=== PATIENT | female | born 1965 | race Caucasian/White ===

== ENCOUNTER 2017-02-21 22:43 | Inpatient (IN) | payer OTHER ==
[~2017-02-21] VITALS: Ht 154.9 cm; Wt 73.0 kg
[~2017-02-21 22:43] MED LIST: ACET1TAB40 PO; AMLO-145 PO; ATOR20TA38 PO; BACTDS PO; FOLI-49 PO; KEN1O TOP; LACT20SO2 PO; LANT3I SC; LORA1TAB PO; METF1000 PO; NOVO3I SC; PALI6TAB6 PO; TRAM50TA2 PO
[2017-02-22] MEDS ORDERED: SOD CHLORIDE 0.9% 500 ML IV STA (01:19)
--- NOTE | 2017-02-22 01:43 | RADRPT ---
PROCEDURE: CHEST - 1 VIEW CLINICAL INDICATION: 51-year-old female with altered mental status. TECHNIQUE: A single frontal AP upright portable view of the chest was performed. The images were reviewed on a PACS workstation. COMPARISON: Chest x-ray April 01, 2016 FINDINGS: The cardiomediastinal silhouette is within normal limits without significant interval change. There is a shallow inspiration. There is minimal bibasilar subsegmental atelectasis. There is no eviden ce for an infiltrate. There is no evidence for congestive heart failure. There is no evidence for p neumothorax. The osseous structures are intact. IMPRESSION: Shallow inspiration with minimal bibasilar subsegmental atelectasis. .El Vanegas MD, MD Date Time Electronically viewed and signed by .El Vanegas MD, on 02/22/2017 01:42 .M/
[2017-02-22 01:57] LABS: ADD SCAN DIFF NO
[2017-02-22 02:00] LABS: ABNORMAL IP MESSAGE 1; BASOPHILS % 0.2 % (0.0-2.0); EOSINOPHILS % 0.5 % (0.0-7.0); HEMATOCRIT 30.4 % (37.0-47.0); HEMOGLOBIN 9.7 g/dl (12.0-16.0); LYMPHOCYTES # 0.7 10^3/ul (0.8-2.9); LYMPHOCYTES % 15.6 % (15.0-51.0); MEAN CORPUSCULAR HEMOGLOBIN 28.8 pg (29.0-33.0); MEAN CORPUSCULAR HGB CONC 31.9 g/dl (32.0-37.0); MEAN CORPUSCULAR VOLUME 90.2 fl (82.0-101.0); MEAN PLATELET VOLUME 12.2 fl (7.4-10.4); MONOCYTE # 0.4 10^3/ul (0.3-0.9); MONOCYTES % 9.6 % (0.0-11.0); NEUTROPHIL # 3.2 10^3/ul (1.6-7.5); NEUTROPHILS % 73.6 % (39.0-77.0); PLATELET COUNT 52 10^3/UL (140-415); RED BLOOD COUNT 3.37 10^6/ul (4.20-5.40); RED CELL DISTRIBUTION WIDTH 15.9 % (11.5-14.5); WHITE BLOOD COUNT 4.4 10^3/ul (4.8-10.8)
[2017-02-22 02:22] LABS: ALANINE AMINOTRANSFERASE 42 IU/L (13-69); ALBUMIN 4.2 g/dl (3.3-4.9); ALBUMIN/GLOBULIN RATIO 1.55; ALKALINE PHOSPHATASE 109 IU/L (42-121); ANION GAP 14 (8-16); ASPARTATE AMINO TRANSFERASE 34 IU/L (15-46); BLOOD UREA NITROGEN 18 mg/dl (7-20); CALCIUM 9.5 mg/dl (8.4-10.2); CARBON DIOXIDE 20 mmol/L (21-31); CHLORIDE 113 mmol/L (97-110); CREATININE 0.69 mg/dl (0.44-1.00); GLUCOSE 205 mg/dl (70-220); SODIUM 143 mmol/L (135-144); TOTAL PROTEIN 6.9 g/dl (6.1-8.1)
[2017-02-22 02:23] LABS: ACETAMINOPHEN < 10.0 ug/ml (10.0-30.0); ETHANOL < 10.0 mg/dl; SALICYLATE < 1.0 mg/dl (5.0-30.0)
[2017-02-22] MEDS: morphine 2 MG INJ IV PRN ×2 (02:23→07:44)
[2017-02-22 02:33] LABS: TROPONIN-I 0.012 ng/ml (0.00-0.12)
--- NOTE | 2017-02-22 03:37 | ERA ---
ER Documentation Chief Complaint Date/Time DATE: 02/22/17 TIME: 03:35 Chief Complaint ALOC since today, hx of cirrhosis HPI This is a 51-year-old female comes on dialysis since today. Patient has history of hepatic encephalopathy. Profound to become more altered today. No fevers no chills. No other current issues. ROS All systems reviewed and are negative except as per history of present illness. Medications Home Meds Active Scripts Lactulose* (Lactulose*) 20 Gm/30 Ml Solution, 20 GM PO BID, #120 ML Prov:AGA ALTMAN NP 05/28/16 Tramadol HCl (Tramadol HCl) 50 Mg Tablet, 50 MG PO Q12 Y for PAIN, #20 TAB Prov:AGA ALTMAN NP 05/28/16 Acetaminophen-Codeine* (Acetaminophen-Cod #3*) 300-30 Mg Tab, 1 TAB PO Q4H Y for PAIN, #12 TAB Prov:CUONG SEGURA MD 04/01/16 Sulfamethoxazole-Trimethoprim* (Bactrim* DS) 800-160 Mg Tab, 1 TAB PO BID, #14 TAB Prov:ADRIANE HUTSON MD 11/11/15 Triamcinolone Acetonide* (Kenalog*) 0.1%-15GM Oint, 1 APPLIC TOP TID, #1 EA Prov:ADRIANE HUTSON MD 11/11/15 Insulin Aspart* (Novolog Insulin Pen*) 100 Unit/Ml Soln, 3 UNIT SC WITH MEALS for 30 Days Prov:DEMETRIA ZAVALA 11/01/15 Insulin Glargine* (Lantus*) 100 Unit/Ml Soln, 10 UNIT SC QHS, #30 Prov:DEMETRIA ZAVALA 11/01/15 Reported Medications Paliperidone (Paliperidone ER) 6 Mg Tab.er.24, 6 MG PO, TAB 10/31/15 Amlodipine Besylate* (Amlodipine Besylate*) 5 Mg Tablet, 5 MG PO DAILY, #30 TAB 10/31/15 Folic Acid* (Folic Acid*) 1 Mg Tablet, 1 MG PO DAILY, TAB 10/31/15 Metformin Hcl* (Metformin Hcl*) 1,000 Mg Tablet, 1000 MG PO AC BREAKFAST LUNCH, #30 TAB 10/31/15 Lorazepam* (Lorazepam*) 1 Mg Tablet, 2 MG PO HS Y for ANXIETY, #30 TAB 10/31/15 Atorvastatin Calcium* (Atorvastatin Calcium*) 20 Mg Tablet, 20 MG PO QHS, #30 TAB 10/31/15 Allergies Allergies: Coded Allergies: diphenhydramine HCl (Verified Allergy, Unknown, "MAKES ME CRAZY", 10/30/15) PMhx/Soc History of Surgery: No ( x 1) Anesthesia Reaction: No Hx Neurological Disorder: Yes Hx Respiratory Disorders: No Hx Cardiac Disorders: Yes (hypertension) Hx Psychiatric Problems: Yes (bipolar,post traumatic stress syndrome) Hx Miscellaneous Medical Probl: Yes (liver cirrhosis) Hx Alcohol Use: Yes (stop 2 yrs ago) Hx Substance Use: No Hx Tobacco Use: Yes (stop 2 yrs ago) Smoking Status: Former smoker Physical Exam Vitals Vital Signs Date Time Temp Pulse Resp B/P Pulse Ox O2 Delivery O2 Flow Rate FiO2 02/22/17 01:53 98.4 99 20 172/92 98 Room Air 02/22/17 01:42 Nasal Cannula 2 02/21/17 23:09 100.3 119 20 177/86 98 Physical Exam Const: [] Head: Atraumatic Eyes: Normal Conjunctiva ENT: Normal External Ears, Nose and Mouth. Neck: Full range of motion..~ No meningismus. Resp: Clear to auscultation bilaterally Cardio: Regular rate and rhythm, no murmurs Abd: Soft, non tender, non distended. Normal bowel sounds Skin: No petechiae or rashes Back: No midline or flank tenderness Ext: No cyanosis, or edema Neur: Awake and alert Psych: Normal Mood and Affect Result Diagram: 02/22/1712902/22/17 013 Results 24 hrs Laboratory Tests Test 02/22/17 01:30 White Blood Count 4.410^3/ul Red Blood Count 3.3710^6/ul Hemoglobin 9.7g/dl Hematocrit 30.4% Mean Corpuscular Volume 90.2fl Mean Corpuscular Hemoglobin 28.8pg Mean Corpuscular Hemoglobin Concent 31.9g/dl Red Cell Distribution Width 15.9% Platelet Count 5210^3/UL Mean Platelet Volume 12.2fl Neutrophils % 73.6% Lymphocytes % 15.6% Monocytes % 9.6% Eosinophils % 0.5% Basophils % 0.2% Nucleated Red Blood Cells % 0.0/100WBC Neutrophils # 3.210^3/ul Lymphocytes # 0.710^3/ul Monocytes # 0.410^3/ul Eosinophils # 0.010^3/ul Basophils # 0.010^3/ul Nucleated Red Blood Cells # 0.010^3/ul Sodium Level 143mmol/L Potassium Level 4.0mmol/L Chloride Level 113mmol/L Carbon Dioxide Level 20mmol/L Anion Gap 14 Blood Urea Nitrogen 18mg/dl Creatinine 0.69mg/dl Glucose Level 205mg/dl Calcium Level 9.5mg/dl Total Bilirubin 1.0mg/dl Direct Bilirubin 0.00mg/dl Indirect Bilirubin 1.0mg/dl Aspartate Amino Transf (AST/SGOT) 34IU/L Alanine Aminotransferase (ALT/SGPT) 42IU/L Alkaline Phosphatase 109IU/L Ammonia 97umol/l Troponin I 0.012ng/ml Total Protein 6.9g/dl Albumin 4.2g/dl Globulin 2.70g/dl Albumin/Globulin Ratio 1.55 Salicylates Level < 1.0mg/dl Acetaminophen Level < 10.0ug/ml Ethyl Alcohol Level < 10.0mg/dl Current Medications Medications (Trade) Dose Ordered Sig/Donnell Route PRN Reason Start Time Stop Time Status Last Admin Dose Admin Sodium Chloride (NS) 500 ml @ 500 mls/hr Q1H STAT IV 02/22/17 01:19 02/22/17 02:18 DC 02/22/17 01:37 Morphine Sulfate (morphine) 2 mg Q4 PRN IV PAIN LEVEL 8-10 02/22/17 02:30 02/22/17 02:23 Procedures/MDM Medical decision-making: Patient has what looks to be acute hepatic encephalopathy. Patient will be admitted to hospitalist on-call for EKG: Rate/Rhythm: Normal Sinus Rhythm QRS, ST, T-waves: No changes consistent w/ acute ischemia Impression: No evidence of ischemia or arrhythmia Chest X-ray 1V Interpreted by me: Soft Tissue: No acute abnormalities Bones: No acute abnormalities Mediastinum/Cardiac Silhouette/Lungs: [No acute abnormalities] Departure Diagnosis: Primary Impression: Altered level of consciousness Additional Impressions: Altered mental status Qualified Code: R41.82 - Altered mental status, unspecified altered mental status type Noncompliance with medication regimen Hepatic encephalopathy Condition: Serious KAELYN QUINTANILLA Feb 22, 2017 03:37
[2017-02-22 03:48] LABS: PLATELET ESTIMATE PLT APPEAR DECREASED
[2017-02-22 03:59] LABS: ADD UMIC YES; UR ASCORBIC ACID NEGATIVE (NEGATIVE); UR BILIRUBIN (Dip) NEGATIVE (NEGATIVE); UR BLOOD (Dip) NEGATIVE (NEGATIVE); UR CLARITY CLEAR (CLEAR); UR COLOR YELLOW (YELLOW); UR GLUCOSE (Dip) 1+ mg/dL (NEGATIVE); UR KETONES (Dip) 1+ mg/dL (NEGATIVE); UR LEUKOCYTE ESTERASE (Dip) TRACE Leu/ul (NEGATIVE); UR NITRITE (Dip) NEGATIVE (NEGATIVE); UR RBC 0 /HPF (0-5); UR TOTAL PROTEIN (Dip) 1+ mg/dl (NEGATIVE); UR UROBILINOGEN (Dip) NEGATIVE (NEGATIVE)
[2017-02-22 04:10] LABS: BARBITURATES Negative (NEGATIVE); BENZODIAZEPINES Negative (NEGATIVE); CANNABINOIDS Negative (NEGATIVE); COCAINE Negative (NEGATIVE); OPIATES Positive (NEGATIVE)
[2017-02-22] MEDS: LACTULOSE 30ML CUP PO SCH ×4 (04:13→23:30)
[2017-02-22 08:37] VITALS: TEMP 98.7
[2017-02-22] MEDS ORDERED: INSU100C SQ (10:12)
[2017-02-22] MEDS ORDERED: BENA20TA48 PO (10:13)
[2017-02-22] MEDS ORDERED: AMLO-147 PO (10:13)
[2017-02-22] MEDS ORDERED: GABA300C16 PO (10:14)
[2017-02-22] MEDS ORDERED: LANT3I SC (10:15)
[2017-02-22] MEDS ORDERED: METF1000 PO (10:16)
[2017-02-22 10:59] VITALS: Ht 154.9 cm; Wt 73.0 kg
[2017-02-22 11:08] VITALS: BP 177/80; PULSE 102; RESP 18
[2017-02-22] MEDS: GABAPENTIN 300 MG CAP PO SCH ×2 (12:58→20:32)
[2017-02-22] MEDS: FOLIC ACID 1 MG TAB PO SCH (12:59)
[2017-02-22] MEDS ORDERED: GLUCOSE GEL 15 GRAM TUBE PO PRN ×2 (13:00)
[2017-02-22] MEDS ORDERED: GLUCAGON 1 MG INJ IM PRN (13:00)
[2017-02-22] MEDS ORDERED: DEXTROSE 50% 50 ML SYRINGE IV PRN ×2 (13:00)
[2017-02-22] MEDS ORDERED: GLUCOSE GEL 15 GRAM TUBE BUCCAL PRN (13:00)
[2017-02-22] MEDS: BENAZEPRIL 20 MG TAB PO SCH (13:02)
[2017-02-22] MEDS: AMLODIPINE 10 MG TAB PO SCH (13:02)
[2017-02-22] MEDS: INSULIN ASPART [NOVOLOG] 3 ML PEN SC SCH ×4 (13:15→20:33)
[2017-02-22] MEDS ORDERED: hydrALAzine 20 MG INJ IV PRN (14:00)
[2017-02-22 14:02] VITALS: BP 172/78; PULSE 106
[2017-02-22] MEDS: KETOROLAC 15 MG INJ IV PRN (14:05)
[2017-02-22 14:38] VITALS: BP 150/70; PULSE 102
[2017-02-22] MEDS: ACETAMINOPHEN 500 MG TAB PO PRN (15:55)
[2017-02-22] MEDS: metFORMIN 500 MG TAB PO SCH (17:32)
--- NOTE | 2017-02-22 19:49 | HP ---
DATE OF ADMISSION: 02/22/2017 CHIEF COMPLAINT: Altered level of consciousness in patient with history of liver cirrhosis. HISTORY OF PRESENT ILLNESS: The patient is a 51-year-old female with past medical history positive for diabetes, hypertension, hyperlipidemia, end-stage liver cirrhosis due to alcohol abuse. Patient noted to have altered mental status and was brought to the emergency room by her son. On evaluatio n in the emergency room, patient found to have elevated ammonia and was given 1 dose of lactulose. The patient also underwent chest x-ray which reveals shallow inspiration with minimal bibasilar subs egmental atelectasis. Patient denies any fever or chills. Denies any nausea, vomiting. Denies gunner st pain, denies shortness of breath. Patient will be admitted for further evaluation and management . PAST MEDICAL HISTORY: Positive for history of hypertension, diabetes, dyslipidemia and alcoholic li dao cirrhosis. PAST SURGICAL HISTORY: Status post . SOCIAL HISTORY: The patient used to smoke a pack of cigarettes per day, used to drink vodka. The p atient quit 3 years ago. FAMILY HISTORY: Noncontributory. ALLERGIES: BENADRYL. HOME MEDICATIONS: Include: 1. Lactulose. 2. Tramadol. 3. [place]. 4. Lantus 10 units subcu at bedtime. 5. NovoLog 3 units with meals. 6. Amlodipine. 7. Folic acid. 8. Metformin. 9. Ativan. 10. Atorvastatin. REVIEW OF SYSTEMS: A 12-point review of systems is negative unless as mentioned in the HPI. PHYSICAL ASSESSMENT: GENERAL: Well-developed, obese female currently is awake, alert. VITAL SIGNS: Temperature 98.7, pulse is 102, blood pressure 177/80, respiratory rate 18, oxygen sat uration 98% on room air. HEENT: Head is atraumatic, normocephalic. Pupils equal, round, reactive to light and accommodation . Oral mucosa is pink and moist. NECK: Supple, no cervical lymphadenopathy, no thyromegaly. CHEST: Lungs clear bilaterally. There are no rhonchi, wheezes, rales noted. CARDIOVASCULAR: Normal S1, S2. No murmurs, gallops, clicks, rubs noted. The patient is slightly tachycardic. ABDOMEN: Protuberant, soft, nontender, nondistended. Bowel sounds present. No guarding, no reboun d tenderness. EXTREMITIES: No edema, clubbing, cyanosis. Pulses equal bilaterally 2+. SKIN: There is no rash, petechiae noted. NEUROLOGIC: Patient is alert to name and situation, otherwise confused, moves all extremities. LABORATORY DATA: On admission, CBC: White blood cells 4.4, hemoglobin 9.7, hematocrit 30.4, platel ets 52. Chemistry: Sodium is 143, potassium 4.0, chloride 115, carbon dioxide 20, anion gap 14, BU N is 18, creatinine 0.69,glucose 205. AST 34, ALT 42, alkaline phosphatase 109, albumin is 4.2. To xicology screen is positive only for opiates, negative for other tests substances. Urinalysis with trace leukocyte esterase. ASSESSMENT AND PLAN: 1. Hepatic encephalopathy. Continue lactulose. Monitor ammonia level. Monitor neurological statu s as altered level of consciousness secondary to hepatic encephalopathy. 2. Alcoholic liver cirrhosis. 3. Diabetes mellitus. 4. Hyperlipidemia. 5. Hypertension. We will resume patient's home antihypertensive medication. Start hydralazine p.r .n. for systolic blood pressure above 170. 6. Diabetes mellitus type 2. We will continue Lantus and NovoLog premeal as well as NovoLog per mo derate algorithm sliding scale. Continue metformin. 7. Noncompliance with medication regimen. 8. We will continue Protonix for peptic ulcer disease prophylaxis. 9. Thrombocytopenia, most likely due to liver cirrhosis. Continue to monitor. Further recommendat ions based on clinical course. Plan of care discussed with Dr. Dickson. Dictated By: DEMETRIA ZAVALA VEST MAKER for CHERYL DICKSON MD, SR/NTS Conf#: [id number] DID#: [id number]
[2017-02-22 20:19] VITALS: BP 153/72; RESP 18
[2017-02-22] MEDS: ATORVASTATIN 20 MG TAB PO SCH (20:32)
[2017-02-22] MEDS: INSULIN GLARGINE [LANtus] 3 ML PEN SC SCH (20:34)
[2017-02-22] MEDS: LORAZEPAM 1 MG TAB PO PRN (20:37)
[2017-02-23] MEDS: KETOROLAC 15 MG INJ IV PRN ×4 (02:18→23:30)
[2017-02-23] MEDS: ACCU-CHEK XX SCH (02:19)
[2017-02-23 05:49] LABS: ADD SCAN DIFF NO
[2017-02-23 05:53] LABS: ABNORMAL IP MESSAGE 1; BASOPHILS % 0.6 % (0.0-2.0); EOSINOPHILS # 0.1 10^3/ul (0.0-0.5); HEMATOCRIT 28.1 % (37.0-47.0); HEMOGLOBIN 8.9 g/dl (12.0-16.0); LYMPHOCYTES # 1.2 10^3/ul (0.8-2.9); LYMPHOCYTES % 22.3 % (15.0-51.0); MEAN CORPUSCULAR HGB CONC 31.7 g/dl (32.0-37.0); MEAN CORPUSCULAR VOLUME 91.5 fl (82.0-101.0); MEAN PLATELET VOLUME 12.4 fl (7.4-10.4); MONOCYTE # 0.6 10^3/ul (0.3-0.9); MONOCYTES % 11.3 % (0.0-11.0); NEUTROPHIL # 3.4 10^3/ul (1.6-7.5); NEUTROPHILS % 63.6 % (39.0-77.0); PLATELET COUNT 54 10^3/UL (140-415); RED BLOOD COUNT 3.07 10^6/ul (4.20-5.40); RED CELL DISTRIBUTION WIDTH 15.9 % (11.5-14.5); WHITE BLOOD COUNT 5.4 10^3/ul (4.8-10.8)
[2017-02-23] MEDS: LACTULOSE 30ML CUP PO SCH ×5 (06:01→23:59)
[2017-02-23] MEDS: PANTOPRAZOLE (EC) 40 MG TAB PO SCH (06:01)
[2017-02-23 06:59] LABS: CALCIUM 8.8 mg/dl (8.4-10.2); CREATININE 0.64 mg/dl (0.44-1.00); POTASSIUM 3.1 mmol/L (3.5-5.1)
[2017-02-23] MEDS: INSULIN ASPART [NOVOLOG] 3 ML PEN SC SCH ×7 (08:00→21:00)
[2017-02-23] MEDS: metFORMIN 500 MG TAB PO SCH ×2 (08:45→17:17)
[2017-02-23] MEDS: GABAPENTIN 300 MG CAP PO SCH ×3 (08:47→20:54)
[2017-02-23] MEDS: AMLODIPINE 10 MG TAB PO SCH (08:47)
[2017-02-23] MEDS: FOLIC ACID 1 MG TAB PO SCH (08:47)
[2017-02-23] MEDS: BENAZEPRIL 20 MG TAB PO SCH (08:48)
[2017-02-23] MEDS: ACETAMINOPHEN 500 MG TAB PO PRN (13:58)
--- NOTE | 2017-02-23 18:32 | PN ---
Date/Time of Note Date/Time of Note DATE: 02/23/17 TIME: 18:28 Assessment/Plan VTE Prophylaxis VTE Prophylaxis Intervention: contraindicated VTE Contraindication Reason: thrombocytopenia Lines/Catheters [facility] Assessment/Plan Chief Complaint/Hosp Course Patient was some improvement in neurological status, slightly decreased ammonia level. ASSESSMENT AND PLAN: 1. Hepatic encephalopathy. Continue lactulose. Monitor ammonia level. Monitor neurological status as altered level of consciousness secondary to hepatic encephalopathy. 2. Alcoholic liver cirrhosis. 3. Diabetes mellitus. 4. Hyperlipidemia. 5. Hypertension. We will resume patient's home antihypertensive medication. Start hydralazine p.r.n. for systolic blood pressure above 170. 6. Diabetes mellitus type 2. We will continue Lantus and NovoLog premeal as well as NovoLog per moderate algorithm sliding scale. Continue metformin. 7. Noncompliance with medication regimen. 8. Thrombocytopenia, most likely due to liver cirrhosis. 9. Hypokalemia, potassium replaced, continue to monitor electrolytes. Further recommendations based on clinical course. Plan of care discussed with Dr. Dickson. Problems: Exam/Review of Systems Vital Signs Vitals Vital Signs Date Time Temp Pulse Resp B/P Pulse Ox O2 Delivery O2 Flow Rate FiO2 02/22/17 20:19 99.3 94 18 153/72 95 02/22/17 11:08 Room Air 02/22/17 01:42 2 Intake and Output 02/22/17 02/22/17 02/23/17 15:00 23:00 07:00 Intake Total 600 ml 550 ml Balance 600 ml 550 ml Exam Constitutional: alert, obese Psych: confusion Head: atraumatic Neck: supple Respiratory: normal air movement Cardiovascular: nl pulses Gastrointestinal: non-tender, soft Extremities: edema, normal pulses Neurological: confused Results Result Diagram: 02/23/17 0520 02/23/17 0520 Results 24 hrs Laboratory Tests Test 02/22/17 20:31 02/23/17 01:33 02/23/17 05:20 02/23/17 08:06 Bedside Glucose 180 198 116 White Blood Count 5.4 # Red Blood Count 3.07 L Hemoglobin 8.9 L Hematocrit 28.1 L Mean Corpuscular Volume 91.5 Mean Corpuscular Hemoglobin 29.0 Mean Corpuscular Hemoglobin Concent 31.7 L Red Cell Distribution Width 15.9 H Platelet Count 54 L Mean Platelet Volume 12.4 H Neutrophils % 63.6 Lymphocytes % 22.3 Monocytes % 11.3 H Eosinophils % 2.0 Basophils % 0.6 Nucleated Red Blood Cells % 0.0 Neutrophils # 3.4 Lymphocytes # 1.2 Monocytes # 0.6 Eosinophils # 0.1 Basophils # 0.0 Nucleated Red Blood Cells # 0.0 Sodium Level 144 Potassium Level 3.1 L Chloride Level 115 H Carbon Dioxide Level 19 L Anion Gap 13 Blood Urea Nitrogen 19 Creatinine 0.64 Glucose Level 147 # Calcium Level 8.8 Ammonia 87 H Test 02/23/17 12:25 02/23/17 17:15 Bedside Glucose 79 145 Medications Medications Current Medications Lactulose (Enulose) 20 gm DAILY PO Last administered on 02/23/17 08:45; Admin Dose 20 GM; Start 02/22/17 at 04:00 Acetaminophen (Tylenol Tab) 500 mg Q6H PRN PO PAIN AND OR ELEVATED TEMP Last administered on 02/23/17 13:58; Admin Dose 500 MG; Start 02/22/17 at 12:00 Ketorolac Tromethamine (Toradol) 15 mg Q6H PRN IV PAIN Last administered on 18:13; Admin Dose 15 MG; Start 02/22/17 at 12:00; Stop 02/25/17 at 11:59 Pantoprazole (Protonix Tab) 40 mg DAILY@06 PO Last administered on 02/23/17 06 :01; Admin Dose 40 MG; Start 02/23/17 at 06:00 Amlodipine Besylate (Norvasc) 10 mg DAILY PO Last administered on 02/23/17 08: 47; Admin Dose 10 MG; Start 02/22/17 at 12:00 Atorvastatin Calcium (Lipitor) 20 mg HS PO Last administered on 02/22/17 20:32 ; Admin Dose 20 MG; Start 02/22/17 at 21:00 Benazepril HCl (Lotensin) 20 mg DAILY PO Last administered on 02/23/17 08:48; Admin Dose 20 MG; Start 02/22/17 at 12:00 Folic Acid (Folic Acid) 1 mg DAILY PO Last administered on 02/23/17 08:47; Admin Dose 1 MG; Start 02/22/17 at 12:00 Gabapentin (Neurontin) 300 mg TID PO Last administered on 02/23/17 12:33; Admin Dose 300 MG; Start 02/22/17 at 13:00 Insulin Glargine (Lantus) 38 unit QHS SC Last administered on 02/22/17 20:34; Admin Dose 38 UNIT; Start 02/22/17 at 21:00 Lorazepam (Ativan) 2 mg HS PRN PO Anxiety Last administered on 02/22/17 20:37 ; Admin Dose 2 MG; Start 02/22/17 at 12:00 Diagnostic Test (Pha) (Accu-Chek) 1 ea 02 XX Last administered on 02/23/17 02: 19; Admin Dose 1 EA; Start 02/23/17 at 02:00 Miscellaneous Information 1 ea NOTE XX ; Start 02/22/17 at 13:00 Glucose (Glutose) 15 gm Q15M PRN PO DECREASED GLUCOSE; Start 02/22/17 at 13:00 Glucose (Glutose) 22.5 gm Q15M PRN PO DECREASED GLUCOSE; Start 02/22/17 at 13: 00 Dextrose (D50w Syringe) 25 ml Q15M PRN IV DECREASED GLUCOSE; Start 02/22/17 at 13:00 Dextrose (D50w Syringe) 50 ml Q15M PRN IV DECREASED GLUCOSE; Start 02/22/17 at 13:00 Glucagon (Glucagen) 1 mg Q15M PRN IM DECREASED GLUCOSE; Start 02/22/17 at 13:00 Glucose (Glutose) 15 gm Q15M PRN BUCCAL DECREASED GLUCOSE; Start 02/22/17 at 13 :00 Lactulose (Enulose) 20 gm Q6 PO Last administered on 02/23/17 17:17; Admin Dose 20 GM; Start 02/22/17 at 18:00 Hydralazine HCl (Apresoline) 10 mg Q6H PRN IV SBP>170 Last administered on 02/22 14:05; Admin Dose 10 MG; Start 02/22/17 at 14:00 DEMETRIA ZAVALA Feb 23, 2017 18:32
[2017-02-23] MEDS ORDERED: POTASSIUM CHLORIDE 20 MEQ POWDER FOR ORAL SOLN PO ONE (19:00)
[2017-02-23] MEDS ORDERED: POTASSIUM CHLORIDE 20 MEQ in SOD CHLORIDE 0.9% 100 ML IVPB ONE (19:00)
[2017-02-23 20:48] VITALS: BP 122/60; RESP 16
[2017-02-23] MEDS: INSULIN GLARGINE [LANtus] 3 ML PEN SC SCH (20:53)
[2017-02-23] MEDS: ATORVASTATIN 20 MG TAB PO SCH (20:54)
[2017-02-23] MEDS: LORAZEPAM 1 MG TAB PO PRN (21:00)
[2017-02-24] MEDS: KETOROLAC 15 MG INJ IV PRN ×2 (01:52→20:11)
[2017-02-24] MEDS: ACCU-CHEK XX SCH (02:00)
[2017-02-24] MEDS: PANTOPRAZOLE (EC) 40 MG TAB PO SCH (05:42)
[2017-02-24] MEDS: LACTULOSE 30ML CUP PO SCH ×5 (05:43→23:30)
[2017-02-24 07:53] LABS: ADD SCAN DIFF NO
[2017-02-24 08:00] VITALS: BP 131/62; RESP 19
[2017-02-24 08:01] LABS: ABNORMAL IP MESSAGE 1; BASOPHILS % 0.7 % (0.0-2.0); EOSINOPHILS # 0.2 10^3/ul (0.0-0.5); EOSINOPHILS % 3.6 % (0.0-7.0); HEMATOCRIT 29.6 % (37.0-47.0); LYMPHOCYTES # 1.4 10^3/ul (0.8-2.9); MEAN CORPUSCULAR HEMOGLOBIN 28.2 pg (29.0-33.0); MEAN CORPUSCULAR HGB CONC 30.4 g/dl (32.0-37.0); MEAN CORPUSCULAR VOLUME 92.8 fl (82.0-101.0); MONOCYTE # 0.6 10^3/ul (0.3-0.9); MONOCYTES % 13.6 % (0.0-11.0); NEUTROPHIL # 2.3 10^3/ul (1.6-7.5); NEUTROPHILS % 50.9 % (39.0-77.0); RED BLOOD COUNT 3.19 10^6/ul (4.20-5.40); RED CELL DISTRIBUTION WIDTH 15.9 % (11.5-14.5); WHITE BLOOD COUNT 4.5 10^3/ul (4.8-10.8)
[2017-02-24 08:05] LABS: PLATELET COUNT 67 10^3/UL (140-415)
[2017-02-24] MEDS: metFORMIN 500 MG TAB PO SCH ×2 (08:15→17:10)
[2017-02-24] MEDS: INSULIN ASPART [NOVOLOG] 3 ML PEN SC SCH ×7 (08:22→20:09)
[2017-02-24] MEDS: FOLIC ACID 1 MG TAB PO SCH (09:25)
[2017-02-24] MEDS: AMLODIPINE 10 MG TAB PO SCH (09:25)
[2017-02-24] MEDS: BENAZEPRIL 20 MG TAB PO SCH (09:26)
[2017-02-24] MEDS: GABAPENTIN 300 MG CAP PO SCH ×3 (09:26→20:08)
[2017-02-24 09:53] LABS: CALCIUM 8.6 mg/dl (8.4-10.2); CREATININE 1.01 mg/dl (0.44-1.00); POTASSIUM 3.7 mmol/L (3.5-5.1)
--- NOTE | 2017-02-24 18:31 | PN ---
Date/Time of Note Date/Time of Note DATE: 02/24/17 TIME: 18:26 Assessment/Plan VTE Prophylaxis VTE Prophylaxis Intervention: contraindicated VTE Contraindication Reason: thrombocytopenia Lines/Catheters [facility] Sal[facility] Urinary Cath still in place: No Assessment/Plan Chief Complaint/Hosp Course Patient with elevated ammonia level in a.m., started on rifaximin in addition to lactulose, patient is alert to name otherwise confused, diarrhea secondary to lactulose, continue IV fluids. ASSESSMENT AND PLAN: - Hepatic encephalopathy. Continue lactulose. Monitor ammonia level. Monitor neurological status as altered level of consciousness secondary to hepatic encephalopathy. - Alcoholic liver cirrhosis. - Diabetes mellitus type 2. We will continue Lantus and NovoLog premeal as well as NovoLog per moderate algorithm sliding scale. Continue metformin. - Hypertension. Continue Norvasc and lisinopril. - Hyperlipidemia. - Noncompliance with medication regimen. - Thrombocytopenia, most likely due to liver cirrhosis. Further recommendations based on clinical course. Plan of care discussed with Dr. Dickson. Problems: Exam/Review of Systems Vital Signs Vitals Vital Signs Date Time Temp Pulse Resp B/P Pulse Ox O2 Delivery O2 Flow Rate FiO2 02/24/17 08:00 98.1 75 19 131/62 95 02/22/17 11:08 Room Air 02/22/17 01:42 2 Intake and Output 02/23/17 02/23/17 02/24/17 15:00 23:00 07:00 Intake Total 1320 ml 520 ml Balance 1320 ml 520 ml Exam Constitutional: alert, obese Psych: confusion Head: atraumatic Neck: supple Respiratory: normal air movement Cardiovascular: nl pulses Gastrointestinal: non-tender, soft Extremities: edema, normal pulses Neurological: confused Results Result Diagram: 02/24/17 0542 02/24/17 0542 Results 24 hrs Laboratory Tests Test 02/23/17 20:51 02/24/17 05:42 02/24/17 08:16 02/24/17 12:26 Bedside Glucose 122 199 175 White Blood Count 4.5 L Red Blood Count 3.19 L Hemoglobin 9.0 L Hematocrit 29.6 L Mean Corpuscular Volume 92.8 Mean Corpuscular Hemoglobin 28.2 L Mean Corpuscular Hemoglobin Concent 30.4 L Red Cell Distribution Width 15.9 H Platelet Count 67 #L Mean Platelet Volume Neutrophils % 50.9 Lymphocytes % 31.0 Monocytes % 13.6 H Eosinophils % 3.6 Basophils % 0.7 Nucleated Red Blood Cells % 0.0 Neutrophils # 2.3 Lymphocytes # 1.4 Monocytes # 0.6 Eosinophils # 0.2 Basophils # 0.0 Nucleated Red Blood Cells # 0.0 Sodium Level 144 Potassium Level 3.7 Chloride Level 119 H Carbon Dioxide Level 16 L Anion Gap 13 Blood Urea Nitrogen 26 H Creatinine 1.01 H Glucose Level 124 Calcium Level 8.6 Ammonia 266 #H Test 02/24/17 17:12 Bedside Glucose 147 Medications Medications Current Medications Lactulose (Enulose) 20 gm DAILY PO Last administered on 02/24/17 09:25; Admin Dose 20 GM; Start 02/22/17 at 04:00 Acetaminophen (Tylenol Tab) 500 mg Q6H PRN PO PAIN AND OR ELEVATED TEMP Last administered on 02/23/17 13:58; Admin Dose 500 MG; Start 02/22/17 at 12:00 Ketorolac Tromethamine (Toradol) 15 mg Q6H PRN IV PAIN Last administered on 01:52; Admin Dose 15 MG; Start 02/22/17 at 12:00; Stop 02/25/17 at 11:59 Pantoprazole (Protonix Tab) 40 mg DAILY@06 PO Last administered on 02/24/17 05 :42; Admin Dose 40 MG; Start 02/23/17 at 06:00 Amlodipine Besylate (Norvasc) 10 mg DAILY PO Last administered on 02/24/17 09: 25; Admin Dose 10 MG; Start 02/22/17 at 12:00 Atorvastatin Calcium (Lipitor) 20 mg HS PO Last administered on 02/23/17 20:54 ; Admin Dose 20 MG; Start 02/22/17 at 21:00 Benazepril HCl (Lotensin) 20 mg DAILY PO Last administered on 02/24/17 09:26; Admin Dose 20 MG; Start 02/22/17 at 12:00 Folic Acid (Folic Acid) 1 mg DAILY PO Last administered on 02/24/17 09:25; Admin Dose 1 MG; Start 02/22/17 at 12:00 Gabapentin (Neurontin) 300 mg TID PO Last administered on 02/24/17 12:24; Admin Dose 300 MG; Start 02/22/17 at 13:00 Insulin Glargine (Lantus) 38 unit QHS SC Last administered on 02/23/17 20:53; Admin Dose 38 UNIT; Start 02/22/17 at 21:00 Lorazepam (Ativan) 2 mg HS PRN PO Anxiety Last administered on 02/23/17 21:00 ; Admin Dose 2 MG; Start 02/22/17 at 12:00 Diagnostic Test (Pha) (Accu-Chek) 1 ea 02 XX Last administered on 02/23/17 02: 19; Admin Dose 1 EA; Start 02/23/17 at 02:00 Miscellaneous Information 1 ea NOTE XX ; Start 02/22/17 at 13:00 Glucose (Glutose) 15 gm Q15M PRN PO DECREASED GLUCOSE; Start 02/22/17 at 13:00 Glucose (Glutose) 22.5 gm Q15M PRN PO DECREASED GLUCOSE; Start 02/22/17 at 13: 00 Dextrose (D50w Syringe) 25 ml Q15M PRN IV DECREASED GLUCOSE; Start 02/22/17 at 13:00 Dextrose (D50w Syringe) 50 ml Q15M PRN IV DECREASED GLUCOSE; Start 02/22/17 at 13:00 Glucagon (Glucagen) 1 mg Q15M PRN IM DECREASED GLUCOSE; Start 02/22/17 at 13:00 Glucose (Glutose) 15 gm Q15M PRN BUCCAL DECREASED GLUCOSE; Start 02/22/17 at 13 :00 Lactulose (Enulose) 20 gm Q6 PO Last administered on 02/24/17 17:10; Admin Dose 20 GM; Start 02/22/17 at 18:00 Hydralazine HCl (Apresoline) 10 mg Q6H PRN IV SBP>170 Last administered on 02/22 14:05; Admin Dose 10 MG; Start 02/22/17 at 14:00 Rifaximin (Xifaxan) 550 mg BID PO ; Start 02/24/17 at 21:00 DEMETRIA ZAVALA Feb 24, 2017 18:31
[2017-02-24] MEDS: 1/2 NS + KCL 20 MEQ 1,000 ML IV SCH (19:42)
[2017-02-24] MEDS: RIFAXIMIN 550 MG TAB PO SCH (20:08)
[2017-02-24] MEDS: ATORVASTATIN 20 MG TAB PO SCH (20:08)
[2017-02-24] MEDS: INSULIN GLARGINE [LANtus] 3 ML PEN SC SCH (20:10)
[2017-02-24 20:45] VITALS: BP 118/64; RESP 18
[2017-02-24] MEDS: LORAZEPAM 1 MG TAB PO PRN (23:30)
[2017-02-25] MEDS: ACCU-CHEK XX SCH (01:25)
[2017-02-25] MEDS: KETOROLAC 15 MG INJ IV PRN (03:58)
[2017-02-25] MEDS: LACTULOSE 30ML CUP PO SCH ×4 (05:13→18:06)
[2017-02-25] MEDS: PANTOPRAZOLE (EC) 40 MG TAB PO SCH (05:13)
[2017-02-25 06:08] LABS: ALBUMIN 3.4 g/dl (3.3-4.9); ALBUMIN/GLOBULIN RATIO 1.21; BILIRUBIN,INDIRECT 0.6 mg/dl (0-1.1); BILIRUBIN,TOTAL 0.6 mg/dl (0.2-1.3); CALCIUM 9.1 mg/dl (8.4-10.2); CREATININE 0.83 mg/dl (0.44-1.00); POTASSIUM 3.9 mmol/L (3.5-5.1); TOTAL PROTEIN 6.2 g/dl (6.1-8.1)
[2017-02-25 08:00] VITALS: BP 127/67; RESP 20
[2017-02-25] MEDS: INSULIN ASPART [NOVOLOG] 3 ML PEN SC SCH ×7 (08:00→21:00)
[2017-02-25] MEDS: RIFAXIMIN 550 MG TAB PO SCH ×2 (08:50→21:08)
[2017-02-25] MEDS: metFORMIN 500 MG TAB PO SCH ×2 (08:51→18:05)
[2017-02-25] MEDS: GABAPENTIN 300 MG CAP PO SCH ×3 (08:51→21:08)
[2017-02-25] MEDS: FOLIC ACID 1 MG TAB PO SCH (08:52)
[2017-02-25] MEDS: BENAZEPRIL 20 MG TAB PO SCH (08:52)
[2017-02-25] MEDS: AMLODIPINE 10 MG TAB PO SCH (08:53)
[2017-02-25] MEDS: 1/2 NS + KCL 20 MEQ 1,000 ML IV SCH (08:57)
--- NOTE | 2017-02-25 18:07 | PN ---
Date/Time of Note Date/Time of Note DATE: 02/25/17 TIME: 18:04 Assessment/Plan Lines/Catheters IV C[facility]ter Type (from [facility] Peripheral IV Urinary Cath still in place: No Assessment/Plan Assessment/Plan - Hepatic encephalopathy. Continue lactulose. Monitor ammonia level. Monitor neurological status as altered level of consciousness secondary to hepatic encephalopathy. - Alcoholic liver cirrhosis. - Diabetes mellitus type 2. We will continue Lantus and NovoLog premeal as well as NovoLog per moderate algorithm sliding scale. Continue metformin. - Hypertension. Continue Norvasc and lisinopril. - Hyperlipidemia. - Noncompliance with medication regimen. - Thrombocytopenia, most likely due to liver cirrhosis. Further recommendations based on clinical course. Plan of care discussed with Dr. Dickson. Subjective 24 Hr Interval Summary Cardiovascular: no complaints Gastrointestinal: no complaints Genitourinary: no complaints Musculoskeletal: no complaints Exam/Review of Systems Vital Signs Vitals Vital Signs Date Time Temp Pulse Resp B/P Pulse Ox O2 Delivery O2 Flow Rate FiO2 02/25/17 08:00 98.8 72 20 127/67 02/24/17 20:45 97 02/22/17 11:08 Room Air 02/22/17 01:42 2 Intake and Output 02/24/17 02/24/17 02/25/17 15:00 23:00 07:00 Intake Total 320 ml 1510 ml Balance 320 ml 1510 ml Exam Constitutional: alert, well developed Respiratory: clear to auscultation, normal air movement Cardiovascular: nl pulses, regular rate and rhythm Gastrointestinal: non-tender, soft Results Result Diagram: 02/24/17 0542 02/25/17 0415 Results 24 hrs Laboratory Tests Test 02/24/17 20:07 02/25/17 04:15 02/25/17 07:43 02/25/17 11:29 Bedside Glucose 121 108 243 H Sodium Level 147 H Potassium Level 3.9 Chloride Level 124 H Carbon Dioxide Level 12 L Anion Gap 15 Blood Urea Nitrogen 26 H Creatinine 0.83 Glucose Level 108 Calcium Level 9.1 Total Bilirubin 0.6 Direct Bilirubin 0.00 Indirect Bilirubin 0.6 Aspartate Amino Transf (AST/SGOT) 39 Alanine Aminotransferase (ALT/SGPT) 42 Alkaline Phosphatase 97 Ammonia 117 #H Total Protein 6.2 Albumin 3.4 Globulin 2.80 Albumin/Globulin Ratio 1.21 Test 02/25/17 17:29 Bedside Glucose 96 Medications Medications Current Medications Lactulose (Enulose) 20 gm DAILY PO Last administered on 02/25/17 08:52; Admin Dose 20 GM; Start 02/22/17 at 04:00 Acetaminophen (Tylenol Tab) 500 mg Q6H PRN PO PAIN AND OR ELEVATED TEMP Last administered on 02/23/17 13:58; Admin Dose 500 MG; Start 02/22/17 at 12:00 Pantoprazole (Protonix Tab) 40 mg DAILY@06 PO Last administered on 02/25/17 05 :13; Admin Dose 40 MG; Start 02/23/17 at 06:00 Amlodipine Besylate (Norvasc) 10 mg DAILY PO Last administered on 02/25/17 08: 53; Admin Dose 10 MG; Start 02/22/17 at 12:00 Atorvastatin Calcium (Lipitor) 20 mg HS PO Last administered on 02/24/17 20:08 ; Admin Dose 20 MG; Start 02/22/17 at 21:00 Benazepril HCl (Lotensin) 20 mg DAILY PO Last administered on 02/25/17 08:52; Admin Dose 20 MG; Start 02/22/17 at 12:00 Folic Acid (Folic Acid) 1 mg DAILY PO Last administered on 02/25/17 08:52; Admin Dose 1 MG; Start 02/22/17 at 12:00 Gabapentin (Neurontin) 300 mg TID PO Last administered on 02/25/17 12:20; Admin Dose 300 MG; Start 02/22/17 at 13:00 Insulin Glargine (Lantus) 38 unit QHS SC Last administered on 02/24/17 20:10; Admin Dose 38 UNIT; Start 02/22/17 at 21:00 Lorazepam (Ativan) 2 mg HS PRN PO Anxiety Last administered on 02/24/17 23:30 ; Admin Dose 2 MG; Start 02/22/17 at 12:00 Diagnostic Test (Pha) (Accu-Chek) 1 ea 02 XX Last administered on 02/23/17 02: 19; Admin Dose 1 EA; Start 02/23/17 at 02:00 Miscellaneous Information 1 ea NOTE XX ; Start 02/22/17 at 13:00 Glucose (Glutose) 15 gm Q15M PRN PO DECREASED GLUCOSE; Start 02/22/17 at 13:00 Glucose (Glutose) 22.5 gm Q15M PRN PO DECREASED GLUCOSE; Start 02/22/17 at 13: 00 Dextrose (D50w Syringe) 25 ml Q15M PRN IV DECREASED GLUCOSE; Start 02/22/17 at 13:00 Dextrose (D50w Syringe) 50 ml Q15M PRN IV DECREASED GLUCOSE; Start 02/22/17 at 13:00 Glucagon (Glucagen) 1 mg Q15M PRN IM DECREASED GLUCOSE; Start 02/22/17 at 13:00 Glucose (Glutose) 15 gm Q15M PRN BUCCAL DECREASED GLUCOSE; Start 02/22/17 at 13 :00 Lactulose (Enulose) 20 gm Q6 PO Last administered on 02/25/17 12:20; Admin Dose 20 GM; Start 02/22/17 at 18:00 Hydralazine HCl (Apresoline) 10 mg Q6H PRN IV SBP>170 Last administered on 02/22 14:05; Admin Dose 10 MG; Start 02/22/17 at 14:00 Rifaximin 550 mg 550 mg BID PO Last administered on 02/25/17 08:50; Admin Dose 550 MG; Start 02/24/17 at 21:00 Potassium Chloride/Sodium Chloride (1/2 NS + KCl 20 Meq) 1,000 ml @ 70 mls/hr [id number] IV Last administered on 02/25/17 08:57; Admin Dose 70 MLS/HR; Start at 18:30 SUNG KHAN Feb 25, 2017 18:07
[2017-02-25] MEDS: ATORVASTATIN 20 MG TAB PO SCH (21:08)
[2017-02-25] MEDS: INSULIN GLARGINE [LANtus] 3 ML PEN SC SCH (21:10)
[2017-02-25] MEDS: LORAZEPAM 1 MG TAB PO PRN (21:11)
[2017-02-25 22:55] VITALS: BP 120/68; RESP 18
[2017-02-26] MEDS: LACTULOSE 30ML CUP PO SCH ×5 (00:34→17:50)
[2017-02-26] MEDS: ACCU-CHEK XX SCH (02:00)
[2017-02-26] MEDS: 1/2 NS + KCL 20 MEQ 1,000 ML IV SCH ×3 (03:52→21:03)
[2017-02-26] MEDS: PANTOPRAZOLE (EC) 40 MG TAB PO SCH (05:49)
[2017-02-26 06:22] LABS: ABNORMAL IP MESSAGE 1; BASOPHILS % 0.7 % (0.0-2.0); EOSINOPHILS # 0.2 10^3/ul (0.0-0.5); EOSINOPHILS % 3.7 % (0.0-7.0); HEMATOCRIT 34.6 % (37.0-47.0); HEMOGLOBIN 10.7 g/dl (12.0-16.0); LYMPHOCYTES # 1.3 10^3/ul (0.8-2.9); LYMPHOCYTES % 21.5 % (15.0-51.0); MEAN CORPUSCULAR HEMOGLOBIN 28.2 pg (29.0-33.0); MEAN CORPUSCULAR HGB CONC 30.9 g/dl (32.0-37.0); MEAN CORPUSCULAR VOLUME 91.3 fl (82.0-101.0); MONOCYTE # 0.4 10^3/ul (0.3-0.9); MONOCYTES % 7.2 % (0.0-11.0); NEUTROPHIL # 3.9 10^3/ul (1.6-7.5); NEUTROPHILS % 66.6 % (39.0-77.0); RED BLOOD COUNT 3.79 10^6/ul (4.20-5.40); WHITE BLOOD COUNT 5.9 10^3/ul (4.8-10.8)
[2017-02-26 06:43] LABS: CREATININE 0.73 mg/dl (0.44-1.00); POTASSIUM 3.9 mmol/L (3.5-5.1)
[2017-02-26 06:45] LABS: PLATELET COUNT 54 10^3/UL (140-415)
[2017-02-26 06:47] LABS: ADD SCAN DIFF NO
[2017-02-26] MEDS: INSULIN ASPART [NOVOLOG] 3 ML PEN SC SCH ×8 (07:30→21:00)
[2017-02-26] MEDS: metFORMIN 500 MG TAB PO SCH ×3 (07:59→17:50)
[2017-02-26 08:51] VITALS: BP 140/71; RESP 17
[2017-02-26] MEDS: FOLIC ACID 1 MG TAB PO SCH (09:57)
[2017-02-26] MEDS: GABAPENTIN 300 MG CAP PO SCH ×3 (09:57→20:56)
[2017-02-26] MEDS: RIFAXIMIN 550 MG TAB PO SCH ×2 (09:57→20:56)
[2017-02-26] MEDS: BENAZEPRIL 20 MG TAB PO SCH (09:58)
[2017-02-26] MEDS: AMLODIPINE 10 MG TAB PO SCH (09:58)
--- NOTE | 2017-02-26 17:14 | PN ---
Date/Time of Note Date/Time of Note DATE: 02/26/17 TIME: 17:13 Assessment/Plan VTE Prophylaxis VTE Prophylaxis Intervention: SCD's Lines/Catheters IV C[facility]ter Type (from [facility]): Peripheral IV Urinary Cath still in place: No Assessment/Plan Chief Complaint/Hosp Course Patient refused lactulose today, continues on rifaximin, alert and oriented to name and situation otherwise confused. ASSESSMENT AND PLAN: - Hepatic encephalopathy. Continue lactulose and rifaximin. Monitor ammonia level. Monitor neurological status as altered level of consciousness secondary to hepatic encephalopathy. - Alcoholic liver cirrhosis. - Diabetes mellitus type 2. We will continue Lantus and NovoLog premeal as well as NovoLog per moderate algorithm sliding scale. Continue metformin. - Hypertension. Continue Norvasc and lisinopril. - Hyperlipidemia. - Noncompliance with medication regimen. - Thrombocytopenia, most likely due to liver cirrhosis. Further recommendations based on clinical course. Plan of care discussed with Dr. Dickson. Problems: Exam/Review of Systems Vital Signs Vitals Vital Signs Date Time Temp Pulse Resp B/P Pulse Ox O2 Delivery O2 Flow Rate FiO2 02/26/17 08:51 98.0 94 17 140/71 96 02/22/17 11:08 Room Air Intake and Output 02/25/17 02/25/17 02/26/17 15:00 23:00 07:00 Intake Total 370 ml 400 ml 1550 ml Balance 370 ml 400 ml 1550 ml Exam Constitutional: alert, obese Psych: confusion Head: atraumatic Neck: supple Respiratory: normal air movement Cardiovascular: nl pulses Gastrointestinal: non-tender, soft Extremities: edema, normal pulses Neurological: confused Results Result Diagram: 02/26/17 0445 02/26/17 0540 Results 24 hrs Laboratory Tests Test 02/25/17 17:29 02/25/17 21:05 02/26/17 04:45 02/26/17 05:40 Bedside Glucose 96 115 White Blood Count 5.9 # Red Blood Count 3.79 L Hemoglobin 10.7 L Hematocrit 34.6 L Mean Corpuscular Volume 91.3 Mean Corpuscular Hemoglobin 28.2 L Mean Corpuscular Hemoglobin Concent 30.9 L Red Cell Distribution Width 16.0 H Platelet Count 54 L Mean Platelet Volume Neutrophils % 66.6 Lymphocytes % 21.5 Monocytes % 7.2 Eosinophils % 3.7 Basophils % 0.7 Nucleated Red Blood Cells % 0.0 Neutrophils # 3.9 Lymphocytes # 1.3 Monocytes # 0.4 Eosinophils # 0.2 Basophils # 0.0 Nucleated Red Blood Cells # 0.0 Sodium Level 144 Potassium Level 3.9 Chloride Level 118 H Carbon Dioxide Level 13 L Anion Gap 17 H Blood Urea Nitrogen 20 Creatinine 0.73 Glucose Level 103 Calcium Level 9.0 Ammonia 128 H Test 02/26/17 07:57 02/26/17 12:10 Bedside Glucose 130 171 Medications Medications Current Medications Lactulose (Enulose) 20 gm DAILY PO Last administered on 02/26/17 09:57; Admin Dose 20 GM; Start 02/22/17 at 04:00 Acetaminophen (Tylenol Tab) 500 mg Q6H PRN PO PAIN AND OR ELEVATED TEMP Last administered on 02/23/17 13:58; Admin Dose 500 MG; Start 02/22/17 at 12:00 Pantoprazole (Protonix Tab) 40 mg DAILY@06 PO Last administered on 02/26/17 05 :49; Admin Dose 40 MG; Start 02/23/17 at 06:00 Amlodipine Besylate (Norvasc) 10 mg DAILY PO Last administered on 02/26/17 09: 58; Admin Dose 10 MG; Start 02/22/17 at 12:00 Atorvastatin Calcium (Lipitor) 20 mg HS PO Last administered on 02/25/17 21:08 ; Admin Dose 20 MG; Start 02/22/17 at 21:00 Benazepril HCl (Lotensin) 20 mg DAILY PO Last administered on 02/26/17 09:58; Admin Dose 20 MG; Start 02/22/17 at 12:00 Folic Acid (Folic Acid) 1 mg DAILY PO Last administered on 02/26/17 09:57; Admin Dose 1 MG; Start 02/22/17 at 12:00 Gabapentin (Neurontin) 300 mg TID PO Last administered on 02/26/17 09:57; Admin Dose 300 MG; Start 02/22/17 at 13:00 Insulin Glargine (Lantus) 38 unit QHS SC Last administered on 02/25/17 21:10; Admin Dose 38 UNIT; Start 02/22/17 at 21:00 Lorazepam (Ativan) 2 mg HS PRN PO Anxiety Last administered on 02/25/17 21:11 ; Admin Dose 2 MG; Start 02/22/17 at 12:00 Diagnostic Test (Pha) (Accu-Chek) 1 ea 02 XX Last administered on 02/23/17 02: 19; Admin Dose 1 EA; Start 02/23/17 at 02:00 Miscellaneous Information 1 ea NOTE XX ; Start 02/22/17 at 13:00 Glucose (Glutose) 15 gm Q15M PRN PO DECREASED GLUCOSE; Start 02/22/17 at 13:00 Glucose (Glutose) 22.5 gm Q15M PRN PO DECREASED GLUCOSE; Start 02/22/17 at 13: 00 Dextrose (D50w Syringe) 25 ml Q15M PRN IV DECREASED GLUCOSE; Start 02/22/17 at 13:00 Dextrose (D50w Syringe) 50 ml Q15M PRN IV DECREASED GLUCOSE; Start 02/22/17 at 13:00 Glucagon (Glucagen) 1 mg Q15M PRN IM DECREASED GLUCOSE; Start 02/22/17 at 13:00 Glucose (Glutose) 15 gm Q15M PRN BUCCAL DECREASED GLUCOSE; Start 02/22/17 at 13 :00 Lactulose (Enulose) 20 gm Q6 PO Last administered on 02/26/17 05:49; Admin Dose 20 GM; Start 02/22/17 at 18:00 Hydralazine HCl (Apresoline) 10 mg Q6H PRN IV SBP>170 Last administered on 02/22 14:05; Admin Dose 10 MG; Start 02/22/17 at 14:00 Rifaximin 550 mg 550 mg BID PO Last administered on 02/26/17 09:57; Admin Dose 550 MG; Start 02/24/17 at 21:00 Potassium Chloride/Sodium Chloride (1/2 NS + KCl 20 Meq) 1,000 ml @ 70 mls/hr [id number] IV Last administered on 02/26/17 03:52; Admin Dose 70 MLS/HR; Start at 18:30 DEMETRIA ZAVALA Feb 26, 2017 17:14
[2017-02-26] MEDS: ATORVASTATIN 20 MG TAB PO SCH (20:55)
[2017-02-26] MEDS: LORAZEPAM 1 MG TAB PO PRN (21:03)
[2017-02-26] MEDS: INSULIN GLARGINE [LANtus] 3 ML PEN SC SCH (21:08)
[2017-02-26 23:20] VITALS: BP 113/65; RESP 18
[2017-02-27] MEDS: LACTULOSE 30ML CUP PO SCH ×5 (00:07→17:24)
[2017-02-27] MEDS: ACCU-CHEK XX SCH (02:00)
[2017-02-27] MEDS: PANTOPRAZOLE (EC) 40 MG TAB PO SCH (06:11)
[2017-02-27 07:40] LABS: ABNORMAL IP MESSAGE 1; BASOPHILS % 0.4 % (0.0-2.0); EOSINOPHILS # 0.1 10^3/ul (0.0-0.5); EOSINOPHILS % 1.2 % (0.0-7.0); HEMOGLOBIN 9.9 g/dl (12.0-16.0); LYMPHOCYTES # 0.8 10^3/ul (0.8-2.9); LYMPHOCYTES % 10.4 % (15.0-51.0); MEAN CORPUSCULAR HEMOGLOBIN 28.9 pg (29.0-33.0); MEAN CORPUSCULAR HGB CONC 31.9 g/dl (32.0-37.0); MEAN CORPUSCULAR VOLUME 90.6 fl (82.0-101.0); MONOCYTE # 0.6 10^3/ul (0.3-0.9); MONOCYTES % 8.1 % (0.0-11.0); NEUTROPHILS % 79.5 % (39.0-77.0); RED BLOOD COUNT 3.42 10^6/ul (4.20-5.40); RED CELL DISTRIBUTION WIDTH 15.5 % (11.5-14.5); WHITE BLOOD COUNT 7.5 10^3/ul (4.8-10.8)
[2017-02-27 07:47] LABS: PLATELET COUNT 48 10^3/UL (140-415)
[2017-02-27] MEDS: INSULIN ASPART [NOVOLOG] 3 ML PEN SC SCH ×7 (07:53→21:00)
[2017-02-27 08:00] VITALS: BP 133/74; RESP 18
[2017-02-27 08:10] LABS: CALCIUM 8.3 mg/dl (8.4-10.2); CREATININE 0.57 mg/dl (0.44-1.00); POTASSIUM 3.8 mmol/L (3.5-5.1)
[2017-02-27] MEDS: metFORMIN 500 MG TAB PO SCH ×2 (08:27→17:25)
[2017-02-27] MEDS: GABAPENTIN 300 MG CAP PO SCH ×3 (08:28→21:12)
[2017-02-27] MEDS: RIFAXIMIN 550 MG TAB PO SCH ×2 (08:28→21:12)
[2017-02-27] MEDS: FOLIC ACID 1 MG TAB PO SCH (08:28)
[2017-02-27] MEDS: AMLODIPINE 10 MG TAB PO SCH (08:29)
[2017-02-27] MEDS: BENAZEPRIL 20 MG TAB PO SCH (08:29)
[2017-02-27] MEDS: 1/2 NS + KCL 20 MEQ 1,000 ML IV SCH (17:14)
--- NOTE | 2017-02-27 17:42 | PN ---
Date/Time of Note Date/Time of Note DATE: 02/27/17 TIME: 17:39 Assessment/Plan VTE Prophylaxis VTE Prophylaxis Intervention: other Lines/Catheters IV Catheter Type (from [facility]): Peripheral IV Urinary Cath still in place: No Assessment/Plan Assessment/Plan - Hepatic encephalopathy. Continue lactulose and rifaximin. Monitor ammonia level. Monitor neurological status as altered level of consciousness secondary to hepatic encephalopathy. - Alcoholic liver cirrhosis. - Diabetes mellitus type 2. We will continue Lantus and NovoLog premeal as well as NovoLog per moderate algorithm sliding scale. Continue metformin. - Hypertension. Continue Norvasc and lisinopril. - Hyperlipidemia. - Noncompliance with medication regimen. - Thrombocytopenia, most likely due to liver cirrhosis. Further recommendations based on clinical course. Plan of care discussed with Dr. Dickson. Subjective 24 Hr Interval Summary Free Text/Dictation Afebrile, continues on rifaximin, alert and oriented to name and situation otherwise pleasantly confused.dw staff. ENT: no complaints Respiratory: no complaints Cardiovascular: no complaints Gastrointestinal: no complaints Exam/Review of Systems Vital Signs Vitals Vital Signs Date Time Temp Pulse Resp B/P Pulse Ox O2 Delivery O2 Flow Rate FiO2 02/27/17 08:00 99.0 94 18 133/74 96 Intake and Output 02/26/17 02/26/17 02/27/17 15:00 23:00 07:00 Intake Total 1540 ml 1510 ml Balance 1540 ml 1510 ml Exam Constitutional: alert Respiratory: clear to auscultation, normal air movement Cardiovascular: nl pulses, regular rate and rhythm Gastrointestinal: non-tender, soft Musculoskeletal: nl extremities to inspection Extremities: normal pulses Neurological: nl speech Results Result Diagram: 02/27/17 0546 02/27/17 0546 Results 24 hrs Laboratory Tests Test 02/26/17 21:07 02/27/17 05:46 02/27/17 07:51 02/27/17 11:43 Bedside Glucose 166 165 173 White Blood Count 7.5 # Red Blood Count 3.42 L Hemoglobin 9.9 L Hematocrit 31.0 L Mean Corpuscular Volume 90.6 Mean Corpuscular Hemoglobin 28.9 L Mean Corpuscular Hemoglobin Concent 31.9 L Red Cell Distribution Width 15.5 H Platelet Count 48 L Mean Platelet Volume Neutrophils % 79.5 H Lymphocytes % 10.4 L Monocytes % 8.1 Eosinophils % 1.2 Basophils % 0.4 Nucleated Red Blood Cells % 0.0 Neutrophils # 6.0 Lymphocytes # 0.8 Monocytes # 0.6 Eosinophils # 0.1 Basophils # 0.0 Nucleated Red Blood Cells # 0.0 Sodium Level 143 Potassium Level 3.8 Chloride Level 111 H Carbon Dioxide Level 16 L Anion Gap 20 H Blood Urea Nitrogen 13 Creatinine 0.57 Glucose Level 170 Calcium Level 8.3 L Ammonia 81 H Test 02/27/17 17:20 Bedside Glucose 165 Medications Medications Current Medications Lactulose (Enulose) 20 gm DAILY PO Last administered on 02/27/17 08:28; Admin Dose 20 GM; Start 02/22/17 at 04:00 Acetaminophen (Tylenol Tab) 500 mg Q6H PRN PO PAIN AND OR ELEVATED TEMP Last administered on 02/23/17 13:58; Admin Dose 500 MG; Start 02/22/17 at 12:00 Pantoprazole (Protonix Tab) 40 mg DAILY@06 PO Last administered on 02/27/17 06: 11; Admin Dose 40 MG; Start 02/23/17 at 06:00 Amlodipine Besylate (Norvasc) 10 mg DAILY PO Last administered on 02/27/17 08: 29; Admin Dose 10 MG; Start 02/22/17 at 12:00 Atorvastatin Calcium (Lipitor) 20 mg HS PO Last administered on 02/26/17 20:55 ; Admin Dose 20 MG; Start 02/22/17 at 21:00 Benazepril HCl (Lotensin) 20 mg DAILY PO Last administered on 02/27/17 08:29; Admin Dose 20 MG; Start 02/22/17 at 12:00 Folic Acid (Folic Acid) 1 mg DAILY PO Last administered on 02/27/17 08:28; Admin Dose 1 MG; Start 02/22/17 at 12:00 Gabapentin (Neurontin) 300 mg TID PO Last administered on 02/27/17 16:56; Admin Dose 300 MG; Start 02/22/17 at 13:00 Insulin Glargine (Lantus) 38 unit QHS SC Last administered on 02/26/17 21:08; Admin Dose 38 UNIT; Start 02/22/17 at 21:00 Lorazepam (Ativan) 2 mg HS PRN PO Anxiety Last administered on 02/26/17 21:03 ; Admin Dose 2 MG; Start 02/22/17 at 12:00 Diagnostic Test (Pha) (Accu-Chek) 1 ea 02 XX Last administered on 02/23/17 02: 19; Admin Dose 1 EA; Start 02/23/17 at 02:00 Miscellaneous Information 1 ea NOTE XX ; Start 02/22/17 at 13:00 Glucose (Glutose) 15 gm Q15M PRN PO DECREASED GLUCOSE; Start 02/22/17 at 13:00 Glucose (Glutose) 22.5 gm Q15M PRN PO DECREASED GLUCOSE; Start 02/22/17 at 13: 00 Dextrose (D50w Syringe) 25 ml Q15M PRN IV DECREASED GLUCOSE; Start 02/22/17 at 13:00 Dextrose (D50w Syringe) 50 ml Q15M PRN IV DECREASED GLUCOSE; Start 02/22/17 at 13:00 Glucagon (Glucagen) 1 mg Q15M PRN IM DECREASED GLUCOSE; Start 02/22/17 at 13:00 Glucose (Glutose) 15 gm Q15M PRN BUCCAL DECREASED GLUCOSE; Start 02/22/17 at 13 :00 Lactulose (Enulose) 20 gm Q6 PO Last administered on 02/27/17 17:24; Admin Dose 20 GM; Start 02/22/17 at 18:00 Hydralazine HCl (Apresoline) 10 mg Q6H PRN IV SBP>170 Last administered on 02/22 14:05; Admin Dose 10 MG; Start 02/22/17 at 14:00 Rifaximin 550 mg 550 mg BID PO Last administered on 02/27/17 08:28; Admin Dose 550 MG; Start 02/24/17 at 21:00 Potassium Chloride/Sodium Chloride (1/2 NS + KCl 20 Meq) 1,000 ml @ 70 mls/hr [id number] IV Last administered on 02/27/17 17:14; Admin Dose 70 MLS/HR; Start at 18:30 SUNG KHAN Feb 27, 2017 17:42
[2017-02-27 20:56] VITALS: BP 122/60; RESP 18
[2017-02-27] MEDS: LORAZEPAM 1 MG TAB PO PRN (21:12)
[2017-02-27] MEDS: ATORVASTATIN 20 MG TAB PO SCH (21:12)
[2017-02-27] MEDS: INSULIN GLARGINE [LANtus] 3 ML PEN SC SCH (21:18)
[2017-02-28] MEDS: LACTULOSE 30ML CUP PO SCH ×6 (01:00→23:23)
[2017-02-28] MEDS: ACCU-CHEK XX SCH ×2 (02:00→20:44)
[2017-02-28] MEDS: PANTOPRAZOLE (EC) 40 MG TAB PO SCH (05:48)
[2017-02-28 06:11] LABS: CALCIUM 8.4 mg/dl (8.4-10.2); CREATININE 0.59 mg/dl (0.44-1.00); POTASSIUM 3.5 mmol/L (3.5-5.1)
[2017-02-28 07:29] LABS: ABNORMAL IP MESSAGE 1; HEMATOCRIT 29.4 % (37.0-47.0); HEMOGLOBIN 9.2 g/dl (12.0-16.0); MEAN CORPUSCULAR HEMOGLOBIN 28.3 pg (29.0-33.0); MEAN CORPUSCULAR HGB CONC 31.3 g/dl (32.0-37.0); MEAN CORPUSCULAR VOLUME 90.5 fl (82.0-101.0); PLATELET COUNT 54 10^3/UL (140-415); RED BLOOD COUNT 3.25 10^6/ul (4.20-5.40); RED CELL DISTRIBUTION WIDTH 15.5 % (11.5-14.5)
[2017-02-28 07:37] LABS: ADD SCAN DIFF YES
[2017-02-28] MEDS: INSULIN ASPART [NOVOLOG] 3 ML PEN SC SCH ×7 (07:49→20:44)
[2017-02-28] MEDS: RIFAXIMIN 550 MG TAB PO SCH ×2 (08:03→20:44)
[2017-02-28] MEDS: GABAPENTIN 300 MG CAP PO SCH ×3 (08:03→20:44)
[2017-02-28] MEDS: metFORMIN 500 MG TAB PO SCH ×2 (08:03→17:13)
[2017-02-28] MEDS: BENAZEPRIL 20 MG TAB PO SCH (08:03)
[2017-02-28] MEDS: FOLIC ACID 1 MG TAB PO SCH (08:03)
[2017-02-28] MEDS: AMLODIPINE 10 MG TAB PO SCH (08:03)
[2017-02-28 08:48] VITALS: BP 111/62; RESP 18
[2017-02-28 10:48] LABS: EOSINOPHILS # 0.1 10^3/ul (0.0-0.5); LYMPHOCYTES # 1.3 10^3/ul (0.8-2.9); MONOCYTE # 0.4 10^3/ul (0.3-0.9); NEUTROPHIL # 4.3 10^3/ul (1.6-7.5); PLATELET ESTIMATE PLT APPEAR DECREASED
[2017-02-28] MEDS: 1/2 NS + KCL 20 MEQ 1,000 ML IV SCH ×2 (14:14→22:36)
[2017-02-28 20:36] VITALS: BP 110/61; RESP 18
[2017-02-28] MEDS: ATORVASTATIN 20 MG TAB PO SCH (20:44)
[2017-02-28] MEDS: INSULIN GLARGINE [LANtus] 3 ML PEN SC SCH (20:48)
[2017-02-28] MEDS: LORAZEPAM 1 MG TAB PO PRN (20:48)
[2017-03-01] MEDS: 1/2 NS + KCL 20 MEQ 1,000 ML IV SCH ×2 (05:06→20:21)
[2017-03-01] MEDS: PANTOPRAZOLE (EC) 40 MG TAB PO SCH (05:07)
[2017-03-01] MEDS: LACTULOSE 30ML CUP PO SCH ×4 (05:07→17:20)
[2017-03-01 06:15] LABS: BASOPHILS % 0.6 % (0.0-2.0); EOSINOPHILS # 0.1 10^3/ul (0.0-0.5); EOSINOPHILS % 2.7 % (0.0-7.0); HEMATOCRIT 29.1 % (37.0-47.0); HEMOGLOBIN 9.1 g/dl (12.0-16.0); LYMPHOCYTES # 1.3 10^3/ul (0.8-2.9); MEAN CORPUSCULAR HEMOGLOBIN 28.3 pg (29.0-33.0); MEAN CORPUSCULAR HGB CONC 31.3 g/dl (32.0-37.0); MEAN CORPUSCULAR VOLUME 90.7 fl (82.0-101.0); MONOCYTE # 0.5 10^3/ul (0.3-0.9); MONOCYTES % 9.8 % (0.0-11.0); NEUTROPHIL # 3.3 10^3/ul (1.6-7.5); NEUTROPHILS % 62.5 % (39.0-77.0); PLATELET COUNT 42 10^3/UL (140-415); RED BLOOD COUNT 3.21 10^6/ul (4.20-5.40); RED CELL DISTRIBUTION WIDTH 15.5 % (11.5-14.5); WHITE BLOOD COUNT 5.2 10^3/ul (4.8-10.8)
[2017-03-01 06:38] LABS: CALCIUM 8.6 mg/dl (8.4-10.2); CREATININE 0.64 mg/dl (0.44-1.00); POTASSIUM 4.3 mmol/L (3.5-5.1)
[2017-03-01] MEDS: INSULIN ASPART [NOVOLOG] 3 ML PEN SC SCH ×7 (07:51→21:00)
[2017-03-01 08:35] VITALS: BP 122/68; RESP 18
[2017-03-01] MEDS: GABAPENTIN 300 MG CAP PO SCH ×3 (08:46→21:17)
[2017-03-01] MEDS: FOLIC ACID 1 MG TAB PO SCH (08:47)
[2017-03-01] MEDS: metFORMIN 500 MG TAB PO SCH ×2 (08:47→17:20)
[2017-03-01] MEDS: RIFAXIMIN 550 MG TAB PO SCH ×2 (08:47→21:17)
[2017-03-01] MEDS: AMLODIPINE 10 MG TAB PO SCH (08:48)
[2017-03-01] MEDS: BENAZEPRIL 20 MG TAB PO SCH (08:48)
[2017-03-01] MEDS: ACETAMINOPHEN 500 MG TAB PO PRN ×2 (09:47→17:21)
--- NOTE | 2017-03-01 12:31 | PN ---
Date/Time of Note Date/Time of Note DATE: 03/01/17 TIME: 12:29 Assessment/Plan VTE Prophylaxis VTE Prophylaxis Intervention: SCD's Lines/Catheters IV [facility]ter Type (from [facility]): Peripheral IV Urinary Cath still in place: No Assessment/Plan Chief Complaint/Hosp Course Ammonia level is trending down, patient's mentation is improving, compliant with lactulose per nursing staff. ASSESSMENT AND PLAN: - Hepatic encephalopathy. Continue lactulose and rifaximin. Monitor ammonia level. Monitor neurological status as altered level of consciousness secondary to hepatic encephalopathy. - Alcoholic liver cirrhosis. - Diabetes mellitus type 2. We will continue Lantus and NovoLog premeal as well as NovoLog per moderate algorithm sliding scale. Continue metformin. - Hypertension. Continue Norvasc and lisinopril. - Hyperlipidemia. - Noncompliance with medication regimen. - Thrombocytopenia, most likely due to liver cirrhosis. Further recommendations based on clinical course. Plan of care discussed with Dr. Dickson. Problems: Exam/Review of Systems Vital Signs Vitals Vital Signs Date Time Temp Pulse Resp B/P Pulse Ox O2 Delivery O2 Flow Rate FiO2 03/01/17 08:35 98.7 76 18 122/68 96 Intake and Output 02/28/17 02/28/17 03/01/17 15:00 23:00 07:00 Intake Total 140 ml 960 ml 1450 ml Balance 140 ml 960 ml 1450 ml Exam Constitutional: alert, obese Psych: confusion Head: atraumatic Neck: supple Respiratory: normal air movement Cardiovascular: nl pulses Gastrointestinal: non-tender, soft Extremities: edema, normal pulses Neurological: confused Results Result Diagram: 03/01/17 0535 03/01/17 0535 Results 24 hrs Laboratory Tests Test 02/28/17 17:14 02/28/17 17:30 02/28/17 20:37 03/01/17 05:35 Bedside Glucose 89 75 Ammonia 108 H 88 H White Blood Count 5.2 Red Blood Count 3.21 L Hemoglobin 9.1 L Hematocrit 29.1 L Mean Corpuscular Volume 90.7 Mean Corpuscular Hemoglobin 28.3 L Mean Corpuscular Hemoglobin Concent 31.3 L Red Cell Distribution Width 15.5 H Platelet Count 42 #L Mean Platelet Volume Neutrophils % 62.5 Lymphocytes % 24.0 Monocytes % 9.8 Eosinophils % 2.7 Basophils % 0.6 Nucleated Red Blood Cells % 0.0 Neutrophils # 3.3 Lymphocytes # 1.3 Monocytes # 0.5 Eosinophils # 0.1 Basophils # 0.0 Nucleated Red Blood Cells # 0.0 Sodium Level 145 H Potassium Level 4.3 Chloride Level 115 H Carbon Dioxide Level 17 L Anion Gap 17 H Blood Urea Nitrogen 16 Creatinine 0.64 Glucose Level 90 Calcium Level 8.6 Test 03/01/17 07:50 03/01/17 08:44 03/01/17 12:02 Bedside Glucose 100 107 120 Medications Medications Current Medications Lactulose (Enulose) 20 gm DAILY PO Last administered on 03/01/17 08:45; Admin Dose 20 GM; Start 02/22/17 at 04:00 Acetaminophen (Tylenol Tab) 500 mg Q6H PRN PO PAIN AND OR ELEVATED TEMP Last administered on 03/01/17 09:47; Admin Dose 500 MG; Start 02/22/17 at 12:00 Pantoprazole (Protonix Tab) 40 mg DAILY@06 PO Last administered on 03/01/17 05: 07; Admin Dose 40 MG; Start 02/23/17 at 06:00 Amlodipine Besylate (Norvasc) 10 mg DAILY PO Last administered on 03/01/17 08: 48; Admin Dose 10 MG; Start 02/22/17 at 12:00 Atorvastatin Calcium (Lipitor) 20 mg HS PO Last administered on 02/28/17 20:44 ; Admin Dose 20 MG; Start 02/22/17 at 21:00 Benazepril HCl (Lotensin) 20 mg DAILY PO Last administered on 03/01/17 08:48; Admin Dose 20 MG; Start 02/22/17 at 12:00 Folic Acid (Folic Acid) 1 mg DAILY PO Last administered on 03/01/17 08:47; Admin Dose 1 MG; Start 02/22/17 at 12:00 Gabapentin (Neurontin) 300 mg TID PO Last administered on 03/01/17 12:12; Admin Dose 300 MG; Start 02/22/17 at 13:00 Insulin Glargine (Lantus) 38 unit QHS SC Last administered on 02/28/17 20:48; Admin Dose 38 UNIT; Start 02/22/17 at 21:00 Lorazepam (Ativan) 2 mg HS PRN PO Anxiety Last administered on 02/28/17 20:48 ; Admin Dose 2 MG; Start 02/22/17 at 12:00 Diagnostic Test (Pha) (Accu-Chek) 1 ea 02 XX Last administered on 02/23/17 02: 19; Admin Dose 1 EA; Start 02/23/17 at 02:00 Miscellaneous Information 1 ea NOTE XX ; Start 02/22/17 at 13:00 Glucose (Glutose) 15 gm Q15M PRN PO DECREASED GLUCOSE; Start 02/22/17 at 13:00 Glucose (Glutose) 22.5 gm Q15M PRN PO DECREASED GLUCOSE; Start 02/22/17 at 13: 00 Dextrose (D50w Syringe) 25 ml Q15M PRN IV DECREASED GLUCOSE; Start 02/22/17 at 13:00 Dextrose (D50w Syringe) 50 ml Q15M PRN IV DECREASED GLUCOSE; Start 02/22/17 at 13:00 Glucagon (Glucagen) 1 mg Q15M PRN IM DECREASED GLUCOSE; Start 02/22/17 at 13:00 Glucose (Glutose) 15 gm Q15M PRN BUCCAL DECREASED GLUCOSE; Start 02/22/17 at 13 :00 Lactulose (Enulose) 20 gm Q6 PO Last administered on 03/01/17 12:12; Admin Dose 20 GM; Start 02/22/17 at 18:00 Hydralazine HCl (Apresoline) 10 mg Q6H PRN IV SBP>170 Last administered on 02/22 14:05; Admin Dose 10 MG; Start 02/22/17 at 14:00 Rifaximin 550 mg 550 mg BID PO Last administered on 03/01/17 08:47; Admin Dose 550 MG; Start 02/24/17 at 21:00 Potassium Chloride/Sodium Chloride (1/2 NS + KCl 20 Meq) 1,000 ml @ 70 mls/hr [id number] IV Last administered on 03/01/17 05:06; Admin Dose 70 MLS/HR; Start at 18:30 DEMETRIA ZAVALA Mar 01, 2017 12:31
[2017-03-01 19:46] VITALS: BP 108/55; RESP 20
[2017-03-01] MEDS: LORAZEPAM 1 MG TAB PO PRN (20:28)
[2017-03-01] MEDS: ATORVASTATIN 20 MG TAB PO SCH (21:17)
[2017-03-01] MEDS: INSULIN GLARGINE [LANtus] 3 ML PEN SC SCH (21:18)
[2017-03-02] MEDS: LACTULOSE 30ML CUP PO SCH ×5 (00:24→17:12)
[2017-03-02] MEDS: ACCU-CHEK XX SCH (02:00)
[2017-03-02] MEDS: ACETAMINOPHEN 500 MG TAB PO PRN (02:20)
[2017-03-02] MEDS: PANTOPRAZOLE (EC) 40 MG TAB PO SCH (04:46)
[2017-03-02] MEDS: INSULIN ASPART [NOVOLOG] 3 ML PEN SC SCH ×7 (07:48→21:00)
[2017-03-02 08:00] VITALS: BP 132/73; RESP 20
[2017-03-02] MEDS: RIFAXIMIN 550 MG TAB PO SCH ×2 (08:15→21:10)
[2017-03-02] MEDS: metFORMIN 500 MG TAB PO SCH ×2 (08:15→17:12)
[2017-03-02] MEDS: GABAPENTIN 300 MG CAP PO SCH ×3 (08:15→21:09)
[2017-03-02] MEDS: BENAZEPRIL 20 MG TAB PO SCH (08:15)
[2017-03-02] MEDS: FOLIC ACID 1 MG TAB PO SCH (08:15)
[2017-03-02] MEDS: AMLODIPINE 10 MG TAB PO SCH (08:16)
[2017-03-02 08:18] LABS: ADD SCAN DIFF NO
[2017-03-02 08:25] LABS: ABNORMAL IP MESSAGE 1; BASOPHILS % 0.3 % (0.0-2.0); EOSINOPHILS # 0.1 10^3/ul (0.0-0.5); EOSINOPHILS % 1.3 % (0.0-7.0); HEMATOCRIT 31.1 % (37.0-47.0); LYMPHOCYTES % 13.7 % (15.0-51.0); MEAN CORPUSCULAR HEMOGLOBIN 28.9 pg (29.0-33.0); MEAN CORPUSCULAR HGB CONC 32.2 g/dl (32.0-37.0); MEAN CORPUSCULAR VOLUME 89.9 fl (82.0-101.0); MONOCYTE # 0.7 10^3/ul (0.3-0.9); MONOCYTES % 10.3 % (0.0-11.0); NEUTROPHIL # 5.3 10^3/ul (1.6-7.5); NEUTROPHILS % 74.3 % (39.0-77.0); RED BLOOD COUNT 3.46 10^6/ul (4.20-5.40); RED CELL DISTRIBUTION WIDTH 15.7 % (11.5-14.5); WHITE BLOOD COUNT 7.2 10^3/ul (4.8-10.8)
[2017-03-02 08:31] LABS: PLATELET COUNT 53 10^3/UL (140-415)
--- NOTE | 2017-03-02 09:19 | PN ---
Date/Time of Note Date/Time of Note DATE: 03/02/17 TIME: 09:16 Assessment/Plan VTE Prophylaxis VTE Prophylaxis Intervention: other Lines/Catheters IV Catheter Type (from [facility]): Peripheral IV Urinary Cath still in place: No Assessment/Plan Assessment/Plan - Hepatic encephalopathy. Continue lactulose and rifaximin. Monitor ammonia level. Monitor neurological status as altered level of consciousness secondary to hepatic encephalopathy. - Alcoholic liver cirrhosis. - Diabetes mellitus type 2. We will continue Lantus and NovoLog premeal as well as NovoLog per moderate algorithm sliding scale. Continue metformin. - Hypertension. Continue Norvasc and lisinopril. - Hyperlipidemia. - Noncompliance with medication regimen. - Thrombocytopenia, most likely due to liver cirrhosis. Further recommendations based on clinical course. Plan of care discussed with Dr. Dickson. Subjective 24 Hr Interval Summary Free Text/Dictation up in bed. having breakfast. denies any complaints. dw staff Respiratory: no complaints Cardiovascular: no complaints Exam/Review of Systems Vital Signs Vitals Vital Signs Date Time Temp Pulse Resp B/P Pulse Ox O2 Delivery O2 Flow Rate FiO2 03/01/17 19:46 98.9 78 20 108/55 97 Intake and Output 03/01/17 03/01/17 03/02/17 15:00 23:00 07:00 Intake Total 480 ml 700 ml Balance 480 ml 700 ml Exam Constitutional: alert, well developed Respiratory: clear to auscultation, normal air movement Cardiovascular: nl pulses, regular rate and rhythm Gastrointestinal: non-tender, soft Musculoskeletal: nl extremities to inspection Extremities: normal pulses Neurological: nl speech Results Result Diagram: 03/02/17 0700 03/01/17 0535 Results 24 hrs Laboratory Tests Test 03/01/17 12:02 03/01/17 16:53 03/01/17 21:15 03/02/17 07:00 Bedside Glucose 120 79 71 White Blood Count 7.2 # Red Blood Count 3.46 L Hemoglobin 10.0 L Hematocrit 31.1 L Mean Corpuscular Volume 89.9 Mean Corpuscular Hemoglobin 28.9 L Mean Corpuscular Hemoglobin Concent 32.2 Red Cell Distribution Width 15.7 H Platelet Count 53 #L Mean Platelet Volume Neutrophils % 74.3 Lymphocytes % 13.7 L Monocytes % 10.3 Eosinophils % 1.3 Basophils % 0.3 Nucleated Red Blood Cells % 0.0 Neutrophils # 5.3 Lymphocytes # 1.0 Monocytes # 0.7 Eosinophils # 0.1 Basophils # 0.0 Nucleated Red Blood Cells # 0.0 Test 03/02/17 07:45 Bedside Glucose 119 Medications Medications Current Medications Lactulose (Enulose) 20 gm DAILY PO Last administered on 03/02/17 08:15; Admin Dose 20 GM; Start 02/22/17 at 04:00 Acetaminophen (Tylenol Tab) 500 mg Q6H PRN PO PAIN AND OR ELEVATED TEMP Last administered on 03/02/17 02:20; Admin Dose 500 MG; Start 02/22/17 at 12:00 Pantoprazole (Protonix Tab) 40 mg DAILY@06 PO Last administered on 03/02/17 04: 46; Admin Dose 40 MG; Start 02/23/17 at 06:00 Amlodipine Besylate (Norvasc) 10 mg DAILY PO Last administered on 03/02/17 08: 16; Admin Dose 10 MG; Start 02/22/17 at 12:00 Atorvastatin Calcium (Lipitor) 20 mg HS PO Last administered on 03/01/17 21:17 ; Admin Dose 20 MG; Start 02/22/17 at 21:00 Benazepril HCl (Lotensin) 20 mg DAILY PO Last administered on 03/02/17 08:15; Admin Dose 20 MG; Start 02/22/17 at 12:00 Folic Acid (Folic Acid) 1 mg DAILY PO Last administered on 03/02/17 08:15; Admin Dose 1 MG; Start 02/22/17 at 12:00 Gabapentin (Neurontin) 300 mg TID PO Last administered on 03/02/17 08:15; Admin Dose 300 MG; Start 02/22/17 at 13:00 Insulin Glargine (Lantus) 38 unit QHS SC Last administered on 03/01/17 21:18; Admin Dose 38 UNIT; Start 02/22/17 at 21:00 Lorazepam (Ativan) 2 mg HS PRN PO Anxiety Last administered on 03/01/17 20:28 ; Admin Dose 2 MG; Start 02/22/17 at 12:00 Diagnostic Test (Pha) (Accu-Chek) 1 ea 02 XX Last administered on 02/23/17 02: 19; Admin Dose 1 EA; Start 02/23/17 at 02:00 Miscellaneous Information 1 ea NOTE XX ; Start 02/22/17 at 13:00 Glucose (Glutose) 15 gm Q15M PRN PO DECREASED GLUCOSE; Start 02/22/17 at 13:00 Glucose (Glutose) 22.5 gm Q15M PRN PO DECREASED GLUCOSE; Start 02/22/17 at 13: 00 Dextrose (D50w Syringe) 25 ml Q15M PRN IV DECREASED GLUCOSE; Start 02/22/17 at 13:00 Dextrose (D50w Syringe) 50 ml Q15M PRN IV DECREASED GLUCOSE; Start 02/22/17 at 13:00 Glucagon (Glucagen) 1 mg Q15M PRN IM DECREASED GLUCOSE; Start 02/22/17 at 13:00 Glucose (Glutose) 15 gm Q15M PRN BUCCAL DECREASED GLUCOSE; Start 02/22/17 at 13 :00 Lactulose (Enulose) 20 gm Q6 PO Last administered on 03/02/17 04:46; Admin Dose 20 GM; Start 02/22/17 at 18:00 Hydralazine HCl (Apresoline) 10 mg Q6H PRN IV SBP>170 Last administered on 02/22 14:05; Admin Dose 10 MG; Start 02/22/17 at 14:00 Rifaximin 550 mg 550 mg BID PO Last administered on 03/02/17 08:15; Admin Dose 550 MG; Start 02/24/17 at 21:00 Potassium Chloride/Sodium Chloride (1/2 NS + KCl 20 Meq) 1,000 ml @ 50 mls/hr Q20H IV Last administered on 03/01/17 20:21; Admin Dose 50 MLS/HR; Start at 18:30 SUNG KHAN Mar 02, 2017 09:19
[2017-03-02 09:44] LABS: CALCIUM 9.2 mg/dl (8.4-10.2); CREATININE 0.63 mg/dl (0.44-1.00); POTASSIUM 4.5 mmol/L (3.5-5.1)
[2017-03-02] MEDS: 1/2 NS + KCL 20 MEQ 1,000 ML IV SCH (11:33)
[2017-03-02 20:47] VITALS: BP 128/64; RESP 18
[2017-03-02] MEDS: INSULIN GLARGINE [LANtus] 3 ML PEN SC SCH (21:00)
[2017-03-02] MEDS: ATORVASTATIN 20 MG TAB PO SCH (21:09)
[2017-03-03] MEDS: LACTULOSE 30ML CUP PO SCH ×5 (00:01→17:37)
[2017-03-03] MEDS: 1/2 NS + KCL 20 MEQ 1,000 ML IV SCH ×2 (01:08→15:02)
[2017-03-03] MEDS: ACCU-CHEK XX SCH (02:00)
[2017-03-03] MEDS: PANTOPRAZOLE (EC) 40 MG TAB PO SCH (05:03)
[2017-03-03 05:49] LABS: ADD SCAN DIFF NO
[2017-03-03 05:53] LABS: ABNORMAL IP MESSAGE 1; BASOPHILS % 0.4 % (0.0-2.0); EOSINOPHILS # 0.1 10^3/ul (0.0-0.5); EOSINOPHILS % 1.5 % (0.0-7.0); HEMATOCRIT 27.8 % (37.0-47.0); HEMOGLOBIN 8.7 g/dl (12.0-16.0); LYMPHOCYTES # 1.3 10^3/ul (0.8-2.9); LYMPHOCYTES % 24.1 % (15.0-51.0); MEAN CORPUSCULAR HEMOGLOBIN 28.2 pg (29.0-33.0); MEAN CORPUSCULAR HGB CONC 31.3 g/dl (32.0-37.0); MEAN CORPUSCULAR VOLUME 90.3 fl (82.0-101.0); MONOCYTE # 0.5 10^3/ul (0.3-0.9); MONOCYTES % 8.6 % (0.0-11.0); NEUTROPHIL # 3.6 10^3/ul (1.6-7.5); PLATELET COUNT 43 10^3/UL (140-415); RED BLOOD COUNT 3.08 10^6/ul (4.20-5.40); RED CELL DISTRIBUTION WIDTH 15.9 % (11.5-14.5); WHITE BLOOD COUNT 5.5 10^3/ul (4.8-10.8)
[2017-03-03 06:15] LABS: CREATININE 0.6 mg/dl (0.44-1.00)
[2017-03-03 07:16] LABS: CALCIUM 8.4 mg/dl (8.4-10.2)
[2017-03-03] MEDS: INSULIN ASPART [NOVOLOG] 3 ML PEN SC SCH ×7 (07:30→20:28)
[2017-03-03 08:30] VITALS: BP 112/70; RESP 18
[2017-03-03] MEDS: metFORMIN 500 MG TAB PO SCH ×2 (09:10→17:36)
[2017-03-03] MEDS: FOLIC ACID 1 MG TAB PO SCH (09:10)
[2017-03-03] MEDS: GABAPENTIN 300 MG CAP PO SCH ×3 (09:11→20:26)
[2017-03-03] MEDS: BENAZEPRIL 20 MG TAB PO SCH (09:11)
[2017-03-03] MEDS: AMLODIPINE 10 MG TAB PO SCH (09:11)
[2017-03-03] MEDS: RIFAXIMIN 550 MG TAB PO SCH ×2 (09:11→20:26)
--- NOTE | 2017-03-03 11:50 | PN ---
Date/Time of Note Date/Time of Note DATE: 03/03/17 TIME: 11:47 Assessment/Plan VTE Prophylaxis VTE Prophylaxis Intervention: SCD's Lines/Catheters [facility]from [facility] Peripheral IV Urinary Cath still in place: No Assessment/Plan Chief Complaint/Hosp Course Patient is awake alert to name and situation, continues to have delayed response reaction, pleasantly confused, compliant with medication regimen per nursing staff. PT evaluation. ASSESSMENT AND PLAN: - Hepatic encephalopathy. Continue lactulose and rifaximin. Monitor ammonia level. Monitor neurological status as altered level of consciousness secondary to hepatic encephalopathy. - Alcoholic liver cirrhosis. - Diabetes mellitus type 2. We will continue Lantus and NovoLog premeal as well as NovoLog per moderate algorithm sliding scale. Continue metformin. - Hypertension. Continue Norvasc and lisinopril. - Hyperlipidemia. - Noncompliance with medication regimen. - Thrombocytopenia, most likely due to liver cirrhosis. Further recommendations based on clinical course. Plan of care discussed with Dr. Dickson. Problems: Exam/Review of Systems Vital Signs Vitals Vital Signs Date Time Temp Pulse Resp B/P Pulse Ox O2 Delivery O2 Flow Rate FiO2 03/03/17 08:30 98.6 76 18 112/70 96 Intake and Output 03/02/17 03/02/17 03/03/17 15:00 23:00 07:00 Intake Total 300 ml 1310 ml 1260 ml Balance 300 ml 1310 ml 1260 ml Exam Constitutional: alert, obese Psych: confusion Head: atraumatic Neck: supple Respiratory: normal air movement Cardiovascular: nl pulses Gastrointestinal: non-tender, soft Extremities: edema, normal pulses Neurological: confused Results Result Diagram: 03/03/17 0515 03/03/17 0517 Results 24 hrs Laboratory Tests Test 03/02/17 17:10 03/02/17 19:51 03/02/17 20:10 03/02/17 20:11 Bedside Glucose 94 49 *L 72 Glucose Level 74 Test 03/02/17 20:31 03/03/17 05:15 03/03/17 05:17 03/03/17 08:07 Bedside Glucose 131 126 White Blood Count 5.5 # Red Blood Count 3.08 L Hemoglobin 8.7 L Hematocrit 27.8 L Mean Corpuscular Volume 90.3 Mean Corpuscular Hemoglobin 28.2 L Mean Corpuscular Hemoglobin Concent 31.3 L Red Cell Distribution Width 15.9 H Platelet Count 43 L Mean Platelet Volume Neutrophils % 65.0 Lymphocytes % 24.1 Monocytes % 8.6 Eosinophils % 1.5 Basophils % 0.4 Nucleated Red Blood Cells % 0.0 Neutrophils # 3.6 Lymphocytes # 1.3 Monocytes # 0.5 Eosinophils # 0.1 Basophils # 0.0 Nucleated Red Blood Cells # 0.0 Ammonia 45 H Sodium Level 139 Potassium Level 4.0 Chloride Level 114 H Carbon Dioxide Level 17 L Anion Gap 12 # Blood Urea Nitrogen 11 Creatinine 0.60 Glucose Level 153 Calcium Level 8.4 Medications Medications Current Medications Lactulose (Enulose) 20 gm DAILY PO Last administered on 03/03/17 09:10; Admin Dose 20 GM; Start 02/22/17 at 04:00 Acetaminophen (Tylenol Tab) 500 mg Q6H PRN PO PAIN AND OR ELEVATED TEMP Last administered on 03/02/17 02:20; Admin Dose 500 MG; Start 02/22/17 at 12:00 Pantoprazole (Protonix Tab) 40 mg DAILY@06 PO Last administered on 03/03/17 05: 03; Admin Dose 40 MG; Start 02/23/17 at 06:00 Amlodipine Besylate (Norvasc) 10 mg DAILY PO Last administered on 03/03/17 09: 11; Admin Dose 10 MG; Start 02/22/17 at 12:00 Atorvastatin Calcium (Lipitor) 20 mg HS PO Last administered on 03/02/17 21:09 ; Admin Dose 20 MG; Start 02/22/17 at 21:00 Benazepril HCl (Lotensin) 20 mg DAILY PO Last administered on 03/03/17 09:11; Admin Dose 20 MG; Start 02/22/17 at 12:00 Folic Acid (Folic Acid) 1 mg DAILY PO Last administered on 03/03/17 09:10; Admin Dose 1 MG; Start 02/22/17 at 12:00 Gabapentin (Neurontin) 300 mg TID PO Last administered on 03/03/17 09:11; Admin Dose 300 MG; Start 02/22/17 at 13:00 Insulin Glargine (Lantus) 38 unit QHS SC Last administered on 03/01/17 21:18; Admin Dose 38 UNIT; Start 02/22/17 at 21:00 Lorazepam (Ativan) 2 mg HS PRN PO Anxiety Last administered on 03/01/17 20:28 ; Admin Dose 2 MG; Start 02/22/17 at 12:00 Diagnostic Test (Pha) (Accu-Chek) 1 ea 02 XX Last administered on 02/23/17 02: 19; Admin Dose 1 EA; Start 02/23/17 at 02:00 Miscellaneous Information 1 ea NOTE XX ; Start 02/22/17 at 13:00 Glucose (Glutose) 15 gm Q15M PRN PO DECREASED GLUCOSE; Start 02/22/17 at 13:00 Glucose (Glutose) 22.5 gm Q15M PRN PO DECREASED GLUCOSE; Start 02/22/17 at 13: 00 Dextrose (D50w Syringe) 25 ml Q15M PRN IV DECREASED GLUCOSE; Start 02/22/17 at 13:00 Dextrose (D50w Syringe) 50 ml Q15M PRN IV DECREASED GLUCOSE; Start 02/22/17 at 13:00 Glucagon (Glucagen) 1 mg Q15M PRN IM DECREASED GLUCOSE; Start 02/22/17 at 13:00 Glucose (Glutose) 15 gm Q15M PRN BUCCAL DECREASED GLUCOSE Last administered on 03/02/17 19:54; Admin Dose 15 GM; Start 02/22/17 at 13:00 Lactulose (Enulose) 20 gm Q6 PO Last administered on 03/03/17 05:03; Admin Dose 20 GM; Start 02/22/17 at 18:00 Hydralazine HCl (Apresoline) 10 mg Q6H PRN IV SBP>170 Last administered on 02/22 14:05; Admin Dose 10 MG; Start 02/22/17 at 14:00 Rifaximin 550 mg 550 mg BID PO Last administered on 03/03/17 09:11; Admin Dose 550 MG; Start 02/24/17 at 21:00 Potassium Chloride/Sodium Chloride (1/2 NS + KCl 20 Meq) 1,000 ml @ 50 mls/hr Q20H IV Last administered on 03/03/17 01:08; Admin Dose 50 MLS/HR; Start at 18:30 DEMETRIA ZAVALA Mar 03, 2017 11:49
[2017-03-03] MEDS: ATORVASTATIN 20 MG TAB PO SCH (20:26)
[2017-03-03 20:48] VITALS: BP 110/60; RESP 18
[2017-03-03] MEDS ORDERED: INSULIN GLARGINE [LANtus] 3 ML PEN SC SCH (21:00)
[2017-03-04] MEDS: LACTULOSE 30ML CUP PO SCH ×4 (00:08→11:04)
[2017-03-04 02:15] VITALS: BP 106/59; RESP 19
[2017-03-04] MEDS: ACCU-CHEK XX SCH (02:44)
[2017-03-04] MEDS: 1/2 NS + KCL 20 MEQ 1,000 ML IV SCH ×2 (05:38→17:21)
[2017-03-04] MEDS: PANTOPRAZOLE (EC) 40 MG TAB PO SCH (05:38)
[2017-03-04 06:14] LABS: ADD SCAN DIFF NO
[2017-03-04] MEDS: ACETAMINOPHEN 500 MG TAB PO PRN (06:14)
[2017-03-04 06:18] LABS: ABNORMAL IP MESSAGE 1; BASOPHILS % 0.2 % (0.0-2.0); EOSINOPHILS # 0.2 10^3/ul (0.0-0.5); EOSINOPHILS % 3.4 % (0.0-7.0); HEMOGLOBIN 8.8 g/dl (12.0-16.0); LYMPHOCYTES # 1.5 10^3/ul (0.8-2.9); LYMPHOCYTES % 32.7 % (15.0-51.0); MEAN CORPUSCULAR HEMOGLOBIN 28.7 pg (29.0-33.0); MEAN CORPUSCULAR HGB CONC 31.4 g/dl (32.0-37.0); MEAN CORPUSCULAR VOLUME 91.2 fl (82.0-101.0); MONOCYTE # 0.5 10^3/ul (0.3-0.9); MONOCYTES % 10.1 % (0.0-11.0); NEUTROPHIL # 2.4 10^3/ul (1.6-7.5); NEUTROPHILS % 53.4 % (39.0-77.0); PLATELET COUNT 49 10^3/UL (140-415); RED BLOOD COUNT 3.07 10^6/ul (4.20-5.40); RED CELL DISTRIBUTION WIDTH 15.9 % (11.5-14.5); WHITE BLOOD COUNT 4.5 10^3/ul (4.8-10.8)
[2017-03-04 06:58] LABS: CALCIUM 8.2 mg/dl (8.4-10.2); CREATININE 0.61 mg/dl (0.44-1.00); POTASSIUM 4.3 mmol/L (3.5-5.1)
[2017-03-04] MEDS: INSULIN ASPART [NOVOLOG] 3 ML PEN SC SCH ×7 (07:54→20:50)
[2017-03-04 08:00] VITALS: BP 124/88; RESP 20
[2017-03-04] MEDS: RIFAXIMIN 550 MG TAB PO SCH ×2 (08:00→20:48)
[2017-03-04] MEDS: FOLIC ACID 1 MG TAB PO SCH (08:00)
[2017-03-04] MEDS: AMLODIPINE 10 MG TAB PO SCH (08:01)
[2017-03-04] MEDS: GABAPENTIN 300 MG CAP PO SCH ×3 (08:01→20:48)
[2017-03-04] MEDS: metFORMIN 500 MG TAB PO SCH ×2 (08:01→17:21)
[2017-03-04] MEDS: BENAZEPRIL 20 MG TAB PO SCH (08:01)
[2017-03-04] MEDS: KETOROLAC 15 MG INJ IV PRN (10:46)
[2017-03-04 14:25] VITALS: BP 106/54; RESP 20
--- NOTE | 2017-03-04 15:46 | PN ---
Date/Time of Note Date/Time of Note DATE: 03/04/17 TIME: 15:36 Assessment/Plan VTE Prophylaxis VTE Prophylaxis Intervention: other Lines/Catheters IV Catheter Type (from [facility]): Peripheral IV Urinary Cath still in place: No Assessment/Plan Assessment/Plan - Abdominal pain - GI consult- Dr North was notified - toradol for pain - will check stool for c-diff - change Lactulose to daily - Hepatic encephalopathy. Continue lactulose and rifaximin. Monitor ammonia level- 48 today - Monitor neurological status as altered level of consciousness secondary to hepatic encephalopathy. - Alcoholic liver cirrhosis. - Diabetes mellitus type 2. We will continue Lantus and NovoLog premeal as well as NovoLog per moderate algorithm sliding scale. Continue metformin. - Hypertension. Continue Norvasc and lisinopril. - Hyperlipidemia. - Noncompliance with medication regimen. - Thrombocytopenia, most likely due to liver cirrhosis. Further recommendations based on clinical course. Plan of care discussed with Dr. Dickson. Subjective 24 Hr Interval Summary Free Text/Dictation c/o abdominal cramping/pain- Toradol is effective, will get GI consult, check stool for c-diff, change lactulose to daily. dw staff Respiratory: no complaints Cardiovascular: no complaints Gastrointestinal: no complaints Genitourinary: no complaints Musculoskeletal: no complaints Exam/Review of Systems Vital Signs Vitals Vital Signs Date Time Temp Pulse Resp B/P Pulse Ox O2 Delivery O2 Flow Rate FiO2 03/04/17 14:25 98.1 65 20 106/54 95 Intake and Output 03/03/17 03/03/17 03/04/17 15:00 23:00 07:00 Intake Total 500 ml 580 ml 1550 ml Balance 500 ml 580 ml 1550 ml Exam Constitutional: alert, well developed Respiratory: clear to auscultation, normal air movement Cardiovascular: nl pulses, regular rate and rhythm Gastrointestinal: non-tender, soft Musculoskeletal: nl extremities to inspection Extremities: normal pulses Neurological: confused, nl speech Results Result Diagram: 03/04/17 0527 03/04/17 0527 Results 24 hrs Laboratory Tests Test 03/03/17 17:32 03/03/17 20:25 03/04/17 02:28 03/04/17 05:27 Bedside Glucose 230 H 192 86 White Blood Count 4.5 L Red Blood Count 3.07 L Hemoglobin 8.8 L Hematocrit 28.0 L Mean Corpuscular Volume 91.2 Mean Corpuscular Hemoglobin 28.7 L Mean Corpuscular Hemoglobin Concent 31.4 L Red Cell Distribution Width 15.9 H Platelet Count 49 L Mean Platelet Volume Neutrophils % 53.4 Lymphocytes % 32.7 Monocytes % 10.1 Eosinophils % 3.4 Basophils % 0.2 Nucleated Red Blood Cells % 0.0 Neutrophils # 2.4 Lymphocytes # 1.5 Monocytes # 0.5 Eosinophils # 0.2 Basophils # 0.0 Nucleated Red Blood Cells # 0.0 Sodium Level 140 Potassium Level 4.3 Chloride Level 115 H Carbon Dioxide Level 17 L Anion Gap 12 Blood Urea Nitrogen 9 Creatinine 0.61 Glucose Level 110 # Hemoglobin A1c 8.0 H Calcium Level 8.2 L Ammonia 48 H Test 03/04/17 07:51 03/04/17 11:46 Bedside Glucose 157 162 Medications Medications Current Medications Lactulose (Enulose) 20 gm DAILY PO Last administered on 03/04/17 08:00; Admin Dose 20 GM; Start 02/22/17 at 04:00 Acetaminophen (Tylenol Tab) 500 mg Q6H PRN PO PAIN AND OR ELEVATED TEMP Last administered on 03/04/17 06:14; Admin Dose 500 MG; Start 02/22/17 at 12:00 Pantoprazole (Protonix Tab) 40 mg DAILY@06 PO Last administered on 03/04/17 05: 38; Admin Dose 40 MG; Start 02/23/17 at 06:00 Amlodipine Besylate (Norvasc) 10 mg DAILY PO Last administered on 03/04/17 08: 01; Admin Dose 10 MG; Start 02/22/17 at 12:00 Atorvastatin Calcium (Lipitor) 20 mg HS PO Last administered on 03/03/17 20:26 ; Admin Dose 20 MG; Start 02/22/17 at 21:00 Benazepril HCl (Lotensin) 20 mg DAILY PO Last administered on 03/04/17 08:01; Admin Dose 20 MG; Start 02/22/17 at 12:00 Folic Acid (Folic Acid) 1 mg DAILY PO Last administered on 03/04/17 08:00; Admin Dose 1 MG; Start 02/22/17 at 12:00 Gabapentin (Neurontin) 300 mg TID PO Last administered on 03/04/17 13:19; Admin Dose 300 MG; Start 02/22/17 at 13:00 Lorazepam (Ativan) 2 mg HS PRN PO Anxiety Last administered on 03/01/17 20:28 ; Admin Dose 2 MG; Start 02/22/17 at 12:00 Diagnostic Test (Pha) (Accu-Chek) 1 ea 02 XX Last administered on 03/04/17 02: 44; Admin Dose 1 EA; Start 02/23/17 at 02:00 Miscellaneous Information 1 ea NOTE XX ; Start 02/22/17 at 13:00 Glucose (Glutose) 15 gm Q15M PRN PO DECREASED GLUCOSE; Start 02/22/17 at 13:00 Glucose (Glutose) 22.5 gm Q15M PRN PO DECREASED GLUCOSE; Start 02/22/17 at 13: 00 Dextrose (D50w Syringe) 25 ml Q15M PRN IV DECREASED GLUCOSE; Start 02/22/17 at 13:00 Dextrose (D50w Syringe) 50 ml Q15M PRN IV DECREASED GLUCOSE; Start 02/22/17 at 13:00 Glucagon (Glucagen) 1 mg Q15M PRN IM DECREASED GLUCOSE; Start 02/22/17 at 13:00 Glucose (Glutose) 15 gm Q15M PRN BUCCAL DECREASED GLUCOSE Last administered on 03/02/17 19:54; Admin Dose 15 GM; Start 02/22/17 at 13:00 Lactulose (Enulose) 20 gm Q6 PO Last administered on 03/04/17 11:04; Admin Dose 20 GM; Start 02/22/17 at 18:00 Hydralazine HCl (Apresoline) 10 mg Q6H PRN IV SBP>170 Last administered on 02/22 14:05; Admin Dose 10 MG; Start 02/22/17 at 14:00 Rifaximin 550 mg 550 mg BID PO Last administered on 03/04/17 08:00; Admin Dose 550 MG; Start 02/24/17 at 21:00 Potassium Chloride/Sodium Chloride (1/2 NS + KCl 20 Meq) 1,000 ml @ 50 mls/hr Q20H IV Last administered on 03/04/17 05:38; Admin Dose 50 MLS/HR; Start at 18:30 Insulin Glargine (Lantus) 15 unit QHS SC ; Start 03/04/17 at 21:00 Ketorolac Tromethamine (Toradol) 15 mg Q6H PRN IV PAIN Last administered on 03/04t 10:46; Admin Dose 15 MG; Start 03/04/17 at 10:30; Stop 03/07/17 at 10:29 SUNG KHAN Mar 04, 2017 15:46
[2017-03-04 20:24] VITALS: BP 107/61; RESP 18
[2017-03-04] MEDS: ATORVASTATIN 20 MG TAB PO SCH (20:48)
[2017-03-04] MEDS: INSULIN GLARGINE [LANtus] 3 ML PEN SC SCH (20:50)
--- NOTE | 2017-03-04 20:57 | CONS ---
Date/Time of Note Date/Time of Note DATE: 03/04/17 TIME: 20:57 Assessment/Plan Assessment/Plan Additional Assessment/Plan Patient examined full notes to follow Consultation Date/Type/Reason Admit Date/Time Feb 22, 2017 at 09:51 Initial Consult Date Exam/Review of Systems Vital Signs Vitals Vital Signs Date Time Temp Pulse Resp B/P Pulse Ox O2 Delivery O2 Flow Rate FiO2 03/04/17 20:24 97.9 70 18 107/61 99 Intake and Output 03/03/17 03/03/17 03/04/17 15:00 23:00 07:00 Intake Total 500 ml 580 ml 1550 ml Balance 500 ml 580 ml 1550 ml Results Result Diagram: 03/04/17 0527 03/04/17 0527 Results 24 hrs Laboratory Tests Test 03/04/17 02:28 03/04/17 05:27 03/04/17 07:51 03/04/17 11:46 Bedside Glucose 86 157 162 White Blood Count 4.5 L Red Blood Count 3.07 L Hemoglobin 8.8 L Hematocrit 28.0 L Mean Corpuscular Volume 91.2 Mean Corpuscular Hemoglobin 28.7 L Mean Corpuscular Hemoglobin Concent 31.4 L Red Cell Distribution Width 15.9 H Platelet Count 49 L Mean Platelet Volume Neutrophils % 53.4 Lymphocytes % 32.7 Monocytes % 10.1 Eosinophils % 3.4 Basophils % 0.2 Nucleated Red Blood Cells % 0.0 Neutrophils # 2.4 Lymphocytes # 1.5 Monocytes # 0.5 Eosinophils # 0.2 Basophils # 0.0 Nucleated Red Blood Cells # 0.0 Sodium Level 140 Potassium Level 4.3 Chloride Level 115 H Carbon Dioxide Level 17 L Anion Gap 12 Blood Urea Nitrogen 9 Creatinine 0.61 Glucose Level 110 # Hemoglobin A1c 8.0 H Calcium Level 8.2 L Ammonia 48 H Test 03/04/17 17:24 Bedside Glucose 159 Medications Medications Current Medications Lactulose (Enulose) 20 gm DAILY PO Last administered on 03/04/17 08:00; Admin Dose 20 GM; Start 02/22/17 at 04:00 Acetaminophen (Tylenol Tab) 500 mg Q6H PRN PO PAIN AND OR ELEVATED TEMP Last administered on 03/04/17 06:14; Admin Dose 500 MG; Start 02/22/17 at 12:00 Pantoprazole (Protonix Tab) 40 mg DAILY@06 PO Last administered on 03/04/17 05: 38; Admin Dose 40 MG; Start 02/23/17 at 06:00 Amlodipine Besylate (Norvasc) 10 mg DAILY PO Last administered on 03/04/17 08: 01; Admin Dose 10 MG; Start 02/22/17 at 12:00 Atorvastatin Calcium (Lipitor) 20 mg HS PO Last administered on 03/04/17 20:48 ; Admin Dose 20 MG; Start 02/22/17 at 21:00 Benazepril HCl (Lotensin) 20 mg DAILY PO Last administered on 03/04/17 08:01; Admin Dose 20 MG; Start 02/22/17 at 12:00 Folic Acid (Folic Acid) 1 mg DAILY PO Last administered on 03/04/17 08:00; Admin Dose 1 MG; Start 02/22/17 at 12:00 Gabapentin (Neurontin) 300 mg TID PO Last administered on 03/04/17 20:48; Admin Dose 300 MG; Start 02/22/17 at 13:00 Lorazepam (Ativan) 2 mg HS PRN PO Anxiety Last administered on 03/01/17 20:28 ; Admin Dose 2 MG; Start 02/22/17 at 12:00 Diagnostic Test (Pha) (Accu-Chek) 1 ea 02 XX Last administered on 03/04/17 02: 44; Admin Dose 1 EA; Start 02/23/17 at 02:00 Miscellaneous Information 1 ea NOTE XX ; Start 02/22/17 at 13:00 Glucose (Glutose) 15 gm Q15M PRN PO DECREASED GLUCOSE; Start 02/22/17 at 13:00 Glucose (Glutose) 22.5 gm Q15M PRN PO DECREASED GLUCOSE; Start 02/22/17 at 13: 00 Dextrose (D50w Syringe) 25 ml Q15M PRN IV DECREASED GLUCOSE; Start 02/22/17 at 13:00 Dextrose (D50w Syringe) 50 ml Q15M PRN IV DECREASED GLUCOSE; Start 02/22/17 at 13:00 Glucagon (Glucagen) 1 mg Q15M PRN IM DECREASED GLUCOSE; Start 02/22/17 at 13:00 Glucose (Glutose) 15 gm Q15M PRN BUCCAL DECREASED GLUCOSE Last administered on 03/02/17 19:54; Admin Dose 15 GM; Start 02/22/17 at 13:00 Hydralazine HCl (Apresoline) 10 mg Q6H PRN IV SBP>170 Last administered on 02/22 14:05; Admin Dose 10 MG; Start 02/22/17 at 14:00 Rifaximin 550 mg 550 mg BID PO Last administered on 03/04/17 20:48; Admin Dose 550 MG; Start 02/24/17 at 21:00 Potassium Chloride/Sodium Chloride (1/2 NS + KCl 20 Meq) 1,000 ml @ 50 mls/hr Q20H IV Last administered on 03/04/17 17:21; Admin Dose 50 MLS/HR; Start at 18:30 Insulin Glargine (Lantus) 15 unit QHS SC Last administered on 03/04/17 20:50; Admin Dose 15 UNIT; Start 03/04/17 at 21:00 Ketorolac Tromethamine (Toradol) 15 mg Q6H PRN IV PAIN Last administered on 03/04 10:46; Admin Dose 15 MG; Start 03/04/17 at 10:30; Stop 03/07/17 at 10:29 BE MACDONALD MD Mar 04, 2017 20:57
[2017-03-05] MEDS: ACCU-CHEK XX SCH (02:00)
[2017-03-05 03:05] VITALS: BP 110/62; RESP 18
[2017-03-05] MEDS: PANTOPRAZOLE (EC) 40 MG TAB PO SCH (05:29)
[2017-03-05 05:44] LABS: ADD SCAN DIFF NO
[2017-03-05 05:52] LABS: ABNORMAL IP MESSAGE 1; BASOPHILS % 0.3 % (0.0-2.0); EOSINOPHILS # 0.1 10^3/ul (0.0-0.5); EOSINOPHILS % 1.8 % (0.0-7.0); HEMATOCRIT 28.5 % (37.0-47.0); LYMPHOCYTES # 0.9 10^3/ul (0.8-2.9); LYMPHOCYTES % 14.1 % (15.0-51.0); MEAN CORPUSCULAR HEMOGLOBIN 28.2 pg (29.0-33.0); MEAN CORPUSCULAR HGB CONC 31.6 g/dl (32.0-37.0); MEAN CORPUSCULAR VOLUME 89.3 fl (82.0-101.0); MONOCYTE # 0.6 10^3/ul (0.3-0.9); MONOCYTES % 8.8 % (0.0-11.0); NEUTROPHILS % 74.7 % (39.0-77.0); PLATELET COUNT 50 10^3/UL (140-415); RED BLOOD COUNT 3.19 10^6/ul (4.20-5.40); RED CELL DISTRIBUTION WIDTH 15.7 % (11.5-14.5); WHITE BLOOD COUNT 6.7 10^3/ul (4.8-10.8)
[2017-03-05 06:14] LABS: CALCIUM 8.5 mg/dl (8.4-10.2); CREATININE 0.65 mg/dl (0.44-1.00); POTASSIUM 4.6 mmol/L (3.5-5.1)
[2017-03-05] MEDS: KETOROLAC 15 MG INJ IV PRN ×2 (07:54→16:49)
[2017-03-05 07:58] VITALS: BP 124/65; RESP 17
[2017-03-05] MEDS: INSULIN ASPART [NOVOLOG] 3 ML PEN SC SCH ×7 (08:00→21:10)
[2017-03-05] MEDS: metFORMIN 500 MG TAB PO SCH ×2 (08:01→17:15)
[2017-03-05] MEDS: BENAZEPRIL 20 MG TAB PO SCH (08:03)
[2017-03-05] MEDS: LACTULOSE 30ML CUP PO SCH (08:03)
[2017-03-05] MEDS: GABAPENTIN 300 MG CAP PO SCH ×3 (08:03→21:08)
[2017-03-05] MEDS: RIFAXIMIN 550 MG TAB PO SCH ×2 (08:03→21:08)
[2017-03-05] MEDS: FOLIC ACID 1 MG TAB PO SCH (08:03)
[2017-03-05] MEDS: AMLODIPINE 10 MG TAB PO SCH (08:03)
[2017-03-05] MEDS: 1/2 NS + KCL 20 MEQ 1,000 ML IV SCH ×2 (09:14→23:48)
--- NOTE | 2017-03-05 12:33 | PN ---
Date/Time of Note Date/Time of Note DATE: 03/05/17 TIME: 12:27 Assessment/Plan VTE Prophylaxis VTE Prophylaxis Intervention: SCD's Lines/Catheters IV C[facility]ter Type (from [facility]): Peripheral IV Urinary Cath still in place: No Assessment/Plan Chief Complaint/Hosp Course No episodes of hypoglycemia, ammonia level trending down, no change in neurological status. ASSESSMENT AND PLAN: - Hepatic encephalopathy. Continue lactulose and rifaximin. Monitor ammonia level. Monitor neurological status as altered level of consciousness secondary to hepatic encephalopathy. - Alcoholic liver cirrhosis. - Diabetes mellitus type 2. We will continue Lantus and NovoLog premeal as well as NovoLog per moderate algorithm sliding scale. Continue metformin. - Hypertension. Continue Norvasc and lisinopril. - Hyperlipidemia. - Noncompliance with medication regimen. - Thrombocytopenia, most likely due to liver cirrhosis. Further recommendations based on clinical course. Plan of care discussed with Dr. Dickson. Problems: Exam/Review of Systems Vital Signs Vitals Vital Signs Date Time Temp Pulse Resp B/P Pulse Ox O2 Delivery O2 Flow Rate FiO2 03/05/17 07:58 97.6 78 17 124/65 96 Intake and Output 03/04/17 03/04/17 03/05/17 15:00 23:00 07:00 Intake Total 600 ml 750 ml Balance 600 ml 750 ml Exam Constitutional: alert, obese Psych: confusion Head: atraumatic Neck: supple Respiratory: normal air movement Cardiovascular: nl pulses Gastrointestinal: non-tender, soft Extremities: edema, normal pulses Neurological: confused Results Result Diagram: 03/05/17 0535 03/05/17 0535 Results 24 hrs Laboratory Tests Test 03/04/17 17:24 03/04/17 20:45 03/05/17 05:35 03/05/17 07:42 Bedside Glucose 159 114 208 White Blood Count 6.7 # Red Blood Count 3.19 L Hemoglobin 9.0 L Hematocrit 28.5 L Mean Corpuscular Volume 89.3 Mean Corpuscular Hemoglobin 28.2 L Mean Corpuscular Hemoglobin Concent 31.6 L Red Cell Distribution Width 15.7 H Platelet Count 50 L Mean Platelet Volume Neutrophils % 74.7 Lymphocytes % 14.1 L Monocytes % 8.8 Eosinophils % 1.8 Basophils % 0.3 Nucleated Red Blood Cells % 0.0 Neutrophils # 5.0 Lymphocytes # 0.9 Monocytes # 0.6 Eosinophils # 0.1 Basophils # 0.0 Nucleated Red Blood Cells # 0.0 Sodium Level 139 Potassium Level 4.6 Chloride Level 114 H Carbon Dioxide Level 18 L Anion Gap 12 Blood Urea Nitrogen 9 Creatinine 0.65 Glucose Level 183 Calcium Level 8.5 Ammonia 36 H Test 03/05/17 11:46 Bedside Glucose 212 Medications Medications Current Medications Lactulose (Enulose) 20 gm DAILY PO Last administered on 03/05/17 08:03; Admin Dose 20 GM; Start 02/22/17 at 04:00 Acetaminophen (Tylenol Tab) 500 mg Q6H PRN PO PAIN AND OR ELEVATED TEMP Last administered on 03/04/17 06:14; Admin Dose 500 MG; Start 02/22/17 at 12:00 Pantoprazole (Protonix Tab) 40 mg DAILY@06 PO Last administered on 03/05/17 05: 29; Admin Dose 40 MG; Start 02/23/17 at 06:00 Amlodipine Besylate (Norvasc) 10 mg DAILY PO Last administered on 03/05/17 08: 03; Admin Dose 10 MG; Start 02/22/17 at 12:00 Atorvastatin Calcium (Lipitor) 20 mg HS PO Last administered on 03/04/17 20:48 ; Admin Dose 20 MG; Start 02/22/17 at 21:00 Benazepril HCl (Lotensin) 20 mg DAILY PO Last administered on 03/05/17 08:03; Admin Dose 20 MG; Start 02/22/17 at 12:00 Folic Acid (Folic Acid) 1 mg DAILY PO Last administered on 03/05/17 08:03; Admin Dose 1 MG; Start 02/22/17 at 12:00 Gabapentin (Neurontin) 300 mg TID PO Last administered on 03/05/17 08:03; Admin Dose 300 MG; Start 02/22/17 at 13:00 Lorazepam (Ativan) 2 mg HS PRN PO Anxiety Last administered on 03/01/17 20:28 ; Admin Dose 2 MG; Start 02/22/17 at 12:00 Diagnostic Test (Pha) (Accu-Chek) 1 ea 02 XX Last administered on 03/04/17 02: 44; Admin Dose 1 EA; Start 02/23/17 at 02:00 Miscellaneous Information 1 ea NOTE XX ; Start 02/22/17 at 13:00 Glucose (Glutose) 15 gm Q15M PRN PO DECREASED GLUCOSE; Start 02/22/17 at 13:00 Glucose (Glutose) 22.5 gm Q15M PRN PO DECREASED GLUCOSE; Start 02/22/17 at 13: 00 Dextrose (D50w Syringe) 25 ml Q15M PRN IV DECREASED GLUCOSE; Start 02/22/17 at 13:00 Dextrose (D50w Syringe) 50 ml Q15M PRN IV DECREASED GLUCOSE; Start 02/22/17 at 13:00 Glucagon (Glucagen) 1 mg Q15M PRN IM DECREASED GLUCOSE; Start 02/22/17 at 13:00 Glucose (Glutose) 15 gm Q15M PRN BUCCAL DECREASED GLUCOSE Last administered on 03/02/17 19:54; Admin Dose 15 GM; Start 02/22/17 at 13:00 Hydralazine HCl (Apresoline) 10 mg Q6H PRN IV SBP>170 Last administered on 02/22 14:05; Admin Dose 10 MG; Start 02/22/17 at 14:00 Rifaximin 550 mg 550 mg BID PO Last administered on 03/05/17 08:03; Admin Dose 550 MG; Start 02/24/17 at 21:00 Potassium Chloride/Sodium Chloride (1/2 NS + KCl 20 Meq) 1,000 ml @ 50 mls/hr Q20H IV Last administered on 03/05/17 09:14; Admin Dose 50 MLS/HR; Start at 18:30 Insulin Glargine (Lantus) 15 unit QHS SC Last administered on 03/04/17 20:50; Admin Dose 15 UNIT; Start 03/04/17 at 21:00 Ketorolac Tromethamine (Toradol) 15 mg Q6H PRN IV PAIN Last administered on 03/05 07:54; Admin Dose 15 MG; Start 03/04/17 at 10:30; Stop 03/07/17 at 10:29 DEMETRIA ZAVALA Mar 05, 2017 12:33
[2017-03-05 14:25] VITALS: BP 112/58; RESP 17
[2017-03-05 20:00] VITALS: BP 111/55; RESP 18
[2017-03-05] MEDS: ATORVASTATIN 20 MG TAB PO SCH (21:08)
--- NOTE | 2017-03-05 22:20 | CONS ---
Date/Time of Note Date/Time of Note DATE: 03/05/17 TIME: 22:10 Assessment/Plan Assessment/Plan Additional Assessment/Plan 1,abdominal pain ,gastritis,r/o peptic ulcer disease 2,cirrhosis of liver 3,diabetes mellitus 4,hepatic encephalopathy better Plan continue lactulose and rifaximin control blood sugar empirically start pt on PPI will need EGD for evaluation of varicose vein and abdominal pain Consultation Date/Type/Reason Admit Date/Time Feb 22, 2017 at 09:51 24 HR Interval Summary Free Text/Dictation abdominal pain confined to epigastric area and umbilical area Exam/Review of Systems Vital Signs Vitals Vital Signs Date Time Temp Pulse Resp B/P Pulse Ox O2 Delivery O2 Flow Rate FiO2 03/05/17 14:25 98.9 80 17 112/58 96 Intake and Output 03/04/17 03/04/17 03/05/17 15:00 23:00 07:00 Intake Total 600 ml 750 ml Balance 600 ml 750 ml Exam Constitutional: alert, oriented, well developed Psych: nl mood/affect, no complaints Head: atraumatic, normocephalic Eyes: EOMI, PERRL, nl conjunctiva, nl lids, nl sclera ENMT: nl external ears & nose, nl lips & teeth, nl nasal mucosa & septum Neck: non-tender, supple Respiratory: clear to auscultation, normal air movement Cardiovascular: nl pulses, regular rate and rhythm Gastrointestinal: nl liver, spleen, non-tender, soft Musculoskeletal: nl extremities to inspection, nl gait and stance Extremities: normal pulses Neurological: PIPE CLEANER II-XII intact, nl mental status, nl speech, nl strength Skin: nl turgor, No rash or lesions Lymph: nl lymph nodes Results Result Diagram: 03/05/17 0535 03/05/17 0535 Results 24 hrs Laboratory Tests Test 03/05/17 05:35 03/05/17 07:42 03/05/17 11:46 03/05/17 16:44 White Blood Count 6.7 # Red Blood Count 3.19 L Hemoglobin 9.0 L Hematocrit 28.5 L Mean Corpuscular Volume 89.3 Mean Corpuscular Hemoglobin 28.2 L Mean Corpuscular Hemoglobin Concent 31.6 L Red Cell Distribution Width 15.7 H Platelet Count 50 L Mean Platelet Volume Neutrophils % 74.7 Lymphocytes % 14.1 L Monocytes % 8.8 Eosinophils % 1.8 Basophils % 0.3 Nucleated Red Blood Cells % 0.0 Neutrophils # 5.0 Lymphocytes # 0.9 Monocytes # 0.6 Eosinophils # 0.1 Basophils # 0.0 Nucleated Red Blood Cells # 0.0 Sodium Level 139 Potassium Level 4.6 Chloride Level 114 H Carbon Dioxide Level 18 L Anion Gap 12 Blood Urea Nitrogen 9 Creatinine 0.65 Glucose Level 183 Calcium Level 8.5 Ammonia 36 H Bedside Glucose 208 212 178 Test 03/05/17 21:05 Bedside Glucose 239 H Medications Medications Current Medications Lactulose (Enulose) 20 gm DAILY PO Last administered on 03/05/17 08:03; Admin Dose 20 GM; Start 02/22/17 at 04:00 Acetaminophen (Tylenol Tab) 500 mg Q6H PRN PO PAIN AND OR ELEVATED TEMP Last administered on 03/04/17 06:14; Admin Dose 500 MG; Start 02/22/17 at 12:00 Pantoprazole (Protonix Tab) 40 mg DAILY@06 PO Last administered on 03/05/17 05: 29; Admin Dose 40 MG; Start 02/23/17 at 06:00 Amlodipine Besylate (Norvasc) 10 mg DAILY PO Last administered on 03/05/17 08: 03; Admin Dose 10 MG; Start 02/22/17 at 12:00 Atorvastatin Calcium (Lipitor) 20 mg HS PO Last administered on 03/05/17 21:08 ; Admin Dose 20 MG; Start 02/22/17 at 21:00 Benazepril HCl (Lotensin) 20 mg DAILY PO Last administered on 03/05/17 08:03; Admin Dose 20 MG; Start 02/22/17 at 12:00 Folic Acid (Folic Acid) 1 mg DAILY PO Last administered on 03/05/17 08:03; Admin Dose 1 MG; Start 02/22/17 at 12:00 Gabapentin (Neurontin) 300 mg TID PO Last administered on 03/05/17 21:08; Admin Dose 300 MG; Start 02/22/17 at 13:00 Lorazepam (Ativan) 2 mg HS PRN PO Anxiety Last administered on 03/01/17 20:28 ; Admin Dose 2 MG; Start 02/22/17 at 12:00 Diagnostic Test (Pha) (Accu-Chek) 1 ea 02 XX Last administered on 03/04/17 02: 44; Admin Dose 1 EA; Start 02/23/17 at 02:00 Miscellaneous Information 1 ea NOTE XX ; Start 02/22/17 at 13:00 Glucose (Glutose) 15 gm Q15M PRN PO DECREASED GLUCOSE; Start 02/22/17 at 13:00 Glucose (Glutose) 22.5 gm Q15M PRN PO DECREASED GLUCOSE; Start 02/22/17 at 13: 00 Dextrose (D50w Syringe) 25 ml Q15M PRN IV DECREASED GLUCOSE; Start 02/22/17 at 13:00 Dextrose (D50w Syringe) 50 ml Q15M PRN IV DECREASED GLUCOSE; Start 02/22/17 at 13:00 Glucagon (Glucagen) 1 mg Q15M PRN IM DECREASED GLUCOSE; Start 02/22/17 at 13:00 Glucose (Glutose) 15 gm Q15M PRN BUCCAL DECREASED GLUCOSE Last administered on 03/02/17 19:54; Admin Dose 15 GM; Start 02/22/17 at 13:00 Hydralazine HCl (Apresoline) 10 mg Q6H PRN IV SBP>170 Last administered on 02/22 14:05; Admin Dose 10 MG; Start 02/22/17 at 14:00 Rifaximin 550 mg 550 mg BID PO Last administered on 03/05/17 21:08; Admin Dose 550 MG; Start 02/24/17 at 21:00 Potassium Chloride/Sodium Chloride (1/2 NS + KCl 20 Meq) 1,000 ml @ 50 mls/hr Q20H IV Last administered on 03/05/17 09:14; Admin Dose 50 MLS/HR; Start at 18:30 Insulin Glargine (Lantus) 15 unit QHS SC Last administered on 03/04/17 20:50; Admin Dose 15 UNIT; Start 03/04/17 at 21:00 Ketorolac Tromethamine (Toradol) 15 mg Q6H PRN IV PAIN Last administered on 03/05 16:49; Admin Dose 15 MG; Start 03/04/17 at 10:30; Stop 03/07/17 at 10:29 BE MACDONALD MD Mar 05, 2017 22:19
[2017-03-05] MEDS: INSULIN GLARGINE [LANtus] 3 ML PEN SC SCH (23:29)
[2017-03-05] MEDS: LORAZEPAM 1 MG TAB PO PRN (23:51)
[2017-03-06 02:00] VITALS: BP 106/76; RESP 18
[2017-03-06] MEDS: ACCU-CHEK XX SCH (02:00)
[2017-03-06] MEDS: PANTOPRAZOLE (EC) 40 MG TAB PO SCH (05:51)
[2017-03-06 06:41] LABS: CALCIUM 8.1 mg/dl (8.4-10.2); CREATININE 0.65 mg/dl (0.44-1.00); POTASSIUM 4.5 mmol/L (3.5-5.1)
[2017-03-06] MEDS: metFORMIN 500 MG TAB PO SCH ×2 (07:54→17:05)
[2017-03-06] MEDS: INSULIN ASPART [NOVOLOG] 3 ML PEN SC SCH ×7 (07:55→21:00)
[2017-03-06 08:22] VITALS: BP 107/62; RESP 18
[2017-03-06] MEDS: LACTULOSE 30ML CUP PO SCH (09:06)
[2017-03-06] MEDS: FOLIC ACID 1 MG TAB PO SCH (09:07)
[2017-03-06] MEDS: AMLODIPINE 10 MG TAB PO SCH (09:07)
[2017-03-06] MEDS: RIFAXIMIN 550 MG TAB PO SCH ×2 (09:07→21:41)
[2017-03-06] MEDS: GABAPENTIN 300 MG CAP PO SCH ×3 (09:07→21:42)
[2017-03-06] MEDS: BENAZEPRIL 20 MG TAB PO SCH (09:08)
--- NOTE | 2017-03-06 12:44 | PN ---
Date/Time of Note Date/Time of Note DATE: 03/06/17 TIME: 12:44 Assessment/Plan VTE Prophylaxis VTE Prophylaxis Intervention: other Lines/Catheters [facility] ([facility] Peripheral IV Urinary Cath still in place: No Assessment/Plan Chief Complaint/Hosp Course - Hepatic encephalopathy. Continue lactulose and rifaximin. Monitor ammonia level. Monitor neurological status as altered level of consciousness secondary to hepatic encephalopathy. - Alcoholic liver cirrhosis. - Diabetes mellitus type 2. We will continue Lantus and NovoLog premeal as well as NovoLog per moderate algorithm sliding scale. Continue metformin. - Hypertension. Continue Norvasc and lisinopril. - Hyperlipidemia. - Noncompliance with medication regimen. - Thrombocytopenia, most likely due to liver cirrhosis. Problems: Subjective 24 Hr Interval Summary Free Text/Dictation Patient has no complaints Exam/Review of Systems Vital Signs Vitals Vital Signs Date Time Temp Pulse Resp B/P Pulse Ox O2 Delivery O2 Flow Rate FiO2 03/06/17 08:22 98.5 69 18 107/62 96 Intake and Output 03/05/17 03/05/17 03/06/17 15:00 23:00 07:00 Intake Total 1020 ml 220 ml Balance 1020 ml 220 ml Exam Constitutional: well developed Head: atraumatic, normocephalic Neck: supple Respiratory: clear to auscultation Cardiovascular: regular rate and rhythm Gastrointestinal: non-tender, soft Results Result Diagram: 03/05/17 0535 03/06/17 0530 Results 24 hrs Laboratory Tests Test 03/05/17 16:44 03/05/17 21:05 03/06/17 02:44 03/06/17 05:30 Bedside Glucose 178 239 H 111 Sodium Level 139 Potassium Level 4.5 Chloride Level 115 H Carbon Dioxide Level 16 L Anion Gap 13 Blood Urea Nitrogen 12 Creatinine 0.65 Glucose Level 149 Calcium Level 8.1 L Ammonia 64 #H Test 03/06/17 07:47 03/06/17 11:46 Bedside Glucose 198 136 Medications Medications Current Medications Lactulose (Enulose) 20 gm DAILY PO Last administered on 03/06/17 09:06; Admin Dose 20 GM; Start 02/22/17 at 04:00 Acetaminophen (Tylenol Tab) 500 mg Q6H PRN PO PAIN AND OR ELEVATED TEMP Last administered on 03/04/17 06:14; Admin Dose 500 MG; Start 02/22/17 at 12:00 Pantoprazole (Protonix Tab) 40 mg DAILY@06 PO Last administered on 03/06/17 05: 51; Admin Dose 40 MG; Start 02/23/17 at 06:00 Amlodipine Besylate (Norvasc) 10 mg DAILY PO Last administered on 03/06/17 09: 07; Admin Dose 10 MG; Start 02/22/17 at 12:00 Atorvastatin Calcium (Lipitor) 20 mg HS PO Last administered on 03/05/17 21:08 ; Admin Dose 20 MG; Start 02/22/17 at 21:00 Benazepril HCl (Lotensin) 20 mg DAILY PO Last administered on 03/06/17 09:08; Admin Dose 20 MG; Start 02/22/17 at 12:00 Folic Acid (Folic Acid) 1 mg DAILY PO Last administered on 03/06/17 09:07; Admin Dose 1 MG; Start 02/22/17 at 12:00 Gabapentin (Neurontin) 300 mg TID PO Last administered on 03/06/17 09:07; Admin Dose 300 MG; Start 02/22/17 at 13:00 Lorazepam (Ativan) 2 mg HS PRN PO Anxiety Last administered on 03/05/17 23:51 ; Admin Dose 2 MG; Start 02/22/17 at 12:00 Diagnostic Test (Pha) (Accu-Chek) 1 ea 02 XX Last administered on 03/04/17 02: 44; Admin Dose 1 EA; Start 02/23/17 at 02:00 Miscellaneous Information 1 ea NOTE XX ; Start 02/22/17 at 13:00 Glucose (Glutose) 15 gm Q15M PRN PO DECREASED GLUCOSE; Start 02/22/17 at 13:00 Glucose (Glutose) 22.5 gm Q15M PRN PO DECREASED GLUCOSE; Start 02/22/17 at 13: 00 Dextrose (D50w Syringe) 25 ml Q15M PRN IV DECREASED GLUCOSE; Start 02/22/17 at 13:00 Dextrose (D50w Syringe) 50 ml Q15M PRN IV DECREASED GLUCOSE; Start 02/22/17 at 13:00 Glucagon (Glucagen) 1 mg Q15M PRN IM DECREASED GLUCOSE; Start 02/22/17 at 13:00 Glucose (Glutose) 15 gm Q15M PRN BUCCAL DECREASED GLUCOSE Last administered on 03/02/17 19:54; Admin Dose 15 GM; Start 02/22/17 at 13:00 Hydralazine HCl (Apresoline) 10 mg Q6H PRN IV SBP>170 Last administered on 02/22 14:05; Admin Dose 10 MG; Start 02/22/17 at 14:00 Rifaximin 550 mg 550 mg BID PO Last administered on 03/06/17 09:07; Admin Dose 550 MG; Start 02/24/17 at 21:00 Potassium Chloride/Sodium Chloride (1/2 NS + KCl 20 Meq) 1,000 ml @ 50 mls/hr Q20H IV Last administered on 03/05/17 23:48; Admin Dose 50 MLS/HR; Start at 18:30 Insulin Glargine (Lantus) 15 unit QHS SC Last administered on 03/05/17 23:29; Admin Dose 15 UNIT; Start 03/04/17 at 21:00 Ketorolac Tromethamine (Toradol) 15 mg Q6H PRN IV PAIN Last administered on 03/05 16:49; Admin Dose 15 MG; Start 03/04/17 at 10:30; Stop 03/07/17 at 10:29 URI KATZ Mar 06, 2017 12:44
--- NOTE | 2017-03-06 12:58 | CONS ---
Date/Time of Note Date/Time of Note DATE: 03/06/17 TIME: 12:58 Assessment/Plan Assessment/Plan Additional Assessment/Plan Additional Assessment/Plan 1,abdominal pain ,gastritis,r/o peptic ulcer disease 2,cirrhosis of liver 3,diabetes mellitus 4,hepatic encephalopathy better Plan continue lactulose and rifaximin control blood sugar empirically start pt on PPI will need EGD for evaluation of varicose vein and abdominal pain Since patient has no abdominal pain she declined EGD Consultation Date/Type/Reason Admit Date/Time Feb 22, 2017 at 09:51 24 HR Interval Summary Constitutional: improved, no complaints Exam/Review of Systems Vital Signs Vitals Vital Signs Date Time Temp Pulse Resp B/P Pulse Ox O2 Delivery O2 Flow Rate FiO2 03/06/17 08:22 98.5 69 18 107/62 96 Intake and Output 03/05/17 03/05/17 03/06/17 15:00 23:00 07:00 Intake Total 1020 ml 220 ml Balance 1020 ml 220 ml Exam Constitutional: alert, oriented, well developed Psych: nl mood/affect, no complaints Head: atraumatic, normocephalic Eyes: EOMI, PERRL, nl conjunctiva, nl lids, nl sclera ENMT: nl external ears & nose, nl lips & teeth, nl nasal mucosa & septum Neck: non-tender, supple Respiratory: clear to auscultation, normal air movement Cardiovascular: nl pulses, regular rate and rhythm Gastrointestinal: nl liver, spleen, non-tender, soft Musculoskeletal: nl extremities to inspection, nl gait and stance Extremities: normal pulses Neurological: PATCH SETTER II-XII intact, nl mental status, nl speech, nl strength Skin: nl turgor, No rash or lesions Lymph: nl lymph nodes Results Result Diagram: 03/05/17 0535 03/06/17 0530 Results 24 hrs Laboratory Tests Test 03/05/17 16:44 03/05/17 21:05 03/06/17 02:44 03/06/17 05:30 Bedside Glucose 178 239 H 111 Sodium Level 139 Potassium Level 4.5 Chloride Level 115 H Carbon Dioxide Level 16 L Anion Gap 13 Blood Urea Nitrogen 12 Creatinine 0.65 Glucose Level 149 Calcium Level 8.1 L Ammonia 64 #H Test 03/06/17 07:47 03/06/17 11:46 Bedside Glucose 198 136 Medications Medications Current Medications Lactulose (Enulose) 20 gm DAILY PO Last administered on 03/06/17 09:06; Admin Dose 20 GM; Start 02/22/17 at 04:00 Acetaminophen (Tylenol Tab) 500 mg Q6H PRN PO PAIN AND OR ELEVATED TEMP Last administered on 03/04/17 06:14; Admin Dose 500 MG; Start 02/22/17 at 12:00 Pantoprazole (Protonix Tab) 40 mg DAILY@06 PO Last administered on 03/06/17 05: 51; Admin Dose 40 MG; Start 02/23/17 at 06:00 Amlodipine Besylate (Norvasc) 10 mg DAILY PO Last administered on 03/06/17 09: 07; Admin Dose 10 MG; Start 02/22/17 at 12:00 Atorvastatin Calcium (Lipitor) 20 mg HS PO Last administered on 03/05/17 21:08 ; Admin Dose 20 MG; Start 02/22/17 at 21:00 Benazepril HCl (Lotensin) 20 mg DAILY PO Last administered on 03/06/17 09:08; Admin Dose 20 MG; Start 02/22/17 at 12:00 Folic Acid (Folic Acid) 1 mg DAILY PO Last administered on 03/06/17 09:07; Admin Dose 1 MG; Start 02/22/17 at 12:00 Gabapentin (Neurontin) 300 mg TID PO Last administered on 03/06/17 12:47; Admin Dose 300 MG; Start 02/22/17 at 13:00 Lorazepam (Ativan) 2 mg HS PRN PO Anxiety Last administered on 03/05/17 23:51 ; Admin Dose 2 MG; Start 02/22/17 at 12:00 Diagnostic Test (Pha) (Accu-Chek) 1 ea 02 XX Last administered on 03/04/17 02: 44; Admin Dose 1 EA; Start 02/23/17 at 02:00 Miscellaneous Information 1 ea NOTE XX ; Start 02/22/17 at 13:00 Glucose (Glutose) 15 gm Q15M PRN PO DECREASED GLUCOSE; Start 02/22/17 at 13:00 Glucose (Glutose) 22.5 gm Q15M PRN PO DECREASED GLUCOSE; Start 02/22/17 at 13: 00 Dextrose (D50w Syringe) 25 ml Q15M PRN IV DECREASED GLUCOSE; Start 02/22/17 at 13:00 Dextrose (D50w Syringe) 50 ml Q15M PRN IV DECREASED GLUCOSE; Start 02/22/17 at 13:00 Glucagon (Glucagen) 1 mg Q15M PRN IM DECREASED GLUCOSE; Start 02/22/17 at 13:00 Glucose (Glutose) 15 gm Q15M PRN BUCCAL DECREASED GLUCOSE Last administered on 03/02/17 19:54; Admin Dose 15 GM; Start 02/22/17 at 13:00 Hydralazine HCl (Apresoline) 10 mg Q6H PRN IV SBP>170 Last administered on 02/22 14:05; Admin Dose 10 MG; Start 02/22/17 at 14:00 Rifaximin 550 mg 550 mg BID PO Last administered on 03/06/17 09:07; Admin Dose 550 MG; Start 02/24/17 at 21:00 Potassium Chloride/Sodium Chloride (1/2 NS + KCl 20 Meq) 1,000 ml @ 50 mls/hr Q20H IV Last administered on 03/05/17 23:48; Admin Dose 50 MLS/HR; Start at 18:30 Insulin Glargine (Lantus) 15 unit QHS SC Last administered on 03/05/17 23:29; Admin Dose 15 UNIT; Start 03/04/17 at 21:00 Ketorolac Tromethamine (Toradol) 15 mg Q6H PRN IV PAIN Last administered on 03/05 16:49; Admin Dose 15 MG; Start 03/04/17 at 10:30; Stop 03/07/17 at 10:29 BE MACDONALD MD Mar 06, 2017 12:58
[2017-03-06 14:00] VITALS: BP 101/59; RESP 20
[2017-03-06 20:20] VITALS: BP 102/56; RESP 16
[2017-03-06] MEDS: ATORVASTATIN 20 MG TAB PO SCH (21:41)
[2017-03-06] MEDS: LORAZEPAM 1 MG TAB PO PRN (21:42)
[2017-03-06] MEDS: 1/2 NS + KCL 20 MEQ 1,000 ML IV SCH (21:42)
[2017-03-06] MEDS: INSULIN GLARGINE [LANtus] 3 ML PEN SC SCH (21:43)
[2017-03-07] MEDS: ACCU-CHEK XX SCH (01:58)
[2017-03-07 02:29] VITALS: BP 110/59; RESP 17
[2017-03-07] MEDS: PANTOPRAZOLE (EC) 40 MG TAB PO SCH (05:31)
[2017-03-07 08:02] VITALS: BP 120/67; RESP 17
[2017-03-07] MEDS: INSULIN ASPART [NOVOLOG] 3 ML PEN SC SCH ×7 (08:29→20:43)
[2017-03-07] MEDS: LACTULOSE 30ML CUP PO SCH (08:32)
[2017-03-07] MEDS: RIFAXIMIN 550 MG TAB PO SCH ×2 (08:32→20:43)
[2017-03-07] MEDS: FOLIC ACID 1 MG TAB PO SCH (08:32)
[2017-03-07] MEDS: AMLODIPINE 10 MG TAB PO SCH (08:32)
[2017-03-07] MEDS: GABAPENTIN 300 MG CAP PO SCH ×3 (08:32→20:43)
[2017-03-07] MEDS: BENAZEPRIL 20 MG TAB PO SCH (08:33)
[2017-03-07] MEDS: metFORMIN 500 MG TAB PO SCH ×2 (08:34→17:24)
--- NOTE | 2017-03-07 12:33 | PN ---
Date/Time of Note Date/Time of Note DATE: 03/07/17 TIME: 12:32 Assessment/Plan VTE Prophylaxis VTE Prophylaxis Intervention: other Lines/Catheters [facility] Type (from [facility] Peripheral IV Urinary Cath still in place: No Assessment/Plan Chief Complaint/Hosp Course - Hepatic encephalopathy. Continue lactulose and rifaximin. Monitor ammonia level. Monitor neurological status as altered level of consciousness secondary to hepatic encephalopathy. - Alcoholic liver cirrhosis. - Diabetes mellitus type 2. We will continue Lantus and NovoLog premeal as well as NovoLog per moderate algorithm sliding scale. Continue metformin. - Hypertension. Continue Norvasc and lisinopril. - Hyperlipidemia. - Noncompliance with medication regimen. - Thrombocytopenia, most likely due to liver cirrhosis. Problems: Subjective 24 Hr Interval Summary Free Text/Dictation Patient is more awake today, eating her lunch Exam/Review of Systems Vital Signs Vitals Vital Signs Date Time Temp Pulse Resp B/P Pulse Ox O2 Delivery O2 Flow Rate FiO2 03/07/17 08:02 98.6 70 17 120/67 95 Intake and Output 03/06/17 03/06/17 03/07/17 15:00 23:00 07:00 Intake Total 2220 ml 650 ml Balance 2220 ml 650 ml Exam Constitutional: well developed Head: normocephalic Neck: supple Respiratory: clear to auscultation Cardiovascular: regular rate and rhythm Gastrointestinal: non-tender, soft Extremities: normal pulses Results Result Diagram: 03/05/17 0535 03/06/17 0530 Results 24 hrs Laboratory Tests Test 03/06/17 16:56 03/06/17 21:40 03/07/17 07:45 03/07/17 11:49 Bedside Glucose 208 177 157 184 Medications Medications Current Medications Lactulose (Enulose) 20 gm DAILY PO Last administered on 03/07/17 08:32; Admin Dose 20 GM; Start 02/22/17 at 04:00 Acetaminophen (Tylenol Tab) 500 mg Q6H PRN PO PAIN AND OR ELEVATED TEMP Last administered on 03/04/17 06:14; Admin Dose 500 MG; Start 02/22/17 at 12:00 Pantoprazole (Protonix Tab) 40 mg DAILY@06 PO Last administered on 03/07/17 05: 31; Admin Dose 40 MG; Start 02/23/17 at 06:00 Amlodipine Besylate (Norvasc) 10 mg DAILY PO Last administered on 03/07/17 08: 32; Admin Dose 10 MG; Start 02/22/17 at 12:00 Atorvastatin Calcium (Lipitor) 20 mg HS PO Last administered on 03/06/17 21:41 ; Admin Dose 20 MG; Start 02/22/17 at 21:00 Benazepril HCl (Lotensin) 20 mg DAILY PO Last administered on 03/07/17 08:33; Admin Dose 20 MG; Start 02/22/17 at 12:00 Folic Acid (Folic Acid) 1 mg DAILY PO Last administered on 03/07/17 08:32; Admin Dose 1 MG; Start 02/22/17 at 12:00 Gabapentin (Neurontin) 300 mg TID PO Last administered on 03/07/17 08:32; Admin Dose 300 MG; Start 02/22/17 at 13:00 Lorazepam (Ativan) 2 mg HS PRN PO Anxiety Last administered on 03/06/17 21:42 ; Admin Dose 2 MG; Start 02/22/17 at 12:00 Diagnostic Test (Pha) (Accu-Chek) 1 ea 02 XX Last administered on 03/04/17 02: 44; Admin Dose 1 EA; Start 02/23/17 at 02:00 Miscellaneous Information 1 ea NOTE XX ; Start 02/22/17 at 13:00 Glucose (Glutose) 15 gm Q15M PRN PO DECREASED GLUCOSE; Start 02/22/17 at 13:00 Glucose (Glutose) 22.5 gm Q15M PRN PO DECREASED GLUCOSE; Start 02/22/17 at 13: 00 Dextrose (D50w Syringe) 25 ml Q15M PRN IV DECREASED GLUCOSE; Start 02/22/17 at 13:00 Dextrose (D50w Syringe) 50 ml Q15M PRN IV DECREASED GLUCOSE; Start 02/22/17 at 13:00 Glucagon (Glucagen) 1 mg Q15M PRN IM DECREASED GLUCOSE; Start 02/22/17 at 13:00 Glucose (Glutose) 15 gm Q15M PRN BUCCAL DECREASED GLUCOSE Last administered on 03/02/17 19:54; Admin Dose 15 GM; Start 02/22/17 at 13:00 Hydralazine HCl (Apresoline) 10 mg Q6H PRN IV SBP>170 Last administered on 02/22 14:05; Admin Dose 10 MG; Start 02/22/17 at 14:00 Rifaximin 550 mg 550 mg BID PO Last administered on 03/07/17 08:32; Admin Dose 550 MG; Start 02/24/17 at 21:00 Potassium Chloride/Sodium Chloride (1/2 NS + KCl 20 Meq) 1,000 ml @ 50 mls/hr Q20H IV Last administered on 03/06/17 21:42; Admin Dose 50 MLS/HR; Start at 18:30 Insulin Glargine (Lantus) 15 unit QHS SC Last administered on 03/06/17 21:43; Admin Dose 15 UNIT; Start 03/04/17 at 21:00 URI KATZ Mar 07, 2017 12:33
[2017-03-07 14:58] VITALS: BP 107/56; RESP 17
--- NOTE | 2017-03-07 17:11 | CONS ---
Date/Time of Note Date/Time of Note DATE: 03/07/17 TIME: 17:10 Assessment/Plan Assessment/Plan Additional Assessment/Plan Additional Assessment/Plan 1,abdominal pain ,gastritis,r/o peptic ulcer disease 2,cirrhosis of liver 3,diabetes mellitus 4,hepatic encephalopathy better Plan continue lactulose and rifaximin control blood sugar empirically start pt on PPI will need EGD for evaluation of varicose vein and abdominal pain Since patient has no abdominal pain she declined EGD Consultation Date/Type/Reason Admit Date/Time Feb 22, 2017 at 09:51 24 HR Interval Summary Constitutional: improved, no complaints Exam/Review of Systems Vital Signs Vitals Vital Signs Date Time Temp Pulse Resp B/P Pulse Ox O2 Delivery O2 Flow Rate FiO2 03/07/17 14:58 98.2 77 17 107/56 97 Intake and Output 03/06/17 03/06/17 03/07/17 15:00 23:00 07:00 Intake Total 2220 ml 650 ml Balance 2220 ml 650 ml Exam Constitutional: alert, oriented, well developed Psych: nl mood/affect, no complaints Head: atraumatic, normocephalic Eyes: EOMI, PERRL, nl conjunctiva, nl lids, nl sclera ENMT: nl external ears & nose, nl lips & teeth, nl nasal mucosa & septum Neck: non-tender, supple Respiratory: clear to auscultation, normal air movement Cardiovascular: nl pulses, regular rate and rhythm Gastrointestinal: nl liver, spleen, non-tender, soft Musculoskeletal: nl extremities to inspection, nl gait and stance Extremities: normal pulses Neurological: [employer] II-XII intact, nl mental status, nl speech, nl strength Skin: nl turgor, No rash or lesions Lymph: nl lymph nodes Results Result Diagram: 03/05/17 0535 03/06/17 0530 Results 24 hrs Laboratory Tests Test 03/06/17 21:40 03/07/17 07:45 03/07/17 11:49 03/07/17 16:50 Bedside Glucose 177 157 184 154 Medications Medications Current Medications Lactulose (Enulose) 20 gm DAILY PO Last administered on 03/07/17 08:32; Admin Dose 20 GM; Start 02/22/17 at 04:00 Acetaminophen (Tylenol Tab) 500 mg Q6H PRN PO PAIN AND OR ELEVATED TEMP Last administered on 03/04/17 06:14; Admin Dose 500 MG; Start 02/22/17 at 12:00 Pantoprazole (Protonix Tab) 40 mg DAILY@06 PO Last administered on 03/07/17 05: 31; Admin Dose 40 MG; Start 02/23/17 at 06:00 Amlodipine Besylate (Norvasc) 10 mg DAILY PO Last administered on 03/07/17 08: 32; Admin Dose 10 MG; Start 02/22/17 at 12:00 Atorvastatin Calcium (Lipitor) 20 mg HS PO Last administered on 03/06/17 21:41 ; Admin Dose 20 MG; Start 02/22/17 at 21:00 Benazepril HCl (Lotensin) 20 mg DAILY PO Last administered on 03/07/17 08:33; Admin Dose 20 MG; Start 02/22/17 at 12:00 Folic Acid (Folic Acid) 1 mg DAILY PO Last administered on 03/07/17 08:32; Admin Dose 1 MG; Start 02/22/17 at 12:00 Gabapentin (Neurontin) 300 mg TID PO Last administered on 03/07/17 12:44; Admin Dose 300 MG; Start 02/22/17 at 13:00 Lorazepam (Ativan) 2 mg HS PRN PO Anxiety Last administered on 03/06/17 21:42 ; Admin Dose 2 MG; Start 02/22/17 at 12:00 Diagnostic Test (Pha) (Accu-Chek) 1 ea 02 XX Last administered on 03/04/17 02: 44; Admin Dose 1 EA; Start 02/23/17 at 02:00 Miscellaneous Information 1 ea NOTE XX ; Start 02/22/17 at 13:00 Glucose (Glutose) 15 gm Q15M PRN PO DECREASED GLUCOSE; Start 02/22/17 at 13:00 Glucose (Glutose) 22.5 gm Q15M PRN PO DECREASED GLUCOSE; Start 02/22/17 at 13: 00 Dextrose (D50w Syringe) 25 ml Q15M PRN IV DECREASED GLUCOSE; Start 02/22/17 at 13:00 Dextrose (D50w Syringe) 50 ml Q15M PRN IV DECREASED GLUCOSE; Start 02/22/17 at 13:00 Glucagon (Glucagen) 1 mg Q15M PRN IM DECREASED GLUCOSE; Start 02/22/17 at 13:00 Glucose (Glutose) 15 gm Q15M PRN BUCCAL DECREASED GLUCOSE Last administered on 03/02/17 19:54; Admin Dose 15 GM; Start 02/22/17 at 13:00 Hydralazine HCl (Apresoline) 10 mg Q6H PRN IV SBP>170 Last administered on 02/22 14:05; Admin Dose 10 MG; Start 02/22/17 at 14:00 Rifaximin 550 mg 550 mg BID PO Last administered on 03/07/17 08:32; Admin Dose 550 MG; Start 02/24/17 at 21:00 Potassium Chloride/Sodium Chloride (1/2 NS + KCl 20 Meq) 1,000 ml @ 50 mls/hr Q20H IV Last administered on 03/06/17 21:42; Admin Dose 50 MLS/HR; Start at 18:30 Insulin Glargine (Lantus) 15 unit QHS SC Last administered on 03/06/17 21:43; Admin Dose 15 UNIT; Start 03/04/17 at 21:00 BE MACDONALD MD Mar 07, 2017 17:10
[2017-03-07] MEDS: 1/2 NS + KCL 20 MEQ 1,000 ML IV SCH (17:25)
[2017-03-07 20:29] VITALS: BP 105/60; RESP 20
[2017-03-07] MEDS: ATORVASTATIN 20 MG TAB PO SCH (20:43)
[2017-03-07] MEDS: INSULIN GLARGINE [LANtus] 3 ML PEN SC SCH (20:44)
[2017-03-07] MEDS: LORAZEPAM 1 MG TAB PO PRN (20:48)
[2017-03-08] MEDS: ACCU-CHEK XX SCH (02:00)
[2017-03-08 02:35] VITALS: BP 124/63; RESP 22
[2017-03-08] MEDS: PANTOPRAZOLE (EC) 40 MG TAB PO SCH (05:28)
[2017-03-08] MEDS: INSULIN ASPART [NOVOLOG] 3 ML PEN SC SCH ×7 (08:00→20:06)
[2017-03-08 08:10] VITALS: BP 123/73; RESP 16
[2017-03-08] MEDS: RIFAXIMIN 550 MG TAB PO SCH ×2 (08:57→20:04)
[2017-03-08] MEDS: GABAPENTIN 300 MG CAP PO SCH ×3 (08:57→20:05)
[2017-03-08] MEDS: metFORMIN 500 MG TAB PO SCH ×2 (08:57→18:06)
[2017-03-08] MEDS: LACTULOSE 30ML CUP PO SCH (08:58)
[2017-03-08] MEDS: FOLIC ACID 1 MG TAB PO SCH (08:58)
[2017-03-08] MEDS: AMLODIPINE 10 MG TAB PO SCH (08:58)
[2017-03-08] MEDS: BENAZEPRIL 20 MG TAB PO SCH (08:58)
--- NOTE | 2017-03-08 13:17 | PN ---
Date/Time of Note Date/Time of Note DATE: 03/08/17 TIME: 13:14 Assessment/Plan VTE Prophylaxis VTE Prophylaxis Intervention: SCD's Lines/Catheters [facility] Type [facility] Peripheral IV Urinary Cath still in place: No Assessment/Plan Chief Complaint/Hosp Course Blood sugar is well controlled, patient is able to follow commands with slightly delayed response, acute rehab evaluation. Continue PT. ASSESSMENT AND PLAN: - Hepatic encephalopathy. Continue lactulose and rifaximin. Monitor ammonia level. Monitor neurological status as altered level of consciousness secondary to hepatic encephalopathy. - Alcoholic liver cirrhosis. - Diabetes mellitus type 2. We will continue Lantus and NovoLog premeal as well as NovoLog per moderate algorithm sliding scale. Continue metformin. - Hypertension. Continue Norvasc and lisinopril. - Hyperlipidemia. - Noncompliance with medication regimen. - Thrombocytopenia, most likely due to liver cirrhosis. Further recommendations based on clinical course. Plan of care discussed with Dr. Dickson. Problems: Exam/Review of Systems Vital Signs Vitals Vital Signs Date Time Temp Pulse Resp B/P Pulse Ox O2 Delivery O2 Flow Rate FiO2 03/08/17 08:10 98.8 81 16 123/73 97 Intake and Output 03/07/17 03/07/17 03/08/17 15:00 23:00 07:00 Intake Total 1320 ml 1055 ml Balance 1320 ml 1055 ml Exam Constitutional: alert, obese Psych: confusion Head: atraumatic Neck: supple Respiratory: normal air movement Cardiovascular: nl pulses Gastrointestinal: non-tender, soft Extremities: edema, normal pulses Results Result Diagram: 03/05/17 0535 03/06/17 0530 Results 24 hrs Laboratory Tests Test 03/07/17 16:50 03/07/17 20:43 03/08/17 07:43 03/08/17 11:28 Bedside Glucose 154 180 126 144 Medications Medications Current Medications Lactulose (Enulose) 20 gm DAILY PO Last administered on 03/08/17 08:58; Admin Dose 20 GM; Start 02/22/17 at 04:00 Acetaminophen (Tylenol Tab) 500 mg Q6H PRN PO PAIN AND OR ELEVATED TEMP Last administered on 03/04/17 06:14; Admin Dose 500 MG; Start 02/22/17 at 12:00 Pantoprazole (Protonix Tab) 40 mg DAILY@06 PO Last administered on 03/08/17 05 :28; Admin Dose 40 MG; Start 02/23/17 at 06:00 Amlodipine Besylate (Norvasc) 10 mg DAILY PO Last administered on 03/08/17 08: 58; Admin Dose 10 MG; Start 02/22/17 at 12:00 Atorvastatin Calcium (Lipitor) 20 mg HS PO Last administered on 03/07/17 20:43 ; Admin Dose 20 MG; Start 02/22/17 at 21:00 Benazepril HCl (Lotensin) 20 mg DAILY PO Last administered on 03/08/17 08:58; Admin Dose 20 MG; Start 02/22/17 at 12:00 Folic Acid (Folic Acid) 1 mg DAILY PO Last administered on 03/08/17 08:58; Admin Dose 1 MG; Start 02/22/17 at 12:00 Gabapentin (Neurontin) 300 mg TID PO Last administered on 03/08/17 12:21; Admin Dose 300 MG; Start 02/22/17 at 13:00 Lorazepam (Ativan) 2 mg HS PRN PO Anxiety Last administered on 03/07/17 20:48 ; Admin Dose 2 MG; Start 02/22/17 at 12:00 Diagnostic Test (Pha) (Accu-Chek) 1 ea 02 XX Last administered on 03/04/17 02: 44; Admin Dose 1 EA; Start 02/23/17 at 02:00 Miscellaneous Information 1 ea NOTE XX ; Start 02/22/17 at 13:00 Glucose (Glutose) 15 gm Q15M PRN PO DECREASED GLUCOSE; Start 02/22/17 at 13:00 Glucose (Glutose) 22.5 gm Q15M PRN PO DECREASED GLUCOSE; Start 02/22/17 at 13: 00 Dextrose (D50w Syringe) 25 ml Q15M PRN IV DECREASED GLUCOSE; Start 02/22/17 at 13:00 Dextrose (D50w Syringe) 50 ml Q15M PRN IV DECREASED GLUCOSE; Start 02/22/17 at 13:00 Glucagon (Glucagen) 1 mg Q15M PRN IM DECREASED GLUCOSE; Start 02/22/17 at 13:00 Glucose (Glutose) 15 gm Q15M PRN BUCCAL DECREASED GLUCOSE Last administered on 03/02/17 19:54; Admin Dose 15 GM; Start 02/22/17 at 13:00 Hydralazine HCl (Apresoline) 10 mg Q6H PRN IV SBP>170 Last administered on 02/22 14:05; Admin Dose 10 MG; Start 02/22/17 at 14:00 Rifaximin 550 mg 550 mg BID PO Last administered on 03/08/17 08:57; Admin Dose 550 MG; Start 02/24/17 at 21:00 Potassium Chloride/Sodium Chloride (1/2 NS + KCl 20 Meq) 1,000 ml @ 50 mls/hr Q20H IV Last administered on 03/07/17 17:25; Admin Dose 50 MLS/HR; Start at 18:30 Insulin Glargine (Lantus) 15 unit QHS SC Last administered on 03/07/17 20:44; Admin Dose 15 UNIT; Start 03/04/17 at 21:00 DEMETRIA ZAVALA Mar 08, 2017 13:17
[2017-03-08 14:50] VITALS: BP 103/57; RESP 16
[2017-03-08] MEDS: 1/2 NS + KCL 20 MEQ 1,000 ML IV SCH (15:31)
[2017-03-08] MEDS: ATORVASTATIN 20 MG TAB PO SCH (20:04)
[2017-03-08] MEDS: LORAZEPAM 1 MG TAB PO PRN (20:05)
[2017-03-08] MEDS: INSULIN GLARGINE [LANtus] 3 ML PEN SC SCH (20:07)
[2017-03-08 21:00] VITALS: BP 110/56; RESP 21
[2017-03-08] MEDS: ACETAMINOPHEN 500 MG TAB PO PRN (22:29)
[2017-03-09] MEDS: ACCU-CHEK XX SCH (02:00)
[2017-03-09 02:55] VITALS: BP 111/59; RESP 18
[2017-03-09] MEDS: PANTOPRAZOLE (EC) 40 MG TAB PO SCH (05:30)
[2017-03-09 06:31] LABS: ADD SCAN DIFF NO
[2017-03-09 06:50] LABS: ABNORMAL IP MESSAGE 1; BASOPHILS % 0.5 % (0.0-2.0); EOSINOPHILS # 0.1 10^3/ul (0.0-0.5); EOSINOPHILS % 3.3 % (0.0-7.0); HEMATOCRIT 27.9 % (37.0-47.0); HEMOGLOBIN 8.9 g/dl (12.0-16.0); LYMPHOCYTES # 1.1 10^3/ul (0.8-2.9); LYMPHOCYTES % 30.5 % (15.0-51.0); MEAN CORPUSCULAR HEMOGLOBIN 28.8 pg (29.0-33.0); MEAN CORPUSCULAR HGB CONC 31.9 g/dl (32.0-37.0); MEAN CORPUSCULAR VOLUME 90.3 fl (82.0-101.0); MONOCYTE # 0.2 10^3/ul (0.3-0.9); NEUTROPHIL # 2.2 10^3/ul (1.6-7.5); NEUTROPHILS % 59.2 % (39.0-77.0); RED BLOOD COUNT 3.09 10^6/ul (4.20-5.40); RED CELL DISTRIBUTION WIDTH 16.2 % (11.5-14.5); WHITE BLOOD COUNT 3.7 10^3/ul (4.8-10.8)
[2017-03-09 06:57] LABS: PLATELET COUNT 60 10^3/UL (140-415)
[2017-03-09 07:02] LABS: CALCIUM 8.6 mg/dl (8.4-10.2); CREATININE 0.62 mg/dl (0.44-1.00)
[2017-03-09] MEDS: INSULIN ASPART [NOVOLOG] 3 ML PEN SC SCH ×7 (08:00→21:00)
[2017-03-09] MEDS: metFORMIN 500 MG TAB PO SCH ×2 (08:03→17:05)
[2017-03-09] MEDS: LACTULOSE 30ML CUP PO SCH (09:48)
[2017-03-09] MEDS: RIFAXIMIN 550 MG TAB PO SCH ×2 (09:48→21:16)
[2017-03-09] MEDS: AMLODIPINE 10 MG TAB PO SCH (09:49)
[2017-03-09] MEDS: GABAPENTIN 300 MG CAP PO SCH ×3 (09:49→21:16)
[2017-03-09] MEDS: BENAZEPRIL 20 MG TAB PO SCH (09:49)
[2017-03-09] MEDS: FOLIC ACID 1 MG TAB PO SCH (09:49)
[2017-03-09] MEDS: 1/2 NS + KCL 20 MEQ 1,000 ML IV SCH (14:36)
[2017-03-09 15:54] VITALS: BP 106/59; RESP 18
--- NOTE | 2017-03-09 17:45 | PN ---
Date/Time of Note Date/Time of Note DATE: 03/09/17 TIME: 17:41 Assessment/Plan VTE Prophylaxis VTE Prophylaxis Intervention: SCD's Lines/Catheters [facility] Peripheral IV Urinary Cath still in place: No Assessment/Plan Chief Complaint/Hosp Course Patient remains hemodynamically stable, DC planning. ASSESSMENT AND PLAN: - Hepatic encephalopathy. Continue lactulose and rifaximin. Monitor ammonia level. Monitor neurological status as altered level of consciousness secondary to hepatic encephalopathy. - Alcoholic liver cirrhosis. - Diabetes mellitus type 2. We will continue Lantus and NovoLog premeal as well as NovoLog per moderate algorithm sliding scale. Continue metformin. - Hypertension. Continue Norvasc and lisinopril. - Hyperlipidemia. - Noncompliance with medication regimen. - Thrombocytopenia, most likely due to liver cirrhosis. Further recommendations based on clinical course. Plan of care discussed with Dr. Dickson. Problems: Exam/Review of Systems Vital Signs Vitals Vital Signs Date Time Temp Pulse Resp B/P Pulse Ox O2 Delivery O2 Flow Rate FiO2 03/09/17 15:54 98.3 70 18 106/59 98 Intake and Output 03/08/17 03/08/17 03/09/17 15:00 23:00 07:00 Intake Total 575 ml 1080 ml Balance 575 ml 1080 ml Exam Constitutional: alert, obese Psych: confusion Head: atraumatic Neck: supple Respiratory: normal air movement Cardiovascular: nl pulses Gastrointestinal: non-tender, soft Extremities: edema, normal pulses Results Result Diagram: 03/09/17 0503/09/17 0521 Results 24 hrs Laboratory Tests Test 03/08/17 19:47 03/09/17 05:21 03/09/17 08:03 03/09/17 12:04 Bedside Glucose 105 77 227 H White Blood Count 3.7 #L Red Blood Count 3.09 L Hemoglobin 8.9 L Hematocrit 27.9 L Mean Corpuscular Volume 90.3 Mean Corpuscular Hemoglobin 28.8 L Mean Corpuscular Hemoglobin Concent 31.9 L Red Cell Distribution Width 16.2 H Platelet Count 60 L Mean Platelet Volume Neutrophils % 59.2 Lymphocytes % 30.5 Monocytes % 6.0 Eosinophils % 3.3 Basophils % 0.5 Nucleated Red Blood Cells % 0.0 Neutrophils # 2.2 Lymphocytes # 1.1 Monocytes # 0.2 L Eosinophils # 0.1 Basophils # 0.0 Nucleated Red Blood Cells # 0.0 Sodium Level 145 H Potassium Level 4.0 Chloride Level 110 Carbon Dioxide Level 24 Anion Gap 15 Blood Urea Nitrogen 12 Creatinine 0.62 Glucose Level 98 Calcium Level 8.6 Test 03/09/17 17:07 Bedside Glucose 115 Medications Medications Current Medications Lactulose (Enulose) 20 gm DAILY PO Last administered on 03/09/17 09:48; Admin Dose 20 GM; Start 02/22/17 at 04:00 Acetaminophen (Tylenol Tab) 500 mg Q6H PRN PO PAIN AND OR ELEVATED TEMP Last administered on 03/08/17 22:29; Admin Dose 500 MG; Start 02/22/17 at 12:00 Pantoprazole (Protonix Tab) 40 mg DAILY@06 PO Last administered on 03/09/17 05 :30; Admin Dose 40 MG; Start 02/23/17 at 06:00 Amlodipine Besylate (Norvasc) 10 mg DAILY PO Last administered on 03/09/17 09: 49; Admin Dose 10 MG; Start 02/22/17 at 12:00 Atorvastatin Calcium (Lipitor) 20 mg HS PO Last administered on 03/08/17 20:04 ; Admin Dose 20 MG; Start 02/22/17 at 21:00 Benazepril HCl (Lotensin) 20 mg DAILY PO Last administered on 03/09/17 09:49; Admin Dose 20 MG; Start 02/22/17 at 12:00 Folic Acid (Folic Acid) 1 mg DAILY PO Last administered on 03/09/17 09:49; Admin Dose 1 MG; Start 02/22/17 at 12:00 Gabapentin (Neurontin) 300 mg TID PO Last administered on 03/09/17 12:03; Admin Dose 300 MG; Start 02/22/17 at 13:00 Lorazepam (Ativan) 2 mg HS PRN PO Anxiety Last administered on 03/08/17 20:05 ; Admin Dose 2 MG; Start 02/22/17 at 12:00 Diagnostic Test (Pha) (Accu-Chek) 1 ea 02 XX Last administered on 03/04/17 02: 44; Admin Dose 1 EA; Start 02/23/17 at 02:00 Miscellaneous Information 1 ea NOTE XX ; Start 02/22/17 at 13:00 Glucose (Glutose) 15 gm Q15M PRN PO DECREASED GLUCOSE; Start 02/22/17 at 13:00 Glucose (Glutose) 22.5 gm Q15M PRN PO DECREASED GLUCOSE; Start 02/22/17 at 13: 00 Dextrose (D50w Syringe) 25 ml Q15M PRN IV DECREASED GLUCOSE; Start 02/22/17 at 13:00 Dextrose (D50w Syringe) 50 ml Q15M PRN IV DECREASED GLUCOSE; Start 02/22/17 at 13:00 Glucagon (Glucagen) 1 mg Q15M PRN IM DECREASED GLUCOSE; Start 02/22/17 at 13:00 Glucose (Glutose) 15 gm Q15M PRN BUCCAL DECREASED GLUCOSE Last administered on 03/02/17 19:54; Admin Dose 15 GM; Start 02/22/17 at 13:00 Hydralazine HCl (Apresoline) 10 mg Q6H PRN IV SBP>170 Last administered on 02/22 14:05; Admin Dose 10 MG; Start 02/22/17 at 14:00 Rifaximin 550 mg 550 mg BID PO Last administered on 03/09/17 09:48; Admin Dose 550 MG; Start 02/24/17 at 21:00 Potassium Chloride/Sodium Chloride (1/2 NS + KCl 20 Meq) 1,000 ml @ 50 mls/hr Q20H IV Last administered on 03/09/17 14:36; Admin Dose 50 MLS/HR; Start 02/24 at 18:30 Insulin Glargine (Lantus) 15 unit QHS SC Last administered on 03/08/17 20:07; Admin Dose 15 UNIT; Start 03/04/17 at 21:00 DEMETRIA ZAVALA Mar 09, 2017 17:45
[2017-03-09 20:24] VITALS: BP 106/58; RESP 19
[2017-03-09] MEDS: ATORVASTATIN 20 MG TAB PO SCH (21:16)
[2017-03-09] MEDS: INSULIN GLARGINE [LANtus] 3 ML PEN SC SCH (21:17)
[2017-03-10] MEDS: ACCU-CHEK XX SCH (02:00)
[2017-03-10] MEDS: PANTOPRAZOLE (EC) 40 MG TAB PO SCH (05:15)
[2017-03-10] MEDS: ACETAMINOPHEN 500 MG TAB PO PRN (05:18)
[2017-03-10 05:44] LABS: CALCIUM 8.4 mg/dl (8.4-10.2); CREATININE 0.65 mg/dl (0.44-1.00)
[2017-03-10] MEDS: INSULIN ASPART [NOVOLOG] 3 ML PEN SC SCH ×6 (08:00→18:01)
[2017-03-10] MEDS: LACTULOSE 30ML CUP PO SCH (09:34)
[2017-03-10] MEDS: RIFAXIMIN 550 MG TAB PO SCH (09:35)
[2017-03-10] MEDS: FOLIC ACID 1 MG TAB PO SCH (09:35)
[2017-03-10] MEDS: metFORMIN 500 MG TAB PO SCH ×2 (09:35→18:01)
[2017-03-10] MEDS: GABAPENTIN 300 MG CAP PO SCH ×2 (09:35→12:19)
[2017-03-10] MEDS: BENAZEPRIL 20 MG TAB PO SCH (09:42)
[2017-03-10] MEDS: AMLODIPINE 10 MG TAB PO SCH (09:42)
[2017-03-10] MEDS: 1/2 NS + KCL 20 MEQ 1,000 ML IV SCH (14:40)
[2017-03-10 14:45] VITALS: BP 110/59; RESP 20
[2017-03-10] MEDS ORDERED: RIFA550T4 PO (16:57)
[2017-03-10] MEDS ORDERED: LANT3I SC (16:57)
[2017-03-10] MEDS ORDERED: Lactulose PO (16:57)
[2017-03-10] MEDS ORDERED: PANT40TA4 PO (16:57)
[2017-03-10] MEDS ORDERED: NOVO3I SC (16:57)
== END 2017-03-10 18:41 | disposition home health service (06) | DRG 442 ==
LOC: E/R 22:43 → PP2 02-22 09:51
PROVIDERS: ADMIT Internal Medicine; ATTEND Internal Medicine
DX: K72.90 Hepatic failure, unspecified without coma (principal); K52.1 Toxic gastroenteritis and colitis; D69.6 Thrombocytopenia, unspecified; K70.30 Alcoholic cirrhosis of liver without ascites; Z91.14 Patient's other noncompliance with medication regimen; E11.9 Type 2 diabetes mellitus without complications; I10 Essential (primary) hypertension; E78.5 Hyperlipidemia, unspecified; F10.10 Alcohol abuse, uncomplicated; Z72.0 Tobacco use; E87.6 Hypokalemia; T47.3X5A Adverse effect of saline and osmotic laxatives, initial encounter; Y92.239 Unspecified place in hospital as the place of occurrence of the external cause; R10.13 Epigastric pain
CPT/HCPCS: 36415; 71010; 80048; 80053; 80306; 80307; 81001; 82140; 82947; 82962; 83036; 84484; 85025; 87075; 93005; 96374; 96376; 97116; 97162; 97530; J0360; J1815; J1885; J2270; J3480; J7040

== ENCOUNTER 2017-03-14 01:31 | Inpatient (IN) | payer OTHER ==
[~2017-03-14] VITALS: Ht 154.9 cm; Wt 71.0 kg
[~2017-03-14 01:31] MED LIST changes: -ACET1TAB40 PO; -AMLO-145 PO; +AMLO-147 PO; -BACTDS PO; +BENA20TA48 PO; +GABA300C16 PO; -KEN1O TOP; -LACT20SO2 PO; +Lactulose PO; -PALI6TAB6 PO; +PANT40TA4 PO; +RIFA550T4 PO; -TRAM50TA2 PO
[2017-03-14 01:37] VITALS: Ht 154.9 cm; Wt 71.0 kg
--- NOTE | 2017-03-14 02:20 | ERD ---
ER Documentation Chief Complaint Date/Time DATE: 03/14/17 TIME: 02:18 Chief Complaint states feels disoriented tonite. aox4 during triage HPI 51-year-old woman brought in by EMS from home for confusion 24 hours. Son was at the bedside states she was admitted for hepatic encephalopathy about a week ago and has been using her lactulose as prescribed. She has had no fevers or chills, no seizure activity, no vomiting or diarrhea, no complaints of chest pain or shortness of breath. She has had no blood per rectum or melena. Patient was transported here by EMS without further complications. ROS All systems reviewed and are negative except as per history of present illness. Medications Home Meds Active Scripts Insulin Aspart* (Novolog Insulin Pen*) 100 Unit/Ml Soln, 5 UNIT SC AC MEALS for 30 Days Prov:DEMETRIA ZAVALA 03/10/17 Insulin Glargine* (Lantus*) 100 Unit/Ml Soln, 15 UNIT SC QHS for 30 Days Prov:DEMETRIA ZAVALA 03/10/17 [Lactulose] 20 GM/30 ML SOLN No Conflict Check, 20 GM PO DAILY for 30 Days Prov:DEMETRIA ZAVALA 03/10/17 Pantoprazole* (Pantoprazole*) 40 Mg Tablet.dr, 40 MG PO DAILY@06 for 30 Days Prov:DEMETRIA ZAVALA 03/10/17 Rifaximin* (Xifaxan*) 550 Mg Tablet, 550 MG PO BID for 30 Days, TAB Prov:DEMETRIA ZAVALA 03/10/17 Reported Medications Metformin Hcl* (Metformin Hcl*) 1,000 Mg Tablet, 1000 MG PO BID, #30 TAB 02/22/17 Gabapentin* (Gabapentin*) 300 Mg Capsule, 300 MG PO TID, #90 CAP 02/22/17 Amlodipine Besylate* (Amlodipine Besylate*) 10 Mg Tablet, 10 MG PO DAILY, #30 TAB 02/22/17 Benazepril Hcl* (Benazepril Hcl*) 20 Mg Tablet, 20 MG PO DAILY, #30 TAB 02/22/17 Folic Acid* (Folic Acid*) 1 Mg Tablet, 1 MG PO DAILY, TAB 10/31/15 Lorazepam* (Lorazepam*) 1 Mg Tablet, 2 MG PO HS Y for ANXIETY, #30 TAB 3/3/16 Atorvastatin Calcium* (Atorvastatin Calcium*) 20 Mg Tablet, 20 MG PO QHS, #30 TAB 10/31/15 Discontinued Reported Medications Insulin Glargine* (Lantus*) 100 Unit/Ml Soln, 38 UNIT SC QHS, #1 VIAL 02/22/17 Insulin Lispro (Humalog) 100 Unit/1 Ml Cartridge, 18 UNIT SQ AC MEALS 02/22/17 Allergies Allergies: Coded Allergies: diphenhydramine HCl (Verified Allergy, Unknown, "MAKES ME CRAZY", 03/14/17) PMhx/Soc Cirrhosis, ascites, previous hepatic encephalopathy, previous alcoholism, diabetes mellitus, hypertension, hyperlipidemia, gastritis History of Surgery: Yes (c section) Anesthesia Reaction: No Hx Neurological Disorder: No Hx Respiratory Disorders: No Hx Cardiac Disorders: Yes (Hx: HTN) Hx Psychiatric Problems: Yes (Hx: bipolar, depression) Hx Miscellaneous Medical Probl: Yes (see PT note) Hx Alcohol Use: No Hx Substance Use: No Hx Tobacco Use: No FmHx Family History: No diabetes Physical Exam Vitals Vital Signs Date Time Temp Pulse Resp B/P Pulse Ox O2 Delivery O2 Flow Rate FiO2 03/14/17 02:39 82 119/71 97 Room Air 03/14/17 01:37 98.6 96 20 160/80 100 Physical Exam GENERAL: Well-developed, well-nourished, confused HEENT: Moist mucous membranes, pink conjunctiva, no cervical spine tenderness or step-off deformities, no goiter, no jaundice or icterus, extraocular movements intact without pain. No submandibular induration, and no pharyngeal erythema NEURO: Alert and oriented 1, no focal deficits or facial asymmetry, pupils equal round reactive to light, appears confused CARDIAC: Regular rate and rhythm, no murmurs rubs or gallops LUNGS: Clear bilaterally no wheezing crackles or stridor ABDOMEN: Soft nontender, no guarding, no rigidity, no rebound, no psoas sign no obturator sign. Normoactive bowel sounds SKIN: Warm and dry to touch, no abrasions, contusions, or hematomas, no lacerations, no ecchymosis, no target lesions, and without ulcers EXTREMITIES: No clubbing cyanosis or edema, calves are bilaterally symmetrical, no Homans sign, no popliteal cord sign. Distal pulses equal and bilateral PSYCH: Normal affect without agitation or irritability Result Diagram: 03/14/1722603/14/17226 Results 24 hrs Laboratory Tests Test 03/14/17 02:27 White Blood Count 3.310^3/ul Red Blood Count 3.3410^6/ul Hemoglobin 9.6g/dl Hematocrit 29.7% Mean Corpuscular Volume 88.9fl Mean Corpuscular Hemoglobin 28.7pg Mean Corpuscular Hemoglobin Concent 32.3g/dl Red Cell Distribution Width 16.5% Platelet Count 4810^3/UL Mean Platelet Volume fl Neutrophils % 75.2% Lymphocytes % 16.6% Monocytes % 5.8% Eosinophils % 1.2% Basophils % 0.6% Nucleated Red Blood Cells % 0.0/100WBC Neutrophils # 2.510^3/ul Lymphocytes # 0.510^3/ul Monocytes # 0.210^3/ul Eosinophils # 0.010^3/ul Basophils # 0.010^3/ul Nucleated Red Blood Cells # 0.010^3/ul Prothrombin Time 17.6Sec Prothrombin Time Ratio 1.4 INR International Normalized Ratio 1.44 Sodium Level 146mmol/L Potassium Level 4.2mmol/L Chloride Level 110mmol/L Carbon Dioxide Level 20mmol/L Anion Gap 20 Blood Urea Nitrogen 11mg/dl Creatinine 0.63mg/dl Glucose Level 330mg/dl Calcium Level 8.9mg/dl Total Bilirubin 1.0mg/dl Direct Bilirubin 0.00mg/dl Indirect Bilirubin 1.0mg/dl Aspartate Amino Transf (AST/SGOT) 49IU/L Alanine Aminotransferase (ALT/SGPT) 53IU/L Alkaline Phosphatase 121IU/L Ammonia 68umol/l Troponin I < 0.012ng/ml Total Protein 7.2g/dl Albumin 4.2g/dl Globulin 3.00g/dl Albumin/Globulin Ratio 1.40 Lipase 97U/L Current Medications Medications (Trade) Dose Ordered Sig/Donnell Route PRN Reason Start Time Stop Time Status Last Admin Dose Admin Lactulose (Enulose) 20 gm ONCE ONCE PO 03/14/17 02:30 03/14/17 02:31 DC 03/14/17 03:02 Procedures/MDM IV line was established patient was placed on physician aide rhythm strip revealed a sinus rhythm at about 80 bpm with upright P and T waves. Patient was afebrile. EKG performed, read by me: 85 bpm, normal sinus rhythm, normal axis, no acute ST segment changes, narrow QRS complex, with good R-wave progression in precordial leads. One AP view of the chest performed, read by me reveals no acute infiltrates, normal mediastinum, sharp costophrenic and cardiac borders, no air under the diaphragm. Otherwise unremarkable chest x-ray. CBC revealed pancytopenia with platelets of 48,000, electrolytes unremarkable blood sugar elevated at 330, liver function tests normal, troponin negative, ammonia elevated at 68. I administered lactulose 20 g p.o. for acute hepatic encephalopathy. Urinalysis is pending I will follow-up, if positive she will be treated with IV antibiotics. Patient will be admitted to telemetry for continued medical management. Departure Diagnosis: Primary Impression: Acute hepatic encephalopathy Additional Impressions: Cirrhosis Hepatic cirrhosis type: alcoholic cirrhosis Ascites presence: with ascites Qualified Code: K70.31 - Alcoholic cirrhosis of liver with ascites Thrombocytopenia Acute hyperglycemia Condition: ALEX Donahue MD Mar 14, 2017 02:20
[2017-03-14] MEDS ORDERED: LACTULOSE 30ML CUP PO ONE (02:30)
[2017-03-14 02:38] LABS: ADD SCAN DIFF NO
[2017-03-14 02:39] LABS: ABNORMAL IP MESSAGE 1; BASOPHILS % 0.6 % (0.0-2.0); EOSINOPHILS % 1.2 % (0.0-7.0); HEMATOCRIT 29.7 % (37.0-47.0); HEMOGLOBIN 9.6 g/dl (12.0-16.0); LYMPHOCYTES # 0.5 10^3/ul (0.8-2.9); LYMPHOCYTES % 16.6 % (15.0-51.0); MEAN CORPUSCULAR HEMOGLOBIN 28.7 pg (29.0-33.0); MEAN CORPUSCULAR HGB CONC 32.3 g/dl (32.0-37.0); MEAN CORPUSCULAR VOLUME 88.9 fl (82.0-101.0); MONOCYTE # 0.2 10^3/ul (0.3-0.9); MONOCYTES % 5.8 % (0.0-11.0); NEUTROPHIL # 2.5 10^3/ul (1.6-7.5); NEUTROPHILS % 75.2 % (39.0-77.0); RED BLOOD COUNT 3.34 10^6/ul (4.20-5.40); RED CELL DISTRIBUTION WIDTH 16.5 % (11.5-14.5); WHITE BLOOD COUNT 3.3 10^3/ul (4.8-10.8)
[2017-03-14 02:43] LABS: PLATELET COUNT 48 10^3/UL (140-415)
--- NOTE | 2017-03-14 02:53 | RADRPT ---
PROCEDURE: Chest. CLINICAL INDICATION: Chest pain. TECHNIQUE: Single frontal view of the chest was obtained. COMPARISON: 02/22/2017. FINDINGS: The cardiac silhouette is within normal limits. The aortic arch is unremarkable. There is no focal consolidation, vascular congestion or pleural effusion. There is no pneumothorax. IMPRESSION: No evidence for active cardiopulmonary disease. .Adria Simmons MD, MD Date Time Electronically viewed and signed by .Adria Simomns MD, on 03/14/2017 02:52 .T/
[2017-03-14 02:59] LABS: INR 1.44; PROTIME 17.6 Sec (12.2-14.2); PT RATIO 1.4
[2017-03-14 03:01] LABS: ALANINE AMINOTRANSFERASE 53 IU/L (13-69); ALBUMIN 4.2 g/dl (3.3-4.9); ALKALINE PHOSPHATASE 121 IU/L (42-121); ANION GAP 20 (8-16); ASPARTATE AMINO TRANSFERASE 49 IU/L (15-46); BLOOD UREA NITROGEN 11 mg/dl (7-20); CALCIUM 8.9 mg/dl (8.4-10.2); CARBON DIOXIDE 20 mmol/L (21-31); CHLORIDE 110 mmol/L (97-110); CREATININE 0.63 mg/dl (0.44-1.00); GLUCOSE 330 mg/dl (70-220); POTASSIUM 4.2 mmol/L (3.5-5.1); SODIUM 146 mmol/L (135-144); TOTAL PROTEIN 7.2 g/dl (6.1-8.1)
[2017-03-14 03:15] LABS: TROPONIN-I < 0.012 ng/ml (0.00-0.12)
[2017-03-14 12:00] VITALS: TEMP 98.1
[2017-03-14] MEDS ORDERED: PANTOPRAZOLE 40 MG INJ IV ONE (12:00)
[2017-03-14] MEDS: LACTULOSE 30ML CUP PO SCH ×2 (12:40→20:41)
[2017-03-14 20:10] VITALS: BP 135/68; RESP 18
[2017-03-14 20:12] VITALS: PULSE 75
--- NOTE | 2017-03-14 20:25 | HP ---
Date/Time of Note Date/Time of Note DATE: 03/14/17 TIME: 19:25 Assessment/Plan VTE Prophylaxis VTE Prophylaxis Intervention: SCD's Assessment/Plan Assessment/Plan - Acute Hepatic encephalopathy. - Continue lactulose. Monitor ammonia level. Monitor neurological status as altered level of consciousness secondary to hepatic encephalopathy. - Cirrhosis - Alcoholic cirrhosis of liver with ascites - Diabetes mellitus. - Glycemic control - Acute hyperglycemia sec to above -Thrombocytopenia possible sec to due to liver cirrhosis. Continue to monitor - Hyperlipidemia. - Hypertension. We will resume patient's home antihypertensive medication. Start hydralazine p.r.n. for systolic blood pressure above 170. - Diabetes mellitus type 2. We will continue Lantus and NovoLog premeal as well as NovoLog per moderate algorithm sliding scale. Continue metformin. - Noncompliance with medication regimen. - Protonix for peptic ulcer disease prophylaxis. - Further recommendations based on clinical course. Plan of care discussed with Dr. Dickson. HPI/ROS Admit Date/Time Admit Date/Time Hx of Present Illness HPI This is a 51-year-old woman admitted with being disoriented / confusion 24 hours. Patient was recently admitted for hepatic encephalopathy about a week ago at the [facility]. patient was discharge home on Lactulose . During assessment, patient is alert, oriented to place/person, follows simple commands and c/o headache, denies any nausea/vomitting patient denied fevers or chills, no seizure activity, no vomiting or diarrhea, no complaints of chest pain or shortness of breath. She has had no blood per rectum or melena reported.Patient denies any shortness of breath, chest pain, palpitations, dizziness. Patient is admitted to telemetry for continued medical management under Dr Dickson. ROS All systems reviewed and are negative except as per history of present illness. Allergies diphenhydramine HCl (Verified Allergy, Unknown, "MAKES ME CRAZY", 03/14/17) ROS Respiratory: no complaints Cardiovascular: no complaints Gastrointestinal: no complaints PMH/Family/Social Past Medical History PMhx/Soc Cirrhosis, ascites, previous hepatic encephalopathy, previous alcoholism, diabetes mellitus, hypertension, hyperlipidemia, gastritis History of Surgery: Yes (c section) Anesthesia Reaction: No Hx Neurological Disorder: No Hx Respiratory Disorders: No Hx Cardiac Disorders: Yes (Hx: HTN) Hx Psychiatric Problems: Yes (Hx: bipolar, depression) Hx Miscellaneous Medical Probl: Yes (see PT note) Hx Alcohol Use: No Hx Substance Use: No Hx Tobacco Use: No FmHx Family History: No diabetes Social History Smoking Status: Former smoker Exam/Review of Systems Vital Signs Vitals Vital Signs Date Time Temp Pulse Resp B/P Pulse Ox O2 Delivery O2 Flow Rate FiO2 03/14/17 17:30 70 16 129/90 98 Room Air 03/14/17 12:00 98.1 03/14/17 10:41 3.0 Exam Constitutional: alert, oriented (x2), well developed Psych: nl mood/affect Eyes: nl sclera Respiratory: clear to auscultation, normal air movement Cardiovascular: nl pulses (SR, HR 68), regular rate and rhythm Gastrointestinal: non-tender, soft Musculoskeletal: nl extremities to inspection Neurological: nl speech, other (oriented to place/person, follows simple commands) Labs Result Diagram: 03/14/1722603/14/17226 Medications Medications Current Medications Lactulose (Enulose) 30 gm Q6 PO Last administered on 03/14/17t 12:40; Admin Dose 30 GM; Start 03/14/17 at 12:00 Procedures Procedures -EKG - normal sinus rhythm, normal axis, no acute ST segment changes, narrow QRS complex, with good R-wave progression in precordial leads. - CXR- reveals no acute infiltrates, normal mediastinum, sharp costophrenic and cardiac borders, no air under the diaphragm. Otherwise unremarkable chest x-ray. -CBC revealed pancytopenia with platelets of 48,000, electrolytes unremarkable blood sugar elevated at 330, liver function tests normal, troponin negative, ammonia elevated at 68. SUNG KHAN Mar 14, 2017 19:35
[2017-03-14] MEDS: SOD CHLORIDE 0.45% 1,000 ML IV SCH (20:41)
[2017-03-14] MEDS: ATORVASTATIN 20 MG TAB PO SCH (20:41)
[2017-03-14] MEDS: GABAPENTIN 300 MG CAP PO SCH (20:41)
[2017-03-14] MEDS: RIFAXIMIN 550 MG TAB PO SCH (21:22)
[2017-03-14] MEDS: ACETAMINOPHEN 325 MG TAB PO PRN (21:25)
[2017-03-14 21:27] LABS: CHOL/HDL RATIO 2.1 RATIO
[2017-03-14] MEDS: INSULIN GLARGINE [LANtus] 3 ML PEN SC SCH (21:27)
[2017-03-15] VITALS (12 sets, daily range): BP systolic 94–118; BP diastolic 50–69; PULSE 55–63; RESP 18–20
[2017-03-15] MEDS: LACTULOSE 30ML CUP PO SCH ×4 (00:35→18:00)
[2017-03-15] MEDS: PANTOPRAZOLE (EC) 40 MG TAB PO SCH (06:05)
[2017-03-15] MEDS: INSULIN ASPART [NOVOLOG] 3 ML PEN SC SCH ×4 (06:15→17:48)
[2017-03-15] MEDS ORDERED: LACTULOSE PO SCH (09:00)
[2017-03-15] MEDS: BENAZEPRIL 20 MG TAB PO SCH (09:11)
[2017-03-15] MEDS: metFORMIN 500 MG TAB PO SCH ×2 (09:12→18:13)
[2017-03-15] MEDS: RIFAXIMIN 550 MG TAB PO SCH ×2 (09:12→21:13)
[2017-03-15] MEDS: GABAPENTIN 300 MG CAP PO SCH ×3 (09:13→21:04)
[2017-03-15] MEDS: FOLIC ACID 1 MG TAB PO SCH (09:13)
[2017-03-15] MEDS: AMLODIPINE 10 MG TAB PO SCH (09:14)
[2017-03-15 09:22] LABS: ADD SCAN DIFF NO
[2017-03-15 09:24] LABS: ABNORMAL IP MESSAGE 1; BASOPHILS % 0.4 % (0.0-2.0); EOSINOPHILS # 0.2 10^3/ul (0.0-0.5); EOSINOPHILS % 3.7 % (0.0-7.0); HEMATOCRIT 31.1 % (37.0-47.0); HEMOGLOBIN 9.8 g/dl (12.0-16.0); LYMPHOCYTES # 1.2 10^3/ul (0.8-2.9); LYMPHOCYTES % 25.5 % (15.0-51.0); MEAN CORPUSCULAR HEMOGLOBIN 28.2 pg (29.0-33.0); MEAN CORPUSCULAR HGB CONC 31.5 g/dl (32.0-37.0); MEAN CORPUSCULAR VOLUME 89.6 fl (82.0-101.0); MONOCYTE # 0.4 10^3/ul (0.3-0.9); MONOCYTES % 8.6 % (0.0-11.0); NEUTROPHIL # 2.8 10^3/ul (1.6-7.5); NEUTROPHILS % 61.6 % (39.0-77.0); PLATELET COUNT 57 10^3/UL (140-415); RED BLOOD COUNT 3.47 10^6/ul (4.20-5.40); RED CELL DISTRIBUTION WIDTH 16.8 % (11.5-14.5); WHITE BLOOD COUNT 4.6 10^3/ul (4.8-10.8)
[2017-03-15 09:50] LABS: CALCIUM 8.8 mg/dl (8.4-10.2); CREATININE 0.63 mg/dl (0.44-1.00); POTASSIUM 3.4 mmol/L (3.5-5.1)
--- NOTE | 2017-03-15 11:20 | PN ---
Date/Time of Note Date/Time of Note DATE: 03/15/17 TIME: : Assessment/Plan VTE Prophylaxis VTE Prophylaxis Intervention: SCD's Lines/Catheters IV Catheter Type (from [facility]): Peripheral IV Urinary Cath still in place: No Assessment/Plan Chief Complaint/Hosp Course Patient tolerates p.o. diet well refused 1 dose of lactulose due to diarrhea other than that patient is compliant with medication alert to name and situation. Will replace potassium hold IV fluids with normal saline since patient tolerates p.o.. Problems: Assessment/Plan - Acute Hepatic encephalopathy. Continue lactulose and rifaximin. Monitor ammonia level. Monitor neurological status as altered level of consciousness secondary to hepatic encephalopathy. - Alcoholic liver cirrhosis. - Diabetes mellitus type 2 with hyperglycemia, continue Lantus and NovoLog premeal as well as NovoLog per moderate algorithm sliding scale. Continue metformin. - Hypertension. Continue Norvasc and lisinopril. - Thrombocytopenia, most likely due to liver cirrhosis. Further recommendations based on clinical course. Plan of care discussed with Dr. Dickson. Exam/Review of Systems Vital Signs Vitals Vital Signs Date Time Temp Pulse Resp B/P Pulse Ox O2 Delivery O2 Flow Rate FiO2 03/15/17 08:00 58 03/15/17 07:32 97.9 19 117/69 99 03/14/17 20:40 Nasal Cannula 2.0 Intake and Output 03/14/17 03/14/17 03/15/17 15:00 23:00 07:00 Intake Total 350 ml Balance 350 ml Exam Constitutional: alert, oriented Psych: confusion Head: atraumatic, normocephalic Neck: supple Respiratory: normal air movement Cardiovascular: nl pulses, regular rate and rhythm Gastrointestinal: non-tender, soft Extremities: normal pulses Neurological: confused Skin: nl turgor Results Result Diagram: 03/15/17 0850 03/15/17 0850 Results 24 hrs Laboratory Tests Test 03/14/17 20:55 03/14/17 21:26 03/15/17 06:11 03/15/17 08:50 Ammonia 117 #H Triglycerides Level 55 Cholesterol Level 69 L LDL Cholesterol, Calculated 26 HDL Cholesterol 32 L Cholesterol/HDL Ratio 2.1 Bedside Glucose 312 H 217 White Blood Count 4.6 #L Red Blood Count 3.47 L Hemoglobin 9.8 L Hematocrit 31.1 L Mean Corpuscular Volume 89.6 Mean Corpuscular Hemoglobin 28.2 L Mean Corpuscular Hemoglobin Concent 31.5 L Red Cell Distribution Width 16.8 H Platelet Count 57 L Mean Platelet Volume Neutrophils % 61.6 Lymphocytes % 25.5 Monocytes % 8.6 Eosinophils % 3.7 Basophils % 0.4 Nucleated Red Blood Cells % 0.0 Neutrophils # 2.8 Lymphocytes # 1.2 Monocytes # 0.4 Eosinophils # 0.2 Basophils # 0.0 Nucleated Red Blood Cells # 0.0 Sodium Level 147 H Potassium Level 3.4 L Chloride Level 113 H Carbon Dioxide Level 19 L Anion Gap 18 H Blood Urea Nitrogen 8 Creatinine 0.63 Glucose Level 164 # Calcium Level 8.8 Medications Medications Current Medications Lactulose 30 gm 30 gm Q6 PO Last administered on 03/15/17 06:05; Admin Dose 30 GM; Start 03/14/17 at 12:00 Sodium Chloride (1/2 NS) 1,000 ml @ 60 mls/hr [id number] IV Last administered on 03/14/17 20:41; Admin Dose 60 MLS/HR; Start 03/14/17 at 20:00 Amlodipine Besylate (Norvasc) 10 mg DAILY PO Last administered on 03/15/17 09: 14; Admin Dose 10 MG; Start 03/15/17 at 09:00 Atorvastatin Calcium (Lipitor) 20 mg QHS PO Last administered on 03/14/17 20: 41; Admin Dose 20 MG; Start 03/14/17 at 21:00 Benazepril HCl (Lotensin) 20 mg DAILY PO Last administered on 03/15/17 09:11; Admin Dose 20 MG; Start 03/15/17 at 09:00 Folic Acid (Folic Acid) 1 mg DAILY PO Last administered on 03/15/17 09:13; Admin Dose 1 MG; Start 03/15/17 at 09:00 Gabapentin (Neurontin) 300 mg TID PO Last administered on 03/15/17 09:13; Admin Dose 300 MG; Start 03/14/17 at 21:00 Insulin Glargine (Lantus) 15 unit QHS SC Last administered on 03/14/17 21:27; Admin Dose 15 UNIT; Start 03/14/17 at 21:00 Lorazepam (Ativan) 2 mg HS PRN PO ANXIETY; Start 03/14/17 at 20:30 Pantoprazole (Protonix Tab) 40 mg DAILY@06 PO Last administered on 03/15/17 06 :05; Admin Dose 40 MG; Start 03/15/17 at 06:00 Rifaximin (Xifaxan) 550 mg BID PO Last administered on 03/15/17 09:12; Admin Dose 550 MG; Start 03/14/17 at 21:00 Acetaminophen (Tylenol Tab) 650 mg Q6H PRN PO PAIN AND OR ELEVATED TEMP Last administered on 03/14/17 21:25; Admin Dose 650 MG; Start 03/14/17 at 20:30 DEMETRIA ZAVALA Mar 15, 2017 11:20
[2017-03-15] MEDS: SOD CHLORIDE 0.45% 1,000 ML IV SCH (12:49)
[2017-03-15] MEDS ORDERED: POTASSIUM CHLORIDE 20 MEQ POWDER FOR ORAL SOLN PO ONE (15:30)
--- NOTE | 2017-03-15 18:24 | CONS ---
Date/Time of Note Date/Time of Note DATE: 03/15/17 TIME: 18:22 Assessment/Plan Assessment/Plan Additional Assessment/Plan 1. 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 Diabetes mellitus 3. Hypertension 4. Encephalopathy. Plan Liver function tests and ammonia level Continue lactulose and rifaximin. Consultation Date/Type/Reason Admit Date/Time Hx of Present Illness 51-year-old female with a history of cirrhosis of liver secondary to alcohol admitted to the hospital through the emergency room for change in mental status. Patient was discharged on lactulose no history of any precipitating events. She did not take any sedatives or narcotics no history of GI bleeding no fever no chills. No abdominal pain no nausea no vomiting Respiratory: no complaints Cardiovascular: no complaints Gastrointestinal: no complaints Psychological: confusion Past Medical History Medical History: diabetes, hypertension Social History Alcohol Use: sober Smoking Status: Never smoker Drug Use: none Exam/Review of Systems Vital Signs Vitals Vital Signs Date Time Temp Pulse Resp B/P Pulse Ox O2 Delivery O2 Flow Rate FiO2 03/15/17 16:11 62 03/15/17 15:45 98.0 19 113/60 99 03/14/17 20:40 Nasal Cannula 2.0 Intake and Output 03/14/17 03/14/17 03/15/17 14:59 22:59 06:59 Intake Total 350 ml Balance 350 ml Exam Constitutional: alert, oriented, well developed Psych: nl mood/affect, no complaints Head: atraumatic, normocephalic Eyes: EOMI, PERRL, nl conjunctiva, nl lids, nl sclera ENMT: nl external ears & nose, nl lips & teeth, nl nasal mucosa & septum Neck: non-tender, supple Respiratory: clear to auscultation, normal air movement Cardiovascular: nl pulses, regular rate and rhythm Gastrointestinal: nl liver, spleen, non-tender, soft Musculoskeletal: nl extremities to inspection, nl gait and stance Extremities: normal pulses Neurological: PEELED POTATO INSPECTOR II-XII intact, nl mental status, nl speech, nl strength Skin: nl turgor, No rash or lesions Lymph: nl lymph nodes Results Result Diagram: 03/15/17 0850 03/15/17 0850 Results 24 hrs Laboratory Tests Test 03/14/17 20:55 03/14/17 21:26 03/15/17 06:11 03/15/17 08:50 Ammonia 117 #H Triglycerides Level 55 Cholesterol Level 69 L LDL Cholesterol, Calculated 26 HDL Cholesterol 32 L Cholesterol/HDL Ratio 2.1 Bedside Glucose 312 H 217 White Blood Count 4.6 #L Red Blood Count 3.47 L Hemoglobin 9.8 L Hematocrit 31.1 L Mean Corpuscular Volume 89.6 Mean Corpuscular Hemoglobin 28.2 L Mean Corpuscular Hemoglobin Concent 31.5 L Red Cell Distribution Width 16.8 H Platelet Count 57 L Mean Platelet Volume Neutrophils % 61.6 Lymphocytes % 25.5 Monocytes % 8.6 Eosinophils % 3.7 Basophils % 0.4 Nucleated Red Blood Cells % 0.0 Neutrophils # 2.8 Lymphocytes # 1.2 Monocytes # 0.4 Eosinophils # 0.2 Basophils # 0.0 Nucleated Red Blood Cells # 0.0 Sodium Level 147 H Potassium Level 3.4 L Chloride Level 113 H Carbon Dioxide Level 19 L Anion Gap 18 H Blood Urea Nitrogen 8 Creatinine 0.63 Glucose Level 164 # Calcium Level 8.8 Test 03/15/17 12:35 03/15/17 17:19 Bedside Glucose 166 156 Medications Medications Current Medications Lactulose (Enulose) 30 gm Q6 PO Last administered on 03/15/17 06:05; Admin Dose 30 GM; Start 03/14/17 at 12:00 Amlodipine Besylate (Norvasc) 10 mg DAILY PO Last administered on 03/15/17 09: 14; Admin Dose 10 MG; Start 03/15/17 at 09:00 Atorvastatin Calcium (Lipitor) 20 mg QHS PO Last administered on 03/14/17 20: 41; Admin Dose 20 MG; Start 03/14/17 at 21:00 Benazepril HCl (Lotensin) 20 mg DAILY PO Last administered on 03/15/17 09:11; Admin Dose 20 MG; Start 03/15/17 at 09:00 Folic Acid (Folic Acid) 1 mg DAILY PO Last administered on 03/15/17 09:13; Admin Dose 1 MG; Start 03/15/17 at 09:00 Gabapentin (Neurontin) 300 mg TID PO Last administered on 03/15/17 12:40; Admin Dose 300 MG; Start 03/14/17 at 21:00 Insulin Glargine (Lantus) 15 unit QHS SC Last administered on 03/14/17 21:27; Admin Dose 15 UNIT; Start 03/14/17 at 21:00 Lorazepam (Ativan) 2 mg HS PRN PO ANXIETY; Start 03/14/17 at 20:30 Pantoprazole (Protonix Tab) 40 mg DAILY@06 PO Last administered on 03/15/17 06 :05; Admin Dose 40 MG; Start 03/15/17 at 06:00 Rifaximin (Xifaxan) 550 mg BID PO Last administered on 03/15/17 09:12; Admin Dose 550 MG; Start 03/14/17 at 21:00 Acetaminophen (Tylenol Tab) 650 mg Q6H PRN PO PAIN AND OR ELEVATED TEMP Last administered on 03/14/17 21:25; Admin Dose 650 MG; Start 03/14/17 at 20:30 BE MACDONALD MD Mar 15, 2017 18:24
[2017-03-15] MEDS: INSULIN GLARGINE [LANtus] 3 ML PEN SC SCH (21:04)
[2017-03-15] MEDS: ATORVASTATIN 20 MG TAB PO SCH (21:04)
[2017-03-16] VITALS (12 sets, daily range): BP systolic 101–113; BP diastolic 56–69; PULSE 61–75; RESP 17–18
[2017-03-16] MEDS: LACTULOSE 30ML CUP PO SCH ×4 (00:26→17:34)
[2017-03-16] MEDS: PANTOPRAZOLE (EC) 40 MG TAB PO SCH (06:12)
[2017-03-16 08:08] LABS: ADD SCAN DIFF NO
[2017-03-16 08:14] LABS: ABNORMAL IP MESSAGE 1; BASOPHILS % 0.4 % (0.0-2.0); EOSINOPHILS # 0.2 10^3/ul (0.0-0.5); EOSINOPHILS % 3.3 % (0.0-7.0); HEMATOCRIT 33.7 % (37.0-47.0); HEMOGLOBIN 10.5 g/dl (12.0-16.0); LYMPHOCYTES # 1.2 10^3/ul (0.8-2.9); LYMPHOCYTES % 16.9 % (15.0-51.0); MEAN CORPUSCULAR HEMOGLOBIN 28.3 pg (29.0-33.0); MEAN CORPUSCULAR HGB CONC 31.2 g/dl (32.0-37.0); MEAN CORPUSCULAR VOLUME 90.8 fl (82.0-101.0); MONOCYTE # 0.4 10^3/ul (0.3-0.9); MONOCYTES % 5.9 % (0.0-11.0); NEUTROPHIL # 5.1 10^3/ul (1.6-7.5); NEUTROPHILS % 73.2 % (39.0-77.0); RED BLOOD COUNT 3.71 10^6/ul (4.20-5.40); RED CELL DISTRIBUTION WIDTH 16.6 % (11.5-14.5)
[2017-03-16 08:22] LABS: PLATELET COUNT 76 10^3/UL (140-415)
[2017-03-16 08:37] LABS: ALBUMIN 3.5 g/dl (3.3-4.9); ALBUMIN/GLOBULIN RATIO 1.02; CALCIUM 9.6 mg/dl (8.4-10.2); CREATININE 0.73 mg/dl (0.44-1.00); POTASSIUM 4.4 mmol/L (3.5-5.1); TOTAL PROTEIN 6.9 g/dl (6.1-8.1)
[2017-03-16] MEDS: RIFAXIMIN 550 MG TAB PO SCH ×2 (08:55→20:19)
[2017-03-16] MEDS: FOLIC ACID 1 MG TAB PO SCH (08:55)
[2017-03-16] MEDS: GABAPENTIN 300 MG CAP PO SCH ×3 (08:55→20:19)
[2017-03-16] MEDS: INSULIN ASPART [NOVOLOG] 3 ML PEN SC SCH ×3 (08:55→17:34)
[2017-03-16] MEDS: AMLODIPINE 10 MG TAB PO SCH (08:56)
[2017-03-16] MEDS: BENAZEPRIL 20 MG TAB PO SCH (08:56)
[2017-03-16] MEDS: metFORMIN 500 MG TAB PO SCH ×2 (08:59→17:35)
--- NOTE | 2017-03-16 17:09 | PN ---
Date/Time of Note Date/Time of Note DATE: 03/16/17 TIME: 17:07 Assessment/Plan VTE Prophylaxis VTE Prophylaxis Intervention: SCD's Lines/Catheters [facility] [place] Urinary Cath still in place: No Assessment/Plan Chief Complaint/Hosp Course Patient's ammonia level decreased, improved neurological status, start PT. potassium replaced Assessment/Plan - Acute Hepatic encephalopathy. Continue lactulose and rifaximin. Monitor ammonia level. Monitor neurological status as altered level of consciousness secondary to hepatic encephalopathy. - Alcoholic liver cirrhosis. - Diabetes mellitus type 2 with hyperglycemia, continue Lantus and NovoLog premeal as well as NovoLog per moderate algorithm sliding scale. Continue metformin. - Hypertension. Continue Norvasc and lisinopril. - Thrombocytopenia, most likely due to liver cirrhosis. Further recommendations based on clinical course. Plan of care discussed with Dr. Dickson. Problems: Exam/Review of Systems Vital Signs Vitals Vital Signs Date Time Temp Pulse Resp B/P Pulse Ox O2 Delivery O2 Flow Rate FiO2 03/16/17 16:34 75 03/16/17 15:56 98.5 18 107/57 95 03/14/17 20:40 Nasal Cannula 2.0 Intake and Output 03/15/17 03/15/17 03/16/17 15:00 23:00 07:00 Intake Total 500 ml Balance 500 ml Exam Constitutional: alert, oriented Psych: confusion Head: atraumatic, normocephalic Neck: supple Respiratory: normal air movement Cardiovascular: nl pulses, regular rate and rhythm Gastrointestinal: non-tender, soft Extremities: normal pulses Neurological: confused Skin: nl turgor Results Result Diagram: 03/16/17 0751 03/16/17 0751 Results 24 hrs Laboratory Tests Test 03/15/17 17:19 03/15/17 21:02 03/16/17 07:51 03/16/17 08:33 Bedside Glucose 156 133 113 White Blood Count 7.0 # Red Blood Count 3.71 L Hemoglobin 10.5 L Hematocrit 33.7 L Mean Corpuscular Volume 90.8 Mean Corpuscular Hemoglobin 28.3 L Mean Corpuscular Hemoglobin Concent 31.2 L Red Cell Distribution Width 16.6 H Platelet Count 76 #L Mean Platelet Volume Neutrophils % 73.2 Lymphocytes % 16.9 Monocytes % 5.9 Eosinophils % 3.3 Basophils % 0.4 Nucleated Red Blood Cells % 0.0 Neutrophils # 5.1 Lymphocytes # 1.2 Monocytes # 0.4 Eosinophils # 0.2 Basophils # 0.0 Nucleated Red Blood Cells # 0.0 Sodium Level 148 H Potassium Level 4.4 Chloride Level 109 Carbon Dioxide Level 21 Anion Gap 22 H Blood Urea Nitrogen 14 Creatinine 0.73 Glucose Level 109 # Calcium Level 9.6 Total Bilirubin 1.0 Direct Bilirubin 0.00 Indirect Bilirubin 1.0 Aspartate Amino Transf (AST/SGOT) 44 Alanine Aminotransferase (ALT/SGPT) 46 Alkaline Phosphatase 105 Ammonia 49 #H Total Protein 6.9 Albumin 3.5 Globulin 3.40 H Albumin/Globulin Ratio 1.02 Test 03/16/17 11:52 Bedside Glucose 224 H Medications Medications Current Medications Lactulose (Enulose) 30 gm Q6 PO Last administered on 03/16/17 13:03; Admin Dose 30 GM; Start 03/14/17 at 12:00 Amlodipine Besylate (Norvasc) 10 mg DAILY PO Last administered on 03/16/17 08: 56; Admin Dose 10 MG; Start 03/15/17 at 09:00 Atorvastatin Calcium (Lipitor) 20 mg QHS PO Last administered on 03/15/17 21: 04; Admin Dose 20 MG; Start 03/14/17 at 21:00 Benazepril HCl (Lotensin) 20 mg DAILY PO Last administered on 03/16/17 08:56; Admin Dose 20 MG; Start 03/15/17 at 09:00 Folic Acid (Folic Acid) 1 mg DAILY PO Last administered on 03/16/17 08:55; Admin Dose 1 MG; Start 03/15/17 at 09:00 Gabapentin (Neurontin) 300 mg TID PO Last administered on 03/16/17 13:03; Admin Dose 300 MG; Start 03/14/17 at 21:00 Insulin Glargine (Lantus) 15 unit QHS SC Last administered on 03/15/17 21:04; Admin Dose 15 UNIT; Start 03/14/17 at 21:00 Lorazepam (Ativan) 2 mg HS PRN PO ANXIETY; Start 03/14/17 at 20:30 Pantoprazole (Protonix Tab) 40 mg DAILY@06 PO Last administered on 03/16/17 06 :12; Admin Dose 40 MG; Start 03/15/17 at 06:00 Rifaximin (Xifaxan) 550 mg BID PO Last administered on 03/16/17 08:55; Admin Dose 550 MG; Start 03/14/17 at 21:00 Acetaminophen (Tylenol Tab) 650 mg Q6H PRN PO PAIN AND OR ELEVATED TEMP Last administered on 03/14/17 21:25; Admin Dose 650 MG; Start 03/14/17 at 20:30 Potassium Chloride (Potassium Chloride Pwd/Soln) 40 meq ONCE ONCE PO ; Start at 17:30; Stop 03/16/17 at 17:31; Status DEMETRIA SALGADO Mar 16, 2017 17:09
[2017-03-16] MEDS ORDERED: POTASSIUM CHLORIDE 20 MEQ POWDER FOR ORAL SOLN PO ONE (17:30)
--- NOTE | 2017-03-16 19:01 | CONS ---
Date/Time of Note Date/Time of Note DATE: 03/16/17 TIME: 19:00 Assessment/Plan Assessment/Plan Chief Complaint/Hosp Course 51-year-old female with a history of cirrhosis of liver secondary to alcohol admitted to the hospital through the emergency room for change in mental status. Patient was discharged on lactulose no history of any precipitating events. She did not take any sedatives or narcotics no history of GI bleeding no fever no chills. No abdominal pain no nausea no vomiting Problems: Additional Assessment/Plan Assessment/Plan Additional Assessment/Plan 1. 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 Diabetes mellitus 3. Hypertension 4. Encephalopathy. Patient is now oriented to time place and space and fully awake Plan Liver function tests and ammonia level Continue lactulose and rifaximin. Consultation Date/Type/Reason Admit Date/Time Mar 14, 2017 at 03:58 Initial Consult Date 24 HR Interval Summary Constitutional: improved, no complaints Exam/Review of Systems Vital Signs Vitals Vital Signs Date Time Temp Pulse Resp B/P Pulse Ox O2 Delivery O2 Flow Rate FiO2 03/16/17 16:34 75 03/16/17 15:56 98.5 18 107/57 95 03/14/17 20:40 Nasal Cannula 2.0 Intake and Output 03/15/17 03/15/17 03/16/17 15:00 23:00 07:00 Intake Total 500 ml Balance 500 ml Exam Constitutional: alert, oriented, well developed Psych: nl mood/affect, no complaints Head: atraumatic, normocephalic Eyes: EOMI, PERRL, nl conjunctiva, nl lids, nl sclera ENMT: nl external ears & nose, nl lips & teeth, nl nasal mucosa & septum Neck: non-tender, supple Respiratory: clear to auscultation, normal air movement Cardiovascular: nl pulses, regular rate and rhythm Gastrointestinal: nl liver, spleen, non-tender, soft Musculoskeletal: nl extremities to inspection, nl gait and stance Extremities: normal pulses Neurological: DIGITAL COMMUNITY MANAGER II-XII intact, nl mental status, nl speech, nl strength Skin: nl turgor, No rash or lesions Lymph: nl lymph nodes Results Result Diagram: 03/16/17 0751 03/16/17 0751 Results 24 hrs Laboratory Tests Test 03/15/17 21:02 03/16/17 07:51 03/16/17 08:33 03/16/17 11:52 Bedside Glucose 133 113 224 H White Blood Count 7.0 # Red Blood Count 3.71 L Hemoglobin 10.5 L Hematocrit 33.7 L Mean Corpuscular Volume 90.8 Mean Corpuscular Hemoglobin 28.3 L Mean Corpuscular Hemoglobin Concent 31.2 L Red Cell Distribution Width 16.6 H Platelet Count 76 #L Mean Platelet Volume Neutrophils % 73.2 Lymphocytes % 16.9 Monocytes % 5.9 Eosinophils % 3.3 Basophils % 0.4 Nucleated Red Blood Cells % 0.0 Neutrophils # 5.1 Lymphocytes # 1.2 Monocytes # 0.4 Eosinophils # 0.2 Basophils # 0.0 Nucleated Red Blood Cells # 0.0 Sodium Level 148 H Potassium Level 4.4 Chloride Level 109 Carbon Dioxide Level 21 Anion Gap 22 H Blood Urea Nitrogen 14 Creatinine 0.73 Glucose Level 109 # Calcium Level 9.6 Total Bilirubin 1.0 Direct Bilirubin 0.00 Indirect Bilirubin 1.0 Aspartate Amino Transf (AST/SGOT) 44 Alanine Aminotransferase (ALT/SGPT) 46 Alkaline Phosphatase 105 Ammonia 49 #H Total Protein 6.9 Albumin 3.5 Globulin 3.40 H Albumin/Globulin Ratio 1.02 Test 03/16/17 17:32 Bedside Glucose 199 Medications Medications Current Medications Lactulose (Enulose) 30 gm Q6 PO Last administered on 03/16/17 17:34; Admin Dose 30 GM; Start 03/14/17 at 12:00 Amlodipine Besylate (Norvasc) 10 mg DAILY PO Last administered on 03/16/17 08: 56; Admin Dose 10 MG; Start 03/15/17 at 09:00 Atorvastatin Calcium (Lipitor) 20 mg QHS PO Last administered on 03/15/17 21: 04; Admin Dose 20 MG; Start 03/14/17 at 21:00 Benazepril HCl (Lotensin) 20 mg DAILY PO Last administered on 03/16/17 08:56; Admin Dose 20 MG; Start 03/15/17 at 09:00 Folic Acid (Folic Acid) 1 mg DAILY PO Last administered on 03/16/17 08:55; Admin Dose 1 MG; Start 03/15/17 at 09:00 Gabapentin (Neurontin) 300 mg TID PO Last administered on 03/16/17 13:03; Admin Dose 300 MG; Start 03/14/17 at 21:00 Insulin Glargine (Lantus) 15 unit QHS SC Last administered on 03/15/17 21:04; Admin Dose 15 UNIT; Start 03/14/17 at 21:00 Lorazepam (Ativan) 2 mg HS PRN PO ANXIETY; Start 03/14/17 at 20:30 Pantoprazole (Protonix Tab) 40 mg DAILY@06 PO Last administered on 03/16/17 06 :12; Admin Dose 40 MG; Start 03/15/17 at 06:00 Rifaximin (Xifaxan) 550 mg BID PO Last administered on 03/16/17 08:55; Admin Dose 550 MG; Start 03/14/17 at 21:00 Acetaminophen (Tylenol Tab) 650 mg Q6H PRN PO PAIN AND OR ELEVATED TEMP Last administered on 03/14/17 21:25; Admin Dose 650 MG; Start 03/14/17 at 20:30 BE MACDONALD MD Mar 16, 2017 19:01
[2017-03-16] MEDS: ATORVASTATIN 20 MG TAB PO SCH (20:19)
[2017-03-16] MEDS: LORAZEPAM 1 MG TAB PO PRN (20:24)
[2017-03-16] MEDS: INSULIN GLARGINE [LANtus] 3 ML PEN SC SCH (20:29)
[2017-03-17] VITALS (11 sets, daily range): BP systolic 103–115; BP diastolic 56–68; PULSE 63–73; RESP 15–19
[2017-03-17] MEDS: LACTULOSE 30ML CUP PO SCH ×4 (05:57→17:23)
[2017-03-17] MEDS: PANTOPRAZOLE (EC) 40 MG TAB PO SCH (05:58)
[2017-03-17 07:42] LABS: ADD SCAN DIFF NO
[2017-03-17 07:47] LABS: ABNORMAL IP MESSAGE 1; BASOPHILS % 0.7 % (0.0-2.0); EOSINOPHILS # 0.2 10^3/ul (0.0-0.5); EOSINOPHILS % 4.3 % (0.0-7.0); HEMATOCRIT 30.1 % (37.0-47.0); HEMOGLOBIN 9.4 g/dl (12.0-16.0); LYMPHOCYTES # 1.2 10^3/ul (0.8-2.9); LYMPHOCYTES % 28.3 % (15.0-51.0); MEAN CORPUSCULAR HEMOGLOBIN 28.1 pg (29.0-33.0); MEAN CORPUSCULAR HGB CONC 31.2 g/dl (32.0-37.0); MEAN CORPUSCULAR VOLUME 90.1 fl (82.0-101.0); MONOCYTE # 0.4 10^3/ul (0.3-0.9); NEUTROPHIL # 2.6 10^3/ul (1.6-7.5); NEUTROPHILS % 58.5 % (39.0-77.0); PLATELET COUNT 51 10^3/UL (140-415); RED BLOOD COUNT 3.34 10^6/ul (4.20-5.40); RED CELL DISTRIBUTION WIDTH 16.8 % (11.5-14.5); WHITE BLOOD COUNT 4.4 10^3/ul (4.8-10.8)
[2017-03-17] MEDS: INSULIN ASPART [NOVOLOG] 3 ML PEN SC SCH ×4 (07:50→21:00)
[2017-03-17 08:04] LABS: CALCIUM 8.8 mg/dl (8.4-10.2); CREATININE 0.73 mg/dl (0.44-1.00); POTASSIUM 4.2 mmol/L (3.5-5.1)
[2017-03-17] MEDS: GABAPENTIN 300 MG CAP PO SCH ×3 (08:15→21:05)
[2017-03-17] MEDS: metFORMIN 500 MG TAB PO SCH ×2 (08:15→17:23)
[2017-03-17] MEDS: RIFAXIMIN 550 MG TAB PO SCH ×2 (08:15→21:05)
[2017-03-17] MEDS: FOLIC ACID 1 MG TAB PO SCH (08:15)
[2017-03-17] MEDS: BENAZEPRIL 20 MG TAB PO SCH (08:16)
[2017-03-17] MEDS: AMLODIPINE 10 MG TAB PO SCH (08:16)
--- NOTE | 2017-03-17 17:51 | CONS ---
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 Patient was discharged on lactulose no history of any precipitating events. She did not take any sedatives or narcotics no history of GI bleeding no fever no chills. No abdominal pain no nausea no vomiting Problems: Additional Assessment/Plan take any sedatives or narcotics no history of GI bleeding no fever no chills. No abdominal pain no nausea no vomiting Problems: Additional Assessment/Plan Assessment/Plan Additional Assessment/Plan 1. 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 Diabetes mellitus 3. Hypertension 4. Encephalopathy. Patient is now oriented to time place and space and fully awake Plan Liver function tests and ammonia level Continue lactulose and rifaximin. Consultation Date/Type/Reason Admit Date/Time Mar 14, 2017 at 03:58 24 HR Interval Summary Constitutional: no complaints Exam/Review of Systems Vital Signs Vitals Vital Signs Date Time Temp Pulse Resp B/P Pulse Ox O2 Delivery O2 Flow Rate FiO2 03/17/17 16:15 73 03/17/17 15:27 98.5 18 106/57 95 03/16/17 20:13 Room Air 03/14/17 20:40 2.0 Intake and Output 03/16/17 03/16/17 03/17/17 15:00 23:00 07:00 Intake Total 900 ml 350 ml Balance 900 ml 350 ml Exam Constitutional: alert, oriented, well developed Psych: nl mood/affect, no complaints Head: atraumatic, normocephalic Eyes: EOMI, PERRL, nl conjunctiva, nl lids, nl sclera ENMT: nl external ears & nose, nl lips & teeth, nl nasal mucosa & septum Neck: non-tender, supple Respiratory: clear to auscultation, normal air movement Cardiovascular: nl pulses, regular rate and rhythm Gastrointestinal: nl liver, spleen, non-tender, soft Musculoskeletal: nl extremities to inspection, nl gait and stance Extremities: normal pulses Neurological: MUSIC ARTIST II-XII intact, nl mental status, nl speech, nl strength Skin: nl turgor, No rash or lesions Lymph: nl lymph nodes Results Result Diagram: 03/17/17 0710 03/17/17 0710 Results 24 hrs Laboratory Tests Test 03/16/17 20:18 03/17/17 07:10 03/17/17 07:42 03/17/17 11:34 Bedside Glucose 141 155 220 White Blood Count 4.4 #L Red Blood Count 3.34 L Hemoglobin 9.4 L Hematocrit 30.1 L Mean Corpuscular Volume 90.1 Mean Corpuscular Hemoglobin 28.1 L Mean Corpuscular Hemoglobin Concent 31.2 L Red Cell Distribution Width 16.8 H Platelet Count 51 #L Mean Platelet Volume Neutrophils % 58.5 Lymphocytes % 28.3 Monocytes % 8.0 Eosinophils % 4.3 Basophils % 0.7 Nucleated Red Blood Cells % 0.0 Neutrophils # 2.6 Lymphocytes # 1.2 Monocytes # 0.4 Eosinophils # 0.2 Basophils # 0.0 Nucleated Red Blood Cells # 0.0 Sodium Level 148 H Potassium Level 4.2 Chloride Level 115 H Carbon Dioxide Level 20 L Anion Gap 17 H Blood Urea Nitrogen 17 Creatinine 0.73 Glucose Level 159 Calcium Level 8.8 Test 03/17/17 17:18 Bedside Glucose 136 Medications Medications Current Medications Lactulose (Enulose) 30 gm Q6 PO Last administered on 03/17/17 17:23; Admin Dose 30 GM; Start 03/14/17 at 12:00 Amlodipine Besylate (Norvasc) 10 mg DAILY PO Last administered on 03/17/17 08: 16; Admin Dose 10 MG; Start 03/15/17 at 09:00 Atorvastatin Calcium (Lipitor) 20 mg QHS PO Last administered on 03/16/17 20: 19; Admin Dose 20 MG; Start 03/14/17 at 21:00 Benazepril HCl (Lotensin) 20 mg DAILY PO Last administered on 03/17/17 08:16; Admin Dose 20 MG; Start 03/15/17 at 09:00 Folic Acid (Folic Acid) 1 mg DAILY PO Last administered on 03/17/17 08:15; Admin Dose 1 MG; Start 03/15/17 at 09:00 Gabapentin (Neurontin) 300 mg TID PO Last administered on 03/17/17 12:19; Admin Dose 300 MG; Start 03/14/17 at 21:00 Insulin Glargine (Lantus) 15 unit QHS SC Last administered on 03/16/17 20:29; Admin Dose 15 UNIT; Start 03/14/17 at 21:00 Lorazepam (Ativan) 2 mg HS PRN PO ANXIETY Last administered on 03/16/17 20:24 ; Admin Dose 2 MG; Start 03/14/17 at 20:30 Pantoprazole (Protonix Tab) 40 mg DAILY@06 PO Last administered on 03/17/17 05 :58; Admin Dose 40 MG; Start 03/15/17 at 06:00 Rifaximin (Xifaxan) 550 mg BID PO Last administered on 03/17/17 08:15; Admin Dose 550 MG; Start 03/14/17 at 21:00 Acetaminophen (Tylenol Tab) 650 mg Q6H PRN PO PAIN AND OR ELEVATED TEMP Last administered on 03/14/17 21:25; Admin Dose 650 MG; Start 03/14/17 at 20:30 BE MACDONALD MD Mar 17, 2017 17:51
--- NOTE | 2017-03-17 18:11 | PN ---
Date/Time of Note Date/Time of Note DATE: 03/17/17 TIME: 18:05 Assessment/Plan VTE Prophylaxis VTE Prophylaxis Intervention: SCD's Lines/Catheters [facility] Urinary Cath still in place: No Assessment/Plan Chief Complaint/Hosp Course Patient is alert to name and situation, stated that she feels confused, continue to monitor ammonia level. Will increase Lantus for better glycemic control. Okay to monitor on medical surgical floor. Assessment/Plan - Acute Hepatic encephalopathy. Continue lactulose and rifaximin. Monitor ammonia level. Monitor neurological status as altered level of consciousness secondary to hepatic encephalopathy. - Alcoholic liver cirrhosis. - Diabetes mellitus type 2 with hyperglycemia, continue Lantus and NovoLog premeal as well as NovoLog per moderate algorithm sliding scale. Continue metformin. - Hypertension. Continue Norvasc and lisinopril. - Thrombocytopenia, most likely due to liver cirrhosis. Further recommendations based on clinical course. Plan of care discussed with Dr. Dickson. Problems: Exam/Review of Systems Vital Signs Vitals Vital Signs Date Time Temp Pulse Resp B/P Pulse Ox O2 Delivery O2 Flow Rate FiO2 03/17/17 16:15 73 03/17/17 15:27 98.5 18 106/57 95 03/16/17 20:13 Room Air 03/14/17 20:40 2.0 Intake and Output 03/16/17 03/16/17 03/17/17 15:00 23:00 07:00 Intake Total 900 ml 350 ml Balance 900 ml 350 ml Exam Constitutional: alert, oriented Psych: confusion Head: atraumatic, normocephalic Neck: supple Respiratory: normal air movement Cardiovascular: nl pulses, regular rate and rhythm Gastrointestinal: non-tender, soft Extremities: normal pulses Neurological: confused Skin: nl turgor Results Result Diagram: 03/17/17 0710 03/17/17 0710 Results 24 hrs Laboratory Tests Test 03/16/17 20:18 03/17/17 07:10 03/17/17 07:42 03/17/17 11:34 Bedside Glucose 141 155 220 White Blood Count 4.4 #L Red Blood Count 3.34 L Hemoglobin 9.4 L Hematocrit 30.1 L Mean Corpuscular Volume 90.1 Mean Corpuscular Hemoglobin 28.1 L Mean Corpuscular Hemoglobin Concent 31.2 L Red Cell Distribution Width 16.8 H Platelet Count 51 #L Mean Platelet Volume Neutrophils % 58.5 Lymphocytes % 28.3 Monocytes % 8.0 Eosinophils % 4.3 Basophils % 0.7 Nucleated Red Blood Cells % 0.0 Neutrophils # 2.6 Lymphocytes # 1.2 Monocytes # 0.4 Eosinophils # 0.2 Basophils # 0.0 Nucleated Red Blood Cells # 0.0 Sodium Level 148 H Potassium Level 4.2 Chloride Level 115 H Carbon Dioxide Level 20 L Anion Gap 17 H Blood Urea Nitrogen 17 Creatinine 0.73 Glucose Level 159 Calcium Level 8.8 Test 03/17/17 17:18 Bedside Glucose 136 Medications Medications Current Medications Lactulose (Enulose) 30 gm Q6 PO Last administered on 03/17/17 17:23; Admin Dose 30 GM; Start 03/14/17 at 12:00 Amlodipine Besylate (Norvasc) 10 mg DAILY PO Last administered on 03/17/17 08: 16; Admin Dose 10 MG; Start 03/15/17 at 09:00 Atorvastatin Calcium (Lipitor) 20 mg QHS PO Last administered on 03/16/17 20: 19; Admin Dose 20 MG; Start 03/14/17 at 21:00 Benazepril HCl (Lotensin) 20 mg DAILY PO Last administered on 03/17/17 08:16; Admin Dose 20 MG; Start 03/15/17 at 09:00 Folic Acid (Folic Acid) 1 mg DAILY PO Last administered on 03/17/17 08:15; Admin Dose 1 MG; Start 03/15/17 at 09:00 Gabapentin (Neurontin) 300 mg TID PO Last administered on 03/17/17 12:19; Admin Dose 300 MG; Start 03/14/17 at 21:00 Insulin Glargine (Lantus) 15 unit QHS SC Last administered on 03/16/17 20:29; Admin Dose 15 UNIT; Start 03/14/17 at 21:00 Lorazepam (Ativan) 2 mg HS PRN PO ANXIETY Last administered on 03/16/17 20:24 ; Admin Dose 2 MG; Start 03/14/17 at 20:30 Pantoprazole (Protonix Tab) 40 mg DAILY@06 PO Last administered on 03/17/17 05 :58; Admin Dose 40 MG; Start 03/15/17 at 06:00 Rifaximin (Xifaxan) 550 mg BID PO Last administered on 03/17/17 08:15; Admin Dose 550 MG; Start 03/14/17 at 21:00 Acetaminophen (Tylenol Tab) 650 mg Q6H PRN PO PAIN AND OR ELEVATED TEMP Last administered on 03/14/17 21:25; Admin Dose 650 MG; Start 03/14/17 at 20:30 DEMETRIA ZAVALA Mar 17, 2017 18:11
[2017-03-17] MEDS ORDERED: GLUCOSE GEL 15 GRAM TUBE BUCCAL PRN (18:30)
[2017-03-17] MEDS ORDERED: GLUCOSE GEL 15 GRAM TUBE PO PRN ×2 (18:30)
[2017-03-17] MEDS ORDERED: GLUCAGON 1 MG INJ IM PRN (18:30)
[2017-03-17] MEDS ORDERED: DEXTROSE 50% 50 ML SYRINGE IV PRN ×2 (18:30)
[2017-03-17] MEDS: ATORVASTATIN 20 MG TAB PO SCH (21:04)
[2017-03-17] MEDS: INSULIN GLARGINE [LANtus] 3 ML PEN SC SCH (21:07)
[2017-03-17] MEDS: LORAZEPAM 1 MG TAB PO PRN (21:13)
[2017-03-18] MEDS: LACTULOSE 30ML CUP PO SCH ×4 (00:19→17:36)
[2017-03-18] MEDS: ACCU-CHEK XX SCH (01:59)
[2017-03-18] MEDS ORDERED: ACCU-CHEK XX SCH (02:00)
[2017-03-18 02:15] VITALS: BP 116/58; RESP 17
[2017-03-18] MEDS: PANTOPRAZOLE (EC) 40 MG TAB PO SCH (06:11)
[2017-03-18 07:05] LABS: CALCIUM 9.4 mg/dl (8.4-10.2); CREATININE 0.64 mg/dl (0.44-1.00); POTASSIUM 4.6 mmol/L (3.5-5.1)
[2017-03-18] MEDS: RIFAXIMIN 550 MG TAB PO SCH ×2 (08:15→21:24)
[2017-03-18] MEDS: metFORMIN 500 MG TAB PO SCH ×2 (08:16→17:36)
[2017-03-18] MEDS: GABAPENTIN 300 MG CAP PO SCH ×3 (08:16→21:24)
[2017-03-18] MEDS: FOLIC ACID 1 MG TAB PO SCH (08:16)
[2017-03-18 08:17] VITALS: BP 123/66; RESP 16
[2017-03-18] MEDS: BENAZEPRIL 20 MG TAB PO SCH (08:17)
[2017-03-18] MEDS: AMLODIPINE 10 MG TAB PO SCH (08:17)
[2017-03-18] MEDS: INSULIN ASPART [NOVOLOG] 3 ML PEN SC SCH ×7 (08:18→21:00)
[2017-03-18 14:00] VITALS: BP 108/56; RESP 18
[2017-03-18] MEDS ORDERED: DEXTROSE 5% 500 ML IV SCH (19:00)
--- NOTE | 2017-03-18 19:00 | PN ---
Date/Time of Note Date/Time of Note DATE: 03/18/17 TIME: 18:32 Assessment/Plan VTE Prophylaxis VTE Prophylaxis Intervention: other Lines/Catheters IV [facility] Type [facility]from [facility] Saline Lock Urinary Cath still in place: No Assessment/Plan Assessment/Plan - Hypernatremia- will give D5W at 50 cc/hr. FU labs. - Acute Hepatic encephalopathy. Continue lactulose and rifaximin. Monitor ammonia level. - Ammonia Level - 91. am ammonia level - Monitor neurological status as altered level of consciousness secondary to hepatic encephalopathy. - Alcoholic liver cirrhosis. - Diabetes mellitus type 2 with hyperglycemia, continue Lantus and NovoLog premeal as well as NovoLog per moderate algorithm sliding scale. Continue metformin. - Hypertension. Continue Norvasc and lisinopril. - Thrombocytopenia, most likely due to liver cirrhosis. Further recommendations based on clinical course. Plan of care discussed with Dr. Dickson. Subjective 24 Hr Interval Summary Respiratory: no complaints Cardiovascular: no complaints Gastrointestinal: no complaints Genitourinary: no complaints Musculoskeletal: no complaints Exam/Review of Systems Vital Signs Vitals Vital Signs Date Time Temp Pulse Resp B/P Pulse Ox O2 Delivery O2 Flow Rate FiO2 03/18/17 14:00 98.2 74 18 108/56 95 03/16/17 20:13 Room Air 03/14/17 20:40 2.0 Intake and Output 03/17/17 03/17/17 03/18/17 15:00 23:00 07:00 Intake Total 720 ml 850 ml Balance 720 ml 850 ml Exam Constitutional: alert Respiratory: clear to auscultation, normal air movement Cardiovascular: nl pulses, regular rate and rhythm Gastrointestinal: non-tender, soft Musculoskeletal: nl extremities to inspection Extremities: normal pulses Neurological: nl speech, other (oriented to name only) Results Result Diagram: 03/17/17 0710 03/18/17 0551 Results 24 hrs Laboratory Tests Test 03/17/17 21:04 03/18/17 05:51 03/18/17 07:45 03/18/17 12:09 Bedside Glucose 132 151 134 Sodium Level 148 H Potassium Level 4.6 Chloride Level 115 H Carbon Dioxide Level 17 L Anion Gap 21 H Blood Urea Nitrogen 18 Creatinine 0.64 Glucose Level 144 Calcium Level 9.4 Ammonia 91 #H Test 03/18/17 17:32 Bedside Glucose 131 Medications Medications Current Medications Lactulose (Enulose) 30 gm Q6 PO Last administered on 03/18/17 17:36; Admin Dose 30 GM; Start 03/14/17 at 12:00 Amlodipine Besylate (Norvasc) 10 mg DAILY PO Last administered on 03/18/17 08: 17; Admin Dose 10 MG; Start 03/15/17 at 09:00 Atorvastatin Calcium (Lipitor) 20 mg QHS PO Last administered on 03/17/17 21: 04; Admin Dose 20 MG; Start 03/14/17 at 21:00 Benazepril HCl (Lotensin) 20 mg DAILY PO Last administered on 03/18/17 08:17; Admin Dose 20 MG; Start 03/15/17 at 09:00 Folic Acid (Folic Acid) 1 mg DAILY PO Last administered on 03/18/17 08:16; Admin Dose 1 MG; Start 03/15/17 at 09:00 Gabapentin (Neurontin) 300 mg TID PO Last administered on 03/18/17 12:13; Admin Dose 300 MG; Start 03/14/17 at 21:00 Lorazepam (Ativan) 2 mg HS PRN PO ANXIETY Last administered on 03/17/17 21:13 ; Admin Dose 2 MG; Start 03/14/17 at 20:30 Pantoprazole (Protonix Tab) 40 mg DAILY@06 PO Last administered on 03/18/17 06 :11; Admin Dose 40 MG; Start 03/15/17 at 06:00 Rifaximin (Xifaxan) 550 mg BID PO Last administered on 03/18/17 08:15; Admin Dose 550 MG; Start 03/14/17 at 21:00 Acetaminophen (Tylenol Tab) 650 mg Q6H PRN PO PAIN AND OR ELEVATED TEMP Last administered on 03/14/17 21:25; Admin Dose 650 MG; Start 03/14/17 at 20:30 Diagnostic Test (Pha) (Accu-Chek) 1 ea 02 XX ; Start 03/18/17 at 02:00 Insulin Glargine (Lantus) 20 unit QHS SC Last administered on 03/17/17 21:07; Admin Dose 20 UNIT; Start 03/17/17 at 21:00 Miscellaneous Information 1 ea NOTE XX ; Start 03/17/17 at 18:30 Glucose (Glutose) 15 gm Q15M PRN PO DECREASED GLUCOSE; Start 03/17/17 at 18:30 Glucose (Glutose) 22.5 gm Q15M PRN PO DECREASED GLUCOSE; Start 03/17/17 at 18: 30 Dextrose (D50w Syringe) 25 ml Q15M PRN IV DECREASED GLUCOSE; Start 03/17/17 at 18:30 Dextrose (D50w Syringe) 50 ml Q15M PRN IV DECREASED GLUCOSE; Start 03/17/17 at 18:30 Glucagon (Glucagen) 1 mg Q15M PRN IM DECREASED GLUCOSE; Start 03/17/17 at 18:30 Glucose (Glutose) 15 gm Q15M PRN BUCCAL DECREASED GLUCOSE; Start 03/17/17 at 18 :30 SUNG KHAN Mar 18, 2017 18:42
--- NOTE | 2017-03-18 19:11 | CONS ---
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 Patient was discharged on lactulose no history of any precipitating events. She did not take any sedatives or narcotics no history of GI bleeding no fever no chills. No abdominal pain no nausea no vomiting Problems: Additional Assessment/Plan Assessment/Plan Additional Assessment/Plan 1. 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 Diabetes mellitus 3. Hypertension 4. Encephalopathy. Patient is now oriented to time place and space and fully awake Plan Liver function tests and ammonia level Continue lactulose and rifaximin. Consultation Date/Type/Reason Admit Date/Time Mar 14, 2017 at 03:58 24 HR Interval Summary Constitutional: improved, no complaints Exam/Review of Systems Vital Signs Vitals Vital Signs Date Time Temp Pulse Resp B/P Pulse Ox O2 Delivery O2 Flow Rate FiO2 03/18/17 14:00 98.2 74 18 108/56 95 03/16/17 20:13 Room Air 03/14/17 20:40 2.0 Intake and Output 03/17/17 03/17/17 03/18/17 15:00 23:00 07:00 Intake Total 720 ml 850 ml Balance 720 ml 850 ml Exam Constitutional: alert, oriented, well developed Psych: nl mood/affect, no complaints Head: atraumatic, normocephalic Eyes: EOMI, PERRL, nl conjunctiva, nl lids, nl sclera ENMT: nl external ears & nose, nl lips & teeth, nl nasal mucosa & septum Neck: non-tender, supple Respiratory: clear to auscultation, normal air movement Cardiovascular: nl pulses, regular rate and rhythm Gastrointestinal: nl liver, spleen, non-tender, soft Musculoskeletal: nl extremities to inspection, nl gait and stance Extremities: normal pulses Neurological: BUSINESS OFFICE MANAGER II-XII intact, nl mental status, nl speech, nl strength Skin: nl turgor, No rash or lesions Lymph: nl lymph nodes Results Result Diagram: 03/17/17 0710 03/18/17 0551 Results 24 hrs Laboratory Tests Test 03/17/17 21:04 03/18/17 05:51 03/18/17 07:45 03/18/17 12:09 Bedside Glucose 132 151 134 Sodium Level 148 H Potassium Level 4.6 Chloride Level 115 H Carbon Dioxide Level 17 L Anion Gap 21 H Blood Urea Nitrogen 18 Creatinine 0.64 Glucose Level 144 Calcium Level 9.4 Ammonia 91 #H Test 03/18/17 17:32 Bedside Glucose 131 Medications Medications Current Medications Lactulose (Enulose) 30 gm Q6 PO Last administered on 03/18/17 17:36; Admin Dose 30 GM; Start 03/14/17 at 12:00 Amlodipine Besylate (Norvasc) 10 mg DAILY PO Last administered on 03/18/17 08: 17; Admin Dose 10 MG; Start 03/15/17 at 09:00 Atorvastatin Calcium (Lipitor) 20 mg QHS PO Last administered on 03/17/17 21: 04; Admin Dose 20 MG; Start 03/14/17 at 21:00 Benazepril HCl (Lotensin) 20 mg DAILY PO Last administered on 03/18/17 08:17; Admin Dose 20 MG; Start 03/15/17 at 09:00 Folic Acid (Folic Acid) 1 mg DAILY PO Last administered on 03/18/17 08:16; Admin Dose 1 MG; Start 03/15/17 at 09:00 Gabapentin (Neurontin) 300 mg TID PO Last administered on 03/18/17 12:13; Admin Dose 300 MG; Start 03/14/17 at 21:00 Lorazepam (Ativan) 2 mg HS PRN PO ANXIETY Last administered on 03/17/17 21:13 ; Admin Dose 2 MG; Start 03/14/17 at 20:30 Pantoprazole (Protonix Tab) 40 mg DAILY@06 PO Last administered on 03/18/17 06 :11; Admin Dose 40 MG; Start 03/15/17 at 06:00 Rifaximin (Xifaxan) 550 mg BID PO Last administered on 03/18/17 08:15; Admin Dose 550 MG; Start 03/14/17 at 21:00 Acetaminophen (Tylenol Tab) 650 mg Q6H PRN PO PAIN AND OR ELEVATED TEMP Last administered on 03/14/17 21:25; Admin Dose 650 MG; Start 03/14/17 at 20:30 Diagnostic Test (Pha) (Accu-Chek) 1 ea 02 XX ; Start 03/18/17 at 02:00 Insulin Glargine (Lantus) 20 unit QHS SC Last administered on 03/17/17t 21:07; Admin Dose 20 UNIT; Start 03/17/17 at 21:00 Miscellaneous Information 1 ea NOTE XX ; Start 03/17/17 at 18:30 Glucose (Glutose) 15 gm Q15M PRN PO DECREASED GLUCOSE; Start 03/17/17 at 18:30 Glucose (Glutose) 22.5 gm Q15M PRN PO DECREASED GLUCOSE; Start 03/17/17 at 18: 30 Dextrose (D50w Syringe) 25 ml Q15M PRN IV DECREASED GLUCOSE; Start 03/17/17 at 18:30 Dextrose (D50w Syringe) 50 ml Q15M PRN IV DECREASED GLUCOSE; Start 03/17/17 at 18:30 Glucagon (Glucagen) 1 mg Q15M PRN IM DECREASED GLUCOSE; Start 03/17/17 at 18:30 Glucose 15 gm 15 gm Q15M PRN BUCCAL DECREASED GLUCOSE; Start 03/17/17 at 18:30 Dextrose (D5W) 500 ml @ 50 mls/hr Q10H IV ; Start 03/18/17 at 19:00; Stop 03/19 at 04:59 BE MACDONALD MD Mar 18, 2017 19:11
[2017-03-18 20:06] VITALS: BP 121/57; RESP 18
[2017-03-18] MEDS: ATORVASTATIN 20 MG TAB PO SCH (21:24)
[2017-03-18] MEDS: LORAZEPAM 1 MG TAB PO PRN (21:26)
[2017-03-18] MEDS: INSULIN GLARGINE [LANtus] 3 ML PEN SC SCH (21:33)
[2017-03-19] MEDS: LACTULOSE 30ML CUP PO SCH ×4 (00:20→17:41)
[2017-03-19] MEDS: ACCU-CHEK XX SCH (01:43)
[2017-03-19 02:11] VITALS: BP 126/67; RESP 17
[2017-03-19 05:04] LABS: ADD SCAN DIFF NO
[2017-03-19 05:11] LABS: ABNORMAL IP MESSAGE 1; BASOPHIL # 0.1 10^3/ul (0.0-0.1); EOSINOPHILS # 0.2 10^3/ul (0.0-0.5); EOSINOPHILS % 4.8 % (0.0-7.0); HEMATOCRIT 33.8 % (37.0-47.0); HEMOGLOBIN 10.3 g/dl (12.0-16.0); LYMPHOCYTES # 1.5 10^3/ul (0.8-2.9); LYMPHOCYTES % 31.1 % (15.0-51.0); MEAN CORPUSCULAR HEMOGLOBIN 27.4 pg (29.0-33.0); MEAN CORPUSCULAR HGB CONC 30.5 g/dl (32.0-37.0); MEAN CORPUSCULAR VOLUME 89.9 fl (82.0-101.0); MONOCYTE # 0.4 10^3/ul (0.3-0.9); MONOCYTES % 7.3 % (0.0-11.0); NEUTROPHIL # 2.7 10^3/ul (1.6-7.5); NEUTROPHILS % 55.6 % (39.0-77.0); RED BLOOD COUNT 3.76 10^6/ul (4.20-5.40); RED CELL DISTRIBUTION WIDTH 16.9 % (11.5-14.5); WHITE BLOOD COUNT 4.8 10^3/ul (4.8-10.8)
[2017-03-19 05:14] LABS: PLATELET COUNT 64 10^3/UL (140-415)
[2017-03-19 05:25] LABS: CALCIUM 9.5 mg/dl (8.4-10.2); CREATININE 0.73 mg/dl (0.44-1.00); POTASSIUM 4.2 mmol/L (3.5-5.1)
[2017-03-19] MEDS: PANTOPRAZOLE (EC) 40 MG TAB PO SCH (06:25)
[2017-03-19 07:25] VITALS: BP 114/64; RESP 16
[2017-03-19] MEDS: GABAPENTIN 300 MG CAP PO SCH ×3 (08:11→21:45)
[2017-03-19] MEDS: metFORMIN 500 MG TAB PO SCH ×2 (08:11→17:40)
[2017-03-19] MEDS: RIFAXIMIN 550 MG TAB PO SCH ×2 (08:11→21:44)
[2017-03-19] MEDS: FOLIC ACID 1 MG TAB PO SCH (08:11)
[2017-03-19] MEDS: BENAZEPRIL 20 MG TAB PO SCH (08:12)
[2017-03-19] MEDS: AMLODIPINE 10 MG TAB PO SCH (08:12)
[2017-03-19] MEDS: INSULIN ASPART [NOVOLOG] 3 ML PEN SC SCH ×7 (08:14→21:00)
[2017-03-19 14:08] VITALS: BP 107/56; RESP 16
--- NOTE | 2017-03-19 14:22 | PN ---
Date/Time of Note Date/Time of Note DATE: 03/19/17 TIME: 14:14 Assessment/Plan VTE Prophylaxis VTE Prophylaxis Intervention: SCD's Lines/Catheters [facility] Peripheral IV Urinary Cath still in place: No Assessment/Plan Chief Complaint/Hosp Course Ammonia level is 108, no change in neuro status, patient is awake alert to name and situation with intermittent periods of confusion. Assessment/Plan - Acute Hepatic encephalopathy. Continue lactulose and rifaximin. Monitor ammonia level. Monitor neurological status as altered level of consciousness secondary to hepatic encephalopathy. - Alcoholic liver cirrhosis. - Diabetes mellitus type 2 with hyperglycemia, continue Lantus and NovoLog premeal as well as NovoLog per moderate algorithm sliding scale. Continue metformin. - Hypertension. Continue Norvasc and lisinopril. - Thrombocytopenia, most likely due to liver cirrhosis. Further recommendations based on clinical course. Plan of care discussed with Dr. Dickson. Problems: Exam/Review of Systems Vital Signs Vitals Vital Signs Date Time Temp Pulse Resp B/P Pulse Ox O2 Delivery O2 Flow Rate FiO2 03/19/17 07:25 98.4 68 16 114/64 94 03/16/17 20:13 Room Air Intake and Output 03/18/17 03/18/17 03/19/17 15:00 23:00 07:00 Intake Total 820 ml 1100 ml Balance 820 ml 1100 ml Exam Constitutional: alert, oriented Psych: confusion Head: atraumatic, normocephalic Neck: supple Respiratory: normal air movement Cardiovascular: nl pulses, regular rate and rhythm Gastrointestinal: non-tender, soft Extremities: normal pulses Neurological: confused Skin: nl turgor Results Result Diagram: 03/19/17 0454 03/19/17 0454 Results 24 hrs Laboratory Tests Test 03/18/17 17:32 03/18/17 21:28 03/19/17 04:54 03/19/17 07:59 Bedside Glucose 131 166 163 White Blood Count 4.8 Red Blood Count 3.76 L Hemoglobin 10.3 L Hematocrit 33.8 L Mean Corpuscular Volume 89.9 Mean Corpuscular Hemoglobin 27.4 L Mean Corpuscular Hemoglobin Concent 30.5 L Red Cell Distribution Width 16.9 H Platelet Count 64 #L Mean Platelet Volume Neutrophils % 55.6 Lymphocytes % 31.1 Monocytes % 7.3 Eosinophils % 4.8 Basophils % 1.0 Neutrophils # 2.7 Lymphocytes # 1.5 Monocytes # 0.4 Eosinophils # 0.2 Basophils # 0.1 Nucleated Red Blood Cells # 0.0 Sodium Level 147 H Potassium Level 4.2 Chloride Level 115 H Carbon Dioxide Level 15 L Anion Gap 21 H Blood Urea Nitrogen 18 Creatinine 0.73 Glucose Level 172 Calcium Level 9.5 Ammonia 108 H Test 03/19/17 11:54 Bedside Glucose 174 Medications Medications Current Medications Lactulose (Enulose) 30 gm Q6 PO Last administered on 03/19/17 12:07; Admin Dose 30 GM; Start 03/14/17 at 12:00 Amlodipine Besylate (Norvasc) 10 mg DAILY PO Last administered on 03/19/17 08: 12; Admin Dose 10 MG; Start 03/15/17 at 09:00 Atorvastatin Calcium (Lipitor) 20 mg QHS PO Last administered on 03/18/17 21: 24; Admin Dose 20 MG; Start 03/14/17 at 21:00 Benazepril HCl (Lotensin) 20 mg DAILY PO Last administered on 03/19/17 08:12; Admin Dose 20 MG; Start 03/15/17 at 09:00 Folic Acid (Folic Acid) 1 mg DAILY PO Last administered on 03/19/17 08:11; Admin Dose 1 MG; Start 03/15/17 at 09:00 Gabapentin (Neurontin) 300 mg TID PO Last administered on 03/19/17 12:07; Admin Dose 300 MG; Start 03/14/17 at 21:00 Lorazepam (Ativan) 2 mg HS PRN PO ANXIETY Last administered on 03/18/17 21:26 ; Admin Dose 2 MG; Start 03/14/17 at 20:30 Pantoprazole (Protonix Tab) 40 mg DAILY@06 PO Last administered on 03/19/17 06 :25; Admin Dose 40 MG; Start 03/15/17 at 06:00 Rifaximin (Xifaxan) 550 mg BID PO Last administered on 03/19/17 08:11; Admin Dose 550 MG; Start 03/14/17 at 21:00 Acetaminophen (Tylenol Tab) 650 mg Q6H PRN PO PAIN AND OR ELEVATED TEMP Last administered on 03/14/17 21:25; Admin Dose 650 MG; Start 03/14/17 at 20:30 Diagnostic Test (Pha) (Accu-Chek) 1 ea 02 XX ; Start 03/18/17 at 02:00 Insulin Glargine (Lantus) 20 unit QHS SC Last administered on 03/18/17t 21:33; Admin Dose 20 UNIT; Start 03/17/17 at 21:00 Miscellaneous Information 1 ea NOTE XX ; Start 03/17/17 at 18:30 Glucose (Glutose) 15 gm Q15M PRN PO DECREASED GLUCOSE; Start 03/17/17 at 18:30 Glucose (Glutose) 22.5 gm Q15M PRN PO DECREASED GLUCOSE; Start 03/17/17 at 18: 30 Dextrose (D50w Syringe) 25 ml Q15M PRN IV DECREASED GLUCOSE; Start 03/17/17 at 18:30 Dextrose (D50w Syringe) 50 ml Q15M PRN IV DECREASED GLUCOSE; Start 03/17/17 at 18:30 Glucagon (Glucagen) 1 mg Q15M PRN IM DECREASED GLUCOSE; Start 03/17/17 at 18:30 Glucose (Glutose) 15 gm Q15M PRN BUCCAL DECREASED GLUCOSE; Start 03/17/17 at 18 :30 DEMETRIA ZAVALA Mar 19, 2017 14:21
--- NOTE | 2017-03-19 17:08 | CONS ---
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 Patient was discharged on lactulose no history of any precipitating events. She did not take any sedatives or narcotics no history of GI bleeding no fever no chills. No abdominal pain no nausea no vomiting Problems: Additional Assessment/Plan Additional Assessment/Plan Assessment/Plan Additional Assessment/Plan 1. 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 Diabetes mellitus 3. Hypertension 4. Encephalopathy. Patient is now oriented to time place and space and fully awake Plan Liver function tests and ammonia level Continue lactulose and rifaximin. No sedative I do not see any precipitating factor at this point Consultation Date/Type/Reason Admit Date/Time Mar 14, 2017 at 03:58 24 HR Interval Summary Free Text/Dictation Family is concerned with the lab results high ammonia 108 Exam/Review of Systems Vital Signs Vitals Vital Signs Date Time Temp Pulse Resp B/P Pulse Ox O2 Delivery O2 Flow Rate FiO2 03/19/17 14:08 98.5 71 16 107/56 97 03/16/17 20:13 Room Air Intake and Output 03/18/17 03/18/17 03/19/17 15:00 23:00 07:00 Intake Total 820 ml 1100 ml Balance 820 ml 1100 ml Exam Constitutional: alert, oriented, well developed Psych: nl mood/affect, no complaints Head: atraumatic, normocephalic Eyes: EOMI, PERRL, nl conjunctiva, nl lids, nl sclera ENMT: nl external ears & nose, nl lips & teeth, nl nasal mucosa & septum Neck: non-tender, supple Respiratory: clear to auscultation, normal air movement Cardiovascular: nl pulses, regular rate and rhythm Gastrointestinal: nl liver, spleen, non-tender, soft Musculoskeletal: nl extremities to inspection, nl gait and stance Extremities: normal pulses Neurological: CORPORATE WELLNESS COORDINATOR II-XII intact, nl mental status, nl speech, nl strength Skin: nl turgor, No rash or lesions Lymph: nl lymph nodes Results Result Diagram: 03/19/17 0454 03/19/17 0454 Results 24 hrs Laboratory Tests Test 03/18/17 17:32 03/18/17 21:28 03/19/17 04:54 03/19/17 07:59 Bedside Glucose 131 166 163 White Blood Count 4.8 Red Blood Count 3.76 L Hemoglobin 10.3 L Hematocrit 33.8 L Mean Corpuscular Volume 89.9 Mean Corpuscular Hemoglobin 27.4 L Mean Corpuscular Hemoglobin Concent 30.5 L Red Cell Distribution Width 16.9 H Platelet Count 64 #L Mean Platelet Volume Neutrophils % 55.6 Lymphocytes % 31.1 Monocytes % 7.3 Eosinophils % 4.8 Basophils % 1.0 Neutrophils # 2.7 Lymphocytes # 1.5 Monocytes # 0.4 Eosinophils # 0.2 Basophils # 0.1 Nucleated Red Blood Cells # 0.0 Sodium Level 147 H Potassium Level 4.2 Chloride Level 115 H Carbon Dioxide Level 15 L Anion Gap 21 H Blood Urea Nitrogen 18 Creatinine 0.73 Glucose Level 172 Calcium Level 9.5 Ammonia 108 H Test 03/19/17 11:54 Bedside Glucose 174 Medications Medications Current Medications Lactulose (Enulose) 30 gm Q6 PO Last administered on 03/19/17 12:07; Admin Dose 30 GM; Start 03/14/17 at 12:00 Amlodipine Besylate (Norvasc) 10 mg DAILY PO Last administered on 03/19/17 08: 12; Admin Dose 10 MG; Start 03/15/17 at 09:00 Atorvastatin Calcium (Lipitor) 20 mg QHS PO Last administered on 03/18/17 21: 24; Admin Dose 20 MG; Start 03/14/17 at 21:00 Benazepril HCl (Lotensin) 20 mg DAILY PO Last administered on 03/19/17 08:12; Admin Dose 20 MG; Start 03/15/17 at 09:00 Folic Acid (Folic Acid) 1 mg DAILY PO Last administered on 03/19/17 08:11; Admin Dose 1 MG; Start 03/15/17 at 09:00 Gabapentin (Neurontin) 300 mg TID PO Last administered on 03/19/17 12:07; Admin Dose 300 MG; Start 03/14/17 at 21:00 Lorazepam (Ativan) 2 mg HS PRN PO ANXIETY Last administered on 03/18/17 21:26 ; Admin Dose 2 MG; Start 03/14/17 at 20:30 Pantoprazole (Protonix Tab) 40 mg DAILY@06 PO Last administered on 03/19/17 06 :25; Admin Dose 40 MG; Start 03/15/17 at 06:00 Rifaximin (Xifaxan) 550 mg BID PO Last administered on 03/19/17 08:11; Admin Dose 550 MG; Start 03/14/17 at 21:00 Acetaminophen (Tylenol Tab) 650 mg Q6H PRN PO PAIN AND OR ELEVATED TEMP Last administered on 03/14/17 21:25; Admin Dose 650 MG; Start 03/14/17 at 20:30 Diagnostic Test (Pha) (Accu-Chek) 1 ea 02 XX ; Start 03/18/17 at 02:00 Insulin Glargine (Lantus) 20 unit QHS SC Last administered on 03/18/17 21:33; Admin Dose 20 UNIT; Start 03/17/17 at 21:00 Miscellaneous Information 1 ea NOTE XX ; Start 03/17/17 at 18:30 Glucose (Glutose) 15 gm Q15M PRN PO DECREASED GLUCOSE; Start 03/17/17 at 18:30 Glucose (Glutose) 22.5 gm Q15M PRN PO DECREASED GLUCOSE; Start 03/17/17 at 18: 30 Dextrose (D50w Syringe) 25 ml Q15M PRN IV DECREASED GLUCOSE; Start 03/17/17 at 18:30 Dextrose (D50w Syringe) 50 ml Q15M PRN IV DECREASED GLUCOSE; Start 03/17/17 at 18:30 Glucagon (Glucagen) 1 mg Q15M PRN IM DECREASED GLUCOSE; Start 03/17/17 at 18:30 Glucose (Glutose) 15 gm Q15M PRN BUCCAL DECREASED GLUCOSE; Start 03/17/17 at 18 :30 BE MACDONALD MD Mar 19, 2017 17:08
[2017-03-19 20:00] VITALS: BP 119/66; RESP 19
[2017-03-19] MEDS: LORAZEPAM 1 MG TAB PO PRN (21:44)
[2017-03-19] MEDS: ATORVASTATIN 20 MG TAB PO SCH (21:44)
[2017-03-19] MEDS: INSULIN GLARGINE [LANtus] 3 ML PEN SC SCH (21:46)
[2017-03-20] MEDS: LACTULOSE 30ML CUP PO SCH ×4 (01:18→17:38)
[2017-03-20] MEDS: ACCU-CHEK XX SCH (01:20)
[2017-03-20 02:00] VITALS: BP 97/55; RESP 18
[2017-03-20] MEDS: PANTOPRAZOLE (EC) 40 MG TAB PO SCH (05:14)
[2017-03-20 07:30] VITALS: BP 102/57; RESP 16
[2017-03-20] MEDS: FOLIC ACID 1 MG TAB PO SCH (09:22)
[2017-03-20] MEDS: GABAPENTIN 300 MG CAP PO SCH ×3 (09:22→21:48)
[2017-03-20] MEDS: RIFAXIMIN 550 MG TAB PO SCH ×2 (09:22→21:48)
[2017-03-20] MEDS: metFORMIN 500 MG TAB PO SCH ×2 (09:23→17:38)
[2017-03-20] MEDS: INSULIN ASPART [NOVOLOG] 3 ML PEN SC SCH ×7 (09:25→21:00)
[2017-03-20] MEDS: BENAZEPRIL 20 MG TAB PO SCH (09:28)
[2017-03-20] MEDS: AMLODIPINE 10 MG TAB PO SCH (09:28)
[2017-03-20] MEDS: ACETAMINOPHEN 325 MG TAB PO PRN (11:04)
[2017-03-20 11:05] VITALS: BP 116/66; PULSE 74
--- NOTE | 2017-03-20 13:26 | CONS ---
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 Patient was discharged on lactulose no history of any precipitating events. She did not take any sedatives or narcotics no history of GI bleeding no fever no chills. 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 Patient was discharged on lactulose no history of any precipitating events. She did not take any sedatives or narcotics no history of GI bleeding no fever no chills. No abdominal pain no nausea no vomiting Problems: Additional Assessment/Plan Additional Assessment/Plan Assessment/Plan Additional Assessment/Plan 1. 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 Diabetes mellitus 3. Hypertension 4. Encephalopathy. Patient is now oriented to time place and space and fully awake Plan Liver function tests and ammonia level Continue lactulose and rifaximin. No sedative I do not see any precipitating factor at this point Consultation Date/Type/Reason Admit Date/Time Mar 14, 2017 at 03:58 24 HR Interval Summary Constitutional: improved, no complaints Exam/Review of Systems Vital Signs Vitals Vital Signs Date Time Temp Pulse Resp B/P Pulse Ox O2 Delivery O2 Flow Rate FiO2 03/20/17 11:05 74 116/66 03/20/17 07:30 98.0 16 97 03/16/17 20:13 Room Air Intake and Output 03/19/17 03/19/17 03/20/17 15:00 23:00 07:00 Intake Total 600 ml 480 ml Balance 600 ml 480 ml Exam Constitutional: alert, oriented, well developed Psych: nl mood/affect, no complaints Head: atraumatic, normocephalic Eyes: EOMI, PERRL, nl conjunctiva, nl lids, nl sclera ENMT: nl external ears & nose, nl lips & teeth, nl nasal mucosa & septum Neck: non-tender, supple Respiratory: clear to auscultation, normal air movement Cardiovascular: nl pulses, regular rate and rhythm Gastrointestinal: nl liver, spleen, non-tender, soft Musculoskeletal: nl extremities to inspection, nl gait and stance Extremities: normal pulses Neurological: GROUP INSURANCE SPECIAL AGENT II-XII intact, nl mental status, nl speech, nl strength Skin: nl turgor, No rash or lesions Lymph: nl lymph nodes Results Result Diagram: 03/19/17 0454 03/19/17 0454 Results 24 hrs Laboratory Tests Test 03/19/17 17:27 03/19/17 21:31 03/20/17 04:42 03/20/17 07:50 Bedside Glucose 145 164 152 Ammonia 154 H Test 03/20/17 11:06 Bedside Glucose 143 Medications Medications Current Medications Lactulose (Enulose) 30 gm Q6 PO Last administered on 03/20/17 12:08; Admin Dose 30 GM; Start 03/14/17 at 12:00 Amlodipine Besylate (Norvasc) 10 mg DAILY PO Last administered on 03/20/17 09: 28; Admin Dose 10 MG; Start 03/15/17 at 09:00 Atorvastatin Calcium (Lipitor) 20 mg QHS PO Last administered on 03/19/17 21: 44; Admin Dose 20 MG; Start 03/14/17 at 21:00 Benazepril HCl (Lotensin) 20 mg DAILY PO Last administered on 03/20/17 09:28; Admin Dose 20 MG; Start 03/15/17 at 09:00 Folic Acid (Folic Acid) 1 mg DAILY PO Last administered on 03/20/17 09:22; Admin Dose 1 MG; Start 03/15/17 at 09:00 Gabapentin (Neurontin) 300 mg TID PO Last administered on 03/20/17 12:08; Admin Dose 300 MG; Start 03/14/17 at 21:00 Lorazepam (Ativan) 2 mg HS PRN PO ANXIETY Last administered on 03/19/17 21:44 ; Admin Dose 2 MG; Start 03/14/17 at 20:30 Pantoprazole (Protonix Tab) 40 mg DAILY@06 PO Last administered on 03/20/17 05 :14; Admin Dose 40 MG; Start 03/15/17 at 06:00 Rifaximin (Xifaxan) 550 mg BID PO Last administered on 03/20/17 09:22; Admin Dose 550 MG; Start 03/14/17 at 21:00 Acetaminophen (Tylenol Tab) 650 mg Q6H PRN PO PAIN AND OR ELEVATED TEMP Last administered on 03/20/17 11:04; Admin Dose 650 MG; Start 03/14/17 at 20:30 Diagnostic Test (Pha) (Accu-Chek) 1 ea 02 XX ; Start 03/18/17 at 02:00 Insulin Glargine (Lantus) 20 unit QHS SC Last administered on 03/19/17 21:46; Admin Dose 20 UNIT; Start 03/17/17 at 21:00 Miscellaneous Information 1 ea NOTE XX ; Start 03/17/17 at 18:30 Glucose (Glutose) 15 gm Q15M PRN PO DECREASED GLUCOSE; Start 03/17/17 at 18:30 Glucose (Glutose) 22.5 gm Q15M PRN PO DECREASED GLUCOSE; Start 03/17/17 at 18: 30 Dextrose (D50w Syringe) 25 ml Q15M PRN IV DECREASED GLUCOSE; Start 03/17/17 at 18:30 Dextrose (D50w Syringe) 50 ml Q15M PRN IV DECREASED GLUCOSE; Start 03/17/17 at 18:30 Glucagon (Glucagen) 1 mg Q15M PRN IM DECREASED GLUCOSE; Start 03/17/17 at 18:30 Glucose (Glutose) 15 gm Q15M PRN BUCCAL DECREASED GLUCOSE; Start 03/17/17 at 18 :30 BE MACDONALD MD Mar 20, 2017 13:25
[2017-03-20 14:03] VITALS: BP 99/55; RESP 18
--- NOTE | 2017-03-20 16:13 | PN ---
Date/Time of Note Date/Time of Note DATE: 03/20/17 TIME: 16:10 Assessment/Plan VTE Prophylaxis VTE Prophylaxis Intervention: other Lines/Catheters [facility] Saline Lock Urinary Cath still in place: No Assessment/Plan Assessment/Plan - Acute Hepatic encephalopathy. Continue lactulose and rifaximin. -ammonia level- 154 Monitor neurological status as altered level of consciousness secondary to hepatic encephalopathy. - Alcoholic liver cirrhosis. - Diabetes mellitus type 2 with hyperglycemia, continue Lantus and NovoLog premeal as well as NovoLog per moderate algorithm sliding scale. Continue metformin. - Hypertension. Continue Norvasc and lisinopril. - Thrombocytopenia, most likely due to liver cirrhosis. Further recommendations based on clinical course. Plan of care discussed with Dr. Dickson. Subjective 24 Hr Interval Summary Free Text/Dictation Ammonia level is 154, no change in neuro status, patient is awake alert to name and situation with intermittent periods of confusion. dw staff Respiratory: no complaints Cardiovascular: no complaints Gastrointestinal: no complaints Exam/Review of Systems Vital Signs Vitals Vital Signs Date Time Temp Pulse Resp B/P Pulse Ox O2 Delivery O2 Flow Rate FiO2 03/20/17 14:03 98.6 74 18 99/55 94 03/16/17 20:13 Room Air Intake and Output 03/19/17 03/19/17 03/20/17 15:00 23:00 07:00 Intake Total 600 ml 480 ml Balance 600 ml 480 ml Exam Constitutional: alert, well developed Respiratory: clear to auscultation, normal air movement Cardiovascular: nl pulses, regular rate and rhythm Gastrointestinal: non-tender, soft Musculoskeletal: nl extremities to inspection Extremities: normal pulses Neurological: COMMERCIAL GREEN BUILDING ARCHITECT II-XII intact, nl mental status Results Result Diagram: 03/19/17 0454 03/19/17 0454 Results 24 hrs Laboratory Tests Test 03/19/17 17:27 03/19/17 21:31 03/20/17 04:42 03/20/17 07:50 Bedside Glucose 145 164 152 Ammonia 154 H Test 03/20/17 11:06 Bedside Glucose 143 Medications Medications Current Medications Lactulose (Enulose) 30 gm Q6 PO Last administered on 03/20/17 12:08; Admin Dose 30 GM; Start 03/14/17 at 12:00 Amlodipine Besylate (Norvasc) 10 mg DAILY PO Last administered on 03/20/17 09: 28; Admin Dose 10 MG; Start 03/15/17 at 09:00 Atorvastatin Calcium (Lipitor) 20 mg QHS PO Last administered on 03/19/17 21: 44; Admin Dose 20 MG; Start 03/14/17 at 21:00 Benazepril HCl (Lotensin) 20 mg DAILY PO Last administered on 03/20/17 09:28; Admin Dose 20 MG; Start 03/15/17 at 09:00 Folic Acid (Folic Acid) 1 mg DAILY PO Last administered on 03/20/17 09:22; Admin Dose 1 MG; Start 03/15/17 at 09:00 Gabapentin (Neurontin) 300 mg TID PO Last administered on 03/20/17 12:08; Admin Dose 300 MG; Start 03/14/17 at 21:00 Lorazepam (Ativan) 2 mg HS PRN PO ANXIETY Last administered on 03/19/17 21:44 ; Admin Dose 2 MG; Start 03/14/17 at 20:30 Pantoprazole (Protonix Tab) 40 mg DAILY@06 PO Last administered on 03/20/17 05 :14; Admin Dose 40 MG; Start 03/15/17 at 06:00 Rifaximin (Xifaxan) 550 mg BID PO Last administered on 03/20/17 09:22; Admin Dose 550 MG; Start 03/14/17 at 21:00 Acetaminophen (Tylenol Tab) 650 mg Q6H PRN PO PAIN AND OR ELEVATED TEMP Last administered on 03/20/17 11:04; Admin Dose 650 MG; Start 03/14/17 at 20:30 Diagnostic Test (Pha) (Accu-Chek) 1 ea 02 XX ; Start 03/18/17 at 02:00 Insulin Glargine (Lantus) 20 unit QHS SC Last administered on 03/19/17 21:46; Admin Dose 20 UNIT; Start 03/17/17 at 21:00 Miscellaneous Information 1 ea NOTE XX ; Start 03/17/17 at 18:30 Glucose (Glutose) 15 gm Q15M PRN PO DECREASED GLUCOSE; Start 03/17/17 at 18:30 Glucose (Glutose) 22.5 gm Q15M PRN PO DECREASED GLUCOSE; Start 03/17/17 at 18: 30 Dextrose (D50w Syringe) 25 ml Q15M PRN IV DECREASED GLUCOSE; Start 03/17/17 at 18:30 Dextrose (D50w Syringe) 50 ml Q15M PRN IV DECREASED GLUCOSE; Start 03/17/17 at 18:30 Glucagon (Glucagen) 1 mg Q15M PRN IM DECREASED GLUCOSE; Start 03/17/17 at 18:30 Glucose (Glutose) 15 gm Q15M PRN BUCCAL DECREASED GLUCOSE; Start 03/17/17 at 18 :30 SUNG KHAN Mar 20, 2017 16:13
[2017-03-20 21:28] VITALS: BP 115/61; RESP 18
[2017-03-20] MEDS: LORAZEPAM 1 MG TAB PO PRN (21:47)
[2017-03-20] MEDS: ATORVASTATIN 20 MG TAB PO SCH (21:48)
[2017-03-20] MEDS: INSULIN GLARGINE [LANtus] 3 ML PEN SC SCH (21:55)
[2017-03-21] MEDS: LACTULOSE 30ML CUP PO SCH ×5 (00:46→23:41)
[2017-03-21 02:00] VITALS: BP 108/66; RESP 19
[2017-03-21] MEDS: ACCU-CHEK XX SCH (02:00)
[2017-03-21 05:25] LABS: BASOPHIL # 0.1 10^3/ul (0.0-0.1); BASOPHILS % 1.1 % (0.0-2.0); EOSINOPHILS # 0.3 10^3/ul (0.0-0.5); EOSINOPHILS % 5.2 % (0.0-7.0); HEMOGLOBIN 11.2 g/dl (12.0-16.0); LYMPHOCYTES # 1.8 10^3/ul (0.8-2.9); LYMPHOCYTES % 32.1 % (15.0-51.0); MEAN CORPUSCULAR HEMOGLOBIN 27.8 pg (29.0-33.0); MEAN CORPUSCULAR HGB CONC 31.1 g/dl (32.0-37.0); MEAN CORPUSCULAR VOLUME 89.3 fl (82.0-101.0); MONOCYTE # 0.5 10^3/ul (0.3-0.9); MONOCYTES % 8.5 % (0.0-11.0); NEUTROPHIL # 2.9 10^3/ul (1.6-7.5); NEUTROPHILS % 52.9 % (39.0-77.0); PLATELET COUNT 65 10^3/UL (140-415); RED BLOOD COUNT 4.03 10^6/ul (4.20-5.40); RED CELL DISTRIBUTION WIDTH 16.7 % (11.5-14.5); WHITE BLOOD COUNT 5.5 10^3/ul (4.8-10.8)
[2017-03-21] MEDS: PANTOPRAZOLE (EC) 40 MG TAB PO SCH (05:44)
[2017-03-21 05:52] LABS: ABNORMAL IP MESSAGE 1
[2017-03-21 05:57] LABS: CALCIUM 9.4 mg/dl (8.4-10.2); CREATININE 0.98 mg/dl (0.44-1.00); POTASSIUM 4.2 mmol/L (3.5-5.1)
[2017-03-21] MEDS: INSULIN ASPART [NOVOLOG] 3 ML PEN SC SCH ×7 (08:00→21:00)
[2017-03-21] MEDS: GABAPENTIN 300 MG CAP PO SCH ×3 (08:55→21:40)
[2017-03-21] MEDS: metFORMIN 500 MG TAB PO SCH ×2 (08:56→17:14)
[2017-03-21] MEDS: BENAZEPRIL 20 MG TAB PO SCH (08:56)
[2017-03-21] MEDS: AMLODIPINE 10 MG TAB PO SCH (08:56)
[2017-03-21] MEDS: FOLIC ACID 1 MG TAB PO SCH (08:56)
[2017-03-21] MEDS: RIFAXIMIN 550 MG TAB PO SCH ×2 (08:56→21:40)
[2017-03-21 09:02] VITALS: BP 108/61; RESP 17
--- NOTE | 2017-03-21 14:04 | CONS ---
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 Patient was discharged on lactulose no history of any precipitating events. She did not take any sedatives or narcotics no history of GI bleeding no fever no chills. No abdominal pain no nausea no vomiting Problems: Additional Assessment/Plan Additional Assessment/Plan 1. 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 Diabetes mellitus 3. Hypertension 4. Encephalopathy. Patient is now oriented to time place and space and fully awake Plan Liver function tests and ammonia level Continue lactulose and rifaximin. No sedative Ambulate patient with assistant broker Consultation Date/Type/Reason Admit Date/Time Mar 14, 2017 at 03:58 24 HR Interval Summary Constitutional: improved, no complaints Exam/Review of Systems Vital Signs Vitals Vital Signs Date Time Temp Pulse Resp B/P Pulse Ox O2 Delivery O2 Flow Rate FiO2 03/21/17 09:02 98.3 77 17 108/61 95 Intake and Output 03/20/17 03/20/17 03/21/17 15:00 23:00 07:00 Intake Total 900 ml Balance 900 ml Exam Constitutional: alert, oriented, well developed Psych: nl mood/affect, no complaints Head: atraumatic, normocephalic Eyes: EOMI, PERRL, nl conjunctiva, nl lids, nl sclera ENMT: nl external ears & nose, nl lips & teeth, nl nasal mucosa & septum Neck: non-tender, supple Respiratory: clear to auscultation, normal air movement Cardiovascular: nl pulses, regular rate and rhythm Gastrointestinal: nl liver, spleen, non-tender, soft Musculoskeletal: nl extremities to inspection, nl gait and stance Extremities: normal pulses Neurological: FRONT DESK ATTENDANT II-XII intact, nl mental status, nl speech, nl strength Skin: nl turgor, No rash or lesions Lymph: nl lymph nodes Results Result Diagram: 03/21/17 0441 03/21/17 0441 Results 24 hrs Laboratory Tests Test 03/20/17 17:05 03/20/17 18:05 03/20/17 21:51 03/21/17 04:11 Bedside Glucose 92 104 Ammonia 95 H 81 H Test 03/21/17 04:41 03/21/17 08:00 03/21/17 12:18 White Blood Count 5.5 Red Blood Count 4.03 L Hemoglobin 11.2 L Hematocrit 36.0 L Mean Corpuscular Volume 89.3 Mean Corpuscular Hemoglobin 27.8 L Mean Corpuscular Hemoglobin Concent 31.1 L Red Cell Distribution Width 16.7 H Platelet Count 65 L Mean Platelet Volume Neutrophils % 52.9 Lymphocytes % 32.1 Monocytes % 8.5 Eosinophils % 5.2 Basophils % 1.1 Nucleated Red Blood Cells % 0.0 Neutrophils # 2.9 Lymphocytes # 1.8 Monocytes # 0.5 Eosinophils # 0.3 Basophils # 0.1 Nucleated Red Blood Cells # 0.0 Sodium Level 149 H Potassium Level 4.2 Chloride Level 119 H Carbon Dioxide Level 12 L Anion Gap 22 H Blood Urea Nitrogen 22 H Creatinine 0.98 Glucose Level 124 # Calcium Level 9.4 Bedside Glucose 127 125 Medications Medications Current Medications Amlodipine Besylate (Norvasc) 10 mg DAILY PO Last administered on 03/21/17 08: 56; Admin Dose 10 MG; Start 03/15/17 at 09:00 Atorvastatin Calcium (Lipitor) 20 mg QHS PO Last administered on 03/20/17 21: 48; Admin Dose 20 MG; Start 03/14/17 at 21:00 Benazepril HCl (Lotensin) 20 mg DAILY PO Last administered on 03/21/17 08:56; Admin Dose 20 MG; Start 03/15/17 at 09:00 Folic Acid (Folic Acid) 1 mg DAILY PO Last administered on 03/21/17 08:56; Admin Dose 1 MG; Start 03/15/17 at 09:00 Gabapentin (Neurontin) 300 mg TID PO Last administered on 03/21/17 12:21; Admin Dose 300 MG; Start 03/14/17 at 21:00 Lorazepam (Ativan) 2 mg HS PRN PO ANXIETY Last administered on 03/20/17 21:47 ; Admin Dose 2 MG; Start 03/14/17 at 20:30 Pantoprazole (Protonix Tab) 40 mg DAILY@06 PO Last administered on 03/21/17 05 :44; Admin Dose 40 MG; Start 03/15/17 at 06:00 Rifaximin (Xifaxan) 550 mg BID PO Last administered on 03/21/17 08:56; Admin Dose 550 MG; Start 03/14/17 at 21:00 Acetaminophen (Tylenol Tab) 650 mg Q6H PRN PO PAIN AND OR ELEVATED TEMP Last administered on 03/20/17 11:04; Admin Dose 650 MG; Start 03/14/17 at 20:30 Diagnostic Test (Pha) (Accu-Chek) 1 ea 02 XX ; Start 03/18/17 at 02:00 Insulin Glargine (Lantus) 20 unit QHS SC Last administered on 03/20/17 21:55; Admin Dose 20 UNIT; Start 03/17/17 at 21:00 Miscellaneous Information 1 ea NOTE XX ; Start 03/17/17 at 18:30 Glucose (Glutose) 15 gm Q15M PRN PO DECREASED GLUCOSE; Start 03/17/17 at 18:30 Glucose (Glutose) 22.5 gm Q15M PRN PO DECREASED GLUCOSE; Start 03/17/17 at 18: 30 Dextrose (D50w Syringe) 25 ml Q15M PRN IV DECREASED GLUCOSE; Start 03/17/17 at 18:30 Dextrose (D50w Syringe) 50 ml Q15M PRN IV DECREASED GLUCOSE; Start 03/17/17 at 18:30 Glucagon (Glucagen) 1 mg Q15M PRN IM DECREASED GLUCOSE; Start 03/17/17 at 18:30 Glucose (Glutose) 15 gm Q15M PRN BUCCAL DECREASED GLUCOSE; Start 03/17/17 at 18 :30 Lactulose (Enulose) 40 gm Q6 PO Last administered on 03/21/17 12:20; Admin Dose 40 GM; Start 03/20/17 at 18:00 BE MACDONALD MD Mar 21, 2017 14:04
--- NOTE | 2017-03-21 14:44 | PN ---
Date/Time of Note Date/Time of Note DATE: 03/21/17 TIME: 14:43 Assessment/Plan VTE Prophylaxis VTE Prophylaxis Intervention: other Lines/Catheters [facility] Saline Lock Urinary Cath still in place: No Assessment/Plan Assessment/Plan - Acute Hepatic encephalopathy. Continue lactulose and rifaximin. -ammonia level-81 Monitor neurological status as altered level of consciousness secondary to hepatic encephalopathy. - Alcoholic liver cirrhosis. - Diabetes mellitus type 2 with hyperglycemia, continue Lantus and NovoLog premeal as well as NovoLog per moderate algorithm sliding scale. Continue metformin. - Hypertension. Continue Norvasc and lisinopril. - Thrombocytopenia, most likely due to liver cirrhosis. Further recommendations based on clinical course. Plan of care discussed with Dr. Dickson. Exam/Review of Systems Vital Signs Vitals Vital Signs Date Time Temp Pulse Resp B/P Pulse Ox O2 Delivery O2 Flow Rate FiO2 03/21/17 09:02 98.3 77 17 108/61 95 Intake and Output 03/20/17 03/20/17 03/21/17 15:00 23:00 07:00 Intake Total 900 ml Balance 900 ml Exam Constitutional: alert, oriented (name/place), well developed Respiratory: clear to auscultation, normal air movement Cardiovascular: nl pulses, regular rate and rhythm Gastrointestinal: non-tender, soft Musculoskeletal: nl extremities to inspection Neurological: nl speech, other Results Result Diagram: 03/21/1744003/21/17440 Results 24 hrs Laboratory Tests Test 03/20/17 17:05 03/20/17 18:05 03/20/17 21:51 03/21/17 04:11 Bedside Glucose 92 104 Ammonia 95 H 81 H Test 03/21/17 04:41 03/21/17 08:00 03/21/17 12:18 White Blood Count 5.5 Red Blood Count 4.03 L Hemoglobin 11.2 L Hematocrit 36.0 L Mean Corpuscular Volume 89.3 Mean Corpuscular Hemoglobin 27.8 L Mean Corpuscular Hemoglobin Concent 31.1 L Red Cell Distribution Width 16.7 H Platelet Count 65 L Mean Platelet Volume Neutrophils % 52.9 Lymphocytes % 32.1 Monocytes % 8.5 Eosinophils % 5.2 Basophils % 1.1 Nucleated Red Blood Cells % 0.0 Neutrophils # 2.9 Lymphocytes # 1.8 Monocytes # 0.5 Eosinophils # 0.3 Basophils # 0.1 Nucleated Red Blood Cells # 0.0 Sodium Level 149 H Potassium Level 4.2 Chloride Level 119 H Carbon Dioxide Level 12 L Anion Gap 22 H Blood Urea Nitrogen 22 H Creatinine 0.98 Glucose Level 124 # Calcium Level 9.4 Bedside Glucose 127 125 Medications Medications Current Medications Amlodipine Besylate (Norvasc) 10 mg DAILY PO Last administered on 03/21/17 08: 56; Admin Dose 10 MG; Start 03/15/17 at 09:00 Atorvastatin Calcium (Lipitor) 20 mg QHS PO Last administered on 03/20/17 21: 48; Admin Dose 20 MG; Start 03/14/17 at 21:00 Benazepril HCl (Lotensin) 20 mg DAILY PO Last administered on 03/21/17 08:56; Admin Dose 20 MG; Start 03/15/17 at 09:00 Folic Acid (Folic Acid) 1 mg DAILY PO Last administered on 03/21/17 08:56; Admin Dose 1 MG; Start 03/15/17 at 09:00 Gabapentin (Neurontin) 300 mg TID PO Last administered on 03/21/17 12:21; Admin Dose 300 MG; Start 03/14/17 at 21:00 Lorazepam (Ativan) 2 mg HS PRN PO ANXIETY Last administered on 03/20/17 21:47 ; Admin Dose 2 MG; Start 03/14/17 at 20:30 Pantoprazole (Protonix Tab) 40 mg DAILY@06 PO Last administered on 03/21/17 05 :44; Admin Dose 40 MG; Start 03/15/17 at 06:00 Rifaximin (Xifaxan) 550 mg BID PO Last administered on 03/21/17 08:56; Admin Dose 550 MG; Start 03/14/17 at 21:00 Acetaminophen (Tylenol Tab) 650 mg Q6H PRN PO PAIN AND OR ELEVATED TEMP Last administered on 03/20/17 11:04; Admin Dose 650 MG; Start 03/14/17 at 20:30 Diagnostic Test (Pha) (Accu-Chek) 1 ea 02 XX ; Start 03/18/17 at 02:00 Insulin Glargine (Lantus) 20 unit QHS SC Last administered on 03/20/17 21:55; Admin Dose 20 UNIT; Start 03/17/17 at 21:00 Miscellaneous Information 1 ea NOTE XX ; Start 03/17/17 at 18:30 Glucose (Glutose) 15 gm Q15M PRN PO DECREASED GLUCOSE; Start 03/17/17 at 18:30 Glucose (Glutose) 22.5 gm Q15M PRN PO DECREASED GLUCOSE; Start 03/17/17 at 18: 30 Dextrose (D50w Syringe) 25 ml Q15M PRN IV DECREASED GLUCOSE; Start 03/17/17 at 18:30 Dextrose (D50w Syringe) 50 ml Q15M PRN IV DECREASED GLUCOSE; Start 03/17/17 at 18:30 Glucagon (Glucagen) 1 mg Q15M PRN IM DECREASED GLUCOSE; Start 03/17/17 at 18:30 Glucose (Glutose) 15 gm Q15M PRN BUCCAL DECREASED GLUCOSE; Start 03/17/17 at 18 :30 Lactulose (Enulose) 40 gm Q6 PO Last administered on 03/21/17t 12:20; Admin Dose 40 GM; Start 03/20/17 at 18:00 SUNG KHAN Mar 21, 2017 14:43
[2017-03-21] MEDS: ACETAMINOPHEN 325 MG TAB PO PRN (15:55)
[2017-03-21 20:00] VITALS: BP 118/69; RESP 19
[2017-03-21] MEDS: INSULIN GLARGINE [LANtus] 3 ML PEN SC SCH (21:40)
[2017-03-21] MEDS: ATORVASTATIN 20 MG TAB PO SCH (21:40)
[2017-03-21] MEDS: LORAZEPAM 1 MG TAB PO PRN (21:41)
[2017-03-22 02:00] VITALS: BP 116/58; RESP 19
[2017-03-22] MEDS: ACCU-CHEK XX SCH (02:00)
[2017-03-22] MEDS: PANTOPRAZOLE (EC) 40 MG TAB PO SCH (05:33)
[2017-03-22] MEDS: LACTULOSE 30ML CUP PO SCH ×3 (05:33→17:23)
[2017-03-22 06:01] LABS: ABNORMAL IP MESSAGE 1; BASOPHIL # 0.1 10^3/ul (0.0-0.1); BASOPHILS % 1.2 % (0.0-2.0); EOSINOPHILS # 0.2 10^3/ul (0.0-0.5); EOSINOPHILS % 3.9 % (0.0-7.0); HEMATOCRIT 35.8 % (37.0-47.0); HEMOGLOBIN 11.4 g/dl (12.0-16.0); LYMPHOCYTES # 1.7 10^3/ul (0.8-2.9); LYMPHOCYTES % 30.5 % (15.0-51.0); MEAN CORPUSCULAR HEMOGLOBIN 28.1 pg (29.0-33.0); MEAN CORPUSCULAR HGB CONC 31.8 g/dl (32.0-37.0); MEAN CORPUSCULAR VOLUME 88.2 fl (82.0-101.0); MONOCYTE # 0.4 10^3/ul (0.3-0.9); MONOCYTES % 7.7 % (0.0-11.0); NEUTROPHIL # 3.2 10^3/ul (1.6-7.5); NEUTROPHILS % 56.3 % (39.0-77.0); PLATELET COUNT 62 10^3/UL (140-415); RED BLOOD COUNT 4.06 10^6/ul (4.20-5.40); RED CELL DISTRIBUTION WIDTH 16.7 % (11.5-14.5); WHITE BLOOD COUNT 5.7 10^3/ul (4.8-10.8)
[2017-03-22 06:40] LABS: CALCIUM 9.7 mg/dl (8.4-10.2); CREATININE 0.79 mg/dl (0.44-1.00); POSITIVE DIFF @See below; POTASSIUM 4.2 mmol/L (3.5-5.1)
[2017-03-22 08:00] VITALS: BP 119/63; RESP 16
[2017-03-22] MEDS: RIFAXIMIN 550 MG TAB PO SCH ×2 (08:11→21:00)
[2017-03-22] MEDS: FOLIC ACID 1 MG TAB PO SCH (08:11)
[2017-03-22] MEDS: GABAPENTIN 300 MG CAP PO SCH ×3 (08:11→21:00)
[2017-03-22] MEDS: metFORMIN 500 MG TAB PO SCH ×2 (08:11→17:23)
[2017-03-22] MEDS: BENAZEPRIL 20 MG TAB PO SCH (08:12)
[2017-03-22] MEDS: AMLODIPINE 10 MG TAB PO SCH (08:12)
[2017-03-22] MEDS: INSULIN ASPART [NOVOLOG] 3 ML PEN SC SCH ×7 (08:16→21:00)
[2017-03-22 14:00] VITALS: BP 125/75; RESP 18
--- NOTE | 2017-03-22 16:50 | CONS ---
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 Patient was discharged on lactulose no history of any precipitating events. She did not take any sedatives or narcotics no history of GI bleeding no fever no chills. No abdominal pain no nausea no vomiting Problems: Additional Assessment/Plan Additional Assessment/Plan Additional Assessment/Plan 1. 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 Diabetes mellitus 3. Hypertension 4. Encephalopathy. Patient is now oriented to time place and space and fully awake, but for some reason ammonia level is high Plan Liver function tests and ammonia level Continue lactulose and rifaximin. No sedative want to make sure the patient is taking all the medication Ambulate patient with clinical education assistant Consultation Date/Type/Reason Admit Date/Time Mar 14, 2017 at 03:58 24 HR Interval Summary Constitutional: improved, no complaints Exam/Review of Systems Vital Signs Vitals Vital Signs Date Time Temp Pulse Resp B/P Pulse Ox O2 Delivery O2 Flow Rate FiO2 03/22/17 14:00 98.0 80 18 125/75 95 Intake and Output 03/21/17 03/21/17 03/22/17 15:00 23:00 07:00 Intake Total 630 ml 470 ml Balance 630 ml 470 ml Exam Constitutional: alert, oriented, well developed Psych: nl mood/affect, no complaints Head: atraumatic, normocephalic Eyes: EOMI, PERRL, nl conjunctiva, nl lids, nl sclera ENMT: nl external ears & nose, nl lips & teeth, nl nasal mucosa & septum Neck: non-tender, supple Respiratory: clear to auscultation, normal air movement Cardiovascular: nl pulses, regular rate and rhythm Gastrointestinal: nl liver, spleen, non-tender, soft Musculoskeletal: nl extremities to inspection, nl gait and stance Extremities: normal pulses Neurological: MEDIA ACCOUNT EXECUTIVE II-XII intact, nl mental status, nl speech, nl strength Skin: nl turgor, No rash or lesions Lymph: nl lymph nodes Results Result Diagram: 03/22/17 0534 03/22/17 0534 Results 24 hrs Laboratory Tests Test 03/21/17 17:10 03/21/17 21:38 03/22/17 05:34 03/22/17 07:53 Bedside Glucose 133 166 156 White Blood Count 5.7 Red Blood Count 4.06 L Hemoglobin 11.4 L Hematocrit 35.8 L Mean Corpuscular Volume 88.2 Mean Corpuscular Hemoglobin 28.1 L Mean Corpuscular Hemoglobin Concent 31.8 L Red Cell Distribution Width 16.7 H Platelet Count 62 L Mean Platelet Volume Neutrophils % 56.3 Lymphocytes % 30.5 Monocytes % 7.7 Eosinophils % 3.9 Basophils % 1.2 Nucleated Red Blood Cells % 0.0 Neutrophils # 3.2 Lymphocytes # 1.7 Monocytes # 0.4 Eosinophils # 0.2 Basophils # 0.1 Nucleated Red Blood Cells # 0.0 Sodium Level 146 H Potassium Level 4.2 Chloride Level 115 H Carbon Dioxide Level 14 L Anion Gap 21 H Blood Urea Nitrogen 25 H Creatinine 0.79 Glucose Level 170 Calcium Level 9.7 Ammonia 226 #H Test 03/22/17 11:38 Bedside Glucose 116 Medications Medications Current Medications Amlodipine Besylate (Norvasc) 10 mg DAILY PO Last administered on 03/22/17 08: 12; Admin Dose 10 MG; Start 03/15/17 at 09:00 Atorvastatin Calcium (Lipitor) 20 mg QHS PO Last administered on 03/21/17 21: 40; Admin Dose 20 MG; Start 03/14/17 at 21:00 Benazepril HCl (Lotensin) 20 mg DAILY PO Last administered on 03/22/17 08:12; Admin Dose 20 MG; Start 03/15/17 at 09:00 Folic Acid (Folic Acid) 1 mg DAILY PO Last administered on 03/22/17 08:11; Admin Dose 1 MG; Start 03/15/17 at 09:00 Gabapentin (Neurontin) 300 mg TID PO Last administered on 03/22/17 12:05; Admin Dose 300 MG; Start 03/14/17 at 21:00 Lorazepam (Ativan) 2 mg HS PRN PO ANXIETY Last administered on 03/21/17 21:41 ; Admin Dose 2 MG; Start 03/14/17 at 20:30 Pantoprazole (Protonix Tab) 40 mg DAILY@06 PO Last administered on 03/22/17 05 :33; Admin Dose 40 MG; Start 03/15/17 at 06:00 Rifaximin (Xifaxan) 550 mg BID PO Last administered on 03/22/17 08:11; Admin Dose 550 MG; Start 03/14/17 at 21:00 Acetaminophen (Tylenol Tab) 650 mg Q6H PRN PO PAIN AND OR ELEVATED TEMP Last administered on 03/21/17 15:55; Admin Dose 650 MG; Start 03/14/17 at 20:30 Diagnostic Test (Pha) (Accu-Chek) 1 ea 02 XX ; Start 03/18/17 at 02:00 Insulin Glargine (Lantus) 20 unit QHS SC Last administered on 03/21/17 21:40; Admin Dose 20 UNIT; Start 03/17/17 at 21:00 Miscellaneous Information 1 ea NOTE XX ; Start 03/17/17 at 18:30 Glucose (Glutose) 15 gm Q15M PRN PO DECREASED GLUCOSE; Start 03/17/17 at 18:30 Glucose (Glutose) 22.5 gm Q15M PRN PO DECREASED GLUCOSE; Start 03/17/17 at 18: 30 Dextrose (D50w Syringe) 25 ml Q15M PRN IV DECREASED GLUCOSE; Start 03/17/17 at 18:30 Dextrose (D50w Syringe) 50 ml Q15M PRN IV DECREASED GLUCOSE; Start 03/17/17 at 18:30 Glucagon (Glucagen) 1 mg Q15M PRN IM DECREASED GLUCOSE; Start 03/17/17 at 18:30 Glucose (Glutose) 15 gm Q15M PRN BUCCAL DECREASED GLUCOSE; Start 03/17/17 at 18 :30 Lactulose (Enulose) 40 gm Q6 PO Last administered on 03/22/17 12:05; Admin Dose 40 GM; Start 03/20/17 at 18:00 BE MACDONALD MD Mar 22, 2017 16:50
--- NOTE | 2017-03-22 19:32 | PN ---
Date/Time of Note Date/Time of Note DATE: 03/22/17 TIME: 19:31 Assessment/Plan VTE Prophylaxis VTE Prophylaxis Intervention: SCD's Lines/Catheters IV [facility] (from [facility] Urinary Cath still in place: No Assessment/Plan Chief Complaint/Hosp Course Patient's ammonia level is 226, patient is lethargic but easily arousable, with intermittent confusion. Assessment/Plan - Acute Hepatic encephalopathy. Continue lactulose and rifaximin. Monitor ammonia level. Monitor neurological status as altered level of consciousness secondary to hepatic encephalopathy. - Alcoholic liver cirrhosis. - Diabetes mellitus type 2 with hyperglycemia, continue Lantus and NovoLog premeal as well as NovoLog per moderate algorithm sliding scale. Continue metformin. - Hypertension. Continue Norvasc and lisinopril. - Thrombocytopenia, most likely due to liver cirrhosis. Further recommendations based on clinical course. Plan of care discussed with Dr. Dickson. Problems: Exam/Review of Systems Vital Signs Vitals Vital Signs Date Time Temp Pulse Resp B/P Pulse Ox O2 Delivery O2 Flow Rate FiO2 03/22/17 14:00 98.0 80 18 125/75 95 Intake and Output 03/21/17 03/21/17 03/22/17 15:00 23:00 07:00 Intake Total 630 ml 470 ml Balance 630 ml 470 ml Exam Constitutional: alert, oriented Psych: confusion Head: atraumatic, normocephalic Neck: supple Respiratory: normal air movement Cardiovascular: nl pulses, regular rate and rhythm Gastrointestinal: non-tender, soft Extremities: normal pulses Neurological: confused Skin: nl turgor Results Result Diagram: 03/22/17 0534 03/22/17 0534 Results 24 hrs Laboratory Tests Test 03/21/17 21:38 03/22/17 05:34 03/22/17 07:53 03/22/17 11:38 Bedside Glucose 166 156 116 White Blood Count 5.7 Red Blood Count 4.06 L Hemoglobin 11.4 L Hematocrit 35.8 L Mean Corpuscular Volume 88.2 Mean Corpuscular Hemoglobin 28.1 L Mean Corpuscular Hemoglobin Concent 31.8 L Red Cell Distribution Width 16.7 H Platelet Count 62 L Mean Platelet Volume Neutrophils % 56.3 Lymphocytes % 30.5 Monocytes % 7.7 Eosinophils % 3.9 Basophils % 1.2 Nucleated Red Blood Cells % 0.0 Neutrophils # 3.2 Lymphocytes # 1.7 Monocytes # 0.4 Eosinophils # 0.2 Basophils # 0.1 Nucleated Red Blood Cells # 0.0 Sodium Level 146 H Potassium Level 4.2 Chloride Level 115 H Carbon Dioxide Level 14 L Anion Gap 21 H Blood Urea Nitrogen 25 H Creatinine 0.79 Glucose Level 170 Calcium Level 9.7 Ammonia 226 #H Test 03/22/17 17:14 Bedside Glucose 135 Medications Medications Current Medications Amlodipine Besylate (Norvasc) 10 mg DAILY PO Last administered on 03/22/17 08: 12; Admin Dose 10 MG; Start 03/15/17 at 09:00 Atorvastatin Calcium (Lipitor) 20 mg QHS PO Last administered on 03/21/17 21: 40; Admin Dose 20 MG; Start 03/14/17 at 21:00 Benazepril HCl (Lotensin) 20 mg DAILY PO Last administered on 03/22/17 08:12; Admin Dose 20 MG; Start 03/15/17 at 09:00 Folic Acid (Folic Acid) 1 mg DAILY PO Last administered on 03/22/17 08:11; Admin Dose 1 MG; Start 03/15/17 at 09:00 Gabapentin (Neurontin) 300 mg TID PO Last administered on 03/22/17 12:05; Admin Dose 300 MG; Start 03/14/17 at 21:00 Lorazepam (Ativan) 2 mg HS PRN PO ANXIETY Last administered on 03/21/17 21:41 ; Admin Dose 2 MG; Start 03/14/17 at 20:30 Pantoprazole (Protonix Tab) 40 mg DAILY@06 PO Last administered on 03/22/17 05 :33; Admin Dose 40 MG; Start 03/15/17 at 06:00 Rifaximin (Xifaxan) 550 mg BID PO Last administered on 03/22/17 08:11; Admin Dose 550 MG; Start 03/14/17 at 21:00 Acetaminophen (Tylenol Tab) 650 mg Q6H PRN PO PAIN AND OR ELEVATED TEMP Last administered on 03/21/17 15:55; Admin Dose 650 MG; Start 03/14/17 at 20:30 Diagnostic Test (Pha) (Accu-Chek) 1 ea 02 XX ; Start 03/18/17 at 02:00 Insulin Glargine (Lantus) 20 unit QHS SC Last administered on 03/21/17 21:40; Admin Dose 20 UNIT; Start 03/17/17 at 21:00 Miscellaneous Information 1 ea NOTE XX ; Start 03/17/17 at 18:30 Glucose (Glutose) 15 gm Q15M PRN PO DECREASED GLUCOSE; Start 03/17/17 at 18:30 Glucose (Glutose) 22.5 gm Q15M PRN PO DECREASED GLUCOSE; Start 03/17/17 at 18: 30 Dextrose (D50w Syringe) 25 ml Q15M PRN IV DECREASED GLUCOSE; Start 03/17/17 at 18:30 Dextrose (D50w Syringe) 50 ml Q15M PRN IV DECREASED GLUCOSE; Start 03/17/17 at 18:30 Glucagon (Glucagen) 1 mg Q15M PRN IM DECREASED GLUCOSE; Start 03/17/17 at 18:30 Glucose (Glutose) 15 gm Q15M PRN BUCCAL DECREASED GLUCOSE; Start 03/17/17 at 18 :30 Lactulose (Enulose) 40 gm Q6 PO Last administered on 03/22/17 17:23; Admin Dose 40 GM; Start 03/20/17 at 18:00 DEMETRIA ZAVALA Mar 22, 2017 19:32
[2017-03-22 20:00] VITALS: BP 117/66; RESP 20
[2017-03-22] MEDS: ATORVASTATIN 20 MG TAB PO SCH (21:00)
[2017-03-22] MEDS: INSULIN GLARGINE [LANtus] 3 ML PEN SC SCH (21:00)
[2017-03-23] VITALS (12 sets, daily range): BP systolic 107–145; BP diastolic 61–87; PULSE 109–125; RESP 18–29
[2017-03-23] MEDS: LORAZEPAM 1 MG TAB PO PRN (01:49)
[2017-03-23] MEDS: ACETAMINOPHEN 325 MG TAB PO PRN (01:50)
[2017-03-23] MEDS: ACCU-CHEK XX SCH (02:00)
[2017-03-23] MEDS: LACTULOSE 30ML CUP PO SCH ×5 (06:24→21:35)
[2017-03-23] MEDS: PANTOPRAZOLE (EC) 40 MG TAB PO SCH (06:25)
[2017-03-23] MEDS: INSULIN ASPART [NOVOLOG] 3 ML PEN SC SCH ×6 (08:17→21:39)
[2017-03-23] MEDS: RIFAXIMIN 550 MG TAB PO SCH ×2 (08:19→21:36)
[2017-03-23] MEDS: GABAPENTIN 300 MG CAP PO SCH ×2 (08:19→12:53)
[2017-03-23] MEDS: FOLIC ACID 1 MG TAB PO SCH (08:19)
[2017-03-23] MEDS: metFORMIN 500 MG TAB PO SCH (08:19)
[2017-03-23] MEDS: AMLODIPINE 10 MG TAB PO SCH (08:20)
[2017-03-23] MEDS: BENAZEPRIL 20 MG TAB PO SCH (08:21)
[2017-03-23 08:55] LABS: CALCIUM 10.4 mg/dl (8.4-10.2); CREATININE 0.9 mg/dl (0.44-1.00); POTASSIUM 4.3 mmol/L (3.5-5.1)
[2017-03-23] MEDS ORDERED: LORAZEPAM 2 MG INJ IV ONE (13:00)
[2017-03-23 13:42] LABS: BASOPHIL # 0.1 10^3/ul (0.0-0.1); BASOPHILS % 0.8 % (0.0-2.0); EOSINOPHILS % 0.4 % (0.0-7.0); HEMATOCRIT 38.9 % (37.0-47.0); HEMOGLOBIN 12.7 g/dl (12.0-16.0); LYMPHOCYTES # 1.7 10^3/ul (0.8-2.9); LYMPHOCYTES % 18.4 % (15.0-51.0); MEAN CORPUSCULAR HEMOGLOBIN 28.3 pg (29.0-33.0); MEAN CORPUSCULAR HGB CONC 32.6 g/dl (32.0-37.0); MEAN CORPUSCULAR VOLUME 86.8 fl (82.0-101.0); MONOCYTE # 0.8 10^3/ul (0.3-0.9); MONOCYTES % 9.1 % (0.0-11.0); NEUTROPHIL # 6.5 10^3/ul (1.6-7.5); NEUTROPHILS % 71.2 % (39.0-77.0); PLATELET COUNT 103 10^3/UL (140-415); RED BLOOD COUNT 4.48 10^6/ul (4.20-5.40); RED CELL DISTRIBUTION WIDTH 16.9 % (11.5-14.5); WHITE BLOOD COUNT 9.2 10^3/ul (4.8-10.8)
--- NOTE | 2017-03-23 13:46 | CONS ---
Date/Time of Note Date/Time of Note DATE: 03/23/17 TIME: 13:45 Assessment/Plan Assessment/Plan Additional Assessment/Plan 1. Oliguric Acute Kidney injury - Urine output dropping down, possible Hepatorenal syndrome 2. Severe metabolic acidosis 3. acute hypernatremia with Na 156 3.acute hepatic encephalopathy causing AMS 4. decompensated liver icrrhosis 5. h/o alcoholic liver cirrhosis 6. Hypertension 7. diabetes melitus 8. acute hypercalcemia Plan: Give one ampoule of sodium bicarbonate x 1 then continue bicarbonate drip at 75 cc/hr IV albumin 25% Q 8 hr x 6 doses IV NS bolus followed up by lasix 40mg IV x 1 dose now pt is more alert now continue current care urine studies has been ordered will continue to follow up Thanks for consult, will continue to follow up on patient, Total time spent in consultation including communicating with Nursing staff is more than 90 minutes Consultation Date/Type/Reason Admit Date/Time Mar 14, 2017 at 03:58 Date of Consultation: Mar 23, 2017 Type of Consultation: NEPHROLOGY Reason for Consultation acute kidney injury, Hepartorenal syndrome , Severe metabolic acidosis with HCo3 7 Referring Provider: CHERYL CALL MD Hx of Present Illness 51-year-old woman with PMHx of Alcoholic liver icrrhosis admitted for acute heaptic encephalopathy and decompensated liver cirrhosisl pt was admitted with normal creatinine and HCO3 20- she gradually becomes more acidotic and confused , today renal has been consulted to rule out hepatorenal syndrome and for severe metabolic acidosis. Unable to obtain ROS due to confusion and hepatic encephalopathy Constitutional: improved, no complaints Respiratory: no complaints Cardiovascular: no complaints Gastrointestinal: no complaints Genitourinary: no complaints Musculoskeletal: no complaints Psychological: nl mood/affect, no complaints Past Medical History Medical History: diabetes, hypertension Past Surgical History Past Surgical Hx: other (Not available ) Family History Significant Family History: no pertinent family hx Social History Alcohol Use: sober Smoking Status: Never smoker Drug Use: none Exam/Review of Systems Vital Signs Vitals Vital Signs Date Time Temp Pulse Resp B/P Pulse Ox O2 Delivery O2 Flow Rate FiO2 03/23/17 08:39 97.9 115 18 145/68 99 Intake and Output 03/22/17 03/22/17 03/23/17 15:00 23:00 07:00 Intake Total 1240 ml 480 ml Balance 1240 ml 480 ml Exam Constitutional: alert, but confused,, does not follow commands Psych: confusion Head: atraumatic, normocephalic Neck: supple Respiratory: normal air movement Cardiovascular: nl pulses, regular rate and rhythm Gastrointestinal: non-tender, soft Extremities: normal pulses Neurological: confused Skin: nl turgor Results Result Diagram: 03/23/17 1309 03/23/17 0744 Results 24 hrs Laboratory Tests Test 03/22/17 17:14 03/22/17 21:51 03/23/17 07:44 03/23/17 07:57 Bedside Glucose 135 142 206 Sodium Level 151 H Potassium Level 4.3 Chloride Level 117 H Carbon Dioxide Level 7 #*L Anion Gap 31 #H Blood Urea Nitrogen 26 H Creatinine 0.90 Glucose Level 218 Calcium Level 10.4 H Ammonia 253 H Test 03/23/17 11:41 03/23/17 12:21 03/23/17 13:09 Bedside Glucose 158 171 White Blood Count 9.2 # Red Blood Count 4.48 Hemoglobin 12.7 Hematocrit 38.9 Mean Corpuscular Volume 86.8 Mean Corpuscular Hemoglobin 28.3 L Mean Corpuscular Hemoglobin Concent 32.6 Red Cell Distribution Width 16.9 H Platelet Count 103 #L Mean Platelet Volume Neutrophils % 71.2 Lymphocytes % 18.4 Monocytes % 9.1 Eosinophils % 0.4 Basophils % 0.8 Nucleated Red Blood Cells % 0.0 Neutrophils # 6.5 Lymphocytes # 1.7 Monocytes # 0.8 Eosinophils # 0.0 Basophils # 0.1 Nucleated Red Blood Cells # 0.0 Medications Medications Current Medications Amlodipine Besylate (Norvasc) 10 mg DAILY PO Last administered on 03/23/17 08: 20; Admin Dose 10 MG; Start 03/15/17 at 09:00 Atorvastatin Calcium (Lipitor) 20 mg QHS PO Last administered on 03/22/17 21: 00; Admin Dose 20 MG; Start 03/14/17 at 21:00 Benazepril HCl (Lotensin) 20 mg DAILY PO Last administered on 03/23/17 08:21; Admin Dose 20 MG; Start 03/15/17 at 09:00 Folic Acid (Folic Acid) 1 mg DAILY PO Last administered on 03/23/17 08:19; Admin Dose 1 MG; Start 03/15/17 at 09:00 Gabapentin (Neurontin) 300 mg TID PO Last administered on 03/23/17 12:53; Admin Dose 300 MG; Start 03/14/17 at 21:00 Lorazepam (Ativan) 2 mg HS PRN PO ANXIETY Last administered on 03/23/17 01:49 ; Admin Dose 2 MG; Start 03/14/17 at 20:30 Pantoprazole (Protonix Tab) 40 mg DAILY@06 PO Last administered on 03/23/17 06 :25; Admin Dose 40 MG; Start 03/15/17 at 06:00 Rifaximin (Xifaxan) 550 mg BID PO Last administered on 03/23/17 08:19; Admin Dose 550 MG; Start 03/14/17 at 21:00 Acetaminophen (Tylenol Tab) 650 mg Q6H PRN PO PAIN AND OR ELEVATED TEMP Last administered on 03/23/17 01:50; Admin Dose 650 MG; Start 03/14/17 at 20:30 Diagnostic Test (Pha) (Accu-Chek) 1 ea 02 XX ; Start 03/18/17 at 02:00 Insulin Glargine (Lantus) 20 unit QHS SC Last administered on 03/22/17 21:00; Admin Dose 20 UNIT; Start 03/17/17 at 21:00 Miscellaneous Information 1 ea NOTE XX ; Start 03/17/17 at 18:30 Glucose (Glutose) 15 gm Q15M PRN PO DECREASED GLUCOSE; Start 03/17/17 at 18:30 Glucose (Glutose) 22.5 gm Q15M PRN PO DECREASED GLUCOSE; Start 03/17/17 at 18: 30 Dextrose (D50w Syringe) 25 ml Q15M PRN IV DECREASED GLUCOSE; Start 03/17/17 at 18:30 Dextrose (D50w Syringe) 50 ml Q15M PRN IV DECREASED GLUCOSE; Start 03/17/17 at 18:30 Glucagon (Glucagen) 1 mg Q15M PRN IM DECREASED GLUCOSE; Start 03/17/17 at 18:30 Glucose (Glutose) 15 gm Q15M PRN BUCCAL DECREASED GLUCOSE; Start 03/17/17 at 18 :30 Lactulose (Enulose) 40 gm Q6 PO Last administered on 03/23/17 11:43; Admin Dose 40 GM; Start 7/22/17 at 18:00 JOSSY WHITTAKER MD Mar 23, 2017 13:45
[2017-03-23 14:08] LABS: CALCIUM 10.6 mg/dl (8.4-10.2); CREATININE 0.89 mg/dl (0.44-1.00); POTASSIUM 4.2 mmol/L (3.5-5.1)
[2017-03-23 14:26] LABS: Allen Test ACCEPTAB; Arterial Base Excess -15.9 mmol/L (-3.0-3); Arterial COHb 0.3 % (0.0-3.0); Arterial Fraction of Oxyhgb 95.8 % (93.0-99.0); Arterial HCO3 9.1 mmol/L (22.0-26.0); Arterial MetHb 0.6 % (0.0-1.5); Arterial Total Hemglobin 13.5 g/dl (12.0-18.0); MODE ROOM AIR
--- NOTE | 2017-03-23 14:31 | RADRPT ---
PROCEDURE: XR Chest. CLINICAL INDICATION: Shortness of breath TECHNIQUE: Single frontal chest x-ray. COMPARISON: 03/14/2017 FINDINGS: The lungs are clear of acute infiltrates, edema, effusions, or masses.. The cardiomediastinal silho uette is unremarkable. The osseous structures are intact. IMPRESSION: No acute cardiopulmonary disease. RPTAT: JJ .Keith Gipson MD, Date Time Electronically viewed and signed by .Keith Gipson MD, on 03/23/2017 14:31 .L/
--- NOTE | 2017-03-23 16:33 | PN ---
Date/Time of Note Date/Time of Note DATE: 03/23/17 TIME: 16:31 Assessment/Plan VTE Prophylaxis VTE Prophylaxis Intervention: SCD's Lines/Catheters IV C[facility]ter Type (from [facility] Saline Lock Urinary Cath still in place: No Assessment/Plan Chief Complaint/Hosp Course Patient with severe metabolic acidosis, started on Bactrim carb drip, will transfer the patient for close monitoring in intensive care unit. Assessment/Plan - Severe metabolic acidosis with hypernatremia, Dr. Rios is following in nephrology consultation. - Acute Hepatic encephalopathy. Continue lactulose and rifaximin. Monitor ammonia level. Monitor neurological status as altered level of consciousness secondary to hepatic encephalopathy. - Alcoholic liver cirrhosis. - Diabetes mellitus type 2 with hyperglycemia, continue Lantus and NovoLog premeal as well as NovoLog per moderate algorithm sliding scale. Continue metformin. - Hypertension. Continue Norvasc and lisinopril. - Thrombocytopenia, most likely due to liver cirrhosis. Further recommendations based on clinical course. Plan of care discussed with Dr. Dickson. Problems: Exam/Review of Systems Vital Signs Vitals Vital Signs Date Time Temp Pulse Resp B/P Pulse Ox O2 Delivery O2 Flow Rate FiO2 03/23/17 14:00 98.2 108 24 127/70 97 Intake and Output 03/22/17 03/22/17 03/23/17 15:00 23:00 07:00 Intake Total 1240 ml 480 ml Balance 1240 ml 480 ml Exam Constitutional: alert, confused Psych: confusion Head: atraumatic, normocephalic Neck: supple Respiratory: normal air movement Cardiovascular: nl pulses, regular rate and rhythm Gastrointestinal: non-tender, soft Extremities: normal pulses Neurological: confused Skin: nl turgor Results Result Diagram: 03/23/17 1309 03/23/17 1309 Results 24 hrs Laboratory Tests Test 03/22/17 17:14 03/22/17 21:51 03/23/17 07:44 03/23/17 07:57 Bedside Glucose 135 142 206 Sodium Level 151 H Potassium Level 4.3 Chloride Level 117 H Carbon Dioxide Level 7 #*L Anion Gap 31 #H Blood Urea Nitrogen 26 H Creatinine 0.90 Glucose Level 218 Calcium Level 10.4 H Ammonia 253 H Test 03/23/17 11:41 03/23/17 12:21 03/23/17 13:09 03/23/17 13:50 Bedside Glucose 158 171 White Blood Count 9.2 # Red Blood Count 4.48 Hemoglobin 12.7 Hematocrit 38.9 Mean Corpuscular Volume 86.8 Mean Corpuscular Hemoglobin 28.3 L Mean Corpuscular Hemoglobin Concent 32.6 Red Cell Distribution Width 16.9 H Platelet Count 103 #L Mean Platelet Volume Neutrophils % 71.2 Lymphocytes % 18.4 Monocytes % 9.1 Eosinophils % 0.4 Basophils % 0.8 Nucleated Red Blood Cells % 0.0 Neutrophils # 6.5 Lymphocytes # 1.7 Monocytes # 0.8 Eosinophils # 0.0 Basophils # 0.1 Nucleated Red Blood Cells # 0.0 Sodium Level 152 H Potassium Level 4.2 Chloride Level 118 H Carbon Dioxide Level 8 *L Anion Gap 30 H Blood Urea Nitrogen 28 H Creatinine 0.89 Glucose Level 186 Calcium Level 10.6 H Blood Gas Specimen Source Blood arterial Arterial Blood Date Drawn 03/23/2017 2:15:43 PM Arterial Blood pH (Temp corrected) 7.258 *L Arterial Blood pCO2 (Temp correct) 20.8 L Arterial Blood pO2 (Temp corrected) 98.8 Arterial Blood HCO3 9.1 *L Arterial Blood Base Excess -15.9 L Arterial Blood Oxygen Saturation 96.7 Laurent Test ACCEPTAB Arterial Blood Gas Puncture Site Right Radial Arterial Blood Carboxyhemoglobin 0.3 Arterial Blood Methemoglobin 0.6 Blood Gas A-a O2 Differential 26.0 H Oxyhemoglobin Percent 95.8 Total Hemoglobin 13.5 Blood Gas Temperature 37.0 Blood Gas Modality ROOM AIR FiO2 21.0 Blood Gas Critical Value Read Back Clare OTT RN Blood Gas Notified Whom ELISABETHD Blood Gas Notified Time 03/23/2017 2:26:05 PM Medications Medications Current Medications Amlodipine Besylate (Norvasc) 10 mg DAILY PO Last administered on 03/23/17 08: 20; Admin Dose 10 MG; Start 03/15/17 at 09:00 Atorvastatin Calcium (Lipitor) 20 mg QHS PO Last administered on 03/22/17 21: 00; Admin Dose 20 MG; Start 03/14/17 at 21:00 Benazepril HCl (Lotensin) 20 mg DAILY PO Last administered on 03/23/17 08:21; Admin Dose 20 MG; Start 03/15/17 at 09:00 Folic Acid (Folic Acid) 1 mg DAILY PO Last administered on 03/23/17 08:19; Admin Dose 1 MG; Start 03/15/17 at 09:00 Gabapentin (Neurontin) 300 mg TID PO Last administered on 03/23/17 12:53; Admin Dose 300 MG; Start 03/14/17 at 21:00 Lorazepam (Ativan) 2 mg HS PRN PO ANXIETY Last administered on 03/23/17 01:49 ; Admin Dose 2 MG; Start 03/14/17 at 20:30 Pantoprazole (Protonix Tab) 40 mg DAILY@06 PO Last administered on 03/23/17 06 :25; Admin Dose 40 MG; Start 03/15/17 at 06:00 Rifaximin (Xifaxan) 550 mg BID PO Last administered on 03/23/17 08:19; Admin Dose 550 MG; Start 03/14/17 at 21:00 Acetaminophen (Tylenol Tab) 650 mg Q6H PRN PO PAIN AND OR ELEVATED TEMP Last administered on 03/23/17 01:50; Admin Dose 650 MG; Start 03/14/17 at 20:30 Diagnostic Test (Pha) (Accu-Chek) 1 ea 02 XX ; Start 03/18/17 at 02:00 Insulin Glargine (Lantus) 20 unit QHS SC Last administered on 03/22/17 21:00; Admin Dose 20 UNIT; Start 03/17/17 at 21:00 Miscellaneous Information 1 ea NOTE XX ; Start 03/17/17 at 18:30 Glucose (Glutose) 15 gm Q15M PRN PO DECREASED GLUCOSE; Start 03/17/17 at 18:30 Glucose (Glutose) 22.5 gm Q15M PRN PO DECREASED GLUCOSE; Start 03/17/17 at 18: 30 Dextrose (D50w Syringe) 25 ml Q15M PRN IV DECREASED GLUCOSE; Start 03/17/17 at 18:30 Dextrose (D50w Syringe) 50 ml Q15M PRN IV DECREASED GLUCOSE; Start 03/17/17 at 18:30 Glucagon (Glucagen) 1 mg Q15M PRN IM DECREASED GLUCOSE; Start 03/17/17 at 18:30 Glucose (Glutose) 15 gm Q15M PRN BUCCAL DECREASED GLUCOSE; Start 03/17/17 at 18 :30 Lactulose 40 gm 40 gm Q6 PO Last administered on 7/25/17at 11:43; Admin Dose 40 GM; Start 03/20/17 at 18:00 Sodium Bicarbonate/ Dextrose (Na Bicarb/D5W) 1,100 ml @ 75 mls/hr [id number] IV ; Start 03/23/17 at 15:00 DEMETRIA ZAVALA Mar 23, 2017 16:33
[2017-03-23] MEDS: SODIUM BICARBONATE (IV ADD) 100 MEQ in DEXTROSE 5% 1,000 ML IV SCH (17:16)
[2017-03-23] MEDS: ALBUMIN HUMAN 25% 100 ML IV SCH (17:24)
[2017-03-23] MEDS ORDERED: FUROSEMIDE 40 MG INJ IV SCH (17:30)
[2017-03-23] MEDS ORDERED: SOD CHLORIDE 0.9% 500 ML IV ONE (17:30)
[2017-03-23] MEDS ORDERED: NA BICARBONATE 8.4% 50 ML SYG IV ONE (17:30)
--- NOTE | 2017-03-23 19:37 | CONS ---
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 Patient was discharged on lactulose no history of any precipitating events. She did not take any sedatives or narcotics no history of GI bleeding no fever no chills. No abdominal pain no nausea no vomiting Problems: Additional Assessment/Plan 1. 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 Diabetes mellitus 3. Hypertension 4. Encephalopathy. 5. Metabolic acidosis 6. Hypernatremia Plan IV fluid, with sodium bicarbonate to correct metabolic acidosis Reduce lactulose, diarrhea might be the cause of volume depletion and metabolic acidosis Stop, gabapentin which might be contributing factor for her high ammonia level All medication through NG tube until she is completely alert and awake and not risk for aspiration Consultation Date/Type/Reason Admit Date/Time Mar 14, 2017 at 03:58 Type of Consultation: NEPHROLOGY Referring Provider: CHERYL CALL MD 24 HR Interval Summary Free Text/Dictation Patient transferred to intensive care unit for change in mental status and also patient was in metabolic acidosis Exam/Review of Systems Vital Signs Vitals Vital Signs Date Time Temp Pulse Resp B/P Pulse Ox O2 Delivery O2 Flow Rate FiO2 03/23/17 19:00 120 20 136/87 99 Room Air 03/23/17 16:37 98.6 Intake and Output 03/22/17 03/22/17 03/23/17 15:00 23:00 07:00 Intake Total 1240 ml 480 ml Balance 1240 ml 480 ml Exam Constitutional: alert, oriented, well developed Psych: nl mood/affect, no complaints Head: atraumatic, normocephalic Eyes: EOMI, PERRL, nl conjunctiva, nl lids, nl sclera ENMT: nl external ears & nose, nl lips & teeth, nl nasal mucosa & septum Neck: non-tender, supple Respiratory: clear to auscultation, normal air movement Cardiovascular: nl pulses, regular rate and rhythm Gastrointestinal: nl liver, spleen, non-tender, soft Musculoskeletal: nl extremities to inspection, nl gait and stance Extremities: normal pulses Neurological: REFUELING RAMPMAN II-XII intact, nl mental status, nl speech, nl strength Skin: nl turgor, No rash or lesions Lymph: nl lymph nodes Results Result Diagram: 03/23/17 1309 03/23/17 1309 Results 24 hrs Laboratory Tests Test 03/22/17 21:51 03/23/17 07:44 03/23/17 07:57 03/23/17 11:41 Bedside Glucose 142 206 158 Sodium Level 151 H Potassium Level 4.3 Chloride Level 117 H Carbon Dioxide Level 7 #*L Anion Gap 31 #H Blood Urea Nitrogen 26 H Creatinine 0.90 Glucose Level 218 Calcium Level 10.4 H Ammonia 253 H Test 03/23/17 12:21 03/23/17 13:09 03/23/17 13:50 03/23/17 16:48 Bedside Glucose 171 White Blood Count 9.2 # Red Blood Count 4.48 Hemoglobin 12.7 Hematocrit 38.9 Mean Corpuscular Volume 86.8 Mean Corpuscular Hemoglobin 28.3 L Mean Corpuscular Hemoglobin Concent 32.6 Red Cell Distribution Width 16.9 H Platelet Count 103 #L Mean Platelet Volume Neutrophils % 71.2 Lymphocytes % 18.4 Monocytes % 9.1 Eosinophils % 0.4 Basophils % 0.8 Nucleated Red Blood Cells % 0.0 Neutrophils # 6.5 Lymphocytes # 1.7 Monocytes # 0.8 Eosinophils # 0.0 Basophils # 0.1 Nucleated Red Blood Cells # 0.0 Sodium Level 152 H Potassium Level 4.2 Chloride Level 118 H Carbon Dioxide Level 8 *L Anion Gap 30 H Blood Urea Nitrogen 28 H Creatinine 0.89 Glucose Level 186 Calcium Level 10.6 H Blood Gas Specimen Source Blood arterial Arterial Blood Date Drawn 03/23/2017 2:15:43 PM Arterial Blood pH (Temp corrected) 7.258 *L Arterial Blood pCO2 (Temp correct) 20.8 L Arterial Blood pO2 (Temp corrected) 98.8 Arterial Blood HCO3 9.1 *L Arterial Blood Base Excess -15.9 L Arterial Blood Oxygen Saturation 96.7 Laurent Test ACCEPTAB Arterial Blood Gas Puncture Site Right Radial Arterial Blood Carboxyhemoglobin 0.3 Arterial Blood Methemoglobin 0.6 Blood Gas A-a O2 Differential 26.0 H Oxyhemoglobin Percent 95.8 Total Hemoglobin 13.5 Blood Gas Temperature 37.0 Blood Gas Modality ROOM AIR FiO2 21.0 Blood Gas Critical Value Read Back Clare OTT RN Blood Gas Notified Whom FRANCISCO JAVIER Blood Gas Notified Time 03/23/2017 2:26:05 PM Urine Osmolality 590 Urine Random Sodium < 13 L Test 03/23/17 17:20 Bedside Glucose 177 Medications Medications Current Medications Amlodipine Besylate (Norvasc) 10 mg DAILY PO Last administered on 03/23/17 08: 20; Admin Dose 10 MG; Start 03/15/17 at 09:00 Atorvastatin Calcium (Lipitor) 20 mg QHS PO Last administered on 03/22/17 21: 00; Admin Dose 20 MG; Start 03/14/17 at 21:00 Benazepril HCl (Lotensin) 20 mg DAILY PO Last administered on 03/23/17 08:21; Admin Dose 20 MG; Start 03/15/17 at 09:00 Folic Acid (Folic Acid) 1 mg DAILY PO Last administered on 03/23/17 08:19; Admin Dose 1 MG; Start 03/15/17 at 09:00 Gabapentin (Neurontin) 300 mg TID PO Last administered on 03/23/17 12:53; Admin Dose 300 MG; Start 03/14/17 at 21:00 Lorazepam (Ativan) 2 mg HS PRN PO ANXIETY Last administered on 03/23/17 01:49 ; Admin Dose 2 MG; Start 03/14/17 at 20:30 Pantoprazole (Protonix Tab) 40 mg DAILY@06 PO Last administered on 03/23/17 06 :25; Admin Dose 40 MG; Start 03/15/17 at 06:00 Rifaximin (Xifaxan) 550 mg BID PO Last administered on 03/23/17 08:19; Admin Dose 550 MG; Start 03/14/17 at 21:00 Acetaminophen (Tylenol Tab) 650 mg Q6H PRN PO PAIN AND OR ELEVATED TEMP Last administered on 03/23/17 01:50; Admin Dose 650 MG; Start 03/14/17 at 20:30 Diagnostic Test (Pha) (Accu-Chek) 1 ea 02 XX ; Start 03/18/17 at 02:00 Insulin Glargine (Lantus) 20 unit QHS SC Last administered on 03/22/17 21:00; Admin Dose 20 UNIT; Start 03/17/17 at 21:00 Miscellaneous Information 1 ea NOTE XX ; Start 03/17/17 at 18:30 Glucose (Glutose) 15 gm Q15M PRN PO DECREASED GLUCOSE; Start 03/17/17 at 18:30 Glucose (Glutose) 22.5 gm Q15M PRN PO DECREASED GLUCOSE; Start 03/17/17 at 18: 30 Dextrose (D50w Syringe) 25 ml Q15M PRN IV DECREASED GLUCOSE; Start 03/17/17 at 18:30 Dextrose (D50w Syringe) 50 ml Q15M PRN IV DECREASED GLUCOSE; Start 03/17/17 at 18:30 Glucagon (Glucagen) 1 mg Q15M PRN IM DECREASED GLUCOSE; Start 03/17/17 at 18:30 Glucose (Glutose) 15 gm Q15M PRN BUCCAL DECREASED GLUCOSE; Start 03/17/17 at 18 :30 Lactulose 40 gm 40 gm Q6 PO Last administered on 03/23/17 18:50; Admin Dose 40 GM; Start 03/20/17 at 18:00 Sodium Bicarbonate 100 meq/Dextrose 1,100 ml @ 75 mls/hr [id number] IV Last administered on 03/23/17 17:16; Admin Dose 75 MLS/HR; Start 03/23/17 at 15:00 Albumin Human (Albumin Human 25%) 100 ml @ 100 mls/hr Q8H IV Last administered on 03/23/17 17:24; Admin Dose 100 MLS/HR; Start 03/23/17 at 17:30 ; Stop 03/25/17 at 10:29 Furosemide (Lasix) 40 mg ONCE IV Last administered on 03/23/17 18:28; Admin Dose 40 MG; Start 03/23/17 at 17:30; Stop 03/24/17 at 17:29 BE MACDONALD MD Mar 23, 2017 19:37
[2017-03-23] MEDS: ATORVASTATIN 20 MG TAB PO SCH (21:35)
[2017-03-23] MEDS: INSULIN GLARGINE [LANtus] 3 ML PEN SC SCH (21:37)
[2017-03-24] VITALS (23 sets, daily range): BP systolic 87–142; BP diastolic 62–118; PULSE 85–132; RESP 11–24
[2017-03-24] MEDS: ALBUMIN HUMAN 25% 100 ML IV SCH ×3 (01:35→17:22)
[2017-03-24] MEDS: ACCU-CHEK XX SCH (01:44)
[2017-03-24] MEDS: PANTOPRAZOLE (EC) 40 MG TAB PO SCH (05:01)
[2017-03-24] MEDS: SODIUM BICARBONATE (IV ADD) 100 MEQ in DEXTROSE 5% 1,000 ML IV SCH ×2 (05:01→20:15)
[2017-03-24 05:26] LABS: ABNORMAL IP MESSAGE 1; BASOPHILS % 0.5 % (0.0-2.0); EOSINOPHILS % 0.3 % (0.0-7.0); HEMATOCRIT 30.4 % (37.0-47.0); HEMOGLOBIN 10.1 g/dl (12.0-16.0); LYMPHOCYTES # 1.7 10^3/ul (0.8-2.9); LYMPHOCYTES % 27.9 % (15.0-51.0); MEAN CORPUSCULAR HEMOGLOBIN 28.4 pg (29.0-33.0); MEAN CORPUSCULAR HGB CONC 33.2 g/dl (32.0-37.0); MEAN CORPUSCULAR VOLUME 85.4 fl (82.0-101.0); MONOCYTE # 0.7 10^3/ul (0.3-0.9); NEUTROPHIL # 3.6 10^3/ul (1.6-7.5); NEUTROPHILS % 58.8 % (39.0-77.0); RED BLOOD COUNT 3.56 10^6/ul (4.20-5.40); RED CELL DISTRIBUTION WIDTH 16.7 % (11.5-14.5); WHITE BLOOD COUNT 6.1 10^3/ul (4.8-10.8)
[2017-03-24 05:32] LABS: PLATELET COUNT 62 10^3/UL (140-415); POSITIVE DIFF @See below
[2017-03-24 05:50] LABS: ALBUMIN 4.5 g/dl (3.3-4.9); ALBUMIN/GLOBULIN RATIO 1.4; BILIRUBIN,INDIRECT 0.9 mg/dl (0-1.1); BILIRUBIN,TOTAL 0.9 mg/dl (0.2-1.3); CALCIUM 9.6 mg/dl (8.4-10.2); CREATININE 0.96 mg/dl (0.44-1.00); POTASSIUM 3.4 mmol/L (3.5-5.1); TOTAL PROTEIN 7.7 g/dl (6.1-8.1)
[2017-03-24] MEDS: LACTULOSE 30ML CUP PO SCH ×3 (09:04→20:16)
[2017-03-24] MEDS: FOLIC ACID 1 MG TAB PO SCH (09:04)
[2017-03-24] MEDS: BENAZEPRIL 20 MG TAB PO SCH (09:04)
[2017-03-24] MEDS: RIFAXIMIN 550 MG TAB PO SCH ×2 (09:04→21:20)
[2017-03-24] MEDS: AMLODIPINE 10 MG TAB PO SCH (09:04)
[2017-03-24] MEDS: INSULIN ASPART [NOVOLOG] 3 ML PEN SC SCH ×4 (09:06→20:19)
--- NOTE | 2017-03-24 11:57 | PN ---
Date/Time of Note Date/Time of Note DATE: 03/24/17 TIME: 11:50 Assessment/Plan VTE Prophylaxis VTE Prophylaxis Intervention: SCD's Lines/Catheters IV Catheter Type (from [facility]): Peripheral IV Urinary Cath still in place: Yes Reason Cath still needed: urinary retention Assessment/Plan Chief Complaint/Hosp Course Patient remains lethargic, decreased urinary output Via Rudd, on bicarb drip, on oxygen supplementation, continue close ICU monitoring. Patient is currently on D5W with bicarb IV fluids, blood glucose is above 200 will increase Lantus continue NovoLog with Accu-Chek every 4 hours. Patient's condition discussed with the patient's daughters at the bedside. Patient's daughter's request patient to be referred for a liver transplant. Assessment/Plan - Severe metabolic acidosis with , Dr. Rios is following in nephrology consultation. Continue bicarbonate drip. ICU monitoring. - Acute hypernatremia, continue IV fluids with D5 - Acute kidney injury, with possible hepatorenal syndrome, continue to monitor renal function. - Acute Hepatic encephalopathy. Continue lactulose and rifaximin. Monitor ammonia level. - Alcoholic liver cirrhosis. Dr. North is following in gastroenterology consultation. - Diabetes mellitus type 2 with hyperglycemia, continue Lantus and NovoLog per moderate algorithm sliding scale with Accu-Chek every 4 hours. - Hypertension. Continue Norvasc and lisinopril. - Thrombocytopenia, most likely due to liver cirrhosis. Further recommendations based on clinical course. Plan of care discussed with Dr. Dickson. Problems: Exam/Review of Systems Vital Signs Vitals Vital Signs Date Time Temp Pulse Resp B/P Pulse Ox O2 Delivery O2 Flow Rate FiO2 03/24/17 10:00 122 14 121/89 97 Room Air 03/24/17 08:00 98.5 Intake and Output 03/23/17 03/23/17 03/24/17 15:00 23:00 07:00 Intake Total 1250 ml 550 ml Output Total 585 ml 280 ml Balance 665 ml 270 ml Exam Constitutional: frail Psych: confusion Head: normocephalic Neck: supple Respiratory: normal air movement Cardiovascular: nl pulses, other (Tachycardic) Gastrointestinal: distended, soft Extremities: normal pulses Neurological: lethargic Skin: nl turgor Results Result Diagram: 03/24/1744703/24/178 Results 24 hrs Laboratory Tests Test 03/23/17 12:21 03/23/17 13:09 03/23/17 13:50 03/23/17 16:48 Bedside Glucose 171 White Blood Count 9.2 # Red Blood Count 4.48 Hemoglobin 12.7 Hematocrit 38.9 Mean Corpuscular Volume 86.8 Mean Corpuscular Hemoglobin 28.3 L Mean Corpuscular Hemoglobin Concent 32.6 Red Cell Distribution Width 16.9 H Platelet Count 103 #L Mean Platelet Volume Neutrophils % 71.2 Lymphocytes % 18.4 Monocytes % 9.1 Eosinophils % 0.4 Basophils % 0.8 Nucleated Red Blood Cells % 0.0 Neutrophils # 6.5 Lymphocytes # 1.7 Monocytes # 0.8 Eosinophils # 0.0 Basophils # 0.1 Nucleated Red Blood Cells # 0.0 Sodium Level 152 H Potassium Level 4.2 Chloride Level 118 H Carbon Dioxide Level 8 *L Anion Gap 30 H Blood Urea Nitrogen 28 H Creatinine 0.89 Glucose Level 186 Calcium Level 10.6 H Blood Gas Specimen Source Blood arterial Arterial Blood Date Drawn 03/23/2017 2:15:43 PM Arterial Blood pH (Temp corrected) 7.258 *L Arterial Blood pCO2 (Temp correct) 20.8 L Arterial Blood pO2 (Temp corrected) 98.8 Arterial Blood HCO3 9.1 *L Arterial Blood Base Excess -15.9 L Arterial Blood Oxygen Saturation 96.7 Laurent Test ACCEPTAB Arterial Blood Gas Puncture Site Right Radial Arterial Blood Carboxyhemoglobin 0.3 Arterial Blood Methemoglobin 0.6 Blood Gas A-a O2 Differential 26.0 H Oxyhemoglobin Percent 95.8 Total Hemoglobin 13.5 Blood Gas Temperature 37.0 Blood Gas Modality ROOM AIR FiO2 21.0 Blood Gas Critical Value Read Back Clare OTT RN Blood Gas Notified Whom ELISABETHD Blood Gas Notified Time 03/23/2017 2:26:05 PM Urine Osmolality 590 Urine Random Sodium < 13 L Test 03/23/17 17:20 03/23/17 20:53 03/24/17 01:43 03/24/17 04:48 Bedside Glucose 177 224 H 242 H White Blood Count 6.1 # Red Blood Count 3.56 #L Hemoglobin 10.1 #L Hematocrit 30.4 #L Mean Corpuscular Volume 85.4 Mean Corpuscular Hemoglobin 28.4 L Mean Corpuscular Hemoglobin Concent 33.2 Red Cell Distribution Width 16.7 H Platelet Count 62 #L Mean Platelet Volume Neutrophils % 58.8 Lymphocytes % 27.9 Monocytes % 12.0 H Eosinophils % 0.3 Basophils % 0.5 Nucleated Red Blood Cells % 0.0 Neutrophils # 3.6 Lymphocytes # 1.7 Monocytes # 0.7 Eosinophils # 0.0 Basophils # 0.0 Nucleated Red Blood Cells # 0.0 Sodium Level 153 H Potassium Level 3.4 L Chloride Level 118 H Carbon Dioxide Level 16 L Anion Gap 22 #H Blood Urea Nitrogen 29 H Creatinine 0.96 Glucose Level 239 H Osmolality 318 H Calcium Level 9.6 Total Bilirubin 0.9 Direct Bilirubin 0.00 Indirect Bilirubin 0.9 Aspartate Amino Transf (AST/SGOT) 66 H Alanine Aminotransferase (ALT/SGPT) 66 Alkaline Phosphatase 132 H Ammonia 176 H Total Protein 7.7 Albumin 4.5 Globulin 3.20 Albumin/Globulin Ratio 1.40 Test 03/24/17 09:03 Bedside Glucose 253 H Medications Medications Current Medications Amlodipine Besylate (Norvasc) 10 mg DAILY PO Last administered on 03/24/17 09: 04; Admin Dose 10 MG; Start 03/15/17 at 09:00 Atorvastatin Calcium (Lipitor) 20 mg QHS PO Last administered on 03/23/17 21: 35; Admin Dose 20 MG; Start 03/14/17 at 21:00 Benazepril HCl (Lotensin) 20 mg DAILY PO Last administered on 03/24/17 09:04; Admin Dose 20 MG; Start 03/15/17 at 09:00 Folic Acid (Folic Acid) 1 mg DAILY PO Last administered on 03/24/17 09:04; Admin Dose 1 MG; Start 03/15/17 at 09:00 Pantoprazole (Protonix Tab) 40 mg DAILY@06 PO Last administered on 03/24/17 05 :01; Admin Dose 40 MG; Start 03/15/17 at 06:00 Rifaximin (Xifaxan) 550 mg BID PO Last administered on 03/24/17 09:04; Admin Dose 550 MG; Start 03/14/17 at 21:00 Acetaminophen (Tylenol Tab) 650 mg Q6H PRN PO PAIN AND OR ELEVATED TEMP Last administered on 03/23/17 01:50; Admin Dose 650 MG; Start 03/14/17 at 20:30 Diagnostic Test (Pha) (Accu-Chek) 1 ea 02 XX ; Start 03/18/17 at 02:00 Insulin Glargine (Lantus) 20 unit QHS SC Last administered on 03/23/17 21:37; Admin Dose 20 UNIT; Start 03/17/17 at 21:00 Miscellaneous Information 1 ea NOTE XX ; Start 03/17/17 at 18:30 Glucose (Glutose) 15 gm Q15M PRN PO DECREASED GLUCOSE; Start 03/17/17 at 18:30 Glucose (Glutose) 22.5 gm Q15M PRN PO DECREASED GLUCOSE; Start 03/17/17 at 18: 30 Dextrose (D50w Syringe) 25 ml Q15M PRN IV DECREASED GLUCOSE; Start 03/17/17 at 18:30 Dextrose (D50w Syringe) 50 ml Q15M PRN IV DECREASED GLUCOSE; Start 03/17/17 at 18:30 Glucagon (Glucagen) 1 mg Q15M PRN IM DECREASED GLUCOSE; Start 03/17/17 at 18:30 Glucose 15 gm 15 gm Q15M PRN BUCCAL DECREASED GLUCOSE; Start 03/17/17 at 18:30 Sodium Bicarbonate 100 meq/Dextrose 1,100 ml @ 75 mls/hr [id number] IV Last administered on 03/24/17 05:01; Admin Dose 75 MLS/HR; Start 03/23/17 at 15:00 Albumin Human (Albumin Human 25%) 100 ml @ 100 mls/hr Q8H IV Last administered on 03/24/17 09:11; Admin Dose 100 MLS/HR; Start 03/23/17 at 17:30 ; Stop 03/25/17 at 10:29 Furosemide (Lasix) 40 mg ONCE IV Last administered on 03/23/17 18:28; Admin Dose 40 MG; Start 03/23/17 at 17:30; Stop 03/24/17 at 17:29 Lactulose (Enulose) 40 gm TID PO Last administered on 03/24/17 09:04; Admin Dose 40 GM; Start 03/23/17 at 21:00 Insulin Aspart (Novolog Insulin Pen) NOVOLOG *MILD* ALGORITHM Q4 SC Last administered on 03/24/17 09:06; Admin Dose 3 UNIT; Start 03/24/17 at 09:00 DEMETRIA ZAVALA 26, 2017 11:57
[2017-03-24 12:38] LABS: ABNORMAL IP MESSAGE 1; BASOPHILS % 0.4 % (0.0-2.0); EOSINOPHILS % 0.1 % (0.0-7.0); HEMATOCRIT 31.9 % (37.0-47.0); HEMOGLOBIN 10.7 g/dl (12.0-16.0); LYMPHOCYTES # 1.2 10^3/ul (0.8-2.9); LYMPHOCYTES % 14.7 % (15.0-51.0); MEAN CORPUSCULAR HEMOGLOBIN 28.5 pg (29.0-33.0); MEAN CORPUSCULAR HGB CONC 33.5 g/dl (32.0-37.0); MEAN CORPUSCULAR VOLUME 85.1 fl (82.0-101.0); MONOCYTES % 12.4 % (0.0-11.0); NEUTROPHIL # 5.6 10^3/ul (1.6-7.5); PLATELET COUNT 67 10^3/UL (140-415); RED BLOOD COUNT 3.75 10^6/ul (4.20-5.40); WHITE BLOOD COUNT 7.8 10^3/ul (4.8-10.8)
[2017-03-24 12:41] LABS: POSITIVE DIFF @See below
--- NOTE | 2017-03-24 13:12 | CONS ---
Date/Time of Note Date/Time of Note DATE: 03/24/17 TIME: 13:10 Assessment/Plan Assessment/Plan Chief Complaint/Hosp Course Problems: Additional Assessment/Plan 1. Oliguric Acute Kidney injury - Urine output dropping down, possible Hepatorenal syndrome 2. Severe metabolic acidosis 3. acute hypernatremia with Na 156 3.acute hepatic encephalopathy causing AMS 4. decompensated liver icrrhosis 5. h/o alcoholic liver cirrhosis 6. Hypertension 7. diabetes melitus 8. acute hypercalcemia Plan: Continue bicarbonate drip at current rate IV albumin 25% Q 8 hr x 6 doses lasix 40mg IV x 1 dose today continue current care will continue to follow up Consultation Date/Type/Reason Admit Date/Time Mar 14, 2017 at 03:58 Initial Consult Date 03/23/17 Type of Consultation: NEPHROLOGY Referring Provider: CHERYL CALL MD Exam/Review of Systems Vital Signs Vitals Vital Signs Date Time Temp Pulse Resp B/P Pulse Ox O2 Delivery O2 Flow Rate FiO2 03/24/17 12:00 98.6 126 24 132/110 95 Room Air Intake and Output 03/23/17 03/23/17 03/24/17 15:00 23:00 07:00 Intake Total 1250 ml 550 ml Output Total 585 ml 280 ml Balance 665 ml 270 ml Exam Constitutional: alert, but intermittently confused Psych: confusion Head: atraumatic, normocephalic Neck: supple Respiratory: normal air movement Cardiovascular: nl pulses, regular rate and rhythm Gastrointestinal: non-tender, soft Extremities: normal pulses Neurological: confused Skin: nl turgor Results Result Diagram: 03/24/17 1225 03/24/17 0448 Results 24 hrs Laboratory Tests Test 03/23/17 13:50 03/23/17 16:48 03/23/17 17:20 03/23/17 20:53 Blood Gas Specimen Source Blood arterial Arterial Blood Date Drawn 03/23/2017 2:15:43 PM Arterial Blood pH (Temp corrected) 7.258 *L Arterial Blood pCO2 (Temp correct) 20.8 L Arterial Blood pO2 (Temp corrected) 98.8 Arterial Blood HCO3 9.1 *L Arterial Blood Base Excess -15.9 L Arterial Blood Oxygen Saturation 96.7 Laurent Test ACCEPTAB Arterial Blood Gas Puncture Site Right Radial Arterial Blood Carboxyhemoglobin 0.3 Arterial Blood Methemoglobin 0.6 Blood Gas A-a O2 Differential 26.0 H Oxyhemoglobin Percent 95.8 Total Hemoglobin 13.5 Blood Gas Temperature 37.0 Blood Gas Modality ROOM AIR FiO2 21.0 Blood Gas Critical Value Read Back E NAMRATA ALVAREZ Blood Gas Notified Whom JLD Blood Gas Notified Time 03/23/2017 2:26:05 PM Urine Osmolality 590 Urine Random Sodium < 13 L Bedside Glucose 177 224 H Test 03/24/17 01:43 03/24/17 04:48 03/24/17 09:03 03/24/17 12:25 Bedside Glucose 242 H 253 H White Blood Count 6.1 # 7.8 # Red Blood Count 3.56 #L 3.75 L Hemoglobin 10.1 #L 10.7 L Hematocrit 30.4 #L 31.9 L Mean Corpuscular Volume 85.4 85.1 Mean Corpuscular Hemoglobin 28.4 L 28.5 L Mean Corpuscular Hemoglobin Concent 33.2 33.5 Red Cell Distribution Width 16.7 H 17.0 H Platelet Count 62 #L 67 L Mean Platelet Volume Neutrophils % 58.8 72.0 Lymphocytes % 27.9 14.7 L Monocytes % 12.0 H 12.4 H Eosinophils % 0.3 0.1 Basophils % 0.5 0.4 Nucleated Red Blood Cells % 0.0 0.0 Neutrophils # 3.6 5.6 Lymphocytes # 1.7 1.2 Monocytes # 0.7 1.0 H Eosinophils # 0.0 0.0 Basophils # 0.0 0.0 Nucleated Red Blood Cells # 0.0 0.0 Sodium Level 153 H Potassium Level 3.4 L Chloride Level 118 H Carbon Dioxide Level 16 L Anion Gap 22 #H Blood Urea Nitrogen 29 H Creatinine 0.96 Glucose Level 239 H Osmolality 318 H Calcium Level 9.6 Total Bilirubin 0.9 Direct Bilirubin 0.00 Indirect Bilirubin 0.9 Aspartate Amino Transf (AST/SGOT) 66 H Alanine Aminotransferase (ALT/SGPT) 66 Alkaline Phosphatase 132 H Ammonia 176 H Total Protein 7.7 Albumin 4.5 Globulin 3.20 Albumin/Globulin Ratio 1.40 Medications Medications Current Medications Amlodipine Besylate (Norvasc) 10 mg DAILY PO Last administered on 03/24/17t 09: 04; Admin Dose 10 MG; Start 03/15/17 at 09:00 Atorvastatin Calcium (Lipitor) 20 mg QHS PO Last administered on 03/23/17 21: 35; Admin Dose 20 MG; Start 03/14/17 at 21:00 Benazepril HCl (Lotensin) 20 mg DAILY PO Last administered on 03/24/17 09:04; Admin Dose 20 MG; Start 03/15/17 at 09:00 Folic Acid (Folic Acid) 1 mg DAILY PO Last administered on 03/24/17 09:04; Admin Dose 1 MG; Start 03/15/17 at 09:00 Pantoprazole (Protonix Tab) 40 mg DAILY@06 PO Last administered on 03/24/17 05 :01; Admin Dose 40 MG; Start 03/15/17 at 06:00 Rifaximin (Xifaxan) 550 mg BID PO Last administered on 03/24/17 09:04; Admin Dose 550 MG; Start 03/14/17 at 21:00 Acetaminophen (Tylenol Tab) 650 mg Q6H PRN PO PAIN AND OR ELEVATED TEMP Last administered on 03/23/17 01:50; Admin Dose 650 MG; Start 03/14/17 at 20:30 Diagnostic Test (Pha) (Accu-Chek) 1 ea 02 XX ; Start 03/18/17 at 02:00 Insulin Glargine (Lantus) 20 unit QHS SC Last administered on 03/23/17 21:37; Admin Dose 20 UNIT; Start 03/17/17 at 21:00 Miscellaneous Information 1 ea NOTE XX ; Start 03/17/17 at 18:30 Glucose (Glutose) 15 gm Q15M PRN PO DECREASED GLUCOSE; Start 03/17/17 at 18:30 Glucose (Glutose) 22.5 gm Q15M PRN PO DECREASED GLUCOSE; Start 03/17/17 at 18: 30 Dextrose (D50w Syringe) 25 ml Q15M PRN IV DECREASED GLUCOSE; Start 03/17/17 at 18:30 Dextrose (D50w Syringe) 50 ml Q15M PRN IV DECREASED GLUCOSE; Start 03/17/17 at 18:30 Glucagon (Glucagen) 1 mg Q15M PRN IM DECREASED GLUCOSE; Start 03/17/17 at 18:30 Glucose 15 gm 15 gm Q15M PRN BUCCAL DECREASED GLUCOSE; Start 03/17/17 at 18:30 Sodium Bicarbonate 100 meq/Dextrose 1,100 ml @ 75 mls/hr [id number] IV Last administered on 03/24/17 05:01; Admin Dose 75 MLS/HR; Start 03/23/17 at 15:00 Albumin Human (Albumin Human 25%) 100 ml @ 100 mls/hr Q8H IV Last administered on 03/24/17 09:11; Admin Dose 100 MLS/HR; Start 03/23/17 at 17:30 ; Stop 03/25/17 at 10:29 Furosemide (Lasix) 40 mg ONCE IV Last administered on 03/23/17 18:28; Admin Dose 40 MG; Start 03/23/17 at 17:30; Stop 03/24/17 at 17:29 Lactulose (Enulose) 40 gm TID PO Last administered on 03/24/17 09:04; Admin Dose 40 GM; Start 03/23/17 at 21:00 Insulin Aspart (Novolog Insulin Pen) NOVOLOG *MILD* ALGORITHM Q4 SC Last administered on 03/24/17 09:06; Admin Dose 3 UNIT; Start 03/24/17 at 09:00 JOSSY WHITTAKER MD Mar 24, 2017 13:12
[2017-03-24] MEDS ORDERED: FUROSEMIDE 40 MG INJ IV ONE (13:30)
[2017-03-24] MEDS ORDERED: NA BICARBONATE 8.4% 50 ML SYG ONE (18:02)
--- NOTE | 2017-03-24 18:18 | CONS ---
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 Patient was discharged on lactulose no history of any precipitating events. She did not take any sedatives or narcotics no history of GI bleeding no fever no chills. No abdominal pain no nausea no vomiting Problems: Additional Assessment/Plan Additional Assessment/Plan 1. 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 Diabetes mellitus 3. Hypertension 4. Encephalopathy. Ammonia slowly coming down 5. Metabolic acidosis 6. Hypernatremia Plan IV fluid, with sodium bicarbonate to correct metabolic acidosis Reduce lactulose, diarrhea might be the cause of volume depletion and metabolic acidosis Stop, gabapentin which might be contributing factor for her high ammonia level All medication through NG tube until she is completely alert and awake and not risk for aspiration Discussed the family regarding precipitating cause of hepatic encephalopathy and educated them Family has been advised not to give any kind of sedatives including antihistamines. Also told them would prefer vegetarian protein diet Consultation Date/Type/Reason Admit Date/Time Mar 14, 2017 at 03:58 Type of Consultation: NEPHROLOGY Referring Provider: CHERYL CALL MD 24 HR Interval Summary Constitutional: improved Exam/Review of Systems Vital Signs Vitals Vital Signs Date Time Temp Pulse Resp B/P Pulse Ox O2 Delivery O2 Flow Rate FiO2 03/24/17 16:00 99.4 124 16 134/76 98 Room Air Intake and Output 03/23/17 03/23/17 03/24/17 15:00 23:00 07:00 Intake Total 1250 ml 550 ml Output Total 585 ml 310 ml Balance 665 ml 240 ml Exam Constitutional: alert, oriented, well developed Psych: nl mood/affect, no complaints Head: atraumatic, normocephalic Eyes: EOMI, PERRL, nl conjunctiva, nl lids, nl sclera ENMT: nl external ears & nose, nl lips & teeth, nl nasal mucosa & septum Neck: non-tender, supple Respiratory: clear to auscultation, normal air movement Cardiovascular: nl pulses, regular rate and rhythm Gastrointestinal: nl liver, spleen, non-tender, soft Musculoskeletal: nl extremities to inspection, nl gait and stance Extremities: normal pulses Neurological: 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 II-XII intact, nl mental status, nl speech, nl strength Skin: nl turgor, No rash or lesions Lymph: nl lymph nodes Results Result Diagram: 03/24/17 1225 03/24/17 0448 Results 24 hrs Laboratory Tests Test 03/23/17 20:53 03/24/17 01:43 03/24/17 04:48 03/24/17 09:03 Bedside Glucose 224 H 242 H 253 H White Blood Count 6.1 # Red Blood Count 3.56 #L Hemoglobin 10.1 #L Hematocrit 30.4 #L Mean Corpuscular Volume 85.4 Mean Corpuscular Hemoglobin 28.4 L Mean Corpuscular Hemoglobin Concent 33.2 Red Cell Distribution Width 16.7 H Platelet Count 62 #L Mean Platelet Volume Neutrophils % 58.8 Lymphocytes % 27.9 Monocytes % 12.0 H Eosinophils % 0.3 Basophils % 0.5 Nucleated Red Blood Cells % 0.0 Neutrophils # 3.6 Lymphocytes # 1.7 Monocytes # 0.7 Eosinophils # 0.0 Basophils # 0.0 Nucleated Red Blood Cells # 0.0 Sodium Level 153 H Potassium Level 3.4 L Chloride Level 118 H Carbon Dioxide Level 16 L Anion Gap 22 #H Blood Urea Nitrogen 29 H Creatinine 0.96 Glucose Level 239 H Osmolality 318 H Calcium Level 9.6 Total Bilirubin 0.9 Direct Bilirubin 0.00 Indirect Bilirubin 0.9 Aspartate Amino Transf (AST/SGOT) 66 H Alanine Aminotransferase (ALT/SGPT) 66 Alkaline Phosphatase 132 H Ammonia 176 H Total Protein 7.7 Albumin 4.5 Globulin 3.20 Albumin/Globulin Ratio 1.40 Test 03/24/17 12:25 03/24/17 13:08 03/24/17 17:23 White Blood Count 7.8 # Red Blood Count 3.75 L Hemoglobin 10.7 L Hematocrit 31.9 L Mean Corpuscular Volume 85.1 Mean Corpuscular Hemoglobin 28.5 L Mean Corpuscular Hemoglobin Concent 33.5 Red Cell Distribution Width 17.0 H Platelet Count 67 L Mean Platelet Volume Neutrophils % 72.0 Lymphocytes % 14.7 L Monocytes % 12.4 H Eosinophils % 0.1 Basophils % 0.4 Nucleated Red Blood Cells % 0.0 Neutrophils # 5.6 Lymphocytes # 1.2 Monocytes # 1.0 H Eosinophils # 0.0 Basophils # 0.0 Nucleated Red Blood Cells # 0.0 Bedside Glucose 291 H 248 H Medications Medications Current Medications Amlodipine Besylate (Norvasc) 10 mg DAILY PO Last administered on 03/24/17 09: 04; Admin Dose 10 MG; Start 03/15/17 at 09:00 Atorvastatin Calcium (Lipitor) 20 mg QHS PO Last administered on 03/23/17 21: 35; Admin Dose 20 MG; Start 03/14/17 at 21:00 Benazepril HCl (Lotensin) 20 mg DAILY PO Last administered on 03/24/17 09:04; Admin Dose 20 MG; Start 03/15/17 at 09:00 Folic Acid (Folic Acid) 1 mg DAILY PO Last administered on 03/24/17 09:04; Admin Dose 1 MG; Start 03/15/17 at 09:00 Pantoprazole (Protonix Tab) 40 mg DAILY@06 PO Last administered on 03/24/17 05 :01; Admin Dose 40 MG; Start 03/15/17 at 06:00 Rifaximin (Xifaxan) 550 mg BID PO Last administered on 03/24/17 09:04; Admin Dose 550 MG; Start 03/14/17 at 21:00 Acetaminophen (Tylenol Tab) 650 mg Q6H PRN PO PAIN AND OR ELEVATED TEMP Last administered on 03/23/17 01:50; Admin Dose 650 MG; Start 03/14/17 at 20:30 Diagnostic Test (Pha) (Accu-Chek) 1 ea 02 XX ; Start 03/18/17 at 02:00 Insulin Glargine (Lantus) 20 unit QHS SC Last administered on 03/23/17 21:37; Admin Dose 20 UNIT; Start 03/17/17 at 21:00 Miscellaneous Information 1 ea NOTE XX ; Start 03/17/17 at 18:30 Glucose (Glutose) 15 gm Q15M PRN PO DECREASED GLUCOSE; Start 03/17/17 at 18:30 Glucose (Glutose) 22.5 gm Q15M PRN PO DECREASED GLUCOSE; Start 03/17/17 at 18: 30 Dextrose (D50w Syringe) 25 ml Q15M PRN IV DECREASED GLUCOSE; Start 03/17/17 at 18:30 Dextrose (D50w Syringe) 50 ml Q15M PRN IV DECREASED GLUCOSE; Start 03/17/17 at 18:30 Glucagon (Glucagen) 1 mg Q15M PRN IM DECREASED GLUCOSE; Start 03/17/17 at 18:30 Glucose 15 gm 15 gm Q15M PRN BUCCAL DECREASED GLUCOSE; Start 03/17/17 at 18:30 Sodium Bicarbonate 100 meq/Dextrose 1,100 ml @ 75 mls/hr [id number] IV Last administered on 03/24/17 05:01; Admin Dose 75 MLS/HR; Start 03/23/17 at 15:00 Albumin Human (Albumin Human 25%) 100 ml @ 100 mls/hr Q8H IV Last administered on 03/24/17 17:22; Admin Dose 100 MLS/HR; Start 03/23/17 at 17:30 ; Stop 03/25/17 at 10:29 Lactulose (Enulose) 40 gm TID PO Last administered on 03/24/17 13:08; Admin Dose 40 GM; Start 03/23/17 at 21:00 Insulin Aspart (Novolog Insulin Pen) NOVOLOG *MILD* ALGORITHM Q4 SC Last administered on 03/24/17 17:25; Admin Dose 3 UNIT; Start 03/24/17 at 09:00 BE MACDONALD MD Mar 24, 2017 18:18
[2017-03-24] MEDS: ATORVASTATIN 20 MG TAB PO SCH (20:16)
[2017-03-24] MEDS: INSULIN GLARGINE [LANtus] 3 ML PEN SC SCH (20:18)
[2017-03-25] VITALS (24 sets, daily range): BP systolic 106–147; BP diastolic 58–86; PULSE 78–120; RESP 14–22
[2017-03-25] MEDS: ALBUMIN HUMAN 25% 100 ML IV SCH ×2 (01:42→09:26)
[2017-03-25] MEDS: ACCU-CHEK XX SCH (01:52)
[2017-03-25] MEDS: INSULIN ASPART [NOVOLOG] 3 ML PEN SC SCH ×6 (01:52→20:50)
[2017-03-25] MEDS: PANTOPRAZOLE (EC) 40 MG TAB PO SCH (05:02)
[2017-03-25 07:43] LABS: CALCIUM 9.5 mg/dl (8.4-10.2); CREATININE 0.91 mg/dl (0.44-1.00)
[2017-03-25] MEDS: RIFAXIMIN 550 MG TAB PO SCH ×2 (08:21→20:46)
[2017-03-25] MEDS: POTASSIUM CHLORIDE 20 MEQ POWDER FOR ORAL SOLN NGT SCH (08:21)
[2017-03-25] MEDS: LACTULOSE 30ML CUP PO SCH ×2 (08:21→20:46)
[2017-03-25] MEDS: FOLIC ACID 1 MG TAB PO SCH (08:22)
[2017-03-25] MEDS: AMLODIPINE 10 MG TAB PO SCH (08:22)
[2017-03-25] MEDS: BENAZEPRIL 20 MG TAB PO SCH (08:22)
[2017-03-25] MEDS ORDERED: POTASSIUM CHLORIDE (SR) 20 MEQ TAB PO SCH (09:00)
[2017-03-25] MEDS: SODIUM BICARBONATE (IV ADD) 100 MEQ in DEXTROSE 5% 1,000 ML IV SCH (10:36)
--- NOTE | 2017-03-25 11:42 | PN ---
Date/Time of Note Date/Time of Note DATE: 03/25/17 TIME: 11:41 Assessment/Plan VTE Prophylaxis VTE Prophylaxis Intervention: other Lines/Catheters IV C[facility]ter Type (from [facility] Peripheral IV Urinary Cath still in place: Yes Reason Cath still needed: skin wounds contaminated by urine Assessment/Plan Chief Complaint/Hosp Course - Severe metabolic acidosis with , Dr. Rios is following in nephrology consultation. Continue bicarbonate drip. ICU monitoring. - Acute hypernatremia, continue IV fluids with D5 - Acute kidney injury, with possible hepatorenal syndrome, continue to monitor renal function. - Acute Hepatic encephalopathy. Continue lactulose and rifaximin. Monitor ammonia level. - Alcoholic liver cirrhosis. Dr. North is following in gastroenterology consultation. - Diabetes mellitus type 2 with hyperglycemia, continue Lantus and NovoLog per moderate algorithm sliding scale with Accu-Chek every 4 hours. - Hypertension. Continue Norvasc and lisinopril. - Thrombocytopenia, most likely due to liver cirrhosis. Problems: Subjective 24 Hr Interval Summary Free Text/Dictation Patient is awake but not verbally responsive Exam/Review of Systems Vital Signs Vitals Vital Signs Date Time Temp Pulse Resp B/P Pulse Ox O2 Delivery O2 Flow Rate FiO2 03/25/17 11:00 103 19 128/69 96 Room Air 03/25/17 07:00 99.4 Intake and Output 03/24/17 03/24/17 03/25/17 15:00 23:00 07:00 Intake Total 700 ml 565 ml 175 ml Output Total 360 ml 555 ml 320 ml Balance 340 ml 10 ml -145 ml Exam Constitutional: well developed Head: atraumatic, normocephalic Neck: supple Respiratory: diminished breath sounds Cardiovascular: regular rate and rhythm Gastrointestinal: non-tender, soft Extremities: normal pulses Results Result Diagram: 03/24/17 1225 03/25/17 0616 Results 24 hrs Laboratory Tests Test 03/24/17 12:25 03/24/17 13:08 03/24/17 17:23 03/24/17 20:14 White Blood Count 7.8 # Red Blood Count 3.75 L Hemoglobin 10.7 L Hematocrit 31.9 L Mean Corpuscular Volume 85.1 Mean Corpuscular Hemoglobin 28.5 L Mean Corpuscular Hemoglobin Concent 33.5 Red Cell Distribution Width 17.0 H Platelet Count 67 L Mean Platelet Volume Neutrophils % 72.0 Lymphocytes % 14.7 L Monocytes % 12.4 H Eosinophils % 0.1 Basophils % 0.4 Nucleated Red Blood Cells % 0.0 Neutrophils # 5.6 Lymphocytes # 1.2 Monocytes # 1.0 H Eosinophils # 0.0 Basophils # 0.0 Nucleated Red Blood Cells # 0.0 Bedside Glucose 291 H 248 H 194 Test 03/25/17 01:39 03/25/17 05:02 03/25/17 06:16 03/25/17 08:28 Bedside Glucose 246 H 252 H 264 H Sodium Level 152 H Potassium Level 2.5 *L Chloride Level 105 # Carbon Dioxide Level 19 L Anion Gap 31 #H Blood Urea Nitrogen 24 H Creatinine 0.91 Glucose Level 237 H Calcium Level 9.5 Ammonia 78 #H Medications Medications Current Medications Amlodipine Besylate (Norvasc) 10 mg DAILY PO Last administered on 03/25/17 08: 22; Admin Dose 10 MG; Start 03/15/17 at 09:00 Atorvastatin Calcium (Lipitor) 20 mg QHS PO Last administered on 03/24/17 20: 16; Admin Dose 20 MG; Start 03/14/17 at 21:00 Benazepril HCl (Lotensin) 20 mg DAILY PO Last administered on 03/25/17 08:22; Admin Dose 20 MG; Start 03/15/17 at 09:00 Folic Acid (Folic Acid) 1 mg DAILY PO Last administered on 03/25/17 08:22; Admin Dose 1 MG; Start 03/15/17 at 09:00 Pantoprazole (Protonix Tab) 40 mg DAILY@06 PO Last administered on 03/25/17 05 :02; Admin Dose 40 MG; Start 03/15/17 at 06:00 Rifaximin (Xifaxan) 550 mg BID PO Last administered on 03/25/17 08:21; Admin Dose 550 MG; Start 03/14/17 at 21:00 Acetaminophen (Tylenol Tab) 650 mg Q6H PRN PO PAIN AND OR ELEVATED TEMP Last administered on 03/23/17 01:50; Admin Dose 650 MG; Start 03/14/17 at 20:30 Diagnostic Test (Pha) (Accu-Chek) 1 ea 02 XX Last administered on 03/25/17 01: 52; Admin Dose 1 EA; Start 03/18/17 at 02:00 Miscellaneous Information 1 ea NOTE XX ; Start 03/17/17 at 18:30 Glucose (Glutose) 15 gm Q15M PRN PO DECREASED GLUCOSE; Start 03/17/17 at 18:30 Glucose (Glutose) 22.5 gm Q15M PRN PO DECREASED GLUCOSE; Start 03/17/17 at 18: 30 Dextrose (D50w Syringe) 25 ml Q15M PRN IV DECREASED GLUCOSE; Start 03/17/17 at 18:30 Dextrose (D50w Syringe) 50 ml Q15M PRN IV DECREASED GLUCOSE; Start 03/17/17 at 18:30 Glucagon (Glucagen) 1 mg Q15M PRN IM DECREASED GLUCOSE; Start 03/17/17 at 18:30 Glucose 15 gm 15 gm Q15M PRN BUCCAL DECREASED GLUCOSE; Start 03/17/17 at 18:30 Sodium Bicarbonate/ Dextrose (Na Bicarb/D5W) 1,100 ml @ 75 mls/hr [id number] IV Last administered on 03/25/17 10:36; Admin Dose 75 MLS/HR; Start 03/23/17 at 15 :00 Insulin Aspart (Novolog Insulin Pen) NOVOLOG *MILD* ALGORITHM Q4 SC Last administered on 03/25/17 08:29; Admin Dose 4 UNIT; Start 03/24/17 at 09:00 Potassium Chloride (Potassium Chloride Pwd/Soln) 40 meq DAILY NGT Last administered on 03/25/17 08:21; Admin Dose 40 MEQ; Start 03/25/17 at 09:00 Lactulose (Enulose) 40 gm BID PO ; Start 03/25/17 at 21:00 Insulin Glargine (Lantus) 25 unit QHS SC ; Start 03/25/17 at 21:00 URI KATZ Mar 25, 2017 11:42
--- NOTE | 2017-03-25 16:17 | CONS ---
Date/Time of Note Date/Time of Note DATE: 03/25/17 TIME: 16:13 Assessment/Plan Assessment/Plan Chief Complaint/Hosp Course Problems: Additional Assessment/Plan 1. Oliguric Acute Kidney injury - Urine output dropping down, possible Hepatorenal syndrome 2. Severe metabolic acidosis 3. acute hypernatremia 3.acute hepatic encephalopathy causing AMS 4. decompensated liver icrrhosis 5. h/o alcoholic liver cirrhosis 6. Hypertension 7. diabetes melitus 8. acute hypercalcemia Plan: Continue bicarbonate drip at current rate IV albumin 25% Q 8 hr x 6 doses s/p lasix yesterday 1.2 Liter urine output, BP stable, no plan for lasix today, cr normal continue current care will continue to follow up Consultation Date/Type/Reason Admit Date/Time Mar 14, 2017 at 03:58 Initial Consult Date 03/23/17 Type of Consultation: NEPHROLOGY Referring Provider: CHERYL CALL MD 24 HR Interval Summary Free Text/Dictation U/O 1.245 liter, K low, on bicarbonate drip Exam/Review of Systems Vital Signs Vitals Vital Signs Date Time Temp Pulse Resp B/P Pulse Ox O2 Delivery O2 Flow Rate FiO2 03/25/17 15:00 90 15 123/68 97 Room Air 03/25/17 12:00 99.1 Intake and Output 03/24/17 03/24/17 03/25/17 15:00 23:00 07:00 Intake Total 700 ml 565 ml 175 ml Output Total 360 ml 555 ml 320 ml Balance 340 ml 10 ml -145 ml Exam Constitutional: alert, but intermittently confused Neck: supple Respiratory: normal air movement Cardiovascular: nl pulses, regular rate and rhythm Gastrointestinal: non-tender, soft Extremities: normal pulses Neurological: confused Skin: nl turgor Results Result Diagram: 03/24/17 1225 03/25/17 0616 Results 24 hrs Laboratory Tests Test 03/24/17 17:23 03/24/17 20:14 03/25/17 01:39 03/25/17 05:02 Bedside Glucose 248 H 194 246 H 252 H Test 03/25/17 06:16 03/25/17 08:28 03/25/17 12:39 Sodium Level 152 H Potassium Level 2.5 *L Chloride Level 105 # Carbon Dioxide Level 19 L Anion Gap 31 #H Blood Urea Nitrogen 24 H Creatinine 0.91 Glucose Level 237 H Calcium Level 9.5 Ammonia 78 #H Bedside Glucose 264 H 251 H Medications Medications Current Medications Amlodipine Besylate (Norvasc) 10 mg DAILY PO Last administered on 03/25/17 08: 22; Admin Dose 10 MG; Start 03/15/17 at 09:00 Atorvastatin Calcium (Lipitor) 20 mg QHS PO Last administered on 03/24/17 20: 16; Admin Dose 20 MG; Start 03/14/17 at 21:00 Benazepril HCl (Lotensin) 20 mg DAILY PO Last administered on 03/25/17 08:22; Admin Dose 20 MG; Start 03/15/17 at 09:00 Folic Acid (Folic Acid) 1 mg DAILY PO Last administered on 03/25/17 08:22; Admin Dose 1 MG; Start 03/15/17 at 09:00 Pantoprazole (Protonix Tab) 40 mg DAILY@06 PO Last administered on 03/25/17 05 :02; Admin Dose 40 MG; Start 03/15/17 at 06:00 Rifaximin (Xifaxan) 550 mg BID PO Last administered on 03/25/17 08:21; Admin Dose 550 MG; Start 03/14/17 at 21:00 Acetaminophen (Tylenol Tab) 650 mg Q6H PRN PO PAIN AND OR ELEVATED TEMP Last administered on 03/23/17 01:50; Admin Dose 650 MG; Start 03/14/17 at 20:30 Diagnostic Test (Pha) (Accu-Chek) 1 ea 02 XX Last administered on 03/25/17 01: 52; Admin Dose 1 EA; Start 03/18/17 at 02:00 Miscellaneous Information 1 ea NOTE XX ; Start 03/17/17 at 18:30 Glucose (Glutose) 15 gm Q15M PRN PO DECREASED GLUCOSE; Start 03/17/17 at 18:30 Glucose (Glutose) 22.5 gm Q15M PRN PO DECREASED GLUCOSE; Start 03/17/17 at 18: 30 Dextrose (D50w Syringe) 25 ml Q15M PRN IV DECREASED GLUCOSE; Start 03/17/17 at 18:30 Dextrose (D50w Syringe) 50 ml Q15M PRN IV DECREASED GLUCOSE; Start 03/17/17 at 18:30 Glucagon (Glucagen) 1 mg Q15M PRN IM DECREASED GLUCOSE; Start 03/17/17 at 18:30 Glucose 15 gm 15 gm Q15M PRN BUCCAL DECREASED GLUCOSE; Start 03/17/17 at 18:30 Sodium Bicarbonate/ Dextrose (Na Bicarb/D5W) 1,100 ml @ 75 mls/hr [id number] IV Last administered on 03/25/17 10:36; Admin Dose 75 MLS/HR; Start 03/23/17 at 15 :00 Insulin Aspart (Novolog Insulin Pen) NOVOLOG *MILD* ALGORITHM Q4 SC Last administered on 03/25/17 12:43; Admin Dose 3 UNIT; Start 03/24/17 at 09:00 Potassium Chloride (Potassium Chloride Pwd/Soln) 40 meq DAILY NGT Last administered on 03/25/17 08:21; Admin Dose 40 MEQ; Start 03/25/17 at 09:00 Lactulose (Enulose) 40 gm BID PO ; Start 03/25/17 at 21:00 Insulin Glargine (Lantus) 25 unit QHS SC ; Start 03/25/17 at 21:00 JOSSY WHITTAKER MD Mar 25, 2017 16:17
--- NOTE | 2017-03-25 18:30 | CONS ---
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 Patient was discharged on lactulose no history of any precipitating events. She did not take any sedatives or narcotics no history of GI bleeding no fever no chills. No abdominal pain no nausea no vomiting Problems: Additional Assessment/Plan Additional Assessment/Plan Additional Assessment/Plan 1. 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 Diabetes mellitus 3. Hypertension 4. Encephalopathy. Ammonia slowly coming down, patient is more awake and oriented. Ammonia is down to 74 5. Metabolic acidosis 6. Hypernatremia Plan IV fluid, with sodium bicarbonate to correct metabolic acidosis Reduce lactulose, diarrhea might be the cause of volume depletion and metabolic acidosis Stop, gabapentin which might be contributing factor for her high ammonia level All medication through NG tube until she is completely alert and awake and not risk for aspiration Discussed the family regarding precipitating cause of hepatic encephalopathy and educated them Consultation Date/Type/Reason Admit Date/Time Mar 14, 2017 at 03:58 Type of Consultation: NEPHROLOGY Referring Provider: CHERYL CALL MD 24 HR Interval Summary Constitutional: improved Exam/Review of Systems Vital Signs Vitals Vital Signs Date Time Temp Pulse Resp B/P Pulse Ox O2 Delivery O2 Flow Rate FiO2 03/25/17 18:00 93 15 127/75 97 Room Air 03/25/17 16:00 98.8 Intake and Output 03/24/17 03/24/17 03/25/17 15:00 23:00 07:00 Intake Total 700 ml 565 ml 175 ml Output Total 360 ml 555 ml 320 ml Balance 340 ml 10 ml -145 ml Exam Constitutional: alert, oriented, well developed Psych: nl mood/affect, no complaints Head: atraumatic, normocephalic Eyes: EOMI, PERRL, nl conjunctiva, nl lids, nl sclera ENMT: nl external ears & nose, nl lips & teeth, nl nasal mucosa & septum Neck: non-tender, supple Respiratory: clear to auscultation, normal air movement Cardiovascular: nl pulses, regular rate and rhythm Gastrointestinal: nl liver, spleen, non-tender, soft Musculoskeletal: nl extremities to inspection, nl gait and stance Extremities: normal pulses Neurological: 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, nl mental status, nl speech, nl strength Skin: nl turgor, No rash or lesions Lymph: nl lymph nodes Results Result Diagram: 03/24/17 1225 03/25/17 0616 Results 24 hrs Laboratory Tests Test 03/24/17 20:14 03/25/17 01:39 03/25/17 05:02 03/25/17 06:16 Bedside Glucose 194 246 H 252 H Sodium Level 152 H Potassium Level 2.5 *L Chloride Level 105 # Carbon Dioxide Level 19 L Anion Gap 31 #H Blood Urea Nitrogen 24 H Creatinine 0.91 Glucose Level 237 H Calcium Level 9.5 Ammonia 78 #H Test 03/25/17 08:28 03/25/17 12:39 03/25/17 16:45 Bedside Glucose 264 H 251 H 230 H Medications Medications Current Medications Amlodipine Besylate (Norvasc) 10 mg DAILY PO Last administered on 03/25/17 08: 22; Admin Dose 10 MG; Start 03/15/17 at 09:00 Atorvastatin Calcium (Lipitor) 20 mg QHS PO Last administered on 03/24/17 20: 16; Admin Dose 20 MG; Start 03/14/17 at 21:00 Benazepril HCl (Lotensin) 20 mg DAILY PO Last administered on 03/25/17 08:22; Admin Dose 20 MG; Start 03/15/17 at 09:00 Folic Acid (Folic Acid) 1 mg DAILY PO Last administered on 03/25/17 08:22; Admin Dose 1 MG; Start 03/15/17 at 09:00 Pantoprazole (Protonix Tab) 40 mg DAILY@06 PO Last administered on 03/25/17 05 :02; Admin Dose 40 MG; Start 03/15/17 at 06:00 Rifaximin (Xifaxan) 550 mg BID PO Last administered on 03/25/17 08:21; Admin Dose 550 MG; Start 03/14/17 at 21:00 Acetaminophen (Tylenol Tab) 650 mg Q6H PRN PO PAIN AND OR ELEVATED TEMP Last administered on 03/23/17 01:50; Admin Dose 650 MG; Start 03/14/17 at 20:30 Diagnostic Test (Pha) (Accu-Chek) 1 ea 02 XX Last administered on 03/25/17 01: 52; Admin Dose 1 EA; Start 03/18/17 at 02:00 Miscellaneous Information 1 ea NOTE XX ; Start 03/17/17 at 18:30 Glucose (Glutose) 15 gm Q15M PRN PO DECREASED GLUCOSE; Start 03/17/17 at 18:30 Glucose (Glutose) 22.5 gm Q15M PRN PO DECREASED GLUCOSE; Start 03/17/17 at 18: 30 Dextrose (D50w Syringe) 25 ml Q15M PRN IV DECREASED GLUCOSE; Start 03/17/17 at 18:30 Dextrose (D50w Syringe) 50 ml Q15M PRN IV DECREASED GLUCOSE; Start 03/17/17 at 18:30 Glucagon (Glucagen) 1 mg Q15M PRN IM DECREASED GLUCOSE; Start 03/17/17 at 18:30 Glucose 15 gm 15 gm Q15M PRN BUCCAL DECREASED GLUCOSE; Start 03/17/17 at 18:30 Sodium Bicarbonate/ Dextrose (Na Bicarb/D5W) 1,100 ml @ 75 mls/hr [id number] IV Last administered on 03/25/17 10:36; Admin Dose 75 MLS/HR; Start 03/23/17 at 15 :00 Insulin Aspart (Novolog Insulin Pen) NOVOLOG *MILD* ALGORITHM Q4 SC Last administered on 03/25/17 16:49; Admin Dose 3 UNIT; Start 03/24/17 at 09:00 Potassium Chloride (Potassium Chloride Pwd/Soln) 40 meq DAILY NGT Last administered on 03/25/17 08:21; Admin Dose 40 MEQ; Start 03/25/17 at 09:00 Lactulose (Enulose) 40 gm BID PO ; Start 03/25/17 at 21:00 Insulin Glargine (Lantus) 25 unit QHS SC ; Start 03/25/17 at 21:00 BE MACDONALD MD Mar 25, 2017 18:30
[2017-03-25] MEDS: ATORVASTATIN 20 MG TAB PO SCH (20:46)
[2017-03-25] MEDS: INSULIN GLARGINE [LANtus] 3 ML PEN SC SCH (20:48)
[2017-03-26] VITALS (21 sets, daily range): BP systolic 100–140; BP diastolic 58–93; PULSE 65–100; RESP 12–19
[2017-03-26] MEDS: ACCU-CHEK XX SCH (00:07)
[2017-03-26] MEDS: SODIUM BICARBONATE (IV ADD) 100 MEQ in DEXTROSE 5% 1,000 ML IV SCH (01:21)
[2017-03-26] MEDS: INSULIN ASPART [NOVOLOG] 3 ML PEN SC SCH ×6 (01:21→22:01)
[2017-03-26] MEDS: ACETAMINOPHEN 325 MG TAB PO PRN (03:57)
[2017-03-26] MEDS: PANTOPRAZOLE (EC) 40 MG TAB PO SCH (05:20)
--- NOTE | 2017-03-26 06:59 | PN ---
Date/Time of Note Date/Time of Note DATE: 03/26/17 TIME: 06:58 Assessment/Plan VTE Prophylaxis VTE Prophylaxis Intervention: other Lines/Catheters IV Catheter Type (from [facility], [place]): Peripheral IV Urinary Cath still in place: Yes Reason Cath still needed: skin wounds contaminated by urine Assessment/Plan Chief Complaint/Hosp Course - Severe metabolic acidosis with , Dr. Rios is following in nephrology consultation. Continue bicarbonate drip. ICU monitoring. - Acute hypernatremia, continue IV fluids with D5 - Acute kidney injury, with possible hepatorenal syndrome, continue to monitor renal function. - Acute Hepatic encephalopathy. Continue lactulose and rifaximin. Monitor ammonia level. - Alcoholic liver cirrhosis. Dr. North is following in gastroenterology consultation. - Diabetes mellitus type 2 with hyperglycemia, continue Lantus and NovoLog per moderate algorithm sliding scale with Accu-Chek every 4 hours. - Hypertension. Continue Norvasc and lisinopril. - Thrombocytopenia, most likely due to liver cirrhosis. Problems: Subjective 24 Hr Interval Summary Free Text/Dictation Patient has no complaints, appears to be doing well Exam/Review of Systems Vital Signs Vitals Vital Signs Date Time Temp Pulse Resp B/P Pulse Ox O2 Delivery O2 Flow Rate FiO2 03/26/17 06:00 71 12 120/63 97 Room Air 03/26/17 05:00 98.7 Intake and Output 03/25/17 03/25/17 03/26/17 15:00 23:00 07:00 Intake Total 810 ml 315 ml 705 ml Output Total 230 ml 55 ml 130 ml Balance 580 ml 260 ml 575 ml Exam Constitutional: well developed Head: atraumatic, normocephalic Neck: supple Respiratory: clear to auscultation Cardiovascular: regular rate and rhythm Gastrointestinal: non-tender, soft Extremities: normal pulses Results Result Diagram: 03/24/17 1225 03/25/17 0616 Results 24 hrs Laboratory Tests Test 03/25/17 08:28 03/25/17 12:39 03/25/17 16:45 03/25/17 20:38 Bedside Glucose 264 H 251 H 230 H 248 H Test 03/26/17 01:16 03/26/17 05:21 Bedside Glucose 293 H 284 H Medications Medications Current Medications Amlodipine Besylate (Norvasc) 10 mg DAILY PO Last administered on 03/25/17t 08: 22; Admin Dose 10 MG; Start 03/15/17 at 09:00 Atorvastatin Calcium (Lipitor) 20 mg QHS PO Last administered on 03/25/17 20: 46; Admin Dose 20 MG; Start 03/14/17 at 21:00 Benazepril HCl (Lotensin) 20 mg DAILY PO Last administered on 03/25/17 08:22; Admin Dose 20 MG; Start 03/15/17 at 09:00 Folic Acid (Folic Acid) 1 mg DAILY PO Last administered on 03/25/17 08:22; Admin Dose 1 MG; Start 03/15/17 at 09:00 Pantoprazole (Protonix Tab) 40 mg DAILY@06 PO Last administered on 03/26/17 05 :20; Admin Dose 40 MG; Start 03/15/17 at 06:00 Rifaximin (Xifaxan) 550 mg BID PO Last administered on 03/25/17 20:46; Admin Dose 550 MG; Start 03/14/17 at 21:00 Acetaminophen (Tylenol Tab) 650 mg Q6H PRN PO PAIN AND OR ELEVATED TEMP Last administered on 03/26/17 03:57; Admin Dose 650 MG; Start 03/14/17 at 20:30 Diagnostic Test (Pha) (Accu-Chek) 1 ea 02 XX Last administered on 03/25/17 01: 52; Admin Dose 1 EA; Start 03/18/17 at 02:00 Miscellaneous Information 1 ea NOTE XX ; Start 03/17/17 at 18:30 Glucose (Glutose) 15 gm Q15M PRN PO DECREASED GLUCOSE; Start 03/17/17 at 18:30 Glucose (Glutose) 22.5 gm Q15M PRN PO DECREASED GLUCOSE; Start 03/17/17 at 18: 30 Dextrose (D50w Syringe) 25 ml Q15M PRN IV DECREASED GLUCOSE; Start 03/17/17 at 18:30 Dextrose (D50w Syringe) 50 ml Q15M PRN IV DECREASED GLUCOSE; Start 03/17/17 at 18:30 Glucagon (Glucagen) 1 mg Q15M PRN IM DECREASED GLUCOSE; Start 03/17/17 at 18:30 Glucose 15 gm 15 gm Q15M PRN BUCCAL DECREASED GLUCOSE; Start 03/17/17 at 18:30 Sodium Bicarbonate/ Dextrose (Na Bicarb/D5W) 1,100 ml @ 75 mls/hr [id number] IV Last administered on 03/26/17 01:21; Admin Dose 75 MLS/HR; Start 03/23/17 at 15 :00 Insulin Aspart (Novolog Insulin Pen) NOVOLOG *MILD* ALGORITHM Q4 SC Last administered on 03/26/17 05:23; Admin Dose 4 UNIT; Start 03/24/17 at 09:00 Potassium Chloride (Potassium Chloride Pwd/Soln) 40 meq DAILY NGT Last administered on 03/25/17 08:21; Admin Dose 40 MEQ; Start 03/25/17 at 09:00 Lactulose (Enulose) 40 gm BID PO Last administered on 03/25/17 20:46; Admin Dose 40 GM; Start 03/25/17 at 21:00 Insulin Glargine (Lantus) 25 unit QHS SC Last administered on 03/25/17 20:48; Admin Dose 25 UNIT; Start 03/25/17 at 21:00 URI KATZ Mar 26, 2017 06:59
[2017-03-26] MEDS: AMLODIPINE 10 MG TAB PO SCH (08:18)
[2017-03-26] MEDS: RIFAXIMIN 550 MG TAB PO SCH ×2 (08:18→21:21)
[2017-03-26] MEDS: LACTULOSE 30ML CUP PO SCH ×2 (08:18→21:21)
[2017-03-26] MEDS: FOLIC ACID 1 MG TAB PO SCH (08:18)
[2017-03-26] MEDS: POTASSIUM CHLORIDE 20 MEQ POWDER FOR ORAL SOLN NGT SCH (08:19)
[2017-03-26] MEDS: BENAZEPRIL 20 MG TAB PO SCH (08:19)
[2017-03-26 09:27] LABS: CALCIUM 8.4 mg/dl (8.4-10.2); CREATININE 0.63 mg/dl (0.44-1.00)
[2017-03-26] MEDS: SOD CHLORIDE 0.9% 1,000 ML IV SCH ×2 (09:49→23:20)
--- NOTE | 2017-03-26 12:09 | CONS ---
Date/Time of Note Date/Time of Note DATE: 03/26/17 TIME: 12:07 Assessment/Plan Assessment/Plan Chief Complaint/Hosp Course 51-year-old female with a history of cirrhosis of liver secondary to alcohol admitted to the hospital through the emergency room for change in mental status. Patient was discharged on lactulose no history of any precipitating events. She did not take any sedatives or narcotics no history of GI bleeding no fever no chills. No abdominal pain no nausea no vomiting Problems: Additional Assessment/Plan Additional Assessment/Plan Additional Assessment/Plan Additional Assessment/Plan 1. 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 Diabetes mellitus 3. Hypertension 4. Encephalopathy. Ammonia slowly coming down, patient is more awake and oriented. Ammonia is down to 84 patient is completely oriented to time place and space and NG tube has been removed. She is tolerating p.o. feeding 5. Metabolic acidosis 6. Hypernatremia Plan IV fluid, with sodium bicarbonate to correct metabolic acidosis Reduce lactulose, diarrhea might be the cause of volume depletion and metabolic acidosis Stop, gabapentin which might be contributing factor for her high ammonia level All medication through NG tube until she is completely alert and awake and not risk for aspiration P.o. feeding with aspiration precaution Consultation Date/Type/Reason Admit Date/Time Mar 14, 2017 at 03:58 Type of Consultation: NEPHROLOGY Referring Provider: CHERYL CALL MD 24 HR Interval Summary Constitutional: improved, no complaints Exam/Review of Systems Vital Signs Vitals Vital Signs Date Time Temp Pulse Resp B/P Pulse Ox O2 Delivery O2 Flow Rate FiO2 03/26/17 11:00 75 17 103/69 99 Room Air 03/26/17 07:00 98.3 Intake and Output 03/25/17 03/25/17 03/26/17 15:00 23:00 07:00 Intake Total 810 ml 315 ml 840 ml Output Total 230 ml 55 ml 170 ml Balance 580 ml 260 ml 670 ml Exam Cardiovascular: nl pulses, regular rate and rhythm Gastrointestinal: nl liver, spleen, non-tender, soft Musculoskeletal: nl extremities to inspection, nl gait and stance Extremities: normal pulses Neurological: MIX[employer] DI[employer]OND POWDER II-XII intact, nl mental status, nl speech, nl strength Results Result Diagram: 03/24/17 1225 03/26/17 0539 Results 24 hrs Laboratory Tests Test 03/25/17 12:39 03/25/17 16:45 03/25/17 20:38 03/26/17 01:16 Bedside Glucose 251 H 230 H 248 H 293 H Test 03/26/17 05:21 03/26/17 05:39 03/26/17 08:45 Bedside Glucose 284 H 337 H Sodium Level 144 Potassium Level 3.0 L Chloride Level 96 L Carbon Dioxide Level 32 #H Anion Gap 19 #H Blood Urea Nitrogen 21 H Creatinine 0.63 Glucose Level 322 H Calcium Level 8.4 Ammonia 89 H Medications Medications Current Medications Amlodipine Besylate (Norvasc) 10 mg DAILY PO Last administered on 03/26/17 08: 18; Admin Dose 10 MG; Start 03/15/17 at 09:00 Atorvastatin Calcium (Lipitor) 20 mg QHS PO Last administered on 03/25/17 20: 46; Admin Dose 20 MG; Start 03/14/17 at 21:00 Benazepril HCl (Lotensin) 20 mg DAILY PO Last administered on 03/26/17 08:19; Admin Dose 20 MG; Start 03/15/17 at 09:00 Folic Acid (Folic Acid) 1 mg DAILY PO Last administered on 03/26/17 08:18; Admin Dose 1 MG; Start 03/15/17 at 09:00 Pantoprazole (Protonix Tab) 40 mg DAILY@06 PO Last administered on 03/26/17 05 :20; Admin Dose 40 MG; Start 03/15/17 at 06:00 Rifaximin (Xifaxan) 550 mg BID PO Last administered on 03/26/17 08:18; Admin Dose 550 MG; Start 03/14/17 at 21:00 Acetaminophen (Tylenol Tab) 650 mg Q6H PRN PO PAIN AND OR ELEVATED TEMP Last administered on 03/26/17 03:57; Admin Dose 650 MG; Start 03/14/17 at 20:30 Diagnostic Test (Pha) (Accu-Chek) 1 ea 02 XX Last administered on 03/25/17 01: 52; Admin Dose 1 EA; Start 03/18/17 at 02:00 Miscellaneous Information 1 ea NOTE XX ; Start 03/17/17 at 18:30 Glucose (Glutose) 15 gm Q15M PRN PO DECREASED GLUCOSE; Start 03/17/17 at 18:30 Glucose (Glutose) 22.5 gm Q15M PRN PO DECREASED GLUCOSE; Start 03/17/17 at 18: 30 Dextrose (D50w Syringe) 25 ml Q15M PRN IV DECREASED GLUCOSE; Start 03/17/17 at 18:30 Dextrose (D50w Syringe) 50 ml Q15M PRN IV DECREASED GLUCOSE; Start 03/17/17 at 18:30 Glucagon (Glucagen) 1 mg Q15M PRN IM DECREASED GLUCOSE; Start 03/17/17 at 18:30 Glucose (Glutose) 15 gm Q15M PRN BUCCAL DECREASED GLUCOSE; Start 03/17/17 at 18 :30 Insulin Aspart (Novolog Insulin Pen) NOVOLOG *MILD* ALGORITHM Q4 SC Last administered on 03/26/17 09:24; Admin Dose 5 UNIT; Start 03/24/17 at 09:00 Potassium Chloride (Potassium Chloride Pwd/Soln) 40 meq DAILY NGT Last administered on 03/26/17 08:19; Admin Dose 40 MEQ; Start 03/25/17 at 09:00 Lactulose (Enulose) 40 gm BID PO Last administered on 03/26/17 08:18; Admin Dose 40 GM; Start 03/25/17 at 21:00 Insulin Glargine 25 unit 25 unit QHS SC Last administered on 03/25/17 20:48; Admin Dose 25 UNIT; Start 03/25/17 at 21:00 Sodium Chloride (NS) 1,000 ml @ 75 mls/hr [id number] IV Last administered on 03/26 09:49; Admin Dose 75 MLS/HR; Start 03/26/17 at 10:00 BE MACDONALD MD Mar 26, 2017 12:09
--- NOTE | 2017-03-26 12:17 | CONS ---
Date/Time of Note Date/Time of Note DATE: 03/26/17 TIME: 12:15 Assessment/Plan Assessment/Plan Chief Complaint/Hosp Course Problems: Additional Assessment/Plan 1. Oliguric Acute Kidney injury - Urine output dropping down, possible Hepatorenal syndrome 2. Severe metabolic acidosis 3. acute hypernatremia 3.acute hepatic encephalopathy causing AMS 4. decompensated liver icrrhosis 5. h/o alcoholic liver cirrhosis 6. Hypertension 7. diabetes melitus 8. acute hypercalcemia Plan: stop bicarbonate drip, HCo3 high, will follow up on that and if needed will start PO bicitra s/p IV albumin 25% Q 8 hr x 6 doses s/p lasix yesterday 1.4 liter without lasix, no plan for lasix today continue current care will continue to follow up Consultation Date/Type/Reason Admit Date/Time Mar 14, 2017 at 03:58 Initial Consult Date 03/23/17 Type of Consultation: NEPHROLOGY Referring Provider: CHERYL CALL MD 24 HR Interval Summary Free Text/Dictation remained stable, Cr stable, K low, HCo3 bumped up Exam/Review of Systems Vital Signs Vitals Vital Signs Date Time Temp Pulse Resp B/P Pulse Ox O2 Delivery O2 Flow Rate FiO2 03/26/17 11:00 75 17 103/69 99 Room Air 03/26/17 07:00 98.3 Intake and Output 03/25/17 03/25/17 03/26/17 15:00 23:00 07:00 Intake Total 810 ml 315 ml 840 ml Output Total 230 ml 55 ml 170 ml Balance 580 ml 260 ml 670 ml Exam Constitutional: alert, oriented, well developed Respiratory: clear to auscultation, normal air movement Cardiovascular: nl pulses, regular rate and rhythm Gastrointestinal: nl liver, spleen, non-tender, soft Musculoskeletal: nl extremities to inspection, nl gait and stance Extremities: normal pulses Neurological: [employer]EL[employer]ER II-XII intact, nl mental status, nl speech, nl strength Results Result Diagram: 03/24/17 1225 03/26/17 0539 Results 24 hrs Laboratory Tests Test 03/25/17 12:39 03/25/17 16:45 03/25/17 20:38 03/26/17 01:16 Bedside Glucose 251 H 230 H 248 H 293 H Test 03/26/17 05:21 03/26/17 05:39 03/26/17 08:45 Bedside Glucose 284 H 337 H Sodium Level 144 Potassium Level 3.0 L Chloride Level 96 L Carbon Dioxide Level 32 #H Anion Gap 19 #H Blood Urea Nitrogen 21 H Creatinine 0.63 Glucose Level 322 H Calcium Level 8.4 Ammonia 89 H Medications Medications Current Medications Amlodipine Besylate (Norvasc) 10 mg DAILY PO Last administered on 03/26/17 08: 18; Admin Dose 10 MG; Start 03/15/17 at 09:00 Atorvastatin Calcium (Lipitor) 20 mg QHS PO Last administered on 03/25/17 20: 46; Admin Dose 20 MG; Start 03/14/17 at 21:00 Benazepril HCl (Lotensin) 20 mg DAILY PO Last administered on 03/26/17 08:19; Admin Dose 20 MG; Start 03/15/17 at 09:00 Folic Acid (Folic Acid) 1 mg DAILY PO Last administered on 03/26/17 08:18; Admin Dose 1 MG; Start 03/15/17 at 09:00 Pantoprazole (Protonix Tab) 40 mg DAILY@06 PO Last administered on 03/26/17 05 :20; Admin Dose 40 MG; Start 03/15/17 at 06:00 Rifaximin (Xifaxan) 550 mg BID PO Last administered on 03/26/17 08:18; Admin Dose 550 MG; Start 03/14/17 at 21:00 Acetaminophen (Tylenol Tab) 650 mg Q6H PRN PO PAIN AND OR ELEVATED TEMP Last administered on 03/26/17 03:57; Admin Dose 650 MG; Start 03/14/17 at 20:30 Diagnostic Test (Pha) (Accu-Chek) 1 ea 02 XX Last administered on 03/25/17 01: 52; Admin Dose 1 EA; Start 03/18/17 at 02:00 Miscellaneous Information 1 ea NOTE XX ; Start 03/17/17 at 18:30 Glucose (Glutose) 15 gm Q15M PRN PO DECREASED GLUCOSE; Start 03/17/17 at 18:30 Glucose (Glutose) 22.5 gm Q15M PRN PO DECREASED GLUCOSE; Start 03/17/17 at 18: 30 Dextrose (D50w Syringe) 25 ml Q15M PRN IV DECREASED GLUCOSE; Start 03/17/17 at 18:30 Dextrose (D50w Syringe) 50 ml Q15M PRN IV DECREASED GLUCOSE; Start 03/17/17 at 18:30 Glucagon (Glucagen) 1 mg Q15M PRN IM DECREASED GLUCOSE; Start 03/17/17 at 18:30 Glucose (Glutose) 15 gm Q15M PRN BUCCAL DECREASED GLUCOSE; Start 03/17/17 at 18 :30 Insulin Aspart (Novolog Insulin Pen) NOVOLOG *MILD* ALGORITHM Q4 SC Last administered on 03/26/17 09:24; Admin Dose 5 UNIT; Start 03/24/17 at 09:00 Potassium Chloride (Potassium Chloride Pwd/Soln) 40 meq DAILY NGT Last administered on 03/26/17 08:19; Admin Dose 40 MEQ; Start 03/25/17 at 09:00 Lactulose (Enulose) 40 gm BID PO Last administered on 03/26/17 08:18; Admin Dose 40 GM; Start 03/25/17 at 21:00 Insulin Glargine 25 unit 25 unit QHS SC Last administered on 03/25/17 20:48; Admin Dose 25 UNIT; Start 03/25/17 at 21:00 Sodium Chloride (NS) 1,000 ml @ 75 mls/hr [id number] IV Last administered on 03/26 09:49; Admin Dose 75 MLS/HR; Start 03/26/17 at 10:00 JOSSY WHITTAKER MD Mar 26, 2017 12:17
[2017-03-26] MEDS ORDERED: LORAZEPAM 2 MG INJ IV PRN (18:00)
[2017-03-26] MEDS: ATORVASTATIN 20 MG TAB PO SCH (21:21)
[2017-03-26] MEDS: INSULIN GLARGINE [LANtus] 3 ML PEN SC SCH (22:02)
[2017-03-27] VITALS (11 sets, daily range): BP systolic 96–120; BP diastolic 52–61; PULSE 54–72; RESP 18–19
[2017-03-27] MEDS: SOD CHLORIDE 0.9% 1,000 ML IV SCH ×2 (00:03→12:05)
[2017-03-27] MEDS: ACCU-CHEK XX SCH (03:20)
[2017-03-27] MEDS: INSULIN ASPART [NOVOLOG] 3 ML PEN SC SCH ×6 (03:20→20:36)
[2017-03-27] MEDS: PANTOPRAZOLE (EC) 40 MG TAB PO SCH (06:00)
[2017-03-27] MEDS: POTASSIUM CHLORIDE 20 MEQ POWDER FOR ORAL SOLN NGT SCH (08:50)
[2017-03-27] MEDS: RIFAXIMIN 550 MG TAB PO SCH ×2 (08:52→20:24)
[2017-03-27] MEDS: LACTULOSE 30ML CUP PO SCH ×2 (08:52→20:24)
[2017-03-27] MEDS: FOLIC ACID 1 MG TAB PO SCH (08:53)
[2017-03-27] MEDS: AMLODIPINE 10 MG TAB PO SCH (08:53)
[2017-03-27] MEDS: BENAZEPRIL 20 MG TAB PO SCH (08:53)
--- NOTE | 2017-03-27 10:26 | PN ---
Date/Time of Note Date/Time of Note DATE: 03/27/17 TIME: 10:26 Assessment/Plan VTE Prophylaxis VTE Prophylaxis Intervention: other Lines/Catheters IV C[facility]ter Type (from [facility] Peripheral IV Urinary Cath still in place: Yes Reason Cath still needed: skin wounds contaminated by urine Assessment/Plan Chief Complaint/Hosp Course - Severe metabolic acidosis with , Dr. Rios is following in nephrology consultation. Continue bicarbonate drip. ICU monitoring. - Acute hypernatremia, continue IV fluids with D5 - Acute kidney injury, with possible hepatorenal syndrome, continue to monitor renal function. - Acute Hepatic encephalopathy. Continue lactulose and rifaximin. Monitor ammonia level. - Alcoholic liver cirrhosis. Dr. North is following in gastroenterology consultation. - Diabetes mellitus type 2 with hyperglycemia, continue Lantus and NovoLog per moderate algorithm sliding scale with Accu-Chek every 4 hours. - Hypertension. Continue Norvasc and lisinopril. - Thrombocytopenia, most likely due to liver cirrhosis. Problems: Subjective 24 Hr Interval Summary Free Text/Dictation Patient has no complaints Exam/Review of Systems Vital Signs Vitals Vital Signs Date Time Temp Pulse Resp B/P Pulse Ox O2 Delivery O2 Flow Rate FiO2 03/27/17 08:26 54 03/27/17 07:36 98.0 18 108/59 98 03/26/17 17:00 Room Air Intake and Output 03/26/17 03/26/17 03/27/17 15:00 23:00 07:00 Intake Total 960 ml 150 ml 1125 ml Output Total 245 ml 45 ml 600 ml Balance 715 ml 105 ml 525 ml Exam Constitutional: well developed Head: atraumatic, normocephalic Neck: supple Respiratory: clear to auscultation Cardiovascular: regular rate and rhythm Gastrointestinal: non-tender, soft Extremities: normal pulses Results Result Diagram: 03/24/17 1225 03/26/17 0539 Results 24 hrs Laboratory Tests Test 03/26/17 12:14 03/26/17 16:48 03/26/17 21:20 03/27/17 03:19 Bedside Glucose 265 H 194 191 131 Test 03/27/17 06:00 03/27/17 07:51 Bedside Glucose 123 106 Medications Medications Current Medications Amlodipine Besylate (Norvasc) 10 mg DAILY PO Last administered on 03/27/17t 08: 53; Admin Dose 10 MG; Start 03/15/17 at 09:00 Atorvastatin Calcium (Lipitor) 20 mg QHS PO Last administered on 03/26/17 21: 21; Admin Dose 20 MG; Start 03/14/17 at 21:00 Benazepril HCl (Lotensin) 20 mg DAILY PO Last administered on 03/27/17 08:53; Admin Dose 20 MG; Start 03/15/17 at 09:00 Folic Acid (Folic Acid) 1 mg DAILY PO Last administered on 03/27/17 08:53; Admin Dose 1 MG; Start 03/15/17 at 09:00 Pantoprazole (Protonix Tab) 40 mg DAILY@06 PO Last administered on 03/27/17 06 :00; Admin Dose 40 MG; Start 03/15/17 at 06:00 Rifaximin (Xifaxan) 550 mg BID PO Last administered on 03/27/17 08:52; Admin Dose 550 MG; Start 03/14/17 at 21:00 Acetaminophen (Tylenol Tab) 650 mg Q6H PRN PO PAIN AND OR ELEVATED TEMP Last administered on 03/26/17 03:57; Admin Dose 650 MG; Start 03/14/17 at 20:30 Diagnostic Test (Pha) (Accu-Chek) 1 ea 02 XX Last administered on 03/25/17 01: 52; Admin Dose 1 EA; Start 03/18/17 at 02:00 Miscellaneous Information 1 ea NOTE XX ; Start 03/17/17 at 18:30 Glucose (Glutose) 15 gm Q15M PRN PO DECREASED GLUCOSE; Start 03/17/17 at 18:30 Glucose (Glutose) 22.5 gm Q15M PRN PO DECREASED GLUCOSE; Start 03/17/17 at 18: 30 Dextrose (D50w Syringe) 25 ml Q15M PRN IV DECREASED GLUCOSE; Start 03/17/17 at 18:30 Dextrose (D50w Syringe) 50 ml Q15M PRN IV DECREASED GLUCOSE; Start 03/17/17 at 18:30 Glucagon (Glucagen) 1 mg Q15M PRN IM DECREASED GLUCOSE; Start 03/17/17 at 18:30 Glucose (Glutose) 15 gm Q15M PRN BUCCAL DECREASED GLUCOSE; Start 03/17/17 at 18 :30 Potassium Chloride (Potassium Chloride Pwd/Soln) 40 meq DAILY NGT Last administered on 03/27/17 08:50; Admin Dose 40 MEQ; Start 03/25/17 at 09:00 Lactulose (Enulose) 40 gm BID PO Last administered on 03/27/17 08:52; Admin Dose 40 GM; Start 03/25/17 at 21:00 Insulin Glargine 25 unit 25 unit QHS SC Last administered on 03/26/17 22:02; Admin Dose 25 UNIT; Start 03/25/17 at 21:00 Sodium Chloride (NS) 1,000 ml @ 75 mls/hr [id number] IV Last administered on 03/27 00:03; Admin Dose 75 MLS/HR; Start 03/26/17 at 10:00 Lorazepam (Ativan) 1 mg Q4 PRN IV ANXIETY. Last administered on 03/26/17 18:17 ; Admin Dose 1 MG; Start 03/26/17 at 18:00 URI KATZ Mar 27, 2017 10:26
--- NOTE | 2017-03-27 12:33 | CONS ---
Date/Time of Note Date/Time of Note DATE: 03/27/17 TIME: 12:33 Assessment/Plan Assessment/Plan Chief Complaint/Hosp Course 51-year-old female with a history of cirrhosis of liver secondary to alcohol admitted to the hospital through the emergency room for change in mental status. Patient was discharged on lactulose no history of any precipitating events. She did not take any sedatives or narcotics no history of GI bleeding no fever no chills. No abdominal pain no nausea no vomiting Problems: Additional Assessment/Plan 1. 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 Diabetes mellitus 3. Hypertension 4. Encephalopathy. Ammonia slowly coming down, patient is more awake and oriented. Ammonia is down to 84 patient is completely oriented to time place and space and NG tube has been removed. She is tolerating p.o. feeding 5. Metabolic acidosis 6. Hypernatremia Plan IV fluid, with sodium bicarbonate to correct metabolic acidosis Reduce lactulose, diarrhea might be the cause of volume depletion and metabolic acidosis Stop, gabapentin which might be contributing factor for her high ammonia level All medication through NG tube until she is completely alert and awake and not risk for aspiration P.o. feeding with aspiration precaution Consultation Date/Type/Reason Admit Date/Time Mar 14, 2017 at 03:58 Type of Consultation: NEPHROLOGY Referring Provider: CHERYL CALL MD 24 HR Interval Summary Constitutional: improved Exam/Review of Systems Vital Signs Vitals Vital Signs Date Time Temp Pulse Resp B/P Pulse Ox O2 Delivery O2 Flow Rate FiO2 03/27/17 12:23 57 03/27/17 07:36 98.0 18 108/59 98 03/26/17 17:00 Room Air Intake and Output 03/26/17 03/26/17 03/27/17 15:00 23:00 07:00 Intake Total 960 ml 150 ml 1125 ml Output Total 245 ml 45 ml 600 ml Balance 715 ml 105 ml 525 ml Exam Constitutional: alert, oriented, well developed Psych: nl mood/affect, no complaints Head: atraumatic, normocephalic Eyes: EOMI, PERRL, nl conjunctiva, nl lids, nl sclera ENMT: nl external ears & nose, nl lips & teeth, nl nasal mucosa & septum Neck: non-tender, supple Respiratory: clear to auscultation, normal air movement Cardiovascular: nl pulses, regular rate and rhythm Gastrointestinal: nl liver, spleen, non-tender, soft Musculoskeletal: nl extremities to inspection, nl gait and stance Extremities: normal pulses Neurological: HYPO DIPPER II-XII intact, nl mental status, nl speech, nl strength Skin: nl turgor, No rash or lesions Lymph: nl lymph nodes Results Result Diagram: 03/24/17 1225 03/26/17 0539 Results 24 hrs Laboratory Tests Test 03/26/17 16:48 03/26/17 21:20 03/27/17 03:19 03/27/17 06:00 Bedside Glucose 194 191 131 123 Test 03/27/17 07:51 03/27/17 11:55 Bedside Glucose 106 226 H Medications Medications Current Medications Amlodipine Besylate (Norvasc) 10 mg DAILY PO Last administered on 03/27/17 08: 53; Admin Dose 10 MG; Start 03/15/17 at 09:00 Atorvastatin Calcium (Lipitor) 20 mg QHS PO Last administered on 03/26/17 21: 21; Admin Dose 20 MG; Start 03/14/17 at 21:00 Benazepril HCl (Lotensin) 20 mg DAILY PO Last administered on 03/27/17 08:53; Admin Dose 20 MG; Start 03/15/17 at 09:00 Folic Acid (Folic Acid) 1 mg DAILY PO Last administered on 03/27/17 08:53; Admin Dose 1 MG; Start 03/15/17 at 09:00 Pantoprazole (Protonix Tab) 40 mg DAILY@06 PO Last administered on 03/27/17 06 :00; Admin Dose 40 MG; Start 03/15/17 at 06:00 Rifaximin (Xifaxan) 550 mg BID PO Last administered on 03/27/17 08:52; Admin Dose 550 MG; Start 03/14/17 at 21:00 Acetaminophen (Tylenol Tab) 650 mg Q6H PRN PO PAIN AND OR ELEVATED TEMP Last administered on 03/26/17 03:57; Admin Dose 650 MG; Start 03/14/17 at 20:30 Diagnostic Test (Pha) (Accu-Chek) 1 ea 02 XX Last administered on 03/25/17 01: 52; Admin Dose 1 EA; Start 03/18/17 at 02:00 Miscellaneous Information 1 ea NOTE XX ; Start 03/17/17 at 18:30 Glucose (Glutose) 15 gm Q15M PRN PO DECREASED GLUCOSE; Start 03/17/17 at 18:30 Glucose (Glutose) 22.5 gm Q15M PRN PO DECREASED GLUCOSE; Start 03/17/17 at 18: 30 Dextrose (D50w Syringe) 25 ml Q15M PRN IV DECREASED GLUCOSE; Start 03/17/17 at 18:30 Dextrose (D50w Syringe) 50 ml Q15M PRN IV DECREASED GLUCOSE; Start 03/17/17 at 18:30 Glucagon (Glucagen) 1 mg Q15M PRN IM DECREASED GLUCOSE; Start 03/17/17 at 18:30 Glucose (Glutose) 15 gm Q15M PRN BUCCAL DECREASED GLUCOSE; Start 03/17/17 at 18 :30 Potassium Chloride (Potassium Chloride Pwd/Soln) 40 meq DAILY NGT Last administered on 03/27/17 08:50; Admin Dose 40 MEQ; Start 03/25/17 at 09:00 Lactulose (Enulose) 40 gm BID PO Last administered on 03/27/17 08:52; Admin Dose 40 GM; Start 03/25/17 at 21:00 Insulin Glargine 25 unit 25 unit QHS SC Last administered on 03/26/17 22:02; Admin Dose 25 UNIT; Start 03/25/17 at 21:00 Sodium Chloride (NS) 1,000 ml @ 75 mls/hr [id number] IV Last administered on 03/27 12:05; Admin Dose 75 MLS/HR; Start 03/26/17 at 10:00 Lorazepam (Ativan) 1 mg Q4 PRN IV ANXIETY. Last administered on 03/26/17 18:17 ; Admin Dose 1 MG; Start 03/26/17 at 18:00 BE MACDONALD MD Mar 27, 2017 12:33
--- NOTE | 2017-03-27 14:09 | CONS ---
Date/Time of Note Date/Time of Note DATE: 03/27/17 TIME: 14:07 Assessment/Plan Assessment/Plan Chief Complaint/Hosp Course Problems: Additional Assessment/Plan 1. Oliguric Acute Kidney injury - Urine output dropping down, possible Hepatorenal syndrome 2. Severe metabolic acidosis 3. acute hypernatremia 3.acute hepatic encephalopathy causing AMS 4. decompensated liver icrrhosis 5. h/o alcoholic liver cirrhosis 6. Hypertension 7. diabetes melitus 8. acute hypercalcemia Plan: continue IVF no need for lasix,K replacement continue current care will continue to follow up Consultation Date/Type/Reason Admit Date/Time Mar 14, 2017 at 03:58 Initial Consult Date 03/23/17 Type of Consultation: NEPHROLOGY Referring Provider: CHERYL CALL MD Exam/Review of Systems Vital Signs Vitals Vital Signs Date Time Temp Pulse Resp B/P Pulse Ox O2 Delivery O2 Flow Rate FiO2 03/27/17 12:32 97.0 65 18 110/60 98 03/26/17 17:00 Room Air Intake and Output 03/26/17 03/26/17 03/27/17 15:00 23:00 07:00 Intake Total 960 ml 150 ml 1125 ml Output Total 245 ml 45 ml 600 ml Balance 715 ml 105 ml 525 ml Exam Constitutional: alert, oriented, well developed Respiratory: clear to auscultation, normal air movement Cardiovascular: nl pulses, regular rate and rhythm Gastrointestinal: nl liver, spleen, non-tender, soft Musculoskeletal: nl extremities to inspection, nl gait and stance Extremities: normal pulses Neurological: [employer]GER II-XII intact, nl mental status, nl speech, nl strength Results Result Diagram: 03/24/17 1225 03/26/17 0539 Results 24 hrs Laboratory Tests Test 03/26/17 16:48 03/26/17 21:20 03/27/17 03:19 03/27/17 06:00 Bedside Glucose 194 191 131 123 Test 03/27/17 07:51 03/27/17 11:55 Bedside Glucose 106 226 H Medications Medications Current Medications Amlodipine Besylate (Norvasc) 10 mg DAILY PO Last administered on 03/27/17 08: 53; Admin Dose 10 MG; Start 03/15/17 at 09:00 Atorvastatin Calcium (Lipitor) 20 mg QHS PO Last administered on 03/26/17 21: 21; Admin Dose 20 MG; Start 03/14/17 at 21:00 Benazepril HCl (Lotensin) 20 mg DAILY PO Last administered on 03/27/17 08:53; Admin Dose 20 MG; Start 03/15/17 at 09:00 Folic Acid (Folic Acid) 1 mg DAILY PO Last administered on 03/27/17 08:53; Admin Dose 1 MG; Start 03/15/17 at 09:00 Pantoprazole (Protonix Tab) 40 mg DAILY@06 PO Last administered on 03/27/17 06 :00; Admin Dose 40 MG; Start 03/15/17 at 06:00 Rifaximin (Xifaxan) 550 mg BID PO Last administered on 03/27/17 08:52; Admin Dose 550 MG; Start 03/14/17 at 21:00 Acetaminophen (Tylenol Tab) 650 mg Q6H PRN PO PAIN AND OR ELEVATED TEMP Last administered on 03/26/17 03:57; Admin Dose 650 MG; Start 03/14/17 at 20:30 Diagnostic Test (Pha) (Accu-Chek) 1 ea 02 XX Last administered on 03/25/17 01: 52; Admin Dose 1 EA; Start 03/18/17 at 02:00 Miscellaneous Information 1 ea NOTE XX ; Start 03/17/17 at 18:30 Glucose (Glutose) 15 gm Q15M PRN PO DECREASED GLUCOSE; Start 03/17/17 at 18:30 Glucose (Glutose) 22.5 gm Q15M PRN PO DECREASED GLUCOSE; Start 03/17/17 at 18: 30 Dextrose (D50w Syringe) 25 ml Q15M PRN IV DECREASED GLUCOSE; Start 03/17/17 at 18:30 Dextrose (D50w Syringe) 50 ml Q15M PRN IV DECREASED GLUCOSE; Start 03/17/17 at 18:30 Glucagon (Glucagen) 1 mg Q15M PRN IM DECREASED GLUCOSE; Start 03/17/17 at 18:30 Glucose (Glutose) 15 gm Q15M PRN BUCCAL DECREASED GLUCOSE; Start 03/17/17 at 18 :30 Potassium Chloride (Potassium Chloride Pwd/Soln) 40 meq DAILY NGT Last administered on 03/27/17 08:50; Admin Dose 40 MEQ; Start 03/25/17 at 09:00 Lactulose (Enulose) 40 gm BID PO Last administered on 03/27/17 08:52; Admin Dose 40 GM; Start 03/25/17 at 21:00 Insulin Glargine 25 unit 25 unit QHS SC Last administered on 03/26/17 22:02; Admin Dose 25 UNIT; Start 03/25/17 at 21:00 Sodium Chloride (NS) 1,000 ml @ 75 mls/hr [id number] IV Last administered on 03/27 12:05; Admin Dose 75 MLS/HR; Start 03/26/17 at 10:00 Lorazepam (Ativan) 1 mg Q4 PRN IV ANXIETY. Last administered on 03/26/17 18:17 ; Admin Dose 1 MG; Start 03/26/17 at 18:00 JOSSY WHITTAKER MD Mar 27, 2017 14:09
[2017-03-27] MEDS: ATORVASTATIN 20 MG TAB PO SCH (20:24)
[2017-03-27] MEDS: INSULIN GLARGINE [LANtus] 3 ML PEN SC SCH (20:41)
[2017-03-27] MEDS ORDERED: INSULIN ASPART [NOVOLOG] 3 ML PEN SC SCH (21:00)
[2017-03-28] VITALS (13 sets, daily range): BP systolic 99–110; BP diastolic 58–88; PULSE 60–70; RESP 18
[2017-03-28] MEDS: SOD CHLORIDE 0.9% 1,000 ML IV SCH ×2 (00:39→13:44)
[2017-03-28] MEDS: ACCU-CHEK XX SCH (02:00)
[2017-03-28] MEDS ORDERED: ACCU-CHEK XX SCH ×2 (02:00)
[2017-03-28 06:09] LABS: HEMOGLOBIN 8.6 g/dl (12.0-16.0); RED BLOOD COUNT 2.98 10^6/ul (4.20-5.40); WHITE BLOOD COUNT 3.4 10^3/ul (4.8-10.8)
[2017-03-28 06:10] LABS: ABNORMAL IP MESSAGE 1; HEMATOCRIT 26.2 % (37.0-47.0); MEAN CORPUSCULAR HEMOGLOBIN 28.9 pg (29.0-33.0); MEAN CORPUSCULAR HGB CONC 32.8 g/dl (32.0-37.0); MEAN CORPUSCULAR VOLUME 87.9 fl (82.0-101.0); RED CELL DISTRIBUTION WIDTH 16.9 % (11.5-14.5)
[2017-03-28] MEDS: PANTOPRAZOLE (EC) 40 MG TAB PO SCH (06:26)
[2017-03-28 06:59] LABS: POSITIVE DIFF @See below
[2017-03-28 07:07] LABS: CREATININE 0.62 mg/dl (0.44-1.00); POTASSIUM 3.5 mmol/L (3.5-5.1)
[2017-03-28] MEDS: INSULIN ASPART [NOVOLOG] 3 ML PEN SC SCH ×4 (07:51→21:41)
[2017-03-28] MEDS: POTASSIUM CHLORIDE 20 MEQ POWDER FOR ORAL SOLN NGT SCH (08:42)
[2017-03-28] MEDS: FOLIC ACID 1 MG TAB PO SCH (08:43)
[2017-03-28] MEDS: LACTULOSE 30ML CUP PO SCH ×2 (08:43→21:34)
[2017-03-28] MEDS: RIFAXIMIN 550 MG TAB PO SCH ×2 (08:43→21:34)
[2017-03-28] MEDS: AMLODIPINE 10 MG TAB PO SCH (08:43)
[2017-03-28] MEDS: BENAZEPRIL 20 MG TAB PO SCH (08:43)
--- NOTE | 2017-03-28 11:40 | PN ---
Date/Time of Note Date/Time of Note DATE: 03/28/17 TIME: 11:39 Assessment/Plan VTE Prophylaxis VTE Prophylaxis Intervention: other Lines/Catheters [facility] Type [facility] Peripheral IV Urinary Cath still in place: Yes Reason Cath still needed: skin wounds contaminated by urine Assessment/Plan Chief Complaint/Hosp Course - Severe metabolic acidosis with , Dr. Rios is following in nephrology consultation. Continue bicarbonate drip. ICU monitoring. - Acute hypernatremia, continue IV fluids with D5 - Acute kidney injury, with possible hepatorenal syndrome, continue to monitor renal function. - Acute Hepatic encephalopathy. Continue lactulose and rifaximin. Monitor ammonia level. - Alcoholic liver cirrhosis. Dr. North is following in gastroenterology consultation. - Diabetes mellitus type 2 with hyperglycemia, continue Lantus and NovoLog per moderate algorithm sliding scale with Accu-Chek every 4 hours. - Hypertension. Continue Norvasc and lisinopril. - Thrombocytopenia, most likely due to liver cirrhosis. Problems: Subjective 24 Hr Interval Summary Free Text/Dictation Patient remains with good mentation, has no complaints Exam/Review of Systems Vital Signs Vitals Vital Signs Date Time Temp Pulse Resp B/P Pulse Ox O2 Delivery O2 Flow Rate FiO2 03/28/17 08:13 62 03/28/17 07:41 98.0 18 102/60 98 03/26/17 17:00 Room Air Intake and Output 03/27/17 03/27/17 03/28/17 15:00 23:00 07:00 Intake Total 1550 ml 1250 ml Output Total 400 ml 600 ml Balance 1150 ml 650 ml Exam Constitutional: well developed Head: atraumatic, normocephalic Neck: supple Respiratory: clear to auscultation Cardiovascular: regular rate and rhythm Gastrointestinal: non-tender, soft Extremities: normal pulses Results Result Diagram: 03/28/17 0543 03/28/17 0543 Results 24 hrs Laboratory Tests Test 03/27/17 11:55 03/27/17 17:32 03/27/17 20:23 03/28/17 00:37 Bedside Glucose 226 H 332 H 247 H 267 H Test 03/28/17 03:58 03/28/17 05:43 03/28/17 07:48 03/28/17 11:33 Bedside Glucose 178 145 251 H White Blood Count 3.4 #L Red Blood Count 2.98 #L Hemoglobin 8.6 L Hematocrit 26.2 L Mean Corpuscular Volume 87.9 Mean Corpuscular Hemoglobin 28.9 L Mean Corpuscular Hemoglobin Concent 32.8 Red Cell Distribution Width 16.9 H Platelet Count Pending Mean Platelet Volume Neutrophils % Lymphocytes % Monocytes % Eosinophils % Basophils % Nucleated Red Blood Cells % 0.0 Neutrophils # Lymphocytes # Monocytes # Eosinophils # Basophils # Nucleated Red Blood Cells # Sodium Level 145 H Potassium Level 3.5 Chloride Level 109 Carbon Dioxide Level 24 Anion Gap 16 Blood Urea Nitrogen 15 Creatinine 0.62 Glucose Level 149 Calcium Level 8.0 L Medications Medications Current Medications Amlodipine Besylate (Norvasc) 10 mg DAILY PO Last administered on 03/28/17 08: 43; Admin Dose 10 MG; Start 03/15/17 at 09:00 Atorvastatin Calcium (Lipitor) 20 mg QHS PO Last administered on 03/27/17 20: 24; Admin Dose 20 MG; Start 03/14/17 at 21:00 Benazepril HCl (Lotensin) 20 mg DAILY PO Last administered on 03/28/17 08:43; Admin Dose 20 MG; Start 03/15/17 at 09:00 Folic Acid (Folic Acid) 1 mg DAILY PO Last administered on 03/28/17 08:43; Admin Dose 1 MG; Start 03/15/17 at 09:00 Pantoprazole (Protonix Tab) 40 mg DAILY@06 PO Last administered on 03/28/17 06 :26; Admin Dose 40 MG; Start 03/15/17 at 06:00 Rifaximin (Xifaxan) 550 mg BID PO Last administered on 03/28/17 08:43; Admin Dose 550 MG; Start 03/14/17 at 21:00 Acetaminophen (Tylenol Tab) 650 mg Q6H PRN PO PAIN AND OR ELEVATED TEMP Last administered on 03/26/17 03:57; Admin Dose 650 MG; Start 03/14/17 at 20:30 Diagnostic Test (Pha) (Accu-Chek) 1 ea 02 XX Last administered on 03/25/17 01: 52; Admin Dose 1 EA; Start 03/18/17 at 02:00 Miscellaneous Information 1 ea NOTE XX ; Start 03/17/17 at 18:30 Glucose (Glutose) 15 gm Q15M PRN PO DECREASED GLUCOSE; Start 03/17/17 at 18:30 Glucose (Glutose) 22.5 gm Q15M PRN PO DECREASED GLUCOSE; Start 03/17/17 at 18: 30 Dextrose (D50w Syringe) 25 ml Q15M PRN IV DECREASED GLUCOSE; Start 03/17/17 at 18:30 Dextrose (D50w Syringe) 50 ml Q15M PRN IV DECREASED GLUCOSE; Start 03/17/17 at 18:30 Glucagon (Glucagen) 1 mg Q15M PRN IM DECREASED GLUCOSE; Start 03/17/17 at 18:30 Glucose (Glutose) 15 gm Q15M PRN BUCCAL DECREASED GLUCOSE; Start 03/17/17 at 18 :30 Potassium Chloride (Potassium Chloride Pwd/Soln) 40 meq DAILY NGT Last administered on 03/28/17 08:42; Admin Dose 40 MEQ; Start 03/25/17 at 09:00 Lactulose 40 gm 40 gm BID PO Last administered on 03/28/17 08:43; Admin Dose 40 GM; Start 03/25/17 at 21:00 Sodium Chloride (NS) 1,000 ml @ 75 mls/hr [id number] IV Last administered on 03/28 00:39; Admin Dose 75 MLS/HR; Start 03/26/17 at 10:00 Lorazepam (Ativan) 1 mg Q4 PRN IV ANXIETY. Last administered on 03/26/17 18:17 ; Admin Dose 1 MG; Start 03/26/17 at 18:00 Insulin Glargine (Lantus) 30 unit QHS SC Last administered on 03/27/17 20:41; Admin Dose 30 UNIT; Start 03/27/17 at 21:00 URI KATZ Mar 28, 2017 11:40
[2017-03-28 11:53] LABS: ANISOCYTOSIS 1+ (0-0); BASOPHILS % (M) 3 % (0-2); EOSINOPHILS % (M) 6 % (0-7); ERYTHROBLAST% (NRBC) (M) 3 % (0-0); GIANT THROMBO% (M) 65 % (0-0); MICROCYTOSIS 1+ (0-0); MONOCYTES % (M) 9 % (0-11); PLATELET ESTIMATE DECREASED; POIKILOCYTOSIS 2+ (0-0); POLYCHROMASIA 3+ (0-0)
[2017-03-28 12:21] LABS: PLATELET COUNT 34 10^3/UL (140-415)
--- NOTE | 2017-03-28 13:34 | CONS ---
Date/Time of Note Date/Time of Note DATE: 03/28/17 TIME: 13:33 Assessment/Plan Assessment/Plan Chief Complaint/Hosp Course 51-year-old female with a history of cirrhosis of liver secondary to alcohol admitted to the hospital through the emergency room for change in mental status. Patient was discharged on lactulose no history of any precipitating events. She did not take any sedatives or narcotics no history of GI bleeding no fever no chills. No abdominal pain no nausea no vomiting Problems: Additional Assessment/Plan Problems: Additional Assessment/Plan 1. 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 Diabetes mellitus 3. Hypertension 4. Encephalopathy. Ammonia slowly coming down, patient is more awake and oriented. Ammonia is down to 84 patient is completely oriented to time place and space and NG tube has been removed. She is tolerating p.o. feeding 5. Metabolic acidosis 6. Hypernatremia Plan IV fluid, with sodium bicarbonate to correct metabolic acidosis Reduce lactulose, diarrhea might be the cause of volume depletion and metabolic acidosis Stop, gabapentin which might be contributing factor for her high ammonia level P.o. feeding with aspiration precaution Ambulate patient with the assistance Consultation Date/Type/Reason Admit Date/Time Mar 14, 2017 at 03:58 Type of Consultation: NEPHROLOGY Referring Provider: CHERYL CALL MD 24 HR Interval Summary Constitutional: improved, no complaints Exam/Review of Systems Vital Signs Vitals Vital Signs Date Time Temp Pulse Resp B/P Pulse Ox O2 Delivery O2 Flow Rate FiO2 03/28/17 12:48 98.0 63 18 108/67 98 03/26/17 17:00 Room Air Intake and Output 03/27/17 03/27/17 03/28/17 15:00 23:00 07:00 Intake Total 1550 ml 1250 ml Output Total 400 ml 600 ml Balance 1150 ml 650 ml Exam Constitutional: alert, oriented, well developed Psych: nl mood/affect, no complaints Head: atraumatic, normocephalic Eyes: EOMI, PERRL, nl conjunctiva, nl lids, nl sclera ENMT: nl external ears & nose, nl lips & teeth, nl nasal mucosa & septum Neck: non-tender, supple Respiratory: clear to auscultation, normal air movement Cardiovascular: nl pulses, regular rate and rhythm Gastrointestinal: nl liver, spleen, non-tender, soft Musculoskeletal: nl extremities to inspection, nl gait and stance Extremities: normal pulses Neurological: RECORD CHANGER II-XII intact, nl mental status, nl speech, nl strength Skin: nl turgor, No rash or lesions Lymph: nl lymph nodes Results Result Diagram: 03/28/1743 03/28/17 0543 Results 24 hrs Laboratory Tests Test 03/27/17 17:32 03/27/17 20:23 03/28/17 00:37 03/28/17 03:58 Bedside Glucose 332 H 247 H 267 H 178 Test 03/28/17 05:43 03/28/17 07:48 03/28/17 11:33 White Blood Count 3.4 #L Red Blood Count 2.98 #L Hemoglobin 8.6 L Hematocrit 26.2 L Mean Corpuscular Volume 87.9 Mean Corpuscular Hemoglobin 28.9 L Mean Corpuscular Hemoglobin Concent 32.8 Red Cell Distribution Width 16.9 H Platelet Count 34 #L Mean Platelet Volume Neutrophils % Segmented Neutrophils % (Manual) 56 Lymphocytes % Lymphocytes % (Manual) 27 Monocytes % Monocytes % (Manual) 9 Eosinophils % Eosinophils % (Manual) 6 Basophils % Basophils % (Manual) 3 H Nucleated Red Blood Cells % 3 H Neutrophils # Absolute Lymphocytes (Manual) 0.9 Lymphocytes # Monocytes # Absolute Monocytes (Manual) 0.3 Eosinophils # Basophils # Basophils # (Manual) 0.1 H Nucleated Red Blood Cells # Smudge Cells % 15 H Thrombocytosis 65 H Platelet Estimate DECREASED Polychromasia 3+ Poikilocytosis 2+ Anisocytosis 1+ Microcytosis 1+ Elliptocytes 1+ Sodium Level 145 H Potassium Level 3.5 Chloride Level 109 Carbon Dioxide Level 24 Anion Gap 16 Blood Urea Nitrogen 15 Creatinine 0.62 Glucose Level 149 Calcium Level 8.0 L Bedside Glucose 145 251 H Medications Medications Current Medications Amlodipine Besylate (Norvasc) 10 mg DAILY PO Last administered on 03/28/17 08: 43; Admin Dose 10 MG; Start 03/15/17 at 09:00 Atorvastatin Calcium (Lipitor) 20 mg QHS PO Last administered on 03/27/17 20: 24; Admin Dose 20 MG; Start 03/14/17 at 21:00 Benazepril HCl (Lotensin) 20 mg DAILY PO Last administered on 03/28/17 08:43; Admin Dose 20 MG; Start 03/15/17 at 09:00 Folic Acid (Folic Acid) 1 mg DAILY PO Last administered on 03/28/17 08:43; Admin Dose 1 MG; Start 03/15/17 at 09:00 Pantoprazole (Protonix Tab) 40 mg DAILY@06 PO Last administered on 03/28/17 06 :26; Admin Dose 40 MG; Start 03/15/17 at 06:00 Rifaximin (Xifaxan) 550 mg BID PO Last administered on 03/28/17 08:43; Admin Dose 550 MG; Start 03/14/17 at 21:00 Acetaminophen (Tylenol Tab) 650 mg Q6H PRN PO PAIN AND OR ELEVATED TEMP Last administered on 03/26/17 03:57; Admin Dose 650 MG; Start 03/14/17 at 20:30 Diagnostic Test (Pha) (Accu-Chek) 1 ea 02 XX Last administered on 03/25/17 01: 52; Admin Dose 1 EA; Start 03/18/17 at 02:00 Miscellaneous Information 1 ea NOTE XX ; Start 03/17/17 at 18:30 Glucose (Glutose) 15 gm Q15M PRN PO DECREASED GLUCOSE; Start 03/17/17 at 18:30 Glucose (Glutose) 22.5 gm Q15M PRN PO DECREASED GLUCOSE; Start 03/17/17 at 18: 30 Dextrose (D50w Syringe) 25 ml Q15M PRN IV DECREASED GLUCOSE; Start 03/17/17 at 18:30 Dextrose (D50w Syringe) 50 ml Q15M PRN IV DECREASED GLUCOSE; Start 03/17/17 at 18:30 Glucagon (Glucagen) 1 mg Q15M PRN IM DECREASED GLUCOSE; Start 03/17/17 at 18:30 Glucose (Glutose) 15 gm Q15M PRN BUCCAL DECREASED GLUCOSE; Start 03/17/17 at 18 :30 Potassium Chloride (Potassium Chloride Pwd/Soln) 40 meq DAILY NGT Last administered on 03/28/17 08:42; Admin Dose 40 MEQ; Start 03/25/17 at 09:00 Lactulose 40 gm 40 gm BID PO Last administered on 03/28/17 08:43; Admin Dose 40 GM; Start 03/25/17 at 21:00 Sodium Chloride (NS) 1,000 ml @ 75 mls/hr [id number] IV Last administered on 03/28 00:39; Admin Dose 75 MLS/HR; Start 03/26/17 at 10:00 Lorazepam (Ativan) 1 mg Q4 PRN IV ANXIETY. Last administered on 03/26/17 18:17 ; Admin Dose 1 MG; Start 03/26/17 at 18:00 Insulin Glargine (Lantus) 30 unit QHS SC Last administered on 03/27/17 20:41; Admin Dose 30 UNIT; Start 03/27/17 at 21:00 BE MACDONALD MD Mar 28, 2017 13:34
[2017-03-28] MEDS: ATORVASTATIN 20 MG TAB PO SCH (21:34)
[2017-03-28] MEDS: INSULIN GLARGINE [LANtus] 3 ML PEN SC SCH (21:48)
--- NOTE | 2017-03-28 22:15 | CONS ---
Date/Time of Note Date/Time of Note DATE: 03/28/17 TIME: 22:14 Assessment/Plan Assessment/Plan Chief Complaint/Hosp Course Problems: Additional Assessment/Plan 1. Oliguric Acute Kidney injury - Urine output dropping down, possible Hepatorenal syndrome 2. Severe metabolic acidosis 3. acute hypernatremia 3.acute hepatic encephalopathy causing AMS 4. decompensated liver icrrhosis 5. h/o alcoholic liver cirrhosis 6. Hypertension 7. diabetes melitus 8. acute hypercalcemia Plan: continue IVF no need for lasix,K replacement continue current care will continue to follow up Consultation Date/Type/Reason Admit Date/Time Mar 14, 2017 at 03:58 Initial Consult Date 03/23/17 Type of Consultation: NEPHROLOGY Reason for Consultation Oliguric Acute kidney Injury Referring Provider: CHERYL CALL MD Exam/Review of Systems Vital Signs Vitals Vital Signs Date Time Temp Pulse Resp B/P Pulse Ox O2 Delivery O2 Flow Rate FiO2 03/28/17 20:11 98.5 72 18 104/60 96 03/26/17 17:00 Room Air Intake and Output 03/27/17 03/27/17 03/28/17 15:00 23:00 07:00 Intake Total 1550 ml 1250 ml Output Total 400 ml 600 ml Balance 1150 ml 650 ml Results Result Diagram: 03/28/17 0543 03/28/17 0543 Results 24 hrs Laboratory Tests Test 03/28/17 00:37 03/28/17 03:58 03/28/17 05:43 03/28/17 07:48 Bedside Glucose 267 H 178 145 White Blood Count 3.4 #L Red Blood Count 2.98 #L Hemoglobin 8.6 L Hematocrit 26.2 L Mean Corpuscular Volume 87.9 Mean Corpuscular Hemoglobin 28.9 L Mean Corpuscular Hemoglobin Concent 32.8 Red Cell Distribution Width 16.9 H Platelet Count 34 #L Mean Platelet Volume Neutrophils % Segmented Neutrophils % (Manual) 56 Lymphocytes % Lymphocytes % (Manual) 27 Monocytes % Monocytes % (Manual) 9 Eosinophils % Eosinophils % (Manual) 6 Basophils % Basophils % (Manual) 3 H Nucleated Red Blood Cells % 3 H Neutrophils # Absolute Lymphocytes (Manual) 0.9 Lymphocytes # Monocytes # Absolute Monocytes (Manual) 0.3 Eosinophils # Basophils # Basophils # (Manual) 0.1 H Nucleated Red Blood Cells # Smudge Cells % 15 H Thrombocytosis 65 H Platelet Estimate DECREASED Polychromasia 3+ Poikilocytosis 2+ Anisocytosis 1+ Microcytosis 1+ Elliptocytes 1+ Sodium Level 145 H Potassium Level 3.5 Chloride Level 109 Carbon Dioxide Level 24 Anion Gap 16 Blood Urea Nitrogen 15 Creatinine 0.62 Glucose Level 149 Calcium Level 8.0 L Test 03/28/17 11:33 03/28/17 17:14 03/28/17 21:32 Bedside Glucose 251 H 168 249 H Medications Medications Current Medications Amlodipine Besylate (Norvasc) 10 mg DAILY PO Last administered on 03/28/17 08: 43; Admin Dose 10 MG; Start 03/15/17 at 09:00 Atorvastatin Calcium (Lipitor) 20 mg QHS PO Last administered on 03/28/17 21: 34; Admin Dose 20 MG; Start 03/14/17 at 21:00 Benazepril HCl (Lotensin) 20 mg DAILY PO Last administered on 03/28/17 08:43; Admin Dose 20 MG; Start 03/15/17 at 09:00 Folic Acid (Folic Acid) 1 mg DAILY PO Last administered on 03/28/17 08:43; Admin Dose 1 MG; Start 03/15/17 at 09:00 Pantoprazole (Protonix Tab) 40 mg DAILY@06 PO Last administered on 03/28/17 06 :26; Admin Dose 40 MG; Start 03/15/17 at 06:00 Rifaximin (Xifaxan) 550 mg BID PO Last administered on 03/28/17 21:34; Admin Dose 550 MG; Start 03/14/17 at 21:00 Acetaminophen (Tylenol Tab) 650 mg Q6H PRN PO PAIN AND OR ELEVATED TEMP Last administered on 03/26/17 03:57; Admin Dose 650 MG; Start 03/14/17 at 20:30 Diagnostic Test (Pha) (Accu-Chek) 1 ea 02 XX Last administered on 03/25/17 01: 52; Admin Dose 1 EA; Start 03/18/17 at 02:00 Miscellaneous Information 1 ea NOTE XX ; Start 03/17/17 at 18:30 Glucose (Glutose) 15 gm Q15M PRN PO DECREASED GLUCOSE; Start 03/17/17 at 18:30 Glucose (Glutose) 22.5 gm Q15M PRN PO DECREASED GLUCOSE; Start 03/17/17 at 18: 30 Dextrose (D50w Syringe) 25 ml Q15M PRN IV DECREASED GLUCOSE; Start 03/17/17 at 18:30 Dextrose (D50w Syringe) 50 ml Q15M PRN IV DECREASED GLUCOSE; Start 03/17/17 at 18:30 Glucagon (Glucagen) 1 mg Q15M PRN IM DECREASED GLUCOSE; Start 03/17/17 at 18:30 Glucose (Glutose) 15 gm Q15M PRN BUCCAL DECREASED GLUCOSE; Start 03/17/17 at 18 :30 Potassium Chloride (Potassium Chloride Pwd/Soln) 40 meq DAILY NGT Last administered on 03/28/17 08:42; Admin Dose 40 MEQ; Start 03/25/17 at 09:00 Lactulose 40 gm 40 gm BID PO Last administered on 03/28/17 21:34; Admin Dose 40 GM; Start 03/25/17 at 21:00 Sodium Chloride (NS) 1,000 ml @ 75 mls/hr [id number] IV Last administered on 03/28 13:44; Admin Dose 75 MLS/HR; Start 03/26/17 at 10:00 Lorazepam (Ativan) 1 mg Q4 PRN IV ANXIETY. Last administered on 03/26/17 18:17 ; Admin Dose 1 MG; Start 03/26/17 at 18:00 Insulin Glargine (Lantus) 30 unit QHS SC Last administered on 03/28/17 21:48; Admin Dose 30 UNIT; Start 03/27/17 at 21:00 JOSSY WHITTAKER MD Mar 28, 2017 22:15
[2017-03-29] VITALS (11 sets, daily range): BP systolic 106–112; BP diastolic 57–62; PULSE 60–68; RESP 17–18
[2017-03-29] MEDS: ACCU-CHEK XX SCH (02:00)
[2017-03-29] MEDS: SOD CHLORIDE 0.9% 1,000 ML IV SCH ×3 (03:34→20:40)
[2017-03-29] MEDS: PANTOPRAZOLE (EC) 40 MG TAB PO SCH (06:57)
[2017-03-29] MEDS: INSULIN ASPART [NOVOLOG] 3 ML PEN SC SCH ×4 (08:31→20:55)
[2017-03-29] MEDS: POTASSIUM CHLORIDE 20 MEQ POWDER FOR ORAL SOLN NGT SCH (08:50)
[2017-03-29] MEDS: LACTULOSE 30ML CUP PO SCH ×2 (08:50→20:39)
[2017-03-29] MEDS: FOLIC ACID 1 MG TAB PO SCH (08:51)
[2017-03-29] MEDS: RIFAXIMIN 550 MG TAB PO SCH ×2 (08:51→20:39)
[2017-03-29] MEDS: BENAZEPRIL 20 MG TAB PO SCH (08:52)
[2017-03-29] MEDS: AMLODIPINE 10 MG TAB PO SCH (08:52)
[2017-03-29 10:46] LABS: POTASSIUM 2.5 mmol/L (3.5-5.1)
[2017-03-29] MEDS: ACETAMINOPHEN 325 MG TAB PO PRN (12:25)
--- NOTE | 2017-03-29 13:54 | CONS ---
Date/Time of Note Date/Time of Note DATE: 03/29/17 TIME: 13:53 Assessment/Plan Assessment/Plan Chief Complaint/Hosp Course Problems: Additional Assessment/Plan 1. Oliguric Acute Kidney injury - Urine output dropping down, possible Hepatorenal syndrome 2. Severe metabolic acidosis 3. acute hypernatremia 3.acute hepatic encephalopathy causing AMS 4. decompensated liver icrrhosis 5. h/o alcoholic liver cirrhosis 6. Hypertension 7. diabetes melitus 8. acute hypercalcemia Plan: continue IVF no need for lasix,K replacement continue current care will continue to follow up Consultation Date/Type/Reason Admit Date/Time Mar 14, 2017 at 03:58 Initial Consult Date 03/23/17 Type of Consultation: NEPHROLOGY Referring Provider: CHERYL CALL MD 24 HR Interval Summary Free Text/Dictation no acute events, no labs today to review Exam/Review of Systems Vital Signs Vitals Vital Signs Date Time Temp Pulse Resp B/P Pulse Ox O2 Delivery O2 Flow Rate FiO2 03/29/17 12:24 97.6 68 17 106/58 99 03/26/17 17:00 Room Air Intake and Output 03/28/17 03/28/17 03/29/17 15:00 23:00 07:00 Intake Total 750 ml 2150 ml Output Total 900 ml 1000 ml Balance -150 ml 1150 ml Exam Constitutional: alert, but intermittently confused Neck: supple Respiratory: normal air movement Cardiovascular: nl pulses, regular rate and rhythm Gastrointestinal: non-tender, soft Extremities: normal pulses Neurological: confused Skin: nl turgor Results Result Diagram: 03/28/17 0543 03/28/17 0543 Results 24 hrs Laboratory Tests Test 03/28/17 17:14 03/28/17 21:32 03/29/17 03:30 03/29/17 08:26 Bedside Glucose 168 249 H 207 142 Test 03/29/17 11:54 Bedside Glucose 215 Medications Medications Current Medications Amlodipine Besylate (Norvasc) 10 mg DAILY PO Last administered on 03/29/17 08: 52; Admin Dose 10 MG; Start 03/15/17 at 09:00 Atorvastatin Calcium (Lipitor) 20 mg QHS PO Last administered on 03/28/17 21: 34; Admin Dose 20 MG; Start 03/14/17 at 21:00 Benazepril HCl (Lotensin) 20 mg DAILY PO Last administered on 03/29/17 08:52; Admin Dose 20 MG; Start 03/15/17 at 09:00 Folic Acid (Folic Acid) 1 mg DAILY PO Last administered on 03/29/17 08:51; Admin Dose 1 MG; Start 03/15/17 at 09:00 Pantoprazole (Protonix Tab) 40 mg DAILY@06 PO Last administered on 03/29/17 06 :57; Admin Dose 40 MG; Start 03/15/17 at 06:00 Rifaximin (Xifaxan) 550 mg BID PO Last administered on 03/29/17 08:51; Admin Dose 550 MG; Start 03/14/17 at 21:00 Acetaminophen (Tylenol Tab) 650 mg Q6H PRN PO PAIN AND OR ELEVATED TEMP Last administered on 03/29/17 12:25; Admin Dose 650 MG; Start 03/14/17 at 20:30 Diagnostic Test (Pha) (Accu-Chek) 1 ea 02 XX Last administered on 03/25/17 01: 52; Admin Dose 1 EA; Start 03/18/17 at 02:00 Miscellaneous Information 1 ea NOTE XX ; Start 03/17/17 at 18:30 Glucose (Glutose) 15 gm Q15M PRN PO DECREASED GLUCOSE; Start 03/17/17 at 18:30 Glucose (Glutose) 22.5 gm Q15M PRN PO DECREASED GLUCOSE; Start 03/17/17 at 18: 30 Dextrose (D50w Syringe) 25 ml Q15M PRN IV DECREASED GLUCOSE; Start 03/17/17 at 18:30 Dextrose (D50w Syringe) 50 ml Q15M PRN IV DECREASED GLUCOSE; Start 03/17/17 at 18:30 Glucagon (Glucagen) 1 mg Q15M PRN IM DECREASED GLUCOSE; Start 03/17/17 at 18:30 Glucose (Glutose) 15 gm Q15M PRN BUCCAL DECREASED GLUCOSE; Start 03/17/17 at 18 :30 Potassium Chloride (Potassium Chloride Pwd/Soln) 40 meq DAILY NGT Last administered on 03/29/17 08:50; Admin Dose 40 MEQ; Start 03/25/17 at 09:00 Lactulose 40 gm 40 gm BID PO Last administered on 03/29/17 08:50; Admin Dose 40 GM; Start 03/25/17 at 21:00 Sodium Chloride (NS) 1,000 ml @ 75 mls/hr [id number] IV Last administered on 03/29 03:34; Admin Dose 75 MLS/HR; Start 03/26/17 at 10:00 Lorazepam (Ativan) 1 mg Q4 PRN IV ANXIETY. Last administered on 03/26/17 18:17 ; Admin Dose 1 MG; Start 03/26/17 at 18:00 Insulin Glargine (Lantus) 30 unit QHS SC Last administered on 03/28/17 21:48; Admin Dose 30 UNIT; Start 03/27/17 at 21:00 JOSSY WHITTAKER MD Mar 29, 2017 13:54
--- NOTE | 2017-03-29 14:44 | PN ---
Date/Time of Note Date/Time of Note DATE: 03/29/17 TIME: 14:43 Assessment/Plan VTE Prophylaxis VTE Prophylaxis Intervention: other Lines/Catheters IV Catheter Type (from [facility]): Peripheral IV Urinary Cath still in place: Yes Reason Cath still needed: skin wounds contaminated by urine Assessment/Plan Chief Complaint/Hosp Course - Severe metabolic acidosis with , Dr. Rios is following in nephrology consultation. Continue bicarbonate drip. ICU monitoring. - Acute hypernatremia, continue IV fluids with D5 - Acute kidney injury, with possible hepatorenal syndrome, continue to monitor renal function. - Acute Hepatic encephalopathy. Continue lactulose and rifaximin. Monitor ammonia level. - Alcoholic liver cirrhosis. Dr. North is following in gastroenterology consultation. - Diabetes mellitus type 2 with hyperglycemia, continue Lantus and NovoLog per moderate algorithm sliding scale with Accu-Chek every 4 hours. - Hypertension. Continue Norvasc and lisinopril. - Thrombocytopenia, most likely due to liver cirrhosis. Problems: Subjective 24 Hr Interval Summary Free Text/Dictation Patient has no complaints Exam/Review of Systems Vital Signs Vitals Vital Signs Date Time Temp Pulse Resp B/P Pulse Ox O2 Delivery O2 Flow Rate FiO2 03/29/17 12:24 97.6 68 17 106/58 99 03/26/17 17:00 Room Air Intake and Output 03/28/17 03/28/17 03/29/17 15:00 23:00 07:00 Intake Total 750 ml 2150 ml Output Total 900 ml 1000 ml Balance -150 ml 1150 ml Exam Constitutional: well developed Head: atraumatic, normocephalic Neck: supple Respiratory: clear to auscultation Cardiovascular: regular rate and rhythm Gastrointestinal: non-tender, soft Extremities: normal pulses Results Result Diagram: 03/28/17 0543 03/28/17 0543 Results 24 hrs Laboratory Tests Test 03/28/17 17:14 03/28/17 21:32 03/29/17 03:30 03/29/17 08:26 Bedside Glucose 168 249 H 207 142 Test 03/29/17 11:54 Bedside Glucose 215 Medications Medications Current Medications Amlodipine Besylate (Norvasc) 10 mg DAILY PO Last administered on 03/29/17t 08: 52; Admin Dose 10 MG; Start 03/15/17 at 09:00 Atorvastatin Calcium (Lipitor) 20 mg QHS PO Last administered on 03/28/17 21: 34; Admin Dose 20 MG; Start 03/14/17 at 21:00 Benazepril HCl (Lotensin) 20 mg DAILY PO Last administered on 03/29/17 08:52; Admin Dose 20 MG; Start 03/15/17 at 09:00 Folic Acid (Folic Acid) 1 mg DAILY PO Last administered on 03/29/17 08:51; Admin Dose 1 MG; Start 03/15/17 at 09:00 Pantoprazole (Protonix Tab) 40 mg DAILY@06 PO Last administered on 03/29/17 06 :57; Admin Dose 40 MG; Start 03/15/17 at 06:00 Rifaximin (Xifaxan) 550 mg BID PO Last administered on 03/29/17 08:51; Admin Dose 550 MG; Start 03/14/17 at 21:00 Acetaminophen (Tylenol Tab) 650 mg Q6H PRN PO PAIN AND OR ELEVATED TEMP Last administered on 03/29/17 12:25; Admin Dose 650 MG; Start 03/14/17 at 20:30 Diagnostic Test (Pha) (Accu-Chek) 1 ea 02 XX Last administered on 03/25/17 01: 52; Admin Dose 1 EA; Start 03/18/17 at 02:00 Miscellaneous Information 1 ea NOTE XX ; Start 03/17/17 at 18:30 Glucose (Glutose) 15 gm Q15M PRN PO DECREASED GLUCOSE; Start 03/17/17 at 18:30 Glucose (Glutose) 22.5 gm Q15M PRN PO DECREASED GLUCOSE; Start 03/17/17 at 18: 30 Dextrose (D50w Syringe) 25 ml Q15M PRN IV DECREASED GLUCOSE; Start 03/17/17 at 18:30 Dextrose (D50w Syringe) 50 ml Q15M PRN IV DECREASED GLUCOSE; Start 03/17/17 at 18:30 Glucagon (Glucagen) 1 mg Q15M PRN IM DECREASED GLUCOSE; Start 03/17/17 at 18:30 Glucose (Glutose) 15 gm Q15M PRN BUCCAL DECREASED GLUCOSE; Start 03/17/17 at 18 :30 Potassium Chloride (Potassium Chloride Pwd/Soln) 40 meq DAILY NGT Last administered on 03/29/17 08:50; Admin Dose 40 MEQ; Start 03/25/17 at 09:00 Lactulose 40 gm 40 gm BID PO Last administered on 03/29/17 08:50; Admin Dose 40 GM; Start 03/25/17 at 21:00 Sodium Chloride (NS) 1,000 ml @ 75 mls/hr [id number] IV Last administered on 03/29 03:34; Admin Dose 75 MLS/HR; Start 03/26/17 at 10:00 Lorazepam (Ativan) 1 mg Q4 PRN IV ANXIETY. Last administered on 03/26/17 18:17 ; Admin Dose 1 MG; Start 03/26/17 at 18:00 Insulin Glargine (Lantus) 30 unit QHS SC Last administered on 03/28/17 21:48; Admin Dose 30 UNIT; Start 03/27/17 at 21:00 URI KATZ Mar 29, 2017 14:44
[2017-03-29] MEDS: ATORVASTATIN 20 MG TAB PO SCH (20:39)
[2017-03-29] MEDS: INSULIN GLARGINE [LANtus] 3 ML PEN SC SCH (20:49)
--- NOTE | 2017-03-29 22:18 | CONS ---
Date/Time of Note Date/Time of Note DATE: 03/29/17 TIME: 22:16 Assessment/Plan Assessment/Plan Chief Complaint/Hosp Course 51-year-old female with a history of cirrhosis of liver secondary to alcohol admitted to the hospital through the emergency room for change in mental status. Patient was discharged on lactulose no history of any precipitating events. She did not take any sedatives or narcotics no history of GI bleeding no fever no chills. No abdominal pain no nausea no vomiting Problems: Additional Assessment/Plan Problems: Additional Assessment/Plan 1. 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 Diabetes mellitus 3. Hypertension 4. Encephalopathy. Ammonia slowly coming down, patient is more awake and oriented. Ammonia is down to 84 patient is completely oriented to time place and space and NG tube has been removed. She is tolerating p.o. feeding 5. Metabolic acidosis 6. Hypernatremia Plan Stop, gabapentin which might be contributing factor for her high ammonia level P.o. feeding with aspiration precaution Ambulate patient with the assistance Consultation Date/Type/Reason Admit Date/Time Mar 14, 2017 at 03:58 Type of Consultation: NEPHROLOGY Referring Provider: CHERYL CALL MD 24 HR Interval Summary Constitutional: improved, no complaints Exam/Review of Systems Vital Signs Vitals Vital Signs Date Time Temp Pulse Resp B/P Pulse Ox O2 Delivery O2 Flow Rate FiO2 03/29/17 19:58 98.4 68 18 108/62 98 03/26/17 17:00 Room Air Intake and Output 03/28/17 03/28/17 03/29/17 15:00 23:00 07:00 Intake Total 750 ml 2150 ml Output Total 900 ml 1000 ml Balance -150 ml 1150 ml Exam Constitutional: alert, oriented, well developed Psych: nl mood/affect, no complaints Head: atraumatic, normocephalic Eyes: EOMI, PERRL, nl conjunctiva, nl lids, nl sclera ENMT: nl external ears & nose, nl lips & teeth, nl nasal mucosa & septum Neck: non-tender, supple Respiratory: clear to auscultation, normal air movement Cardiovascular: nl pulses, regular rate and rhythm Gastrointestinal: nl liver, spleen, non-tender, soft Musculoskeletal: nl extremities to inspection, nl gait and stance Extremities: normal pulses Neurological: CLAM 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 WORKER II-XII intact, nl mental status, nl speech, nl strength Skin: nl turgor, No rash or lesions Lymph: nl lymph nodes Results Result Diagram: 03/28/17 0543 03/28/17 0543 Results 24 hrs Laboratory Tests Test 03/29/17 03:30 03/29/17 08:26 03/29/17 11:54 03/29/17 17:33 Bedside Glucose 207 142 215 239 H Test 03/29/17 20:44 Bedside Glucose 148 Medications Medications Current Medications Amlodipine Besylate (Norvasc) 10 mg DAILY PO Last administered on 03/29/17 08: 52; Admin Dose 10 MG; Start 03/15/17 at 09:00 Atorvastatin Calcium (Lipitor) 20 mg QHS PO Last administered on 03/29/17 20: 39; Admin Dose 20 MG; Start 03/14/17 at 21:00 Benazepril HCl (Lotensin) 20 mg DAILY PO Last administered on 03/29/17 08:52; Admin Dose 20 MG; Start 03/15/17 at 09:00 Folic Acid (Folic Acid) 1 mg DAILY PO Last administered on 03/29/17 08:51; Admin Dose 1 MG; Start 03/15/17 at 09:00 Pantoprazole (Protonix Tab) 40 mg DAILY@06 PO Last administered on 03/29/17 06 :57; Admin Dose 40 MG; Start 03/15/17 at 06:00 Rifaximin (Xifaxan) 550 mg BID PO Last administered on 03/29/17 20:39; Admin Dose 550 MG; Start 03/14/17 at 21:00 Acetaminophen (Tylenol Tab) 650 mg Q6H PRN PO PAIN AND OR ELEVATED TEMP Last administered on 03/29/17 12:25; Admin Dose 650 MG; Start 03/14/17 at 20:30 Diagnostic Test (Pha) (Accu-Chek) 1 ea 02 XX Last administered on 03/25/17 01: 52; Admin Dose 1 EA; Start 03/18/17 at 02:00 Miscellaneous Information 1 ea NOTE XX ; Start 03/17/17 at 18:30 Glucose (Glutose) 15 gm Q15M PRN PO DECREASED GLUCOSE; Start 03/17/17 at 18:30 Glucose (Glutose) 22.5 gm Q15M PRN PO DECREASED GLUCOSE; Start 03/17/17 at 18: 30 Dextrose (D50w Syringe) 25 ml Q15M PRN IV DECREASED GLUCOSE; Start 03/17/17 at 18:30 Dextrose (D50w Syringe) 50 ml Q15M PRN IV DECREASED GLUCOSE; Start 03/17/17 at 18:30 Glucagon (Glucagen) 1 mg Q15M PRN IM DECREASED GLUCOSE; Start 03/17/17 at 18:30 Glucose (Glutose) 15 gm Q15M PRN BUCCAL DECREASED GLUCOSE; Start 03/17/17 at 18 :30 Potassium Chloride (Potassium Chloride Pwd/Soln) 40 meq DAILY NGT Last administered on 03/29/17 08:50; Admin Dose 40 MEQ; Start 03/25/17 at 09:00 Lactulose 40 gm 40 gm BID PO Last administered on 03/29/17 20:39; Admin Dose 40 GM; Start 03/25/17 at 21:00 Sodium Chloride (NS) 1,000 ml @ 75 mls/hr [id number] IV Last administered on 03/29 20:40; Admin Dose 75 MLS/HR; Start 03/26/17 at 10:00 Lorazepam (Ativan) 1 mg Q4 PRN IV ANXIETY. Last administered on 03/26/17 18:17 ; Admin Dose 1 MG; Start 03/26/17 at 18:00 Insulin Glargine (Lantus) 30 unit QHS SC Last administered on 03/29/17 20:49; Admin Dose 30 UNIT; Start 03/27/17 at 21:00 BE MACDONALD MD Mar 29, 2017 22:18
[2017-03-30] VITALS (10 sets, daily range): BP systolic 103–131; BP diastolic 57–64; PULSE 60–72; RESP 18–19
[2017-03-30] MEDS: ACCU-CHEK XX SCH (02:00)
[2017-03-30] MEDS: ACETAMINOPHEN 325 MG TAB PO PRN ×2 (03:02→16:30)
[2017-03-30] MEDS: PANTOPRAZOLE (EC) 40 MG TAB PO SCH (05:37)
[2017-03-30] MEDS: SOD CHLORIDE 0.9% 1,000 ML IV SCH ×2 (07:20→10:04)
[2017-03-30] MEDS: INSULIN ASPART [NOVOLOG] 3 ML PEN SC SCH ×4 (08:23→21:20)
--- NOTE | 2017-03-30 09:35 | CONS ---
Date/Time of Note Date/Time of Note DATE: 03/30/17 TIME: 09:35 Assessment/Plan Assessment/Plan Chief Complaint/Hosp Course Problems: Additional Assessment/Plan 1. Oliguric Acute Kidney injury 2/2 ATN and Prerenal azotemia 2. Severe metabolic acidosis 3. acute hypernatremia 2/2 free water deficit 3.acute hepatic encephalopathy causing AMS- Resolved 4. decompensated liver icrrhosis 5. h/o alcoholic liver cirrhosis 6. Hypertension 7. diabetes melitus 8. acute hypercalcemia Plan: d/c IV fluids no need for lasix,K replacement continue current care will continue to follow up Consultation Date/Type/Reason Admit Date/Time Mar 14, 2017 at 03:58 Initial Consult Date 03/23/17 Type of Consultation: NEPHROLOGY Reason for Consultation acute kidney injury Referring Provider: CHERYL CALL MD 24 HR Interval Summary Free Text/Dictation no acute events, stable, transferred to med/surge floor Exam/Review of Systems Vital Signs Vitals Vital Signs Date Time Temp Pulse Resp B/P Pulse Ox O2 Delivery O2 Flow Rate FiO2 03/30/17 08:00 72 03/30/17 07:32 98.2 19 105/60 97 03/26/17 17:00 Room Air Intake and Output 03/29/17 03/29/17 03/30/17 15:00 23:00 07:00 Intake Total 1550 ml 1250 ml Output Total 2000 ml 600 ml Balance -450 ml 650 ml Exam Constitutional: alert, oriented, well developed Respiratory: clear to auscultation, normal air movement Cardiovascular: nl pulses, regular rate and rhythm Gastrointestinal: nl liver, spleen, non-tender, soft Musculoskeletal: nl extremities to inspection, nl gait and stance Extremities: normal pulses Neurological: 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 II-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 intact, nl mental status, nl speech, nl strength Results Result Diagram: 03/28/17 0543 03/28/17 0543 Results 24 hrs Laboratory Tests Test 03/29/17 11:54 03/29/17 17:33 03/29/17 20:44 03/30/17 08:16 Bedside Glucose 215 239 H 148 142 Medications Medications Current Medications Amlodipine Besylate (Norvasc) 10 mg DAILY PO Last administered on 03/29/17t 08: 52; Admin Dose 10 MG; Start 03/15/17 at 09:00 Atorvastatin Calcium (Lipitor) 20 mg QHS PO Last administered on 03/29/17 20: 39; Admin Dose 20 MG; Start 03/14/17 at 21:00 Benazepril HCl (Lotensin) 20 mg DAILY PO Last administered on 03/29/17 08:52; Admin Dose 20 MG; Start 03/15/17 at 09:00 Folic Acid (Folic Acid) 1 mg DAILY PO Last administered on 03/29/17 08:51; Admin Dose 1 MG; Start 03/15/17 at 09:00 Pantoprazole (Protonix Tab) 40 mg DAILY@06 PO Last administered on 03/30/17 05: 37; Admin Dose 40 MG; Start 03/15/17 at 06:00 Rifaximin (Xifaxan) 550 mg BID PO Last administered on 03/29/17 20:39; Admin Dose 550 MG; Start 03/14/17 at 21:00 Acetaminophen (Tylenol Tab) 650 mg Q6H PRN PO PAIN AND OR ELEVATED TEMP Last administered on 03/30/17 03:02; Admin Dose 650 MG; Start 03/14/17 at 20:30 Diagnostic Test (Pha) (Accu-Chek) 1 ea 02 XX Last administered on 03/25/17 01: 52; Admin Dose 1 EA; Start 03/18/17 at 02:00 Miscellaneous Information 1 ea NOTE XX ; Start 03/17/17 at 18:30 Glucose (Glutose) 15 gm Q15M PRN PO DECREASED GLUCOSE; Start 03/17/17 at 18:30 Glucose (Glutose) 22.5 gm Q15M PRN PO DECREASED GLUCOSE; Start 03/17/17 at 18: 30 Dextrose (D50w Syringe) 25 ml Q15M PRN IV DECREASED GLUCOSE; Start 03/17/17 at 18:30 Dextrose (D50w Syringe) 50 ml Q15M PRN IV DECREASED GLUCOSE; Start 03/17/17 at 18:30 Glucagon (Glucagen) 1 mg Q15M PRN IM DECREASED GLUCOSE; Start 03/17/17 at 18:30 Glucose (Glutose) 15 gm Q15M PRN BUCCAL DECREASED GLUCOSE; Start 03/17/17 at 18 :30 Potassium Chloride (Potassium Chloride Pwd/Soln) 40 meq DAILY NGT Last administered on 03/29/17 08:50; Admin Dose 40 MEQ; Start 03/25/17 at 09:00 Lactulose 40 gm 40 gm BID PO Last administered on 03/29/17 20:39; Admin Dose 40 GM; Start 03/25/17 at 21:00 Sodium Chloride (NS) 1,000 ml @ 75 mls/hr [id number] IV Last administered on 03/29 20:40; Admin Dose 75 MLS/HR; Start 03/26/17 at 10:00 Lorazepam (Ativan) 1 mg Q4 PRN IV ANXIETY. Last administered on 03/26/17 18:17 ; Admin Dose 1 MG; Start 03/26/17 at 18:00 Insulin Glargine (Lantus) 30 unit QHS SC Last administered on 03/29/17 20:49; Admin Dose 30 UNIT; Start 03/27/17 at 21:00 JOSSY WHITTAKER MD Mar 30, 2017 09:35
[2017-03-30] MEDS: FOLIC ACID 1 MG TAB PO SCH (09:49)
[2017-03-30] MEDS: BENAZEPRIL 20 MG TAB PO SCH (09:50)
[2017-03-30] MEDS: LACTULOSE 30ML CUP PO SCH ×2 (09:51→21:19)
[2017-03-30] MEDS: RIFAXIMIN 550 MG TAB PO SCH ×2 (09:51→22:45)
[2017-03-30] MEDS: POTASSIUM CHLORIDE 20 MEQ POWDER FOR ORAL SOLN NGT SCH (09:52)
[2017-03-30] MEDS: AMLODIPINE 10 MG TAB PO SCH (09:57)
--- NOTE | 2017-03-30 11:08 | CONS ---
Date/Time of Note Date/Time of Note DATE: 03/30/17 TIME: 11:07 Assessment/Plan Assessment/Plan Chief Complaint/Hosp Course 51-year-old female with a history of cirrhosis of liver secondary to alcohol admitted to the hospital through the emergency room for change in mental status. Patient was discharged on lactulose no history of any precipitating events. She did not take any sedatives or narcotics no history of GI bleeding no fever no chills. No abdominal pain no nausea no vomiting Problems: Additional Assessment/Plan Additional Assessment/Plan 1. 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 Diabetes mellitus 3. Hypertension 4. Encephalopathy. Ammonia slowly coming down, patient is more awake and oriented. Ammonia is down to 84 patient is completely oriented to time place and space and NG tube has been removed. She is tolerating p.o. feeding 5. Metabolic acidosis 6. Hypernatremia Plan Stop, gabapentin which might be contributing factor for her high ammonia level P.o. feeding with aspiration precaution Ambulate patient with the assistance Continue lactulose and rifaximin upon discharge Consultation Date/Type/Reason Admit Date/Time Mar 14, 2017 at 03:58 Type of Consultation: NEPHROLOGY Referring Provider: CHERYL CALL MD 24 HR Interval Summary Constitutional: no complaints Exam/Review of Systems Vital Signs Vitals Vital Signs Date Time Temp Pulse Resp B/P Pulse Ox O2 Delivery O2 Flow Rate FiO2 03/30/17 08:00 72 03/30/17 07:32 98.2 19 105/60 97 03/26/17 17:00 Room Air Intake and Output 03/29/17 03/29/17 03/30/17 15:00 23:00 07:00 Intake Total 1550 ml 1250 ml Output Total 2000 ml 600 ml Balance -450 ml 650 ml Exam Constitutional: alert, oriented, well developed Psych: nl mood/affect, no complaints Head: atraumatic, normocephalic Eyes: EOMI, PERRL, nl conjunctiva, nl lids, nl sclera ENMT: nl external ears & nose, nl lips & teeth, nl nasal mucosa & septum Neck: non-tender, supple Respiratory: clear to auscultation, normal air movement Cardiovascular: nl pulses, regular rate and rhythm Gastrointestinal: nl liver, spleen, non-tender, soft Musculoskeletal: nl extremities to inspection, nl gait and stance Extremities: normal pulses Neurological: ELEVATOR RUNNER II-XII intact, nl mental status, nl speech, nl strength Skin: nl turgor, No rash or lesions Lymph: nl lymph nodes Results Result Diagram: 03/28/17 0543 03/28/1743 Results 24 hrs Laboratory Tests Test 03/29/17 11:54 03/29/17 17:33 03/29/17 20:44 03/30/17 08:16 Bedside Glucose 215 239 H 148 142 Medications Medications Current Medications Amlodipine Besylate (Norvasc) 10 mg DAILY PO Last administered on 03/30/17 09: 57; Admin Dose 10 MG; Start 03/15/17 at 09:00 Atorvastatin Calcium (Lipitor) 20 mg QHS PO Last administered on 03/29/17 20: 39; Admin Dose 20 MG; Start 03/14/17 at 21:00 Benazepril HCl (Lotensin) 20 mg DAILY PO Last administered on 03/30/17 09:50; Admin Dose 20 MG; Start 03/15/17 at 09:00 Folic Acid (Folic Acid) 1 mg DAILY PO Last administered on 03/30/17 09:49; Admin Dose 1 MG; Start 03/15/17 at 09:00 Pantoprazole (Protonix Tab) 40 mg DAILY@06 PO Last administered on 03/30/17 05: 37; Admin Dose 40 MG; Start 03/15/17 at 06:00 Rifaximin (Xifaxan) 550 mg BID PO Last administered on 03/30/17 09:51; Admin Dose 550 MG; Start 03/14/17 at 21:00 Acetaminophen (Tylenol Tab) 650 mg Q6H PRN PO PAIN AND OR ELEVATED TEMP Last administered on 03/30/17 03:02; Admin Dose 650 MG; Start 03/14/17 at 20:30 Diagnostic Test (Pha) (Accu-Chek) 1 ea 02 XX Last administered on 03/25/17 01: 52; Admin Dose 1 EA; Start 03/18/17 at 02:00 Miscellaneous Information 1 ea NOTE XX ; Start 03/17/17 at 18:30 Glucose (Glutose) 15 gm Q15M PRN PO DECREASED GLUCOSE; Start 03/17/17 at 18:30 Glucose (Glutose) 22.5 gm Q15M PRN PO DECREASED GLUCOSE; Start 03/17/17 at 18: 30 Dextrose (D50w Syringe) 25 ml Q15M PRN IV DECREASED GLUCOSE; Start 03/17/17 at 18:30 Dextrose (D50w Syringe) 50 ml Q15M PRN IV DECREASED GLUCOSE; Start 03/17/17 at 18:30 Glucagon (Glucagen) 1 mg Q15M PRN IM DECREASED GLUCOSE; Start 03/17/17 at 18:30 Glucose (Glutose) 15 gm Q15M PRN BUCCAL DECREASED GLUCOSE; Start 03/17/17 at 18 :30 Potassium Chloride (Potassium Chloride Pwd/Soln) 40 meq DAILY NGT Last administered on 03/30/17 09:52; Admin Dose 40 MEQ; Start 03/25/17 at 09:00 Lactulose 40 gm 40 gm BID PO Last administered on 03/30/17 09:51; Admin Dose 40 GM; Start 03/25/17 at 21:00 Sodium Chloride (NS) 1,000 ml @ 75 mls/hr [id number] IV Last administered on 10:04; Admin Dose 75 MLS/HR; Start 03/26/17 at 10:00 Lorazepam (Ativan) 1 mg Q4 PRN IV ANXIETY. Last administered on 03/26/17 18:17 ; Admin Dose 1 MG; Start 03/26/17 at 18:00 Insulin Glargine (Lantus) 30 unit QHS SC Last administered on 03/29/17 20:49; Admin Dose 30 UNIT; Start 03/27/17 at 21:00 BE MACDONALD MD Mar 30, 2017 11:08
--- NOTE | 2017-03-30 12:12 | PN ---
Date/Time of Note Date/Time of Note DATE: 03/30/17 TIME: 12:12 Assessment/Plan VTE Prophylaxis VTE Prophylaxis Intervention: other Lines/Catheters IV C[facility] Type ([facility] Peripheral IV Urinary Cath still in place: Yes Reason Cath still needed: skin wounds contaminated by urine Assessment/Plan Chief Complaint/Hosp Course - Severe metabolic acidosis with , Dr. Rios is following in nephrology consultation. Continue bicarbonate drip. ICU monitoring. - Acute hypernatremia, continue IV fluids with D5 - Acute kidney injury, with possible hepatorenal syndrome, continue to monitor renal function. - Acute Hepatic encephalopathy. Continue lactulose and rifaximin. Monitor ammonia level. - Alcoholic liver cirrhosis. Dr. North is following in gastroenterology consultation. - Diabetes mellitus type 2 with hyperglycemia, continue Lantus and NovoLog per moderate algorithm sliding scale with Accu-Chek every 4 hours. - Hypertension. Continue Norvasc and lisinopril. - Thrombocytopenia, most likely due to liver cirrhosis. Problems: Subjective 24 Hr Interval Summary Free Text/Dictation Patient has no complaints, is ambulating now Exam/Review of Systems Vital Signs Vitals Vital Signs Date Time Temp Pulse Resp B/P Pulse Ox O2 Delivery O2 Flow Rate FiO2 03/30/17 11:23 98.2 61 18 103/57 95 03/26/17 17:00 Room Air Intake and Output 03/29/17 03/29/17 03/30/17 15:00 23:00 07:00 Intake Total 1550 ml 1250 ml Output Total 2000 ml 600 ml Balance -450 ml 650 ml Exam Constitutional: well developed Head: atraumatic, normocephalic Neck: supple Respiratory: clear to auscultation Cardiovascular: regular rate and rhythm Gastrointestinal: non-tender, soft Extremities: normal pulses Results Result Diagram: 03/28/17 0543 03/28/17 0543 Results 24 hrs Laboratory Tests Test 03/29/17 17:33 03/29/17 20:44 03/30/17 08:16 03/30/17 11:57 Bedside Glucose 239 H 148 142 264 H Medications Medications Current Medications Amlodipine Besylate (Norvasc) 10 mg DAILY PO Last administered on 03/30/17t 09: 57; Admin Dose 10 MG; Start 03/15/17 at 09:00 Atorvastatin Calcium (Lipitor) 20 mg QHS PO Last administered on 03/29/17 20: 39; Admin Dose 20 MG; Start 03/14/17 at 21:00 Benazepril HCl (Lotensin) 20 mg DAILY PO Last administered on 03/30/17 09:50; Admin Dose 20 MG; Start 03/15/17 at 09:00 Folic Acid (Folic Acid) 1 mg DAILY PO Last administered on 03/30/17 09:49; Admin Dose 1 MG; Start 03/15/17 at 09:00 Pantoprazole (Protonix Tab) 40 mg DAILY@06 PO Last administered on 03/30/17 05: 37; Admin Dose 40 MG; Start 03/15/17 at 06:00 Rifaximin (Xifaxan) 550 mg BID PO Last administered on 03/30/17 09:51; Admin Dose 550 MG; Start 03/14/17 at 21:00 Acetaminophen (Tylenol Tab) 650 mg Q6H PRN PO PAIN AND OR ELEVATED TEMP Last administered on 03/30/17 03:02; Admin Dose 650 MG; Start 03/14/17 at 20:30 Diagnostic Test (Pha) (Accu-Chek) 1 ea 02 XX Last administered on 03/25/17 01: 52; Admin Dose 1 EA; Start 03/18/17 at 02:00 Miscellaneous Information 1 ea NOTE XX ; Start 03/17/17 at 18:30 Glucose (Glutose) 15 gm Q15M PRN PO DECREASED GLUCOSE; Start 03/17/17 at 18:30 Glucose (Glutose) 22.5 gm Q15M PRN PO DECREASED GLUCOSE; Start 03/17/17 at 18: 30 Dextrose (D50w Syringe) 25 ml Q15M PRN IV DECREASED GLUCOSE; Start 03/17/17 at 18:30 Dextrose (D50w Syringe) 50 ml Q15M PRN IV DECREASED GLUCOSE; Start 03/17/17 at 18:30 Glucagon (Glucagen) 1 mg Q15M PRN IM DECREASED GLUCOSE; Start 03/17/17 at 18:30 Glucose (Glutose) 15 gm Q15M PRN BUCCAL DECREASED GLUCOSE; Start 03/17/17 at 18 :30 Potassium Chloride (Potassium Chloride Pwd/Soln) 40 meq DAILY NGT Last administered on 03/30/17 09:52; Admin Dose 40 MEQ; Start 03/25/17 at 09:00 Lactulose 40 gm 40 gm BID PO Last administered on 03/30/17 09:51; Admin Dose 40 GM; Start 03/25/17 at 21:00 Sodium Chloride (NS) 1,000 ml @ 75 mls/hr [id number] IV Last administered on 10:04; Admin Dose 75 MLS/HR; Start 03/26/17 at 10:00 Lorazepam (Ativan) 1 mg Q4 PRN IV ANXIETY. Last administered on 03/26/17 18:17 ; Admin Dose 1 MG; Start 03/26/17 at 18:00 Insulin Glargine (Lantus) 30 unit QHS SC Last administered on 03/29/17 20:49; Admin Dose 30 UNIT; Start 03/27/17 at 21:00 UIR KATZ Mar 30, 2017 12:12
[2017-03-30] MEDS: ATORVASTATIN 20 MG TAB PO SCH (21:18)
[2017-03-30] MEDS: INSULIN GLARGINE [LANtus] 3 ML PEN SC SCH (21:18)
[2017-03-31 02:00] VITALS: BP 129/68; RESP 18
[2017-03-31] MEDS: ACCU-CHEK XX SCH (02:13)
[2017-03-31] MEDS: PANTOPRAZOLE (EC) 40 MG TAB PO SCH (05:23)
[2017-03-31 06:44] LABS: ABNORMAL IP MESSAGE 1; BASOPHILS % 0.6 % (0.0-2.0); EOSINOPHILS # 0.2 10^3/ul (0.0-0.5); EOSINOPHILS % 4.9 % (0.0-7.0); HEMATOCRIT 28.5 % (37.0-47.0); HEMOGLOBIN 9.1 g/dl (12.0-16.0); LYMPHOCYTES % 20.9 % (15.0-51.0); MEAN CORPUSCULAR HEMOGLOBIN 28.2 pg (29.0-33.0); MEAN CORPUSCULAR HGB CONC 31.9 g/dl (32.0-37.0); MEAN CORPUSCULAR VOLUME 88.2 fl (82.0-101.0); MONOCYTE # 0.5 10^3/ul (0.3-0.9); MONOCYTES % 9.6 % (0.0-11.0); NEUTROPHILS % 63.4 % (39.0-77.0); RED BLOOD COUNT 3.23 10^6/ul (4.20-5.40); WHITE BLOOD COUNT 4.7 10^3/ul (4.8-10.8)
[2017-03-31 06:54] LABS: POSITIVE DIFF @See below
[2017-03-31 06:55] LABS: PLATELET COUNT 34 10^3/UL (140-415)
[2017-03-31 07:10] LABS: CALCIUM 8.7 mg/dl (8.4-10.2); CREATININE 0.64 mg/dl (0.44-1.00); POTASSIUM 4.7 mmol/L (3.5-5.1)
[2017-03-31 07:38] VITALS: BP 120/68; RESP 18
[2017-03-31] MEDS: LACTULOSE 30ML CUP PO SCH ×2 (07:57→20:28)
[2017-03-31] MEDS: POTASSIUM CHLORIDE 20 MEQ POWDER FOR ORAL SOLN NGT SCH (07:58)
[2017-03-31] MEDS: RIFAXIMIN 550 MG TAB PO SCH ×2 (07:59→20:28)
[2017-03-31] MEDS: FOLIC ACID 1 MG TAB PO SCH (07:59)
[2017-03-31] MEDS: AMLODIPINE 10 MG TAB PO SCH ×2 (07:59→09:00)
[2017-03-31] MEDS: BENAZEPRIL 20 MG TAB PO SCH (07:59)
[2017-03-31] MEDS: INSULIN ASPART [NOVOLOG] 3 ML PEN SC SCH ×5 (08:07→20:29)
--- NOTE | 2017-03-31 09:43 | PN ---
Date/Time of Note Date/Time of Note DATE: 03/31/17 TIME: 09:42 Assessment/Plan VTE Prophylaxis VTE Prophylaxis Intervention: other Lines/Catheters IV Catheter Type (from [facility]): Saline Lock Urinary Cath still in place: Yes Reason Cath still needed: skin wounds contaminated by urine Assessment/Plan Chief Complaint/Hosp Course - Severe metabolic acidosis with , Dr. Rios is following in nephrology consultation. Continue bicarbonate drip. ICU monitoring. - Acute hypernatremia, continue IV fluids with D5 - Acute kidney injury, with possible hepatorenal syndrome, continue to monitor renal function. - Acute Hepatic encephalopathy. Continue lactulose and rifaximin. Monitor ammonia level. - Alcoholic liver cirrhosis. Dr. North is following in gastroenterology consultation. - Diabetes mellitus type 2 with hyperglycemia, continue Lantus and NovoLog per moderate algorithm sliding scale with Accu-Chek every 4 hours. - Hypertension. Continue Norvasc and lisinopril. - Thrombocytopenia, most likely due to liver cirrhosis. Problems: Subjective 24 Hr Interval Summary Free Text/Dictation Patient has no complaints, is ambulating well Exam/Review of Systems Vital Signs Vitals Vital Signs Date Time Temp Pulse Resp B/P Pulse Ox O2 Delivery O2 Flow Rate FiO2 03/31/17 07:38 98.9 68 18 120/68 97 03/30/17 13:55 Room Air Intake and Output 03/30/17 03/30/17 03/31/17 15:00 23:00 07:00 Intake Total 240 ml 740 ml 360 ml Output Total 965 ml 700 ml 700 ml Balance -725 ml 40 ml -340 ml Exam Constitutional: well developed Head: atraumatic, normocephalic Neck: supple Respiratory: clear to auscultation Cardiovascular: regular rate and rhythm Gastrointestinal: non-tender, soft Extremities: normal pulses Results Result Diagram: 03/31/17 0529 03/31/17 0529 Results 24 hrs Laboratory Tests Test 03/30/17 11:57 03/30/17 17:12 03/30/17 21:15 03/31/17 01:58 Bedside Glucose 264 H 188 241 H 165 Test 03/31/17 05:29 03/31/17 07:54 White Blood Count 4.7 #L Red Blood Count 3.23 L Hemoglobin 9.1 L Hematocrit 28.5 L Mean Corpuscular Volume 88.2 Mean Corpuscular Hemoglobin 28.2 L Mean Corpuscular Hemoglobin Concent 31.9 L Red Cell Distribution Width 18.0 H Platelet Count 34 L Mean Platelet Volume Neutrophils % 63.4 Lymphocytes % 20.9 Monocytes % 9.6 Eosinophils % 4.9 Basophils % 0.6 Nucleated Red Blood Cells % 0.0 Neutrophils # 3.0 Lymphocytes # 1.0 Monocytes # 0.5 Eosinophils # 0.2 Basophils # 0.0 Nucleated Red Blood Cells # 0.0 Sodium Level 142 Potassium Level 4.7 Chloride Level 109 Carbon Dioxide Level 20 L Anion Gap 18 H Blood Urea Nitrogen 11 Creatinine 0.64 Glucose Level 195 Calcium Level 8.7 Bedside Glucose 180 Medications Medications Current Medications Amlodipine Besylate (Norvasc) 10 mg DAILY PO Last administered on 03/31/17 07: 59; Admin Dose 10 MG; Start 03/15/17 at 09:00 Atorvastatin Calcium (Lipitor) 20 mg QHS PO Last administered on 03/30/17 21:18 ; Admin Dose 20 MG; Start 03/14/17 at 21:00 Benazepril HCl (Lotensin) 20 mg DAILY PO Last administered on 03/31/17 07:59; Admin Dose 20 MG; Start 03/15/17 at 09:00 Folic Acid (Folic Acid) 1 mg DAILY PO Last administered on 03/31/17 07:59; Admin Dose 1 MG; Start 03/15/17 at 09:00 Pantoprazole (Protonix Tab) 40 mg DAILY@06 PO Last administered on 03/31/17 05: 23; Admin Dose 40 MG; Start 03/15/17 at 06:00 Rifaximin (Xifaxan) 550 mg BID PO Last administered on 03/31/17 07:59; Admin Dose 550 MG; Start 03/14/17 at 21:00 Acetaminophen (Tylenol Tab) 650 mg Q6H PRN PO PAIN AND OR ELEVATED TEMP Last administered on 03/30/17 16:30; Admin Dose 650 MG; Start 03/14/17 at 20:30 Diagnostic Test (Pha) (Accu-Chek) 1 ea 02 XX Last administered on 03/31/17 02: 13; Admin Dose 1 EA; Start 03/18/17 at 02:00 Miscellaneous Information 1 ea NOTE XX ; Start 7/19/17 at 18:30 Glucose (Glutose) 15 gm Q15M PRN PO DECREASED GLUCOSE; Start 03/17/17 at 18:30 Glucose (Glutose) 22.5 gm Q15M PRN PO DECREASED GLUCOSE; Start 03/17/17 at 18: 30 Dextrose (D50w Syringe) 25 ml Q15M PRN IV DECREASED GLUCOSE; Start 03/17/17 at 18:30 Dextrose (D50w Syringe) 50 ml Q15M PRN IV DECREASED GLUCOSE; Start 03/17/17 at 18:30 Glucagon (Glucagen) 1 mg Q15M PRN IM DECREASED GLUCOSE; Start 03/17/17 at 18:30 Glucose (Glutose) 15 gm Q15M PRN BUCCAL DECREASED GLUCOSE; Start 03/17/17 at 18 :30 Potassium Chloride (Potassium Chloride Pwd/Soln) 40 meq DAILY NGT Last administered on 03/31/17 07:58; Admin Dose 40 MEQ; Start 03/25/17 at 09:00 Lactulose (Enulose) 40 gm BID PO Last administered on 03/31/17 07:57; Admin Dose 40 GM; Start 03/25/17 at 21:00 Lorazepam (Ativan) 1 mg Q4 PRN IV ANXIETY. Last administered on 03/26/17 18:17 ; Admin Dose 1 MG; Start 03/26/17 at 18:00 Insulin Glargine (Lantus) 30 unit QHS SC Last administered on 03/30/17 21:18; Admin Dose 30 UNIT; Start 03/27/17 at 21:00 URI KATZ Mar 31, 2017 09:42
--- NOTE | 2017-03-31 10:57 | CONS ---
Date/Time of Note Date/Time of Note DATE: 03/31/17 TIME: 10:57 Assessment/Plan Assessment/Plan Chief Complaint/Hosp Course 51-year-old female with a history of cirrhosis of liver secondary to alcohol admitted to the hospital through the emergency room for change in mental status. Patient was discharged on lactulose no history of any precipitating events. She did not take any sedatives or narcotics no history of GI bleeding no fever no chills. No abdominal pain no nausea no vomiting Problems: Additional Assessment/Plan Additional Assessment/Plan Additional Assessment/Plan 1. 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 Diabetes mellitus 3. Hypertension 4. Encephalopathy. Ammonia slowly coming down, patient is more awake and oriented. Ammonia is down to 84 patient is completely oriented to time place and space and NG tube has been removed. She is tolerating p.o. feeding 5. Metabolic acidosis 6. Hypernatremia Plan Stop, gabapentin which might be contributing factor for her high ammonia level P.o. feeding with aspiration precaution Ambulate patient with the assistance Continue lactulose and rifaximin upon discharge Discontinue Rudd's catheter Consultation Date/Type/Reason Admit Date/Time Mar 14, 2017 at 03:58 Type of Consultation: NEPHROLOGY Referring Provider: CHERYL CALL MD 24 HR Interval Summary Constitutional: improved, no complaints Exam/Review of Systems Vital Signs Vitals Vital Signs Date Time Temp Pulse Resp B/P Pulse Ox O2 Delivery O2 Flow Rate FiO2 03/31/17 07:38 98.9 68 18 120/68 97 03/30/17 13:55 Room Air Intake and Output 03/30/17 03/30/17 03/31/17 15:00 23:00 07:00 Intake Total 240 ml 740 ml 360 ml Output Total 965 ml 700 ml 700 ml Balance -725 ml 40 ml -340 ml Exam Constitutional: alert, oriented, well developed Psych: nl mood/affect, no complaints Head: atraumatic, normocephalic Eyes: EOMI, PERRL, nl conjunctiva, nl lids, nl sclera ENMT: nl external ears & nose, nl lips & teeth, nl nasal mucosa & septum Neck: non-tender, supple Respiratory: clear to auscultation, normal air movement Cardiovascular: nl pulses, regular rate and rhythm Gastrointestinal: nl liver, spleen, non-tender, soft Musculoskeletal: nl extremities to inspection, nl gait and stance Extremities: normal pulses Neurological: DATASTAGE ARCHITECT II-XII intact, nl mental status, nl speech, nl strength Skin: nl turgor, No rash or lesions Lymph: nl lymph nodes Results Result Diagram: 03/31/17 0529 03/31/17 0529 Results 24 hrs Laboratory Tests Test 03/30/17 11:57 03/30/17 17:12 03/30/17 21:15 03/31/17 01:58 Bedside Glucose 264 H 188 241 H 165 Test 03/31/17 05:29 03/31/17 07:54 White Blood Count 4.7 #L Red Blood Count 3.23 L Hemoglobin 9.1 L Hematocrit 28.5 L Mean Corpuscular Volume 88.2 Mean Corpuscular Hemoglobin 28.2 L Mean Corpuscular Hemoglobin Concent 31.9 L Red Cell Distribution Width 18.0 H Platelet Count 34 L Mean Platelet Volume Neutrophils % 63.4 Lymphocytes % 20.9 Monocytes % 9.6 Eosinophils % 4.9 Basophils % 0.6 Nucleated Red Blood Cells % 0.0 Neutrophils # 3.0 Lymphocytes # 1.0 Monocytes # 0.5 Eosinophils # 0.2 Basophils # 0.0 Nucleated Red Blood Cells # 0.0 Sodium Level 142 Potassium Level 4.7 Chloride Level 109 Carbon Dioxide Level 20 L Anion Gap 18 H Blood Urea Nitrogen 11 Creatinine 0.64 Glucose Level 195 Calcium Level 8.7 Bedside Glucose 180 Medications Medications Current Medications Amlodipine Besylate (Norvasc) 10 mg DAILY PO Last administered on 03/31/17 07: 59; Admin Dose 10 MG; Start 03/15/17 at 09:00 Atorvastatin Calcium (Lipitor) 20 mg QHS PO Last administered on 03/30/17 21:18 ; Admin Dose 20 MG; Start 03/14/17 at 21:00 Benazepril HCl (Lotensin) 20 mg DAILY PO Last administered on 03/31/17 07:59; Admin Dose 20 MG; Start 03/15/17 at 09:00 Folic Acid (Folic Acid) 1 mg DAILY PO Last administered on 03/31/17 07:59; Admin Dose 1 MG; Start 03/15/17 at 09:00 Pantoprazole (Protonix Tab) 40 mg DAILY@06 PO Last administered on 03/31/17 05: 23; Admin Dose 40 MG; Start 03/15/17 at 06:00 Rifaximin (Xifaxan) 550 mg BID PO Last administered on 03/31/17 07:59; Admin Dose 550 MG; Start 03/14/17 at 21:00 Acetaminophen (Tylenol Tab) 650 mg Q6H PRN PO PAIN AND OR ELEVATED TEMP Last administered on 03/30/17 16:30; Admin Dose 650 MG; Start 03/14/17 at 20:30 Diagnostic Test (Pha) (Accu-Chek) 1 ea 02 XX Last administered on 03/31/17 02: 13; Admin Dose 1 EA; Start 03/18/17 at 02:00 Miscellaneous Information 1 ea NOTE XX ; Start 03/17/17 at 18:30 Glucose (Glutose) 15 gm Q15M PRN PO DECREASED GLUCOSE; Start 03/17/17 at 18:30 Glucose (Glutose) 22.5 gm Q15M PRN PO DECREASED GLUCOSE; Start 03/17/17 at 18: 30 Dextrose (D50w Syringe) 25 ml Q15M PRN IV DECREASED GLUCOSE; Start 03/17/17 at 18:30 Dextrose (D50w Syringe) 50 ml Q15M PRN IV DECREASED GLUCOSE; Start 03/17/17 at 18:30 Glucagon (Glucagen) 1 mg Q15M PRN IM DECREASED GLUCOSE; Start 03/17/17 at 18:30 Glucose (Glutose) 15 gm Q15M PRN BUCCAL DECREASED GLUCOSE; Start 03/17/17 at 18 :30 Potassium Chloride (Potassium Chloride Pwd/Soln) 40 meq DAILY NGT Last administered on 03/31/17 07:58; Admin Dose 40 MEQ; Start 03/25/17 at 09:00 Lactulose (Enulose) 40 gm BID PO Last administered on 03/31/17 07:57; Admin Dose 40 GM; Start 03/25/17 at 21:00 Lorazepam (Ativan) 1 mg Q4 PRN IV ANXIETY. Last administered on 03/26/17 18:17 ; Admin Dose 1 MG; Start 03/26/17 at 18:00 Insulin Glargine (Lantus) 30 unit QHS SC Last administered on 03/30/17 21:18; Admin Dose 30 UNIT; Start 03/27/17 at 21:00 BE MACDONALD MD Mar 31, 2017 10:57
[2017-03-31] MEDS: ACETAMINOPHEN 325 MG TAB PO PRN (11:01)
[2017-03-31 13:59] VITALS: BP 121/70; RESP 18
--- NOTE | 2017-03-31 16:34 | CONS ---
Date/Time of Note Date/Time of Note DATE: 03/31/17 TIME: 16:33 Assessment/Plan Assessment/Plan Chief Complaint/Hosp Course Problems: Additional Assessment/Plan 1. Oliguric Acute Kidney injury 2/2 ATN and Prerenal azotemia 2. Severe metabolic acidosis s/p Biacarbonate drip 3. acute hypernatremia 2/2 free water deficit 3.acute hepatic encephalopathy causing AMS- Resolved 4. decompensated liver icrrhosis 5. h/o alcoholic liver cirrhosis 6. Hypertension 7. diabetes melitus 8. acute hypercalcemia Plan: IVF stopped yesterday, Cr normal, HCo3 dropped to 20- will start bicitra 30ml po TID no need for lasix continue current care will continue to follow up Consultation Date/Type/Reason Admit Date/Time Mar 14, 2017 at 03:58 Initial Consult Date 03/23/17 Type of Consultation: NEPHROLOGY Referring Provider: CHERYL CALL MD 24 HR Interval Summary Free Text/Dictation no acute events overnight, HCO3 dropped to 20 Exam/Review of Systems Vital Signs Vitals Vital Signs Date Time Temp Pulse Resp B/P Pulse Ox O2 Delivery O2 Flow Rate FiO2 03/31/17 13:59 98.0 64 18 121/70 95 03/30/17 13:55 Room Air Intake and Output 03/30/17 03/30/17 03/31/17 15:00 23:00 07:00 Intake Total 240 ml 740 ml 360 ml Output Total 965 ml 700 ml 700 ml Balance -725 ml 40 ml -340 ml Exam Constitutional: alert, oriented, well developed Respiratory: clear to auscultation, normal air movement Cardiovascular: nl pulses, regular rate and rhythm Gastrointestinal: nl liver, spleen, non-tender, soft Musculoskeletal: nl extremities to inspection, nl gait and stance Extremities: normal pulses Neurological: TRIM INSTALLER II-XII intact, nl mental status, nl speech, nl strength Results Result Diagram: 03/31/17 0529 03/31/1729 Results 24 hrs Laboratory Tests Test 03/30/17 17:12 03/30/17 21:15 03/31/17 01:58 03/31/17 05:29 Bedside Glucose 188 241 H 165 White Blood Count 4.7 #L Red Blood Count 3.23 L Hemoglobin 9.1 L Hematocrit 28.5 L Mean Corpuscular Volume 88.2 Mean Corpuscular Hemoglobin 28.2 L Mean Corpuscular Hemoglobin Concent 31.9 L Red Cell Distribution Width 18.0 H Platelet Count 34 L Mean Platelet Volume Neutrophils % 63.4 Lymphocytes % 20.9 Monocytes % 9.6 Eosinophils % 4.9 Basophils % 0.6 Nucleated Red Blood Cells % 0.0 Neutrophils # 3.0 Lymphocytes # 1.0 Monocytes # 0.5 Eosinophils # 0.2 Basophils # 0.0 Nucleated Red Blood Cells # 0.0 Sodium Level 142 Potassium Level 4.7 Chloride Level 109 Carbon Dioxide Level 20 L Anion Gap 18 H Blood Urea Nitrogen 11 Creatinine 0.64 Glucose Level 195 Calcium Level 8.7 Test 03/31/17 07:54 03/31/17 12:10 Bedside Glucose 180 190 Medications Medications Current Medications Amlodipine Besylate (Norvasc) 10 mg DAILY PO Last administered on 03/31/17 07: 59; Admin Dose 10 MG; Start 03/15/17 at 09:00 Atorvastatin Calcium (Lipitor) 20 mg QHS PO Last administered on 03/30/17 21:18 ; Admin Dose 20 MG; Start 03/14/17 at 21:00 Benazepril HCl (Lotensin) 20 mg DAILY PO Last administered on 03/31/17 07:59; Admin Dose 20 MG; Start 03/15/17 at 09:00 Folic Acid (Folic Acid) 1 mg DAILY PO Last administered on 03/31/17 07:59; Admin Dose 1 MG; Start 03/15/17 at 09:00 Pantoprazole (Protonix Tab) 40 mg DAILY@06 PO Last administered on 03/31/17 05: 23; Admin Dose 40 MG; Start 03/15/17 at 06:00 Rifaximin (Xifaxan) 550 mg BID PO Last administered on 03/31/17 07:59; Admin Dose 550 MG; Start 03/14/17 at 21:00 Acetaminophen (Tylenol Tab) 650 mg Q6H PRN PO PAIN AND OR ELEVATED TEMP Last administered on 03/31/17 11:01; Admin Dose 650 MG; Start 03/14/17 at 20:30 Diagnostic Test (Pha) (Accu-Chek) 1 ea 02 XX Last administered on 03/31/17 02: 13; Admin Dose 1 EA; Start 7/20/17 at 02:00 Miscellaneous Information 1 ea NOTE XX ; Start 03/17/17 at 18:30 Glucose (Glutose) 15 gm Q15M PRN PO DECREASED GLUCOSE; Start 03/17/17 at 18:30 Glucose (Glutose) 22.5 gm Q15M PRN PO DECREASED GLUCOSE; Start 03/17/17 at 18: 30 Dextrose (D50w Syringe) 25 ml Q15M PRN IV DECREASED GLUCOSE; Start 03/17/17 at 18:30 Dextrose (D50w Syringe) 50 ml Q15M PRN IV DECREASED GLUCOSE; Start 03/17/17 at 18:30 Glucagon (Glucagen) 1 mg Q15M PRN IM DECREASED GLUCOSE; Start 03/17/17 at 18:30 Glucose (Glutose) 15 gm Q15M PRN BUCCAL DECREASED GLUCOSE; Start 03/17/17 at 18 :30 Potassium Chloride (Potassium Chloride Pwd/Soln) 40 meq DAILY NGT Last administered on 03/31/17 07:58; Admin Dose 40 MEQ; Start 03/25/17 at 09:00 Lactulose (Enulose) 40 gm BID PO Last administered on 03/31/17 07:57; Admin Dose 40 GM; Start 03/25/17 at 21:00 Lorazepam (Ativan) 1 mg Q4 PRN IV ANXIETY. Last administered on 03/26/17 18:17 ; Admin Dose 1 MG; Start 03/26/17 at 18:00 Insulin Glargine (Lantus) 15 unit QHS SC ; Start 03/31/17 at 21:00 JOSSY WHITTAKER MD Mar 31, 2017 16:34
[2017-03-31 19:50] VITALS: BP 112/61; RESP 18
[2017-03-31] MEDS: ATORVASTATIN 20 MG TAB PO SCH (20:28)
[2017-03-31] MEDS: CITRIC ACID/NA CITRATE 30 ML CUP PO SCH (20:28)
[2017-03-31] MEDS ORDERED: INSULIN GLARGINE [LANtus] 3 ML PEN SC SCH (21:00)
[2017-04-01] MEDS ORDERED: ACCU-CHEK XX SCH ×4 (02:00)
[2017-04-01] MEDS: ACCU-CHEK XX SCH (02:00)
[2017-04-01 02:35] VITALS: BP 126/72; RESP 16
[2017-04-01] MEDS: PANTOPRAZOLE (EC) 40 MG TAB PO SCH (05:29)
[2017-04-01 05:40] LABS: ABNORMAL IP MESSAGE 1; BASOPHILS % 0.6 % (0.0-2.0); EOSINOPHILS # 0.1 10^3/ul (0.0-0.5); EOSINOPHILS % 2.1 % (0.0-7.0); HEMATOCRIT 28.5 % (37.0-47.0); HEMOGLOBIN 9.4 g/dl (12.0-16.0); LYMPHOCYTES # 0.9 10^3/ul (0.8-2.9); MEAN CORPUSCULAR HEMOGLOBIN 28.9 pg (29.0-33.0); MEAN CORPUSCULAR VOLUME 87.7 fl (82.0-101.0); MONOCYTE # 0.4 10^3/ul (0.3-0.9); MONOCYTES % 8.1 % (0.0-11.0); NEUTROPHIL # 3.7 10^3/ul (1.6-7.5); NEUTROPHILS % 71.8 % (39.0-77.0); PLATELET COUNT 38 10^3/UL (140-415); RED BLOOD COUNT 3.25 10^6/ul (4.20-5.40); RED CELL DISTRIBUTION WIDTH 17.7 % (11.5-14.5); WHITE BLOOD COUNT 5.2 10^3/ul (4.8-10.8)
[2017-04-01 05:47] LABS: POSITIVE DIFF @See below
[2017-04-01 05:56] LABS: CALCIUM 8.7 mg/dl (8.4-10.2); CREATININE 0.63 mg/dl (0.44-1.00); POTASSIUM 4.3 mmol/L (3.5-5.1)
[2017-04-01 07:31] VITALS: BP 116/60; RESP 18
[2017-04-01] MEDS: CITRIC ACID/NA CITRATE 30 ML CUP PO SCH ×2 (08:21→12:33)
[2017-04-01] MEDS: LACTULOSE 30ML CUP PO SCH (08:21)
[2017-04-01] MEDS: RIFAXIMIN 550 MG TAB PO SCH (08:22)
[2017-04-01] MEDS: POTASSIUM CHLORIDE 20 MEQ POWDER FOR ORAL SOLN NGT SCH (08:22)
[2017-04-01] MEDS: AMLODIPINE 10 MG TAB PO SCH (08:22)
[2017-04-01] MEDS: FOLIC ACID 1 MG TAB PO SCH (08:22)
[2017-04-01] MEDS: BENAZEPRIL 20 MG TAB PO SCH (08:22)
[2017-04-01] MEDS: INSULIN ASPART [NOVOLOG] 3 ML PEN SC SCH ×4 (08:33→12:18)
--- NOTE | 2017-04-01 11:07 | DS ---
Date/Time of Note Date/Time of Note DATE: 04/01/17 TIME: 11:06 Discharge Summary Admission/Discharge Info Admit Date/Time Mar 14, 2017 at 03:58 Discharge Date/Time 04/01/17 Patient Condition: Fair Consults GI Nephrology Hx of Present Illness HPI This is a 51-year-old woman admitted with being disoriented / confusion 24 hours. Patient was recently admitted for hepatic encephalopathy about a week ago at the [facility]. patient was discharge home on Lactulose . During assessment, patient is alert, oriented to place/person, follows simple commands and c/o headache, denies any nausea/vomitting patient denied fevers or chills, no seizure activity, no vomiting or diarrhea, no complaints of chest pain or shortness of breath. She has had no blood per rectum or melena reported.Patient denies any shortness of breath, chest pain, palpitations, dizziness. Patient is admitted to telemetry for continued medical management under Dr Dickson. ROS All systems reviewed and are negative except as per history of present illness. Allergies diphenhydramine HCl (Verified Allergy, Unknown, "MAKES ME CRAZY", 03/14/17) Hospital Course Patient with liver cirrhosis comes in with encephalopathy. Patient was given lactulose and she slowly improved. By the time of discharge, she has returned to baseline and doing well. - Severe metabolic acidosis with , Dr. Rios is following in nephrology consultation. Continue bicarbonate drip. ICU monitoring. - Acute hypernatremia, continue IV fluids with D5 - Acute kidney injury, with possible hepatorenal syndrome, continue to monitor renal function. - Acute Hepatic encephalopathy. Continue lactulose and rifaximin. Monitor ammonia level. - Alcoholic liver cirrhosis. Dr. North is following in gastroenterology consultation. - Diabetes mellitus type 2 with hyperglycemia, continue Lantus and NovoLog per moderate algorithm sliding scale with Accu-Chek every 4 hours. - Hypertension. Continue Norvasc and lisinopril. - Thrombocytopenia, most likely due to liver cirrhosis. Home Meds Active Scripts Insulin Aspart* (Novolog Insulin Pen*) 100 Unit/Ml Soln, 5 UNIT SC AC MEALS for 30 Days Prov:DEMETRIA ZAVALA 03/10/17 Insulin Glargine* (Lantus*) 100 Unit/Ml Soln, 15 UNIT SC QHS for 30 Days Prov:DEMETRIA ZAVALA 03/10/17 [Lactulose] 20 GM/30 ML SOLN No Conflict Check, 20 GM PO DAILY for 30 Days Prov:DEMETRIA ZAVALA 03/10/17 Pantoprazole* (Pantoprazole*) 40 Mg Tablet.dr, 40 MG PO DAILY@06 for 30 Days Prov:DEMETRIA ZAVALA 03/10/17 Rifaximin* (Xifaxan*) 550 Mg Tablet, 550 MG PO BID for 30 Days, TAB Prov:DEMETRIA ZAVALA 03/10/17 Reported Medications Metformin Hcl* (Metformin Hcl*) 1,000 Mg Tablet, 1000 MG PO BID, #30 TAB 02/22/17 Gabapentin* (Gabapentin*) 300 Mg Capsule, 300 MG PO TID, #90 CAP 02/22/17 Amlodipine Besylate* (Amlodipine Besylate*) 10 Mg Tablet, 10 MG PO DAILY, #30 TAB 02/22/17 Benazepril Hcl* (Benazepril Hcl*) 20 Mg Tablet, 20 MG PO DAILY, #30 TAB 02/22/17 Folic Acid* (Folic Acid*) 1 Mg Tablet, 1 MG PO DAILY, TAB 10/31/15 Lorazepam* (Lorazepam*) 1 Mg Tablet, 2 MG PO HS Y for ANXIETY, #30 TAB 10/31/15 Atorvastatin Calcium* (Atorvastatin Calcium*) 20 Mg Tablet, 20 MG PO QHS, #30 TAB 10/31/15 Primary Care Provider Melita Shah Pending Labs Laboratory Tests Test 03/31/17 12:10 03/31/17 17:34 03/31/17 20:27 04/01/17 05:01 Bedside Glucose 190mg/dL (70-220) 131mg/dL (70-220) 168mg/dL (70-220) White Blood Count 5.210^3/ul (4.8-10.8) Red Blood Count 3.2510^6/ul (4.20-5.40) Hemoglobin 9.4g/dl (12.0-16.0) Hematocrit 28.5% (37.0-47.0) Mean Corpuscular Volume 87.7fl (82.0-101.0) Mean Corpuscular Hemoglobin 28.9pg (29.0-33.0) Mean Corpuscular Hemoglobin Concent 33.0g/dl (32.0-37.0) Red Cell Distribution Width 17.7% (11.5-14.5) Platelet Count 3810^3/UL (140-415) Mean Platelet Volume fl (7.4-10.4) Neutrophils % 71.8% (39.0-77.0) Lymphocytes % 17.0% (15.0-51.0) Monocytes % 8.1% (0.0-11.0) Eosinophils % 2.1% (0.0-7.0) Basophils % 0.6% (0.0-2.0) Nucleated Red Blood Cells % 0.0/100WBC (0.0-0.0) Neutrophils # 3.710^3/ul (1.6-7.5) Lymphocytes # 0.910^3/ul (0.8-2.9) Monocytes # 0.410^3/ul (0.3-0.9) Eosinophils # 0.110^3/ul (0.0-0.5) Basophils # 0.010^3/ul (0.0-0.1) Nucleated Red Blood Cells # 0.010^3/ul (0.0-0.0) Sodium Level 144mmol/L (135-144) Potassium Level 4.3mmol/L (3.5-5.1) Chloride Level 109mmol/L (97-110) Carbon Dioxide Level 21mmol/L (21-31) Anion Gap 18 (8-16) Blood Urea Nitrogen 13mg/dl (7-20) Creatinine 0.63mg/dl (0.44-1.00) Glucose Level 225mg/dl (70-220) Calcium Level 8.7mg/dl (8.4-10.2) Test 04/01/17 08:20 Bedside Glucose 204mg/dL (70-220) URI KATZ Apr 01, 2017 11:07
--- NOTE | 2017-04-01 11:51 | CONS ---
Date/Time of Note Date/Time of Note DATE: 04/01/17 TIME: 11:50 Assessment/Plan Assessment/Plan Chief Complaint/Hosp Course Problems: Additional Assessment/Plan 1. Oliguric Acute Kidney injury 2/2 ATN and Prerenal azotemia 2. Severe metabolic acidosis s/p Biacarbonate drip 3. acute hypernatremia 2/2 free water deficit 3.acute hepatic encephalopathy causing AMS- Resolved 4. decompensated liver icrrhosis 5. h/o alcoholic liver cirrhosis 6. Hypertension 7. diabetes melitus 8. acute hypercalcemia Plan: IVF stopped yesterday, Cr normal, HCo3 dropped to 20- doing better, no need for lasix continue current care will continue to follow up Consultation Date/Type/Reason Admit Date/Time Mar 14, 2017 at 03:58 Initial Consult Date 03/23/17 Type of Consultation: NEPHROLOGY Referring Provider: CHERYL CALL MD 24 HR Interval Summary Free Text/Dictation no acute events, BP stable Exam/Review of Systems Vital Signs Vitals Vital Signs Date Time Temp Pulse Resp B/P Pulse Ox O2 Delivery O2 Flow Rate FiO2 04/01/17 07:31 98.7 71 18 116/60 95 03/30/17 13:55 Room Air Intake and Output 03/31/17 03/31/17 04/01/17 15:00 23:00 07:00 Intake Total 240 ml 120 ml Output Total 400 ml Balance 240 ml -280 ml Exam Constitutional: alert, oriented, well developed Respiratory: clear to auscultation, normal air movement Cardiovascular: nl pulses, regular rate and rhythm Gastrointestinal: nl liver, spleen, non-tender, soft Musculoskeletal: nl extremities to inspection, nl gait and stance Extremities: normal pulses Neurological: MANAGER PHOTO II-XII intact, nl mental status, nl speech, nl strength Results Result Diagram: 04/01/17 0501 04/01/17 0501 Results 24 hrs Laboratory Tests Test 03/31/17 12:10 03/31/17 17:34 03/31/17 20:27 04/01/17 05:01 Bedside Glucose 190 131 168 White Blood Count 5.2 Red Blood Count 3.25 L Hemoglobin 9.4 L Hematocrit 28.5 L Mean Corpuscular Volume 87.7 Mean Corpuscular Hemoglobin 28.9 L Mean Corpuscular Hemoglobin Concent 33.0 Red Cell Distribution Width 17.7 H Platelet Count 38 L Mean Platelet Volume Neutrophils % 71.8 Lymphocytes % 17.0 Monocytes % 8.1 Eosinophils % 2.1 Basophils % 0.6 Nucleated Red Blood Cells % 0.0 Neutrophils # 3.7 Lymphocytes # 0.9 Monocytes # 0.4 Eosinophils # 0.1 Basophils # 0.0 Nucleated Red Blood Cells # 0.0 Sodium Level 144 Potassium Level 4.3 Chloride Level 109 Carbon Dioxide Level 21 Anion Gap 18 H Blood Urea Nitrogen 13 Creatinine 0.63 Glucose Level 225 H Calcium Level 8.7 Test 04/01/17 08:20 Bedside Glucose 204 Medications Medications Current Medications Amlodipine Besylate (Norvasc) 10 mg DAILY PO Last administered on 04/01/17 08: 22; Admin Dose 10 MG; Start 03/15/17 at 09:00 Atorvastatin Calcium (Lipitor) 20 mg QHS PO Last administered on 03/31/17 20:28 ; Admin Dose 20 MG; Start 03/14/17 at 21:00 Benazepril HCl (Lotensin) 20 mg DAILY PO Last administered on 04/01/17 08:22; Admin Dose 20 MG; Start 03/15/17 at 09:00 Folic Acid (Folic Acid) 1 mg DAILY PO Last administered on 04/01/17 08:22; Admin Dose 1 MG; Start 03/15/17 at 09:00 Pantoprazole (Protonix Tab) 40 mg DAILY@06 PO Last administered on 04/01/17 05: 29; Admin Dose 40 MG; Start 03/15/17 at 06:00 Rifaximin (Xifaxan) 550 mg BID PO Last administered on 04/01/17 08:22; Admin Dose 550 MG; Start 03/14/17 at 21:00 Acetaminophen (Tylenol Tab) 650 mg Q6H PRN PO PAIN AND OR ELEVATED TEMP Last administered on 03/31/17 11:01; Admin Dose 650 MG; Start 03/14/17 at 20:30 Diagnostic Test (Pha) (Accu-Chek) 1 ea 02 XX Last administered on 03/31/17 02: 13; Admin Dose 1 EA; Start 03/18/17 at 02:00 Miscellaneous Information 1 ea NOTE XX ; Start 03/17/17 at 18:30 Glucose (Glutose) 15 gm Q15M PRN PO DECREASED GLUCOSE; Start 03/17/17 at 18:30 Glucose (Glutose) 22.5 gm Q15M PRN PO DECREASED GLUCOSE; Start 03/17/17 at 18: 30 Dextrose (D50w Syringe) 25 ml Q15M PRN IV DECREASED GLUCOSE; Start 03/17/17 at 18:30 Dextrose (D50w Syringe) 50 ml Q15M PRN IV DECREASED GLUCOSE; Start 03/17/17 at 18:30 Glucagon (Glucagen) 1 mg Q15M PRN IM DECREASED GLUCOSE; Start 03/17/17 at 18:30 Glucose (Glutose) 15 gm Q15M PRN BUCCAL DECREASED GLUCOSE; Start 03/17/17 at 18 :30 Potassium Chloride (Potassium Chloride Pwd/Soln) 40 meq DAILY NGT Last administered on 04/01/17 08:22; Admin Dose 40 MEQ; Start 03/25/17 at 09:00 Lactulose (Enulose) 40 gm BID PO Last administered on 04/01/17 08:21; Admin Dose 40 GM; Start 03/25/17 at 21:00 Lorazepam (Ativan) 1 mg Q4 PRN IV ANXIETY. Last administered on 03/26/17 18:17 ; Admin Dose 1 MG; Start 03/26/17 at 18:00 Insulin Glargine (Lantus) 15 unit QHS SC Last administered on 03/31/17 20:31; Admin Dose 15 UNIT; Start 03/31/17 at 21:00 Citric Acid/ Sodium Citrate (Bicitra) 30 ml TID PO Last administered on 08:21; Admin Dose 30 ML; Start 03/31/17 at 21:00 OJSSY WHITTAKER MD Apr 01, 2017 11:51
[2017-04-01 14:56] VITALS: BP 110/68; RESP 18
--- NOTE | 2017-04-01 19:09 | CONS ---
Date/Time of Note Date/Time of Note DATE: 04/01/17 TIME: 19:08 Assessment/Plan Assessment/Plan Chief Complaint/Hosp Course 51-year-old female with a history of cirrhosis of liver secondary to alcohol admitted to the hospital through the emergency room for change in mental status. Patient was discharged on lactulose no history of any precipitating events. She did not take any sedatives or narcotics no history of GI bleeding no fever no chills. No abdominal pain no nausea no vomiting Problems: Additional Assessment/Plan Additional Assessment/Plan Additional Assessment/Plan Additional Assessment/Plan 1. 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 Diabetes mellitus 3. Hypertension 4. Encephalopathy. Ammonia slowly coming down, patient is more awake and oriented. Ammonia is down to 84 patient is completely oriented to time place and space and NG tube has been removed. She is tolerating p.o. feeding 5. Metabolic acidosis 6. Hypernatremia Plan Stop, gabapentin which might be contributing factor for her high ammonia level P.o. feeding with aspiration precaution Ambulate patient with the assistance Continue lactulose and rifaximin upon discharge Discontinue Rudd's catheter Patient was seen by me in the morning. Continue lactulose and rifaximin as an outpatient and I will follow the patient in the office after 2 weeks. Consultation Date/Type/Reason Admit Date/Time Mar 14, 2017 at 03:58 Type of Consultation: NEPHROLOGY Referring Provider: CHERYL CALL MD 24 HR Interval Summary Constitutional: improved, no complaints Exam/Review of Systems Vital Signs Vitals Vital Signs Date Time Temp Pulse Resp B/P Pulse Ox O2 Delivery O2 Flow Rate FiO2 04/01/17 14:56 98.6 67 18 110/68 97 03/30/17 13:55 Room Air Intake and Output 03/31/17 03/31/17 04/01/17 15:00 23:00 07:00 Intake Total 240 ml 120 ml Output Total 400 ml Balance 240 ml -280 ml Results Result Diagram: 04/01/17 0501 04/01/17 0501 Results 24 hrs Laboratory Tests Test 03/31/17 20:27 04/01/17 05:01 04/01/17 08:20 04/01/17 12:12 Bedside Glucose 168 204 193 White Blood Count 5.2 Red Blood Count 3.25 L Hemoglobin 9.4 L Hematocrit 28.5 L Mean Corpuscular Volume 87.7 Mean Corpuscular Hemoglobin 28.9 L Mean Corpuscular Hemoglobin Concent 33.0 Red Cell Distribution Width 17.7 H Platelet Count 38 L Mean Platelet Volume Neutrophils % 71.8 Lymphocytes % 17.0 Monocytes % 8.1 Eosinophils % 2.1 Basophils % 0.6 Nucleated Red Blood Cells % 0.0 Neutrophils # 3.7 Lymphocytes # 0.9 Monocytes # 0.4 Eosinophils # 0.1 Basophils # 0.0 Nucleated Red Blood Cells # 0.0 Sodium Level 144 Potassium Level 4.3 Chloride Level 109 Carbon Dioxide Level 21 Anion Gap 18 H Blood Urea Nitrogen 13 Creatinine 0.63 Glucose Level 225 H Calcium Level 8.7 BE MACDONALD MD Apr 01, 2017 19:09
== END 2017-04-01 17:15 | disposition home or self-care (01) | DRG 432 ==
LOC: E/R 01:31 → MS4 03:58 → PP2 03-17 22:55 → ICU 03-23 16:31 → TEL 03-26 17:23 → MS2 03-30 13:47
PROVIDERS: ADMIT Internal Medicine; ATTEND Internal Medicine
DX: K70.40 Alcoholic hepatic failure without coma (principal); K76.7 Hepatorenal syndrome; K70.31 Alcoholic cirrhosis of liver with ascites; N17.9 Acute kidney failure, unspecified; D69.59 Other secondary thrombocytopenia; E11.65 Type 2 diabetes mellitus with hyperglycemia; E87.0 Hyperosmolality and hypernatremia; E87.2 Acidosis; F10.10 Alcohol abuse, uncomplicated; I10 Essential (primary) hypertension; E78.5 Hyperlipidemia, unspecified; K29.70 Gastritis, unspecified, without bleeding; F32.9 Major depressive disorder, single episode, unspecified; E83.52 Hypercalcemia; Z79.4 Long term (current) use of insulin; Z91.14 Patient's other noncompliance with medication regimen; Z87.891 Personal history of nicotine dependence
CPT/HCPCS: 36415; 36600; 71010; 80048; 80053; 80061; 82140; 82803; 82962; 83690; 83930; 83935; 84300; 84484; 85025; 85610; 87081; 93005; 96374; 97110; 97116; 97162; 97530; C9113; J1815; J1940; J2060; J7030; J7040; J7070; P9047

== ENCOUNTER 2017-08-07 13:19 | Inpatient (IN) | payer OTHER ==
[~2017-08-07] VITALS: Ht 152.4 cm; Wt 73.2 kg
--- NOTE | 2017-08-07 13:33 | ERD ---
ER Documentation Chief Complaint Chief Complaint HPI 52-year-old woman brought in by EMS for recent confusion, patient does have a history of alcoholic cirrhosis and recurrent hepatic encephalopathy. Patient denies blood per rectum or melena, no fevers or chills, no complaints of chest pain or shortness of breath. HPI limited, but supplemented by reviewing past medical history. ROS All systems reviewed and are negative except as per history of present illness. Medications Home Meds Active Scripts [Lactulose] 20 GM/30 ML SOLN No Conflict Check, 20 GM PO DAILY for 30 Days Prov:DEMETRIA ZAVALA 03/10/17 Pantoprazole* (Pantoprazole*) 40 Mg Tablet.dr, 40 MG PO DAILY@06 for 30 Days Prov:DEMETRIA ZAVALA 03/10/17 Rifaximin* (Xifaxan*) 550 Mg Tablet, 550 MG PO BID for 30 Days, TAB Prov:DEMETRIA ZAVALA 03/10/17 Reported Medications Insulin Glargine* (Lantus*) 100 Unit/Ml Soln, 38 UNIT SC QHS, #1 VIAL 08/07/17 Insulin Lispro (Humalog) 100 Unit/1 Ml Cartridge, 18 UNIT SQ WITH MEALS 08/07/17 Metformin Hcl* (Metformin Hcl*) 1,000 Mg Tablet, 1000 MG PO BID, #30 TAB 02/22/17 Gabapentin* (Gabapentin*) 300 Mg Capsule, 300 MG PO TID, #90 CAP 02/22/17 Amlodipine Besylate* (Amlodipine Besylate*) 10 Mg Tablet, 10 MG PO DAILY, #30 TAB 02/22/17 Benazepril Hcl* (Benazepril Hcl*) 20 Mg Tablet, 20 MG PO DAILY, #30 TAB 02/22/17 Folic Acid* (Folic Acid*) 1 Mg Tablet, 1 MG PO DAILY, TAB 10/31/15 Lorazepam* (Lorazepam*) 1 Mg Tablet, 2 MG PO HS Y for ANXIETY, #30 TAB 10/31/15 Atorvastatin Calcium* (Atorvastatin Calcium*) 20 Mg Tablet, 20 MG PO QHS, #30 TAB 10/31/15 Discontinued Scripts Insulin Aspart* (Novolog Insulin Pen*) 100 Unit/Ml Soln, 5 UNIT SC AC MEALS for 30 Days Prov:DEMETRIA ZAVALA 7/12/17 Insulin Glargine* (Lantus*) 100 Unit/Ml Soln, 15 UNIT SC QHS for 30 Days Prov:DEMETRIA ZAVALA 03/10/17 Allergies Allergies: Coded Allergies: diphenhydramine HCl (Verified Allergy, Unknown, "MAKES ME CRAZY", 08/07/17) PMhx/Soc Cirrhosis secondary to prior alcoholism, diabetes mellitus, hypertension, recurrent hepatic encephalopathy History of Surgery: No Anesthesia Reaction: No Hx Neurological Disorder: No Hx Respiratory Disorders: No Hx Cardiac Disorders: No Hx Psychiatric Problems: No Hx Miscellaneous Medical Probl: Yes (see PT note) Hx Alcohol Use: No Hx Substance Use: No Hx Tobacco Use: No Smoking Status: Never smoker FmHx Family History: No diabetes Physical Exam Vitals Vital Signs Date Time Temp Pulse Resp B/P Pulse Ox O2 Delivery O2 Flow Rate FiO2 08/07/17 13:35 99.0 99 16 159/94 98 Per nursing records which I reviewed Physical Exam GENERAL: Well-developed, well-nourished, appears dehydrated, confused, afebrile HEENT: Dry mucous membranes, pink conjunctiva, no cervical spine deformity or tenderness, no Kernig's sign NEURO: Alert and oriented 2, appears confused, able to answer simple questions , no asterixis, no seizures, pupils equal round reactive to light CARDIAC: Tachycardic and regular, no murmurs rubs or gallops LUNGS: Clear bilaterally no wheezing crackles or stridor ABDOMEN: Soft nontender, no guarding, no rigidity, no rebound, no psoas sign no obturator sign. SKIN: Warm and dry to touch, no abrasions, contusions, or hematomas, no lacerations, no ecchymosis, no target lesions, and without ulcers EXTREMITIES: No clubbing cyanosis or edema, calves are bilaterally symmetrical, no Homans sign, no popliteal cord sign. Distal pulses equal and bilateral PSYCH: Agitated Result Diagram: 08/07/17 1331 08/07/17 1320 Results 24 hrs Laboratory Tests Test 08/07/17 13:20 08/07/17 13:31 Sodium Level 140mmol/L Potassium Level 5.9mmol/L Chloride Level 108mmol/L Carbon Dioxide Level 19mmol/L Anion Gap 19 Blood Urea Nitrogen 17mg/dl Creatinine 0.88mg/dl Glucose Level 215mg/dl Calcium Level 10.0mg/dl Total Bilirubin 1.4mg/dl Direct Bilirubin 0.00mg/dl Indirect Bilirubin 1.4mg/dl Aspartate Amino Transf (AST/SGOT) 49IU/L Alanine Aminotransferase (ALT/SGPT) 44IU/L Alkaline Phosphatase 142IU/L Troponin I < 0.012ng/ml Total Protein 7.6g/dl Albumin 4.1g/dl Globulin 3.50g/dl Albumin/Globulin Ratio 1.17 Lipase 372U/L White Blood Count 6.310^3/ul Red Blood Count 3.9910^6/ul Hemoglobin 12.4g/dl Hematocrit 37.1% Mean Corpuscular Volume 93.0fl Mean Corpuscular Hemoglobin 31.1pg Mean Corpuscular Hemoglobin Concent 33.4g/dl Red Cell Distribution Width 14.8% Platelet Count 5310^3/UL Mean Platelet Volume 14.0fl Neutrophils % 74.4% Lymphocytes % 16.5% Monocytes % 7.8% Eosinophils % 0.5% Basophils % 0.3% Nucleated Red Blood Cells % 0.0/100WBC Neutrophils # 4.710^3/ul Lymphocytes # 1.010^3/ul Monocytes # 0.510^3/ul Eosinophils # 0.010^3/ul Basophils # 0.010^3/ul Nucleated Red Blood Cells # 0.010^3/ul Prothrombin Time 15.1Sec Prothrombin Time Ratio 1.2 INR International Normalized Ratio 1.17 Ammonia 176umol/l Current Medications Medications (Trade) Dose Ordered Sig/Donnell Route PRN Reason Start Time Stop Time Status Last Admin Dose Admin Sodium Chloride (NS) 500 ml @ 500 mls/hr Q1H STAT IV 08/07/17 13:51 08/07/17 14:50 DC Lactulose (Enulose) 20 gm ONCE ONCE PO 08/07/17 14:00 08/07/17 14:01 DC Dextrose (D50w Syringe) 50 ml ONCE STAT IV 08/07/17 14:58 08/07/17 14:59 UNV Insulin Human Regular 8 unit 8 unit ONCE ONCE IV 08/07/17 15:00 08/07/17 15:01 UNV Calcium Gluconate/ Sodium Chloride (Ca Gluc/NS) 110 ml @ 110 mls/hr ONCE ONCE IVPB 08/07/17 15:00 08/07/17 15:59 UNV Procedures/MDM IV line was established patient was placed on gambling monitor rhythm strip revealed a sinus tachycardia at about 120 bpm with upright P and T waves. Patient was afebrile EKG performed, read by me revealed a sinus tachycardia at 116 bpm, normal axis, narrow QRS complex, no concerning ST elevations or depressions noted. One view chest x-ray performed, read by me there is congestion bilaterally, no acute infiltrates, no pneumothorax. Patient given lactulose 20 g p.o. for suspected hyperammonemia, and 500 cc normal saline IV 1 for dehydration. CBC revealed thrombocytopenia 53 consistent with her history, electrolytes revealed hyperkalemia 5.9, liver function tests were abnormal, troponin was negative, urine analysis is pending I will follow-up, if positive she will be treated with IV antibiotics. Critical Care: Time: 37 minutes, this was time separate from other billable procedures. Treatments/Evaluations: Close monitoring and treatment of unstable vital signs, cardiorespiratory, and neurologic status, while maintaining tight balance of fluid, respiratory, and cardiac interventions. For acute hyperkalemia patient was given dextrose 25 g IV, regular insulin 8 units IV 1, calcium gluconate 1 g IV 1, and Kayexalate 30 g p.o. Ammonia level elevated at 176. Patient's vital signs are normal at this time and she will be admitted to telemetry setting for continued medical management. Departure Diagnosis: Primary Impression: Acute hepatic encephalopathy Additional Impressions: Acute hyperkalemia Dehydration Hyperammonemia Thrombocytopenia Condition: ALEX Donahue MD Aug 07, 2017 13:33
[2017-08-07] MEDS ORDERED: SOD CHLORIDE 0.9% 500 ML IV STA (13:51)
[2017-08-07 14:00] LABS: ABNORMAL IP MESSAGE 1; BASOPHILS % 0.3 % (0.0-2.0); EOSINOPHILS % 0.5 % (0.0-7.0); HEMATOCRIT 37.1 % (37.0-47.0); HEMOGLOBIN 12.4 g/dl (12.0-16.0); LYMPHOCYTES % 16.5 % (15.0-51.0); MEAN CORPUSCULAR HEMOGLOBIN 31.1 pg (29.0-33.0); MEAN CORPUSCULAR HGB CONC 33.4 g/dl (32.0-37.0); MONOCYTE # 0.5 10^3/ul (0.3-0.9); MONOCYTES % 7.8 % (0.0-11.0); NEUTROPHIL # 4.7 10^3/ul (1.6-7.5); NEUTROPHILS % 74.4 % (39.0-77.0); PLATELET COUNT 53 10^3/UL (140-415); RED BLOOD COUNT 3.99 10^6/ul (4.20-5.40); RED CELL DISTRIBUTION WIDTH 14.8 % (11.5-14.5); WHITE BLOOD COUNT 6.3 10^3/ul (4.8-10.8)
[2017-08-07] MEDS ORDERED: LACTULOSE 30ML CUP PO ONE (14:00)
[2017-08-07 14:08] LABS: POSITIVE DIFF @See below
[2017-08-07] MEDS ORDERED: INSU100C SQ (14:21)
[2017-08-07] MEDS ORDERED: LANT3I SC (14:22)
[2017-08-07 14:23] LABS: INR 1.17; PROTIME 15.1 Sec (11.9-14.9); PT RATIO 1.2
[2017-08-07 14:29] LABS: ALANINE AMINOTRANSFERASE 44 IU/L (13-69); ALBUMIN 4.1 g/dl (3.3-4.9); ALBUMIN/GLOBULIN RATIO 1.17; ALKALINE PHOSPHATASE 142 IU/L (42-121); ANION GAP 19 (8-16); ASPARTATE AMINO TRANSFERASE 49 IU/L (15-46); BILIRUBIN,INDIRECT 1.4 mg/dl (0-1.1); BILIRUBIN,TOTAL 1.4 mg/dl (0.2-1.3); BLOOD UREA NITROGEN 17 mg/dl (7-20); CARBON DIOXIDE 19 mmol/L (21-31); CHLORIDE 108 mmol/L (97-110); CREATININE 0.88 mg/dl (0.44-1.00); GLUCOSE 215 mg/dl (70-220); SODIUM 140 mmol/L (135-144); TOTAL PROTEIN 7.6 g/dl (6.1-8.1)
[2017-08-07 14:32] LABS: POTASSIUM 5.9 mmol/L (3.5-5.1)
[2017-08-07 14:41] LABS: TROPONIN-I < 0.012 ng/ml (0.00-0.12)
[2017-08-07] MEDS ORDERED: DEXTROSE 50% 50 ML SYRINGE IV STA (14:58)
[2017-08-07] MEDS ORDERED: CALCIUM GLUCONATE 10% 1 GM in SOD CHLORIDE 0.9% 100 ML IVPB ONE (15:00)
[2017-08-07] MEDS ORDERED: INSULIN REGULAR, HUMAN 100 UNIT/1 ML 3ML VIAL IV ONE (15:00)
--- NOTE | 2017-08-07 15:26 | RADRPT ---
PROCEDURE: XR Chest. CLINICAL INDICATION: Abdominal pain TECHNIQUE: Frontal chest x-ray was obtained. COMPARISON: And chest x-ray April 01, 2016 FINDINGS: Heart is not enlarged. Mediastinum is not widened. No hilar masses seen. Lungs are clear of any infi ltrates. There is no effusion or pneumothorax. IMPRESSION: No evidence for active cardiopulmonary disease. .Darshan Flores MD, MD Date Time Electronically viewed and signed by .Darshan Flores MD, on 08/07/2017 15:26 .A/
[2017-08-07] MEDS ORDERED: NA POLYST SULFON 15 GM/60 ML BTL PO ONE (15:30)
[2017-08-07 17:12] VITALS: TEMP 99
[2017-08-07 21:55] VITALS: PULSE 90
[2017-08-07 22:03] VITALS: Ht 152.4 cm; Wt 73.2 kg
[2017-08-07 22:33] VITALS: BP 136/70; PULSE 79; RESP 18
[2017-08-07] MEDS: INSULIN GLARGINE [LANtus] 3 ML PEN SC SCH ×2 (23:00→23:07)
[2017-08-07] MEDS: RIFAXIMIN 550 MG TAB PO SCH (23:07)
[2017-08-07] MEDS: LACTULOSE 30ML CUP NGT SCH (23:22)
[2017-08-08] VITALS (12 sets, daily range): BP systolic 104–130; BP diastolic 56–72; PULSE 62–75; RESP 16–20
[2017-08-08] MEDS: ACCU-CHEK XX SCH ×5 (02:00→20:39)
[2017-08-08] MEDS: PANTOPRAZOLE (EC) 40 MG TAB PO SCH (05:36)
[2017-08-08] MEDS: LACTULOSE 30ML CUP NGT SCH ×4 (05:36→23:54)
[2017-08-08 07:20] LABS: ABNORMAL IP MESSAGE 1; BASOPHILS % 0.5 % (0.0-2.0); EOSINOPHILS # 0.2 10^3/ul (0.0-0.5); EOSINOPHILS % 3.7 % (0.0-7.0); HEMATOCRIT 33.8 % (37.0-47.0); HEMOGLOBIN 11.6 g/dl (12.0-16.0); LYMPHOCYTES # 1.4 10^3/ul (0.8-2.9); LYMPHOCYTES % 31.3 % (15.0-51.0); MEAN CORPUSCULAR HEMOGLOBIN 31.8 pg (29.0-33.0); MEAN CORPUSCULAR HGB CONC 34.3 g/dl (32.0-37.0); MEAN CORPUSCULAR VOLUME 92.6 fl (82.0-101.0); MEAN PLATELET VOLUME 13.6 fl (7.4-10.4); MONOCYTE # 0.5 10^3/ul (0.3-0.9); MONOCYTES % 11.8 % (0.0-11.0); NEUTROPHIL # 2.3 10^3/ul (1.6-7.5); NEUTROPHILS % 52.5 % (39.0-77.0); PLATELET COUNT 38 10^3/UL (140-415); RED BLOOD COUNT 3.65 10^6/ul (4.20-5.40); RED CELL DISTRIBUTION WIDTH 14.6 % (11.5-14.5); WHITE BLOOD COUNT 4.3 10^3/ul (4.8-10.8)
[2017-08-08 07:29] LABS: POSITIVE DIFF @See below
[2017-08-08 07:37] LABS: CALCIUM 9.6 mg/dl (8.4-10.2); CREATININE 0.7 mg/dl (0.44-1.00); POTASSIUM 3.9 mmol/L (3.5-5.1)
[2017-08-08] MEDS: INSULIN ASPART [NOVOLOG] 3 ML PEN SC SCH ×7 (07:50→20:33)
[2017-08-08] MEDS ORDERED: INSULIN ASPART [NOVOLOG] 3 ML PEN SC SCH (08:00)
[2017-08-08] MEDS: RIFAXIMIN 550 MG TAB PO SCH ×2 (08:26→20:31)
[2017-08-08] MEDS: FOLIC ACID 1 MG TAB PO SCH (08:26)
[2017-08-08] MEDS: GABAPENTIN 300 MG CAP PO SCH ×3 (08:26→20:31)
[2017-08-08] MEDS: AMLODIPINE 10 MG TAB PO SCH (08:27)
[2017-08-08] MEDS: BENAZEPRIL 20 MG TAB PO SCH (08:27)
--- NOTE | 2017-08-08 12:16 | HP ---
Date/Time of Note Date/Time of Note DATE: 08/08/17 TIME: 12:15 Assessment/Plan VTE Prophylaxis VTE Prophylaxis Intervention: other Lines/Catheters [facility] Saline Lock Urinary Cath still in place: No Assessment/Plan Chief Complaint/Hosp Course 1) cirrhosis - lactulose - monitor clinically Problems: HPI/ROS Admit Date/Time Admit Date/Time Aug 07, 2017 at 15:17 Hx of Present Illness Patient with a history of liver cirrhosis and encephalopathy comes in with altered level of consciousness. Patient will be admitted for further treatment and evaluation. Patient was given lactulose overnight and patient is doing much better today PMH/Family/Social Past Medical History cirrhosis Past Surgical History Past Surgical Hx: other Social History Smoking Status: Unknown if ever smoked Exam/Review of Systems Vital Signs Vitals Vital Signs Date Time Temp Pulse Resp B/P Pulse Ox O2 Delivery O2 Flow Rate FiO2 08/08/17 11:59 98.8 79 18 104/56 94 08/07/17 22:33 Room Air Intake and Output 08/07/17 08/07/17 08/08/17 15:00 23:00 07:00 Intake Total 120 ml 240 ml Balance 120 ml 240 ml Exam Constitutional: well developed Head: atraumatic, normocephalic Neck: supple Respiratory: clear to auscultation Cardiovascular: regular rate and rhythm Gastrointestinal: non-tender, soft Extremities: normal pulses Labs Result Diagram: 08/08/1744 08/08/1744 Medications Medications Current Medications Lactulose (Enulose) 20 gm Q6 NGT Last administered on 08/08/17 05:36; Admin Dose 20 GM; Start 08/08/17 at 00:00 Amlodipine Besylate (Norvasc) 10 mg DAILY PO Last administered on 08/08/17 08 :27; Admin Dose 10 MG; Start 08/08/17 at 09:00 Atorvastatin Calcium (Lipitor) 20 mg QHS PO ; Start 08/08/17 at 21:00 Benazepril HCl (Lotensin) 20 mg DAILY PO Last administered on 08/08/17 08:27 ; Admin Dose 20 MG; Start 08/08/17 at 09:00 Folic Acid (Folic Acid) 1 mg DAILY PO Last administered on 08/08/17 08:26; Admin Dose 1 MG; Start 08/08/17 at 09:00 Gabapentin (Neurontin) 300 mg TID PO Last administered on 08/08/17 08:26; Admin Dose 300 MG; Start 08/08/17 at 09:00 Pantoprazole (Protonix Tab) 40 mg DAILY@06 PO Last administered on 08/08/17 05:36; Admin Dose 40 MG; Start 08/08/17 at 06:00 Rifaximin (Xifaxan) 550 mg BID PO Last administered on 08/08/17 08:26; Admin Dose 550 MG; Start 08/07/17 at 22:30 Diagnostic Test (Pha) (Accu-Chek) 1 ea 02 XX ; Start 08/08/17 at 02:00 Insulin Glargine (Lantus) 38 unit QHS SC ; Start 08/07/17 at 23:00 URI KATZ Aug 08, 2017 12:16
[2017-08-08] MEDS ORDERED: DEXTROSE 50% 50 ML SYRINGE IV PRN ×2 (14:00)
[2017-08-08] MEDS ORDERED: GLUCOSE GEL 15 GRAM TUBE BUCCAL PRN (14:00)
[2017-08-08] MEDS ORDERED: GLUCOSE GEL 15 GRAM TUBE PO PRN ×2 (14:00)
[2017-08-08] MEDS ORDERED: GLUCAGON 1 MG INJ IM PRN (14:00)
[2017-08-08] MEDS: ATORVASTATIN 20 MG TAB PO SCH (20:31)
[2017-08-08] MEDS: INSULIN GLARGINE [LANtus] 3 ML PEN SC SCH ×2 (20:32→20:34)
[2017-08-09] VITALS (12 sets, daily range): BP systolic 99–137; BP diastolic 55–74; PULSE 58–85; RESP 16–20
[2017-08-09] MEDS: ACCU-CHEK XX SCH ×5 (02:02→21:53)
[2017-08-09] MEDS: LACTULOSE 30ML CUP NGT SCH ×4 (05:36→23:47)
[2017-08-09] MEDS: PANTOPRAZOLE (EC) 40 MG TAB PO SCH (05:36)
[2017-08-09 08:22] LABS: ABNORMAL IP MESSAGE 1; BASOPHIL # 0.1 10^3/ul (0.0-0.1); EOSINOPHILS # 0.2 10^3/ul (0.0-0.5); EOSINOPHILS % 4.7 % (0.0-7.0); HEMATOCRIT 39.4 % (37.0-47.0); HEMOGLOBIN 13.1 g/dl (12.0-16.0); LYMPHOCYTES # 1.8 10^3/ul (0.8-2.9); LYMPHOCYTES % 33.9 % (15.0-51.0); MEAN CORPUSCULAR HEMOGLOBIN 31.4 pg (29.0-33.0); MEAN CORPUSCULAR HGB CONC 33.2 g/dl (32.0-37.0); MEAN CORPUSCULAR VOLUME 94.5 fl (82.0-101.0); MONOCYTE # 0.5 10^3/ul (0.3-0.9); MONOCYTES % 10.5 % (0.0-11.0); NEUTROPHIL # 2.6 10^3/ul (1.6-7.5); NEUTROPHILS % 49.7 % (39.0-77.0); RED BLOOD COUNT 4.17 10^6/ul (4.20-5.40); RED CELL DISTRIBUTION WIDTH 14.6 % (11.5-14.5); WHITE BLOOD COUNT 5.2 10^3/ul (4.8-10.8)
--- NOTE | 2017-08-09 08:25 | PQ ---
Date/Time of Note Date/Time of Note DATE: 08/09/17 TIME: 08:20 Physician Query Documentation Clarification Dear Dr. Wong, A review of the medical record found a need for documentation clarification. Hx of Present Illness Patient with a history of liver cirrhosis and encephalopathy comes in with altered level of consciousness. Patient will be admitted for further treatment and evaluation. Patient was given lactulose overnight and patient is doing much better today Ammonia = 176 Please clarify/ specify the type of encephalopathy being treated. To facilitate accurate and complete coding, please orquidea ( x ) the suspected diagnosis that apply: ( x ) Acute hepatic encephalopathy see progress note 08/09 Santosh Mackenzie NP ( ) Metabolic encephalopathy ( ) Other Please provide your response by clicking edit document, making your choice ( x ), click ok/save and finally click sign. You may also document your response on your progress notes. Thank you for your time. With appreciation, Kota Buchanan RN, BSN, CCS, CCDS Clinical [facility] Health Information Management, CDI and Coding Services [phone] Room # 1525 - Coding [address]~ [address] KOTA BUCHANAN Aug 09, 2017 08:25
[2017-08-09 08:26] LABS: POSITIVE DIFF @See below
[2017-08-09 08:27] LABS: PLATELET COUNT 54 10^3/UL (140-415)
[2017-08-09 08:43] LABS: CALCIUM 9.8 mg/dl (8.4-10.2); CREATININE 0.78 mg/dl (0.44-1.00); POTASSIUM 4.4 mmol/L (3.5-5.1)
[2017-08-09] MEDS: GABAPENTIN 300 MG CAP PO SCH ×3 (08:51→21:52)
[2017-08-09] MEDS: BENAZEPRIL 20 MG TAB PO SCH (08:51)
[2017-08-09] MEDS: RIFAXIMIN 550 MG TAB PO SCH ×2 (08:51→21:52)
[2017-08-09] MEDS: AMLODIPINE 10 MG TAB PO SCH (08:52)
[2017-08-09] MEDS: FOLIC ACID 1 MG TAB PO SCH (08:52)
[2017-08-09] MEDS: INSULIN ASPART [NOVOLOG] 3 ML PEN SC SCH ×7 (08:54→21:55)
--- NOTE | 2017-08-09 17:45 | PN ---
Date/Time of Note Date/Time of Note DATE: 08/09/17 TIME: 17:45 Assessment/Plan VTE Prophylaxis VTE Prophylaxis Intervention: SCD's Lines/Catheters [facility] Saline Lock Urinary Cath still in place: No Assessment/Plan Chief Complaint/Hosp Course Pt is awake, alert, episode of hyperglycemia. Problems: Assessment/Plan -Acute hepatic encephalopathy, resolving. Continue Lactulose. -Alcoholic Liver cirrhosis - DM, check HgbA1c, continue Lantus and Novolog - HTN D/W Dr Dickson. Exam/Review of Systems Vital Signs Vitals Vital Signs Date Time Temp Pulse Resp B/P Pulse Ox O2 Delivery O2 Flow Rate FiO2 08/09/17 16:06 67 08/09/17 15:43 97.3 18 99/55 97 08/07/17 22:33 Room Air Intake and Output 08/08/17 08/08/17 08/09/17 15:00 23:00 07:00 Intake Total 220 ml 280 ml Balance 220 ml 280 ml Exam Constitutional: alert, oriented Head: normocephalic Neck: supple Respiratory: normal air movement Cardiovascular: nl pulses Gastrointestinal: non-tender, soft Extremities: normal pulses Neurological: nl mental status Skin: nl turgor Results Result Diagram: 08/09/17 0731 08/09/17 0731 Results 24 hrs Laboratory Tests Test 08/08/17 20:23 08/09/17 05:36 08/09/17 07:31 08/09/17 07:40 Bedside Glucose 188 214 195 White Blood Count 5.2 # Red Blood Count 4.17 L Hemoglobin 13.1 Hematocrit 39.4 Mean Corpuscular Volume 94.5 Mean Corpuscular Hemoglobin 31.4 Mean Corpuscular Hemoglobin Concent 33.2 Red Cell Distribution Width 14.6 H Platelet Count 54 #L Mean Platelet Volume Neutrophils % 49.7 Lymphocytes % 33.9 Monocytes % 10.5 Eosinophils % 4.7 Basophils % 1.0 Nucleated Red Blood Cells % 0.0 Neutrophils # 2.6 Lymphocytes # 1.8 Monocytes # 0.5 Eosinophils # 0.2 Basophils # 0.1 Nucleated Red Blood Cells # 0.0 Sodium Level 143 Potassium Level 4.4 Chloride Level 106 Carbon Dioxide Level 26 Anion Gap 15 Blood Urea Nitrogen 12 Creatinine 0.78 Glucose Level 228 H Calcium Level 9.8 Ammonia 63 #H Test 08/09/17 11:58 08/09/17 17:17 Bedside Glucose 131 404 *H Medications Medications Current Medications Lactulose (Enulose) 20 gm Q6 NGT Last administered on 08/09/17 17:27; Admin Dose 20 GM; Start 08/08/17 at 00:00 Amlodipine Besylate (Norvasc) 10 mg DAILY PO Last administered on 08/09/17 08 :52; Admin Dose 10 MG; Start 08/08/17 at 09:00 Atorvastatin Calcium (Lipitor) 20 mg QHS PO Last administered on 08/08/17 20: 31; Admin Dose 20 MG; Start 08/08/17 at 21:00 Benazepril HCl (Lotensin) 20 mg DAILY PO Last administered on 08/09/17 08:51 ; Admin Dose 20 MG; Start 08/08/17 at 09:00 Folic Acid (Folic Acid) 1 mg DAILY PO Last administered on 08/09/17 08:52; Admin Dose 1 MG; Start 08/08/17 at 09:00 Gabapentin (Neurontin) 300 mg TID PO Last administered on 08/09/17 11:58; Admin Dose 300 MG; Start 08/08/17 at 09:00 Pantoprazole (Protonix Tab) 40 mg DAILY@06 PO Last administered on 08/09/17 05:36; Admin Dose 40 MG; Start 08/08/17 at 06:00 Rifaximin (Xifaxan) 550 mg BID PO Last administered on 08/09/17 08:51; Admin Dose 550 MG; Start 08/07/17 at 22:30 Diagnostic Test (Pha) (Accu-Chek) 1 ea 02 XX Last administered on 08/09/17 02 :02; Admin Dose 1 EA; Start 08/08/17 at 02:00 Insulin Glargine (Lantus) 38 unit QHS SC ; Start 08/07/17 at 23:00 Miscellaneous Information 1 ea NOTE XX ; Start 08/08/17 at 14:00 Glucose (Glutose) 15 gm Q15M PRN PO DECREASED GLUCOSE; Start 08/08/17 at 14:00 Glucose (Glutose) 22.5 gm Q15M PRN PO DECREASED GLUCOSE; Start 08/08/17 at 14: 00 Dextrose (D50w Syringe) 25 ml Q15M PRN IV DECREASED GLUCOSE; Start 08/08/17 at 14:00 Dextrose (D50w Syringe) 50 ml Q15M PRN IV DECREASED GLUCOSE; Start 08/08/17 at 14:00 Glucagon (Glucagen) 1 mg Q15M PRN IM DECREASED GLUCOSE; Start 08/08/17 at 14: 00 Glucose (Glutose) 15 gm Q15M PRN BUCCAL DECREASED GLUCOSE; Start 08/08/17 at 14:00 DEMETRIA ZAVALA Aug 09, 2017 17:45
[2017-08-09] MEDS: ATORVASTATIN 20 MG TAB PO SCH (21:52)
[2017-08-09] MEDS: INSULIN GLARGINE [LANtus] 3 ML PEN SC SCH (21:54)
[2017-08-10] VITALS (11 sets, daily range): BP systolic 111–123; BP diastolic 58–65; PULSE 61–77; RESP 17–20
[2017-08-10] MEDS: ACCU-CHEK XX SCH ×5 (02:54→21:25)
[2017-08-10] MEDS: LACTULOSE 30ML CUP NGT SCH ×4 (05:26→21:26)
[2017-08-10] MEDS: PANTOPRAZOLE (EC) 40 MG TAB PO SCH (05:26)
[2017-08-10 07:35] LABS: ABNORMAL IP MESSAGE 1; BASOPHILS % 0.9 % (0.0-2.0); EOSINOPHILS # 0.2 10^3/ul (0.0-0.5); EOSINOPHILS % 4.9 % (0.0-7.0); HEMOGLOBIN 11.4 g/dl (12.0-16.0); LYMPHOCYTES # 1.3 10^3/ul (0.8-2.9); LYMPHOCYTES % 31.1 % (15.0-51.0); MEAN CORPUSCULAR HEMOGLOBIN 31.5 pg (29.0-33.0); MEAN CORPUSCULAR HGB CONC 33.5 g/dl (32.0-37.0); MEAN CORPUSCULAR VOLUME 93.9 fl (82.0-101.0); MEAN PLATELET VOLUME 13.7 fl (7.4-10.4); MONOCYTE # 0.6 10^3/ul (0.3-0.9); MONOCYTES % 13.2 % (0.0-11.0); NEUTROPHIL # 2.1 10^3/ul (1.6-7.5); NEUTROPHILS % 49.7 % (39.0-77.0); PLATELET COUNT 44 10^3/UL (140-415); RED BLOOD COUNT 3.62 10^6/ul (4.20-5.40); RED CELL DISTRIBUTION WIDTH 14.2 % (11.5-14.5); WHITE BLOOD COUNT 4.3 10^3/ul (4.8-10.8)
[2017-08-10 07:39] LABS: POSITIVE DIFF @See below
[2017-08-10 07:54] LABS: CALCIUM 8.8 mg/dl (8.4-10.2); CREATININE 0.92 mg/dl (0.44-1.00); POTASSIUM 4.7 mmol/L (3.5-5.1)
[2017-08-10] MEDS: FOLIC ACID 1 MG TAB PO SCH (08:20)
[2017-08-10] MEDS: GABAPENTIN 300 MG CAP PO SCH ×3 (08:20→21:25)
[2017-08-10] MEDS: BENAZEPRIL 20 MG TAB PO SCH (08:21)
[2017-08-10] MEDS: RIFAXIMIN 550 MG TAB PO SCH ×2 (08:21→21:25)
[2017-08-10] MEDS: AMLODIPINE 10 MG TAB PO SCH (08:21)
[2017-08-10] MEDS: INSULIN ASPART [NOVOLOG] 3 ML PEN SC SCH ×7 (08:22→21:28)
[2017-08-10] MEDS ORDERED: RIFA550T4 PO (13:12)
[2017-08-10] MEDS ORDERED: PANT40TA4 PO (13:12)
[2017-08-10] MEDS ORDERED: LACT20SO2 PO (13:12)
[2017-08-10] MEDS ORDERED: PROP20TA4 PO (13:12)
--- NOTE | 2017-08-10 18:54 | DS ---
Date/Time of Note Date/Time of Note DATE: 08/10/17 TIME: 18:51 Discharge Summary Admission/Discharge Info Admit Date/Time Aug 07, 2017 at 15:17 Discharge Date/Time Patient Condition: Stable Hx of Present Illness Patient is 52-year-old female with alcoholic liver disease. Patient was brought to the hospital by patient's daughter stating that patient is being confused. Ammonia level was 179 on admission. Patient was diagnosed with acute hepatic encephalopathy and being admitted for further evaluation and management. Hospital Course -Acute hepatic encephalopathy, resolved. -Alcoholic Liver cirrhosis - DM, continue Lantus and Novolog - HTN D/W Dr Dickson. Home Meds Active Scripts Propranolol Hcl* (Propranolol Hcl*) 20 Mg Tablet, 20 MG PO BID for 30 Days, TAB Prov:DEMETRIA ZAVALA 08/10/17 Lactulose* (Lactulose*) 20 Gm/30 Ml Solution, 20 GM PO BID for 30 Days, ML Prov:DEMETRIA ZAVALA 08/10/17 Pantoprazole* (Pantoprazole*) 40 Mg Tablet., 40 MG PO DAILY@06 for 30 Days Prov:DEMETRIA ZAVALA 08/10/17 Rifaximin* (Xifaxan*) 550 Mg Tablet, 550 MG PO BID for 30 Days, TAB Prov:DEMETRIA ZAVALA 08/10/17 Reported Medications Insulin Glargine* (Lantus*) 100 Unit/Ml Soln, 38 UNIT SC QHS, #1 VIAL 08/07/17 Insulin Lispro (Humalog) 100 Unit/1 Ml Cartridge, 18 UNIT SQ WITH MEALS 08/07/17 Metformin Hcl* (Metformin Hcl*) 1,000 Mg Tablet, 1000 MG PO BID, #30 TAB 02/22/17 Folic Acid* (Folic Acid*) 1 Mg Tablet, 1 MG PO DAILY, TAB 10/31/15 Atorvastatin Calcium* (Atorvastatin Calcium*) 20 Mg Tablet, 20 MG PO QHS, #30 TAB 10/31/15 Discontinued Reported Medications Gabapentin* (Gabapentin*) 300 Mg Capsule, 300 MG PO TID, #90 CAP 02/22/17 Amlodipine Besylate* (Amlodipine Besylate*) 10 Mg Tablet, 10 MG PO DAILY, #30 TAB 02/22/17 Benazepril Hcl* (Benazepril Hcl*) 20 Mg Tablet, 20 MG PO DAILY, #30 TAB 02/22/17 Lorazepam* (Lorazepam*) 1 Mg Tablet, 2 MG PO HS Y for ANXIETY, #30 TAB 10/31/15 Discontinued Scripts [Lactulose] 20 GM/30 ML SOLN No Conflict Check, 20 GM PO DAILY for 30 Days Prov:LUCASDEMETRIA 03/10/17 Insulin Aspart* (Novolog Insulin Pen*) 100 Unit/Ml Soln, 5 UNIT SC AC MEALS for 30 Days Prov:DEMETRIA ZAVALA 03/10/17 Insulin Glargine* (Lantus*) 100 Unit/Ml Soln, 15 UNIT SC QHS for 30 Days Prov:DEMETRIA ZAVALA 03/10/17 Follow-up Plan Follow-up with PMD in 2 weeks Primary Care Provider Melita Shah Time spent on discharge: > 30 minutes Pending Labs Laboratory Tests Test 08/09/17 21:50 08/10/17 02:24 08/10/17 07:01 08/10/17 08:18 Bedside Glucose 205mg/dL (70-220) 258mg/dL (70-220) 186mg/dL (70-220) White Blood Count 4.310^3/ul (4.8-10.8) Red Blood Count 3.6210^6/ul (4.20-5.40) Hemoglobin 11.4g/dl (12.0-16.0) Hematocrit 34.0% (37.0-47.0) Mean Corpuscular Volume 93.9fl (82.0-101.0) Mean Corpuscular Hemoglobin 31.5pg (29.0-33.0) Mean Corpuscular Hemoglobin Concent 33.5g/dl (32.0-37.0) Red Cell Distribution Width 14.2% (11.5-14.5) Platelet Count 4410^3/UL (140-415) Mean Platelet Volume 13.7fl (7.4-10.4) Neutrophils % 49.7% (39.0-77.0) Lymphocytes % 31.1% (15.0-51.0) Monocytes % 13.2% (0.0-11.0) Eosinophils % 4.9% (0.0-7.0) Basophils % 0.9% (0.0-2.0) Nucleated Red Blood Cells % 0.0/100WBC (0.0-0.0) Neutrophils # 2.110^3/ul (1.6-7.5) Lymphocytes # 1.310^3/ul (0.8-2.9) Monocytes # 0.610^3/ul (0.3-0.9) Eosinophils # 0.210^3/ul (0.0-0.5) Basophils # 0.010^3/ul (0.0-0.1) Nucleated Red Blood Cells # 0.010^3/ul (0.0-0.0) Sodium Level 139mmol/L (135-144) Potassium Level 4.7mmol/L (3.5-5.1) Chloride Level 108mmol/L (97-110) Carbon Dioxide Level 25mmol/L (21-31) Anion Gap 11 (8-16) Blood Urea Nitrogen 18mg/dl (7-20) Creatinine 0.92mg/dl (0.44-1.00) Glucose Level 210mg/dl (70-220) Hemoglobin A1c 6.2% (0-5.9) Calcium Level 8.8mg/dl (8.4-10.2) Ammonia 104umol/l (9-30) Test 08/10/17 12:21 08/10/17 17:20 Bedside Glucose 76mg/dL (70-220) 150mg/dL (70-220) DEMETRIA ZAVALA Aug 10, 2017 18:54
[2017-08-10] MEDS: ATORVASTATIN 20 MG TAB PO SCH (21:25)
[2017-08-10] MEDS: INSULIN GLARGINE [LANtus] 3 ML PEN SC SCH (21:29)
== END 2017-08-10 22:40 | disposition home or self-care (01) | DRG 442 ==
LOC: E/R 13:19 → MS4 15:17
PROVIDERS: ADMIT Internal Medicine; ATTEND Internal Medicine
DX: K72.00 Acute and subacute hepatic failure without coma (principal); E72.20 Disorder of urea cycle metabolism, unspecified; D69.6 Thrombocytopenia, unspecified; E87.5 Hyperkalemia; E86.0 Dehydration; I10 Essential (primary) hypertension; K70.30 Alcoholic cirrhosis of liver without ascites; E11.9 Type 2 diabetes mellitus without complications; Z79.4 Long term (current) use of insulin
CPT/HCPCS: 36415; 71010; 80048; 80053; 82140; 82962; 83036; 83690; 84484; 85025; 85610; 93005; 96374; 96375; J0610; J1815; J7040

== ENCOUNTER 2017-08-13 18:46 | Inpatient (IN) | END 2017-08-27 17:45 | disposition home or self-care (01) | DRG 434 ==

== ENCOUNTER 2017-10-27 08:25 | Inpatient (IN) | END 2017-11-02 18:15 | disposition home or self-care (01) | DRG 442 ==

== ENCOUNTER 2017-12-03 21:01 | Inpatient (IN) | END 2017-12-04 12:50 | disposition home or self-care (01) | DRG 88 ==

== ENCOUNTER 2018-05-03 08:08 | Emergency (ER) | END 2018-05-03 16:16 | disposition home or self-care (01) ==

== ENCOUNTER 2018-05-11 08:52 | Day surgery (SDC) | END 2018-05-11 15:53 | disposition home or self-care (01) ==

== ENCOUNTER 2018-07-07 14:46 | Day surgery (SDC) | END 2018-07-08 17:32 | disposition home or self-care (01) ==

== ENCOUNTER 2019-04-12 13:47 | Day surgery (SDC) | payer OTHER ==
[~2019-04-12] VITALS: Ht 152.4 cm; Wt 69.7 kg
[~2019-04-12 13:47] MED LIST changes: -AMLO-147 PO; +AMLO-218 PO; +BENA20TA4 PO; -BENA20TA48 PO; +FERR325T5 PO; -GABA300C16 PO; +INSU100C SQ; +INSU100I33 SC; +LACT20SO2 PO; -LANT3I SC; -LORA1TAB PO; -Lactulose PO; -METF1000 PO; +METO10TA92 PO; -NOVO3I SC; +OMEP40CA6 PO; -PANT40TA4 PO; +SPIR100T4 PO; +[UNRECOGNIZED DRUG - OTHER] PO
--- NOTE | 2019-04-12 14:45 | PREAC ---
Date/Time of Note Date/Time of Note DATE: 04/12/19 TIME: 14:44 Anesthesia Eval and Record Evaluation Time Pre-Procedure Interview DATE: 04/12/19 TIME: 14:44 Age 53 Sex female NPO: 8 hrs Preoperative diagnosis esophageal varices Planned procedure EGD Past Medical History Past Medical History: Includes Cardio: HTN, Dyslipidemia Endo: Diabetes Hepatic: Cirrhosis Heme: Thrombocytopenia Surgery & Anesthesia Issues No known issue Meds Anticoagulation: No Beta Lu within 24 hr: No Reason Beta Lu not given: Pt. not on B-Lu Reported Medications Omeprazole* (Omeprazole*) 40 Mg Capsule.dr, 40 MG PO DAILY, #30 CAP 07/08/18 Insulin Glargine,Hum.rec.anlog (Basaglar Kwikpen U-100) 100 Unit/1 Ml Insuln.pen, 30 UNIT SC QHS, EA 05/03/18 Rifaximin* (Xifaxan*) 550 Mg Tablet, 550 MG PO BID, TAB 05/03/18 Lactulose* (Lactulose*) 20 Gm/30 Ml Solution, 20 GM PO BID, ML 05/03/18 Insulin Lispro (Humalog) 100 Unit/1 Ml Cartridge, 9 UNIT SQ WITH MEALS, EA 05/03/18 Ferrous Sulfate (Ferrous Sulfate) 325 Mg Tablet.dr, 325 MG PO TID 12/03/17 Spironolactone* (Spironolactone*) 100 Mg Tablet, 25 MG PO BID, TAB 12/03/17 Folic Acid* (Folic Acid*) 1 Mg Tablet, 1 MG PO DAILY, TAB 12/03/17 Benazepril Hcl* (Benazepril Hcl*) 20 Mg Tablet, 20 MG PO DAILY, #30 TAB 12/03/17 Amlodipine Besylate* (Norvasc*) 10 Mg Tablet, 10 MG PO DAILY, TAB 12/03/17 Atorvastatin Calcium* (Atorvastatin Calcium*) 20 Mg Tablet, 20 MG PO QHS, #30 TAB 10/31/15 Meds reviewed: Yes Allergies Coded Allergies: diphenhydramine HCl (Verified Allergy, Unknown, "MAKES ME CRAZY", 05/11/18) Allergies Reviewed: Yes Labs/Studies Labs Reviewed: Reviewed by anesthesiologist test: N/A Pre-procedure Exam Airway: Adequate mouth opening, Adequate thyromental dist Mallampati: Mallampati II (menopausal) Teeth: Normal Lung: Normal Heart: Normal ASA Physical Status ASA physical status: 3 Emergency: None Planned Anesthetic General/MAC: Mask Planned Pain Management Parenteral pain med Pre-operative Attestations Prior to commencing anesthesia and surgery, the patient was re-evaluated, there was verification of: *The patient's identity *The results of appropriate recent lab work and preoperative vital signs *The above evaluation not changing prior to induction *Anesthetic plan, risk benefits, alternative and complications discussed with patient/family; questions answered; patient/family understands, accepts and wishes to proceed. RUDDY PAUL MD Apr 12, 2019 14:45
[2019-04-12 14:49] VITALS: Ht 152.4 cm; Wt 69.7 kg
[2019-04-12] MEDS ORDERED: ONDANSETRON 4 MG INJ IV PRN (15:30)
[2019-04-12] MEDS ORDERED: DEXTROSE 50% 50 ML SYRINGE IV PRN ×2 (15:30)
[2019-04-12] MEDS ORDERED: INSULIN ASPART [NOVOLOG] 3 ML PEN SC ONE (15:30)
[2019-04-12] MEDS ORDERED: hydrALAzine 20 MG INJ IV PRN (15:30)
[2019-04-12] MEDS ORDERED: GLUCAGON 1 MG INJ IM PRN (15:30)
[2019-04-12] MEDS ORDERED: HYDROmorphONE 1 MG/5 ML IV SYRINGE IV PRN (15:30)
[2019-04-12] MEDS ORDERED: GLUCOSE GEL 15 GRAM TUBE BUCCAL PRN (15:30)
[2019-04-12] MEDS ORDERED: LABETALOL HCL 20MG INJ IV PRN (15:30)
[2019-04-12] MEDS ORDERED: GLUCOSE GEL 15 GRAM TUBE PO PRN ×2 (15:30)
[2019-04-12] MEDS ORDERED: FENTAnyl 50 MCG/ML VIAL IV PRN (15:30)
[2019-04-12 15:41] VITALS: BP 126/73; PULSE 58; RESP 24
[2019-04-12] MEDS ORDERED: LIDOCAINE 2% (SDV) 5 ML INJ ONE (16:13)
[2019-04-12] MEDS ORDERED: PROPOFOL 20 ML ONE (16:13)
--- NOTE | 2019-04-12 16:55 | PAC ---
Date/Time of Note Date/Time of Note DATE: 04/12/19 TIME: 16:54 Post-Anesthesia Notes Post-Anesthesia Note Last documented vital signs Vital Signs Date Temp Pulse Resp B/P (MAP) Pulse Ox O2 O2 Flow FiO2 Time Delivery Rate 04/12/19 97.8 58 24 126/73 99 Room Air 15:41 (90) Activity: WNL Respiratory function: WNL Cardiovascular function: WNL Mental status: Baseline Pain reasonably controlled: Yes Hydration appropriate: Yes Nausea/Vomiting absent: Yes Comments BP: 111/60 HR: 69 RR: 15 T: 98 SaO2: 100% RUDDY PAUL MD Apr 12, 2019 16:55
[2019-04-12 17:15] VITALS: BP 120/68; PULSE 58; RESP 19
== END 2019-04-12 17:34 | disposition home or self-care (01) ==
LOC: GIL 13:47
PROVIDERS: ATTEND Internal Medicine Gastroenterology
DX: I85.00 Esophageal varices without bleeding (principal); K76.6 Portal hypertension; K31.89 Other diseases of stomach and duodenum; K29.30 Chronic superficial gastritis without bleeding; E11.9 Type 2 diabetes mellitus without complications; Z79.4 Long term (current) use of insulin
CPT/HCPCS: 43239; 82962; 88305; 88312; J1815; Z7610